=== PATIENT | male | born 1945 | race Caucasian/White ===

== ENCOUNTER 2018-12-31 05:00 | Inpatient (IN) ==
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
[2018-12-31] MEDS ORDERED: CEFAZOLIN 2000MG 2,000 MG/15 ML SYR IV SCH (06:00)
[2018-12-31] MEDS ORDERED: LR 15ML/HR IV SCH ×2 (06:00)
[2018-12-31] MEDS ORDERED: BUPIVACAINE/EPINEPHRINE 0.5% MPF 1:200,000 30 ML VIAL ONE ×2 (06:34→06:45)
[2018-12-31] MEDS ORDERED: MIDAZOLAM HCL 1 MG/ML 2ML VIAL ONE (06:38)
[2018-12-31] MEDS ORDERED: fentaNYL citrate 100 MCG/2 ML VIAL ONE (06:38)
[2018-12-31] MEDS ORDERED: LIDOCAINE HCL 2% 2 ML VIAL/AMP(20MG/ML) INFIL ONE (06:38)
[2018-12-31] MEDS ORDERED: PROPOFOL IV EMULSION 10 MG/ML 20 ML VIAL IV ONE (06:38)
[2018-12-31] MEDS ORDERED: DEXAMETHASONE SOD INJ 4 MG/ML VIAL ONE (06:38)
[2018-12-31] MEDS ORDERED: ONDANSETRON INJ 2 MG/ML 2 ML VIAL ONE (06:38)
[2018-12-31] MEDS ORDERED: LIDOCAINE HCL 1% 20 ML VIAL ONE (06:46)
--- NOTE | 2018-12-31 07:00 | History & Physical Bridge Note ---
Date of Service December 31, 2018 History & Physical Bridge Note I have examined the patient, reviewed the History & Physical and in the interval since the performance of the History & Physical I have noted the following changes of clinical significance: no changes noted
[2018-12-31] MEDS ORDERED: ePHEDrine sulfate 50 MG/ML SYR ONE (07:35)
[2018-12-31] MEDS ORDERED: POVIDONE-IODINE OP SOLN 30 ML BTL ONE (07:59)
[2018-12-31] MEDS ORDERED: ATROPINE SULFATE 0.1 MG/ML 10ML SYR IV PRN (08:06)
[2018-12-31] MEDS ORDERED: FLUMAZENIL 0.1 MG/1 ML 10 ML VIAL IV PRN (08:06)
[2018-12-31] MEDS ORDERED: fentaNYL citrate 100 MCG/2 ML VIAL IV PRN (08:06)
[2018-12-31] MEDS ORDERED: ONDANSETRON INJ 2 MG/ML 2 ML VIAL IV PRN ×2 (08:06→09:36)
[2018-12-31] MEDS ORDERED: PROMETHAZINE HCL 12.5 MG in SODIUM CHLORIDE 0.9% 50 ML IV PRN (08:06)
[2018-12-31] MEDS ORDERED: LABETALOL HCL IV 5 MG/ML 20ML IV PRN (08:06)
[2018-12-31] MEDS ORDERED: ePHEDrine sulfate 50 MG/ML AMP IV PRN (08:06)
[2018-12-31] MEDS ORDERED: NALOXONE HCL 0.4 MG/1 ML VIAL/CARP IV PRN ×2 (08:06→09:36)
--- NOTE | 2018-12-31 08:18 | Post Operative Brief Note ---
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
--- NOTE | 2018-12-31 08:23 | Fluoroscopy Report ---
FL foot LT 2V CLINICAL HISTORY: LT FOOT FOURTH RAY RESECTION COMPARISON STUDY: Left foot 12/24/2018. FLUOROSCOPY TIME: 1.3 seconds. FINDINGS: Single fluoroscopic spot image of the left foot demonstrate amputation of the left fourth d igit. IMPRESSION: Fluoroscopy provided for left fourth toe amputation. Electronically signed by: Aleksandr Ayala M.D. 12/31/2018 8:21 AM
--- NOTE | 2018-12-31 08:35 | Operative Report ---
Post Operative Report Pre & Post Diagnosis Operation Date: 12/31/18 07:00 Pre-Op Diagnosis: Left Foot Fourth Metatarsal Osteomyelitis Post-Op Diagnosis: Left Foot Fourth Metatarsal Osteomyelitis Procedure Operation Date: 12/31/18 07:00 Actual Procedures p Left Foot Fourth Ray Resection(Left) - Dimitri Sousa MD Surgeon Coby Reagan. Home Service Advisor randal [place] Estimated Blood Loss 10 Findings Consistent with Post-Op Diagnosis Specimens Left fourth metatarsal, left foot sinus tract Anesthesia Type General Complications none Disposition Accompanied Patient To Recovery: No Disposition: Recovery Room Description of Procedure Patient was taken to the operating room and placed under general anesthesia. He was given 2 g of IV Ancef for surgical prophylaxis. Time out was performed. He is prepped and draped in routine sterile fashion. I was present during the entire case and assisted with exposure, removal the fourth metatarsal, intraoperative x-rays, hemostasis and closure. Please see Dr. Sousa's operative report for further detail. Patient was awakened and transferred to the recovery room in stable condition. I attest to the content of the Intraoperative Record and any orders documented therein. Any exceptions are noted below.
--- NOTE | 2018-12-31 08:53 | Operative Report ---
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 He has had a spinal cord injury. He also had severe injury to his left foot with reconstructive surgery in the past. He has had a intermittently draining wound on the plantar aspect of his foot for over a year. Recently he had a bout of cellulitis. X-rays show substantial midfoot arthritis. MRI shows a fluid collection with bony edema and destruction of the fourth metatarsal head consistent with osteomyelitis. The fourth ray is healed in a plantar flexed position and is prominent plantarly. Treatment options risks and benefits discussed and they would like to proceed with operative intervention. Description of Procedure Informed consent obtained. Patient identified. He identified the operative site as a left foot fourth ray. I marked with my initials. Preoperative surgical timeout performed. Preop dose of IV antibiotics given. He was taken to the operating room positioned supine on the OR table. Bony prominences were inspected and padded. General anesthetic was administered. A bump was placed under the left hip and a tourniquet on the left thigh. There was a nondraining plantar callosity of the small pinpoint area centrally. The fourth metatarsal head was notably prominent. There was deformity of the foot. Ankle and midfoot are notably arthritic. Achilles did not appear to be appreciably tight. The calf was very withered. Fluoroscopic guidance was utilized throughout the case. DVT prophylaxis with SCDs. The limb was exsanguinated with the Esmarch. The Esmarch was wrapped around the hindfoot and leg but not the forefoot. Tourniquet inflated 250 mmHg. After manipulating the foot for examination there was a small amount of the plantar sinus. I then made an ellipsoid incision and excised the plantar sinus as well as what appeared to be the sinus tract cyst wall and part of the metatarsal head. I then made a longitudinal incision incorporating a prior proximal incision. A tennis racquet incision was made around the base of the fourth toe. The incision was taken down to bone on the metatarsal and around the capsule of the metatarsal phalangeal joint which was markedly deformed secondary to claw toe deformity. The fourth ray was transected about mid metatarsal. It was then subperiosteally dissected out. At the level of metatarsophalangeal joint the pseudocapsule cyst wall and joint capsule were all excised en vicki. Care was taken to not enter the third or fifth spaces. Proper metatarsal as well as level of resection were identified fluoroscopically. Metatarsal was beveled proximally. None of the other metatarsals were notably prominent. I then performed sharp excisional debridement of the remainder of the pseudocyst wall and debris distally. Tourniquet was let down and meticulous hemostasis was performed. The culture was obtained after removing the plantar callosity at the beginning of the surgery. The resected bone and tissue was sent for specimen. Irrigation was performed with Betadine lavage x5 500 cc followed by sterile normal saline. The dorsal incision was closed with interrupted 3-0 nylon sutures. Local anesthetic was injected in all incisions. Plantarly packed half inch iodoform gauze into the wound. A soft sterile dressing Xeroform 4 x 4's Garret wrap and postop shoe were applied. Postoperatively DVT prophylaxis with SCDs. He will need to be nonweightbearing. He ambulates very minimally and usually scoots around on his buttocks. I would recommend [facility]. Also will consult ID and will consult wound care nurse for wound VAC tomorrow. He will be placed on IV antibiotics. Specimens mentioned above. Counts correct. Blood loss 10 cc. At the onclusion the operation spoke patient's family informed of my findings. Postoperative instructions were given. I attest to the content of the Intraoperative Record and any orders documented therein. Any exceptions are noted below.
--- NOTE | 2018-12-31 09:30 | Anesthesiology Progress Note ---
Date of Service December 31, 2018 Anesthesia Post Procedure Vital Signs Vital Signs: Temp Pulse Pulse Resp BP Pulse Ox 12/31/18 09:10 37.2 C 64 16 123/80 94 12/31/18 09:00 67 21 119/76 93 12/31/18 08:50 64 17 127/85 95 12/31/18 08:40 90 16 132/72 96 12/31/18 08:33 37 C 80 16 109/84 97 12/31/18 05:35 36.4 C L 65 20 125/82 95 Transfer of Care Handoff Completed per policy Notes Mental Status: alert / awake / arousable Patient Amnestic to Procedure: Yes Nausea / Vomiting: adequately controlled Pain: adequately controlled Airway Patency, RR, SpO2: stable & adequate BP & HR: stable & adequate Hydration State: stable & adequate Anesthetic Complications: no major complications apparent
[2018-12-31] MEDS ORDERED: TRAMADOL HCL 50 MG TABLET PO PRN (09:36)
[2018-12-31] MEDS ORDERED: MAGNESIUM HYDROXIDE SUSP 30 ML UDC PO PRN (09:36)
[2018-12-31] MEDS ORDERED: HYDROmorphone INJ 0.5 MG/0.5 ML SYR IV PRN (09:36)
[2018-12-31] MEDS ORDERED: OXYCODONE HCL IR 5 MG TAB (IMMEDIATE RELEASE) PO PRN (09:36)
[2018-12-31] MEDS ORDERED: METOCLOPRAMIDE HCL INJ 5 MG/ML 2 ML VIAL IV PRN (09:36)
[2018-12-31] MEDS ORDERED: BISACODYL 10 MG SUPP PR PRN (09:36)
[2018-12-31] MEDS: SODIUM CHLORIDE 0.9% 1000ML 1,000 ML IV SCH ×2 (10:03→22:10)
[2018-12-31] MEDS: MULTIVITAMIN TAB PO SCH (10:40)
[2018-12-31] MEDS: DOCUSATE SODIUM 100 MG CAP PO SCH ×2 (10:41→20:16)
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
[2018-12-31] MEDS: ACETAMINOPHEN 500 MG TAB PO SCH ×2 (13:53→22:09)
[2018-12-31] MEDS: CEFAZOLIN 2000MG 2,000 MG/15 ML SYR IV SCH ×2 (16:09→23:29)
--- NOTE | 2018-12-31 16:58 | Orthopedic Progress Note ---
Date of Service December 31, 2018 Assessment & Plan (1) Chronic osteomyelitis of left foot: Discussed surgical findings. Reviewed plan. Continue elevation icing pain medicine and antibiotics. Will await culture results. Plan to apply wound VAC tomorrow. Plan for rehab versus [facility]. For now he needs to be nonweightbearing on the left foot. Present on Admission?: Yes Subjective Pain well controlled. Otherwise comfortable and tolerating a regular diet. Physical Exam Physical Exam: Capillary refill less than 2 seconds. Foot is warm. Dressing intact without drainage. He does not have any voluntary movement due to his paralysis. He does report intact sensation. Results & Data Vital Signs (Past 12 Hours) Vital Signs Temp Pulse Pulse Pulse Resp BP Pulse Ox 12/31/18 14:57 36.6 C 106 H 18 111/70 96 12/31/18 12:21 94 H 18 115/76 94 12/31/18 11:22 75 18 120/73 93 12/31/18 10:25 64 18 125/76 12/31/18 10:00 65 18 118/76 92 12/31/18 09:10 37.2 C 64 16 123/80 94 12/31/18 09:00 67 21 119/76 93 12/31/18 08:50 64 17 127/85 95 12/31/18 08:40 90 16 132/72 96 12/31/18 08:33 37 C 80 16 109/84 97 12/31/18 05:35 36.4 C L 65 20 125/82 95
[2018-12-31] MEDS: SENNA 8.6 MG TAB PO SCH (20:16)
[2018-12-31] MEDS: LISINOPRIL 20 MG TAB PO SCH (20:17)
[2019-01-01] MEDS: ACETAMINOPHEN 500 MG TAB PO SCH ×3 (05:41→21:44)
[2019-01-01 05:54] LABS: Hematocrit (blood only) 47.5 % (42-52); Hemoglobin 16.7 g/dL (14.0-18.0); Mean Corpuscular Hgb Conc 35.2 g/dL (32-36); Mean Corpuscular Volume 88.5 fL (80-100); Platelet Count 209 K/uL (130-400); RDW Coefficient of Variation 14.1 % (11.5-14.5); RDW Standard Deviation 45.2 fL (36.4-46.3); Red Blood Count 5.37 M/uL (4.7-6.1); White Blood Count 14.33 K/uL (4.8-10.8)
[2019-01-01 06:28] LABS: Calcium 9.3 mg/dl (8.5-10.1); Creatinine Clr Calc Pharmacy 57.2 ml/min; Est GFR (African American) 79.7; Est GFR (Non-African American) 68.8; Potassium 3.8 mmol/L (3.5-5.1)
[2019-01-01] MEDS: CEFAZOLIN 2000MG 2,000 MG/15 ML SYR IV SCH ×3 (08:00→23:26)
[2019-01-01] MEDS: DOCUSATE SODIUM 100 MG CAP PO SCH ×2 (08:41→20:05)
[2019-01-01] MEDS: MULTIVITAMIN TAB PO SCH (08:41)
--- NOTE | 2019-01-01 10:42 | Orthopedic Progress Note ---
Date of Service January 01, 2019 Assessment & Plan (1) Chronic osteomyelitis of left foot: Mechanical devices for DVT prophylaxis. Continue Ancef and await infectious diseases input. Cultures are growing gram-positive cocci. We are prepared to do a PICC line if necessary. Wound VAC has been applied. Transfer to [facility] hopefully is pending in the next day or so. White count likely elevated secondary to stress. Nonweightbearing on the left side. Wheelchair. Present on Admission?: Yes Subjective No problems. Pain well controlled. Physical Exam Physical Exam: Dorsalis pedis 2+. Dorsal incision benign. Plantar incision open. He does not have motor function. He can feel his toes and has capillary refill less than 2 seconds. There is minimal swelling and no substantial erythema. A wound VAC is applied with Griselda Brown. Results & Data Vital Signs (Past 12 Hours) Vital Signs Temp Pulse Pulse Resp BP Pulse Ox 01/01/19 07:38 36.6 C 63 16 118/78 94 01/01/19 02:50 36.6 C 64 14 135/78 95 12/31/18 23:00 37.0 C 71 14 134/75 96 Laboratory Results 01/01/19 01/01/19 Range/Units 05:35 05:35 WBC 14.33 H (4.8-10.8) K/uL RBC 5.37 (4.7-6.1) M/uL Hgb 16.7 (14.0-18.0) g/dL Hct 47.5 (42-52) % MCV 88.5 (80-100) fL MCH 31.1 (25-34) pg MCHC 35.2 (32-36) g/dL RDW Std Deviation 45.2 (36.4-46.3) fL RDW Coeff of Maggie 14.1 (11.5-14.5) % Plt Count 209 (130-400) K/uL MPV 11.0 H (7.4-10.4) fL Sodium 142 (136-145) mmol/L Potassium 3.8 (3.5-5.1) mmol/L Chloride 108 H (98-107) mmol/L Carbon Dioxide 25 (21-32) mmol/L Anion Gap 9.0 (3-11) BUN 12 (7-18) mg/dl Creatinine 1.06 (0.6-1.4) mg/dl Est Cr Clr Drug Dosing 57.2 ml/min Est GFR ( Amer) 79.7 Est GFR (Non-Af Amer) 68.8 BUN/Creatinine Ratio 11.0 (10-20) Glucose 103 H (70-99) mg/dl Calcium 9.3 (8.5-10.1) mg/dl Specimen Hemolysis Microbiology 12/31/18 07:40 Gram Stain - Final Toe,Left Fourth
--- NOTE | 2019-01-01 15:25 | Infectious Disease Progress Nt ---
Date of Service January 01, 2019 Assessment & Plan (1) Chronic osteomyelitis of left foot: 73-year-old male with chronic osteomyelitis of the left foot now status post resection. Patient will continue on IV cefazolin for now pending final culture results and sensitivities. Will follow. Subjective Patient seen in follow-up for left foot infection. Pain is controlled. Offers no new complaints. Remains afebrile. Cultures growing staph species. Review of Systems Review of Systems: All systems reviewed & are unremarkable except as noted in HPI & below Physical Exam Constitutional: WD/WN, vitals as above comfortable; no acute distress Eyes: PERRL, conjunctivae normal, anicteric sclerae ENMT: external ear and nose normal, oropharynx normal Neck: trachea midline, no thyromegaly neck nontender Respiratory: normal respiratory effort, lungs clear to auscultation normal percussion; does not use accessory muscles Cardiovascular: Rate/Rhythm: regular rate and regular rhythm Heart Sounds: normal S1 and normal S2; no gallop, no murmur and no cardiac rub Vessels: normal peripheral pulses; no JVD Gastrointestinal (Abdomen): normal bowel sounds, soft, nontender, no hepatosp lenomegaly Musculoskeletal: Spine: thoracic spine normal to inspection and lumbar spine normal to inspection; no cervical spinal tenderness Skin: no rashes, warm and dry normal turgor Neurologic: moves all extremities and awake; no focal motor deficits Psychiatric: A+Ox3, euthymic affect Orientation: cooperative Lymphatic: no cervical or axillary lymphadenopathy no inguinal lymphadenopathy Results & Data Vital Signs (Past 12 Hours) Vital Signs Temp Pulse Pulse Resp BP BP Pulse Ox 01/01/19 15:15 36.4 C L 73 16 105/70 92 01/01/19 12:31 36.4 C L 76 18 118/72 93 01/01/19 07:38 36.6 C 63 16 118/78 94 Laboratory Results Short CBC 01/01/19 Range/Units 05:35 WBC 14.33 H (4.8-10.8) K/uL Hgb 16.7 (14.0-18.0) g/dL Hct 47.5 (42-52) % Plt Count 209 (130-400) K/uL BMP 01/01/19 05:35 Sodium 142 Potassium 3.8 Chloride 108 H Carbon Dioxide 25 BUN 12 Creatinine 1.06 Glucose 103 H Calcium 9.3 Diagnostic Findings Microbiology 12/31/18 07:40 Toe,Left Fourth Gram Stain - Final 12/31/18 07:40 Toe,Left Fourth Aerobic and Anaerobic Culture - Preliminary Staphylococcus species
[2019-01-01] MEDS: LISINOPRIL 20 MG TAB PO SCH (20:05)
[2019-01-01] MEDS: SENNA 8.6 MG TAB PO SCH (20:05)
[2019-01-02] MEDS: ACETAMINOPHEN 500 MG TAB PO SCH ×3 (05:48→21:12)
[2019-01-02] MEDS: MULTIVITAMIN TAB PO SCH (08:44)
[2019-01-02] MEDS: CEFAZOLIN 2000MG 2,000 MG/15 ML SYR IV SCH ×3 (08:44→23:19)
[2019-01-02] MEDS: DOCUSATE SODIUM 100 MG CAP PO SCH ×2 (08:44→21:11)
--- NOTE | 2019-01-02 16:47 | Orthopedic Progress Note ---
Date of Service January 02, 2019 Assessment & Plan (1) Chronic osteomyelitis of left foot: Mechanical devices for DVT prophylaxis. Continue Ancef and await infectious diseases input. Cultures are growing gram-positive cocci, sensitivities pending. We are prepared to do a PICC line if necessary. Wound VAC has been applied - will plan to change on Sunday prior to discharge. Transfer to [facility] when authorization is obtained and sensitivities finalized to determine what antibiotic he needs. Plans to hopefully discharge on Sunday. Nonweightbearing on the left side. Wheelchair as needed out of bed. Post op shoe left foot at all times. Will re-eval in AM. Subjective Patient seen in follow-up for left foot infection. Pain is controlled. Offers no new complaints. Remains afebrile. Cultures growing staph species. Results & Data Vital Signs (Past 12 Hours) Vital Signs Temp Pulse Resp BP Pulse Ox 01/02/19 15:14 36.6 C 73 17 109/72 96 01/02/19 07:10 36.7 C 65 18 111/67 91
[2019-01-02] MEDS: LISINOPRIL 20 MG TAB PO SCH (21:12)
[2019-01-02] MEDS: SENNA 8.6 MG TAB PO SCH (21:12)
--- NOTE | 2019-01-02 21:28 | Infectious Disease Progress Nt ---
Date of Service January 02, 2019 Assessment & Plan (1) Chronic osteomyelitis of left foot: 73-year-old male with chronic osteomyelitis of the left foot now status post resection. Patient will continue on IV cefazolin for now pending final culture results and sensitivities. Will follow. Subjective Patient seen in follow-up for left foot infection. Pain is controlled. Offers no new complaints. Remains afebrile. Cultures growing staph species. Review of Systems Review of Systems: All systems reviewed & are unremarkable except as noted in HPI & below Physical Exam Constitutional: WD/WN, vitals as above comfortable; no acute distress Eyes: PERRL, conjunctivae normal, anicteric sclerae ENMT: external ear and nose normal, oropharynx normal Neck: trachea midline, no thyromegaly neck nontender Respiratory: normal respiratory effort, lungs clear to auscultation normal percussion; does not use accessory muscles Cardiovascular: Rate/Rhythm: regular rate and regular rhythm Heart Sounds: normal S1 and normal S2; no gallop, no murmur and no cardiac rub Vessels: normal peripheral pulses; no JVD Gastrointestinal (Abdomen): normal bowel sounds, soft, nontender, no hepatosp lenomegaly Musculoskeletal: Spine: thoracic spine normal to inspection and lumbar spine normal to inspection; no cervical spinal tenderness Skin: no rashes, warm and dry normal turgor Neurologic: moves all extremities and awake; no focal motor deficits Psychiatric: A+Ox3, euthymic affect Orientation: cooperative Lymphatic: no cervical or axillary lymphadenopathy no inguinal lymphadenopathy Results & Data Vital Signs (Past 12 Hours) Vital Signs Temp Pulse Resp BP Pulse Ox 01/02/19 15:14 36.6 C 73 17 109/72 96 Laboratory Results Laboratory Results - last 48 hr 01/01/19 01/01/19 05:35 05:35 WBC 14.33 H RBC 5.37 Hgb 16.7 Hct 47.5 MCV 88.5 MCH 31.1 MCHC 35.2 RDW Std Deviation 45.2 RDW Coeff of Maggie 14.1 Plt Count 209 MPV 11.0 H Sodium 142 Potassium 3.8 Chloride 108 H Carbon Dioxide 25 Anion Gap 9.0 BUN 12 Creatinine 1.06 Est Cr Clr Drug Dosing 57.2 Est GFR ( Amer) 79.7 Est GFR (Non-Af Amer) 68.8 BUN/Creatinine Ratio 11.0 Glucose 103 H Calcium 9.3 Specimen Hemolysis Diagnostic Findings Microbiology 05/28/19 07:40 Toe,Left Fourth Gram Stain - Final 12/31/18 07:40 Toe,Left Fourth Aerobic and Anaerobic Culture - Preliminary Staphylococcus species
[2019-01-03] MEDS: ACETAMINOPHEN 500 MG TAB PO SCH ×2 (05:49→14:59)
[2019-01-03] MEDS: CEFAZOLIN 2000MG 2,000 MG/15 ML SYR IV SCH (07:26)
[2019-01-03] MEDS: DOCUSATE SODIUM 100 MG CAP PO SCH (08:13)
[2019-01-03] MEDS: MULTIVITAMIN TAB PO SCH (08:13)
[2019-01-03] MEDS ORDERED: DAPTOmycin 400 MG in SYRINGE 0 ML IV SCH (11:00)
[2019-01-03] MEDS ORDERED: DAPTOmycin 500 MG VIAL IV SCH (11:00)
[2019-01-03] MEDS ORDERED: VANCOMYCIN CONSULT ACTIVE PRN (12:59)
--- NOTE | 2019-01-03 13:05 | Orthopedic Progress Note ---
Date of Service January 03, 2019 Assessment & Plan (1) Chronic osteomyelitis of left foot: Change wound VAC today. Spoke with Dr. Kraft. Daptomycin as best minimum inhibitory concentrations. Vancomycin is next best. Case management has informed us that the detention facility will not accept on daptomycin. We will change to vancomycin with pharmacy consult. Insert PICC line. Patient will follow-up with Dr. Kraft in 1 to 2 weeks and will see me in 7 to 10 days. No weight on the leg. Elevate. Continue wound VAC with change 3 times per week. Present on Admission?: Yes Subjective No problems reported. Physical Exam Physical Exam: Dressing intact. Await change of wound VAC later today. Results & Data Vital Signs (Past 12 Hours) Vital Signs Temp Pulse Resp BP Pulse Ox 01/03/19 07:45 36.4 C L 79 20 117/72 97 Laboratory Results Microbiology 12/31/18 07:40 Gram Stain - Final Toe,Left Fourth Aerobic and Anaerobic Culture - Preliminary Coag neg staph not lugdunensis
--- NOTE | 2019-01-03 14:42 | Pharmacy Report ---
Pharmacy Abx Initial Consult - Date of Service January 03, 2019 - Pharmacy Dosing Scope Date of Consult: 01/03/19 Consultation requested by: Suad Oconnor PA-C Pharmacy is consulted to initiate Vancomycin IV dosing therapy, order appropriate labs and adjust drug dose/frequency. - Subjective The patient is a 73 year old M admitted on 01/01/19 09:59. - Objective Height: 5 ft 7 in Weight: 76.26 kg Vital Signs (Past 12hrs): Vital Signs Temp Pulse Resp BP Pulse Ox 01/03/19 07:45 36.4 C L 79 20 117/72 97 Micro Results: Microbiology 12/31/18 07:40 Toe,Left Fourth Gram Stain - Final 12/31/18 07:40 Toe,Left Fourth Aerobic and Anaerobic Culture - Preliminary Coag neg staph not lugdunensis- Susceptible to Dapto, Vanco, Bactrim and Tetracycline. Resistant to Oxacillin, Erythromycin, Clindamycin - Risk Factors for Resistance * Antimicrobial use within the last 90 days [Clindamycin PO for current infection] - Assessment & Plan Assessment 73 year old M with chronic Osteomyelitis ongoing since September this year. He was recently on Clindamycin for this but failed therapy. While admitted he was started on Ancef gm IV q8h on 12/31 but discontinued this morning since culture results came back R to Oxacillin and S to Daptomycin (JACQUES </= 0.5), Vanco (JACQUES = 2). Daptomycin 6 mg/kg IV q24h was ordered but [facility] will not accept this so this was switched to Vancomycin IV. However patient did receive the first dose of Daptomycin at noon today so he will not need Vancomycin until tomorrow at noon. If patient is discharged today then would start with a loading dose of Vanco 2 gm IV tomorrow at noon. Plan Vancomycin IV * Estimated PK Parameters: Vd 0.7 L/kg, Paulo 0.055 hr-1, t1/2 12.6 hr * Loading dose: 2000 mg (26 mg/kg) * Maintenance dose: 1250 mg IV (16.4 mg/kg) every 16 hours * Goal trough level for Osteomyelitis: 17 to 20 mcg/mL * Trough level ordered for 6/3 before dose at 1000 (after 2 maintenance doses). Pharmacy will continue to follow and will adjust dose/frequency as necessary while admitted. Thank you.
--- NOTE | 2019-01-03 16:14 | Infectious Disease Progress Nt ---
Date of Service January 03, 2019 Assessment & Plan (1) Chronic osteomyelitis of left foot: 73-year-old male with chronic osteomyelitis of the left foot now status post resection. Patient will be treated with daptomycin or vancomycin. Would like to see in 2-3 weeks in f/u. Subjective Patient seen in follow-up for left foot infection. Pain is controlled. Offers no new complaints. Remains afebrile. Cultures growing resistant coag neg Staph. Physical Exam Constitutional: WD/WN, vitals as above comfortable; no acute distress Eyes: PERRL, conjunctivae normal, anicteric sclerae ENMT: external ear and nose normal, oropharynx normal Neck: trachea midline, no thyromegaly neck nontender Respiratory: normal respiratory effort, lungs clear to auscultation normal percussion; does not use accessory muscles Cardiovascular: Rate/Rhythm: regular rate and regular rhythm Heart Sounds: normal S1 and normal S2; no gallop, no murmur and no cardiac rub Vessels: normal peripheral pulses; no JVD Gastrointestinal (Abdomen): normal bowel sounds, soft, nontender, no hepatosplenomegaly Musculoskeletal: Spine: thoracic spine normal to inspection and lumbar spine normal to inspection; no cervical spinal tenderness Skin: no rashes, warm and dry normal turgor Neurologic: moves all extremities and awake; no focal motor deficits Psychiatric: A+Ox3, euthymic affect Orientation: cooperative Lymphatic: no cervical or axillary lymphadenopathy no inguinal lymphadenopathy Results & Data Vital Signs (Past 12 Hours) Vital Signs Temp Pulse Pulse Pulse Resp BP BP 01/03/19 15:18 36.4 C L 79 76 76 20 118/72 117/72 01/03/19 07:45 36.4 C L 79 20 117/72 Pulse Ox 01/03/19 15:18 97 01/03/19 07:45 97
--- NOTE | 2019-01-03 16:41 | Discharge Summary ---
Date of Service January 03, 2019 Discharge Data Consultations 12/31/18 09:36 Consult Case Management - Discharge Planning Routine Consult Infectious Diseases Routine Procedures Performed Operation Date: 12/31/18 07:00 Actual Procedures p Left Foot Fourth Ray Resection(Left) - Dimitri Sousa MD Hospital Course (1) Chronic osteomyelitis of left foot: Patient was admitted to [facility] after undergoing an elective left foot fourth metatarsal ray resection for osteomyelitis on December 31, 2018. This was done by Dr. Dimitri Sousa. His surgery was performed with general anesthesia. He tolerated the procedure well without any intraoperative complications. He was given 2 g of IV Ancef for surgical prophylaxis which was continued after surgery. Intraoperative x-rays confirmed excision of the 4th metatarsal. Given a regular diet after the procedure and tolerated during his inpatient stay. He was allowed out of bed, nonweightbearing left lower extremity with the assistance of a walker or wheelchair. Postoperative she was placed on his left foot and to remain on at all times. Postoperative day one and wound VAC was placed on his left foot. This was again changed on Thursday, January 03, 2019. Intraoperative cultures were obtained and cultures finalized with coag negative staph lugdunesis. Sensitivities were noted. ID consult was placed and recommended IV daptomycin for treatment. PICC line was also recommended and informed consent was obtained and a PICC line was placed on January 03, 2019. He was [facility]. He requests to [facility]. They will not except on IV daptomycin due to the Li. His IV antibiotic was switched IV vancomycin January 03, 2019. He did not have any postoperative pain. Pain medications were prescribed to take on an as-needed basis and included Tylenol, oxycodone and tramadol. He was on AV foot pumps and SAMUEL stockings for DVT prophylaxis. Recommended elevation. He tolerated the wound VAC without difficulty.He is also seen and evaluated by PT and OT and did well out of bed. He will follow up next week as scheduled with Dr. Sousa. He was discharged to [facility] in stable condition on January 03, 2019. Discharge Instructions as per EMR
[2019-01-04] MEDS ORDERED: VANCOMYCIN HCL 2,000 MG in SODIUM CHLORIDE 0.9% 500 ML IV SCH (11:00)
[2019-01-05] MEDS ORDERED: VANCOMYCIN HCL 1,250 MG in SODIUM CHLORIDE 0.9% 250 ML IV SCH (02:00)
[2019-01-06] MEDS ORDERED: VANCOMYCIN TROUGH ONE (09:30)
== END 2019-01-03 16:34 | DRG 476 ==
LOC: ASU 05:00 → 3E 05:00
DX: Z87.828 Personal history of other (healed) physical injury and trauma; Z86.19 Personal history of other infectious and parasitic diseases; Z79.899 Other long term (current) drug therapy; M86.672 Other chronic osteomyelitis, left ankle and foot; Z86.69 Personal history of other diseases of the nervous system and sense organs; Z98.890 Other specified postprocedural states; B95.7 Other staphylococcus as the cause of diseases classified elsewhere; I10 Essential (primary) hypertension; Z87.891 Personal history of nicotine dependence

== ENCOUNTER 2019-07-26 18:37 | Inpatient (IN) ==
[2019-07-26] MEDS ORDERED: SODIUM CHLORIDE 0.9% 1000ML 1,000 ML IV ONE (18:47)
[2019-07-26 18:54] LABS: Basophils # (auto) 0.03 K/uL (0-0.2); Basophils % (auto) 0.2 %; Eosinophils # (auto) 0.14 K/uL (0-0.5); Hematocrit (blood only) 51.4 % (42-52); Hemoglobin 18.1 g/dL (14.0-18.0); Immature Granulocytes # (auto) 0.03 K/uL (0.00-0.02); Immature Granulocytes % (auto) 0.2 %; Lymphocytes # (auto) 1.49 K/uL (1.2-3.4); Lymphocytes % (auto) 10.8 %; Mean Corpuscular Hemoglobin 30.7 pg (25-34); Mean Corpuscular Hgb Conc 35.2 g/dL (32-36); Mean Corpuscular Volume 87.3 fL (80-100); Mean Platelet Volume 12.1 fL (7.4-10.4); Monocytes # (auto) 0.98 K/uL (0.11-0.59); Monocytes % (auto) 7.1 %; Neutrophils # (auto) 11.09 K/uL (1.4-6.5); Neutrophils % (auto) 80.7 %; Platelet Count 210 K/uL (130-400); RDW Coefficient of Variation 13.7 % (11.5-14.5); RDW Standard Deviation 43.2 fL (36.4-46.3); Red Blood Count 5.89 M/uL (4.7-6.1); White Blood Count 13.76 K/uL (4.8-10.8)
[2019-07-26] MEDS ORDERED: PIPERACILLIN/TAZOBACTAM 4.5 GM/120 ML BAG IV ONE (19:04)
[2019-07-26] MEDS ORDERED: PIPERACILL/TAZOBAC CONSULT ACTIVE PRN (19:04)
[2019-07-26 19:05] LABS: Partial Thromboplastin Ratio 0.9; Partial Thromboplastin Time 23.9 Seconds (21.0-31.0); Prothrombin Time 10.6 Seconds (9.0-12.0)
[2019-07-26 19:07] LABS: Alanine Aminotransferase 36 U/L (12-78); Aspartate Aminotransferase 25 U/L (15-37); BUN Creatinine Ratio 11.9 (10-20); Blood Urea Nitrogen 14 mg/dl (7-18); Carbon Dioxide 25 mmol/L (21-32); Chloride 107 mmol/L (98-107); Est GFR (African American) 68.8; Est GFR (Non-African American) 59.4; Glucose 117 mg/dl (70-99); Potassium 3.6 mmol/L (3.5-5.1); Sodium 138 mmol/L (136-145)
--- NOTE | 2019-07-26 19:11 | XRay Report ---
XR chest 1V portable CLINICAL HISTORY: 74 years-old Male presenting with Sepsis. TECHNIQUE: Portable upright AP view of the chest was obtained. COMPARISON: 01/28/2019. FINDINGS: Atherosclerosis of the aortic arch. Cardiac silhouette borderline enlarged. Lower lung volumes with e levation of the right hemidiaphragm exaggerated from prior exam. Mildly prominent vasculature in the left lung. No focal opacity. No large effusion or pneumothorax. Osseous structures normal. Upper abdo men normal. IMPRESSION: 1. Low lung volumes with hypoventilatory changes. Allowing for this, no gross evidence of a focal in filtrate to suggest pneumonia. 2. Vascular crowding is suspected in the left lung accounting for the added density, related to low lung volumes. ACT 112: Negative or not required by law. Electronically signed by: Dimitri Adams M.D. 07/26/2019 7:09 PM
[2019-07-26 19:12] LABS: Alkaline Phosphatase 99 U/L (45-117); Bilirubin,Total 1.2 mg/dl (0.2-1)
--- NOTE | 2019-07-26 19:47 | CT Scan Report ---
CT head/brain wo con CLINICAL HISTORY: 74 years-old Male presenting with confusion. TECHNIQUE: Multidetector CT imaging of the head was performed without the use of intravenous contrast . IV contrast: None. One or more dose lowering techniques were used consistent with the principles of ALARA (as low as reasonably achievable), including automatic exposure control, mA or kV adjustment t o individual patient size, and/or use of iterative reconstruction. COMPARISON: None. CT DOSE (mGy.cm): The estimated cumulative dose is 537.48 mGy.cm. FINDINGS: Promotions Producer topogram: 2 gracia holes noted. Proportional ventricular and sulcal prominence, likely age-related parenchymal volume loss. No hemorr chantale. Periventricular and subcortical white matter hypoattenuation, nonspecific but likely indicative of chronic small vessel ischemic change. There is also focal encephalomalacia in the bilateral front al lobe subjacent to the gracia holes. The presence of extensive streak artifact arising from the metal lic hardware degrades evaluation of the superior portions of the cerebrum. No acute territorial infar ct. No mass effect or midline shift. No extra-axial fluid collection. Paranasal sinuses and mastoid a ir cells clear. Calvarium intact. IMPRESSION: 1. Hardware degrades evaluation of the superior portions of the cerebrum. Allowing for this, no acut e intracranial pathology. 2. Postsurgical changes with encephalomalacia in the bilateral frontal lobes. 3. Chronic small vessel ischemic change. ACT 112: Negative or not required by law. Electronically signed by: Dimitri Adams M.D. 07/26/2019 7:46 PM
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
[2019-07-26 20:23] LABS: POC Urine Bilirubin Negative (Negative); POC Urine Blood Negative (Negative); POC Urine Glucose Normal (Normal); POC Urine Ketones 1+ (Small) (Negative); POC Urine Leukocytes Negative (Negative); POC Urine Nitrite Negative (Negative); POC Urine Protein Trace (Negative); POC Urine Urobilinogen Normal (Normal); POC Urine pH 5 (4.5-7.5)
[2019-07-26 20:25] LABS: Appearance Urine Clear (Clear); Bilirubin Urine Negative (Negative); Blood Urine Negative (Negative); Color Urine Yellow; Glucose Urine UA Negative (Negative); Ketones Urine 1+ (Negative); Leukocyte Esterase Urine Negative (Negative); Nitrite Urine Negative (Negative); Protein Urine Negative (Negative); Specific Gravity Urine 1.014 (1.000-1.030); Urobilinogen Urine Negative (Negative); pH Urine 6.5 (4.5-7.5)
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
[2019-07-26] MEDS ORDERED: POLYETHYLENE (MIRALAX) 17 GM PACK PO PRN (21:47)
[2019-07-26] MEDS ORDERED: DOCUSATE SODIUM 100 MG CAP PO PRN (21:47)
[2019-07-26] MEDS ORDERED: ACETAMINOPHEN 500 MG TAB PO PRN (21:47)
[2019-07-26] MEDS: LACTATED RINGER'S 1,000 ML IV SCH (22:19)
[2019-07-26 22:49] LABS: C Reactive Protein 0.92 mg/dl (0-0.29); Magnesium 1.9 mg/dl (1.8-2.4); Phosphorus 2.8 mg/dl (2.5-4.9); Thyroid Stimulating Hormone 1.79 uIu/ml (0.300-4.500)
[2019-07-27] MEDS: LACTATED RINGER'S 1,000 ML IV SCH (06:22)
[2019-07-27 07:33] LABS: Albumin Level 3.3 gm/dl (3.4-5.0); BUN Creatinine Ratio 13.3 (10-20); Bilirubin Direct 0.2 mg/dl (0-0.2); Calcium 8.6 mg/dl (8.5-10.1); Creatinine Clr Calc Pharmacy 57.6 ml/min; Est GFR (Non-African American) 73.3; Potassium 3.5 mmol/L (3.5-5.1)
--- NOTE | 2019-07-27 07:34 | XRay Report ---
XR chest 1V portable CLINICAL HISTORY: Possible pneumonia. COMPARISON STUDY: Chest radiograph January 28, 2019 and July 26, 2019. FINDINGS: Mild elevation of the right hemidiaphragm is unchanged. No pneumothorax or pleural effusion is noted. No consolidation is identified. There is no evidence for pulmonary edema. Patient is mildl y rotated. IMPRESSION: No acute cardiopulmonary findings. ACT 112: Negative or not required by law. Electronically signed by: Phan Benson M.D. 07/27/2019 7:32 AM
[2019-07-27 07:36] LABS: Bilirubin,Total 1.3 mg/dl (0.2-1); Total Protein 6.8 gm/dl (6.4-8.2)
[2019-07-27 08:11] LABS: Basophils # (auto) 0.02 K/uL (0-0.2); Basophils % (auto) 0.2 %; Eosinophils % (auto) 2.3 %; Hemoglobin 16.3 g/dL (14.0-18.0); Immature Granulocytes # (auto) 0.02 K/uL (0.00-0.02); Immature Granulocytes % (auto) 0.2 %; Lymphocytes # (auto) 1.89 K/uL (1.2-3.4); Lymphocytes % (auto) 21.7 %; Mean Corpuscular Hemoglobin 30.9 pg (25-34); Mean Corpuscular Hgb Conc 34.7 g/dL (32-36); Mean Corpuscular Volume 89.2 fL (80-100); Mean Platelet Volume 10.9 fL (7.4-10.4); Monocytes # (auto) 0.87 K/uL (0.11-0.59); Neutrophils % (auto) 65.6 %; Platelet Count 187 K/uL (130-400); RDW Coefficient of Variation 13.7 % (11.5-14.5); RDW Standard Deviation 44.6 fL (36.4-46.3); Red Blood Count 5.27 M/uL (4.7-6.1)
--- NOTE | 2019-07-27 12:12 | Ultrasound Report ---
US gallbladder CLINICAL HISTORY: altered mental status, tbili 1.3 COMPARISON STUDY: No previous studies for comparison. FINDINGS: This exam is compromised by suboptimal penetration. No hepatic lesions are identified altho ugh sensitivity is diminished on this exam. The pancreatic body is normal. The head and tail are obsc ured. No gallstones are identified. There is no gallbladder wall thickening. No biliary ductal dilata tion is noted. The common bile duct measures 5 mm in caliber. There is no right hydronephrosis. IMPRESSION: Exam compromised by suboptimal penetration. No gallstones or biliary ductal dilatation. ACT 112: Negative or not required by law. Electronically signed by: Phan Benson M.D. 07/27/2019 12:11 PM
[2019-07-27 13:50] LABS: Albumin Level 3.4 gm/dl (3.4-5.0); Bilirubin Direct 0.3 mg/dl (0-0.2); Bilirubin,Total 1.3 mg/dl (0.2-1); Total Protein 6.9 gm/dl (6.4-8.2)
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
--- NOTE | 2019-07-27 15:18 | XRay Report ---
XR foot LT min 3V routine CLINICAL HISTORY: chronic osteo, unclear source of infection COMPARISON: MRI of the left foot December 19, 2018. Left foot radiographs December 24, 2018. FINDINGS: Interval amputation of the fourth digit at the level of the mid metatarsal is noted. Marke d joint space narrowing with fusion and extensive osteophytosis is noted within the midfoot. This was present on prior exam. There is pes planus deformity. There is no acute fracture. No findings are no isaías to suggest osteomyelitis. IMPRESSION: 1. No acute fracture or radiographic evidence for osteomyelitis within the left foot. 2. 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 3. Marked joint space narrowing and osteophytosis with pes planus deformity within the hindfoot and m idfoot which suggests neuropathic arthropathy. ACT 112: Negative or not required by law. Electronically signed by: Phan Benson M.D. 07/27/2019 3:17 PM
[2019-07-27] MEDS: THIAMINE HCL 100 MG TAB PO SCH (16:26)
[2019-07-28 07:36] LABS: Basophils # (auto) 0.04 K/uL (0-0.2); Basophils % (auto) 0.5 %; Eosinophils # (auto) 0.36 K/uL (0-0.5); Eosinophils % (auto) 4.9 %; Hematocrit (blood only) 46.2 % (42-52); Hemoglobin 15.9 g/dL (14.0-18.0); Immature Granulocytes # (auto) 0.01 K/uL (0.00-0.02); Immature Granulocytes % (auto) 0.1 %; Lymphocytes # (auto) 2.04 K/uL (1.2-3.4); Lymphocytes % (auto) 27.9 %; Mean Corpuscular Hgb Conc 34.4 g/dL (32-36); Mean Corpuscular Volume 90.1 fL (80-100); Mean Platelet Volume 11.1 fL (7.4-10.4); Monocytes # (auto) 0.68 K/uL (0.11-0.59); Monocytes % (auto) 9.3 %; Neutrophils # (auto) 4.17 K/uL (1.4-6.5); Neutrophils % (auto) 57.3 %; Platelet Count 185 K/uL (130-400); RDW Coefficient of Variation 13.9 % (11.5-14.5); Red Blood Count 5.13 M/uL (4.7-6.1)
[2019-07-28 08:06] LABS: Albumin Level 3.3 gm/dl (3.4-5.0); BUN Creatinine Ratio 14.8 (10-20); Est GFR (African American) 89.3; Potassium 3.9 mmol/L (3.5-5.1)
[2019-07-28 08:09] LABS: Bilirubin,Total 0.9 mg/dl (0.2-1); Globulin 3.4 gm/dl (2.5-4.0); Total Protein 6.7 gm/dl (6.4-8.2)
[2019-07-28] MEDS: THIAMINE HCL 100 MG TAB PO SCH (08:13)
[2019-07-28 08:28] LABS: Rapid Plasma Reagin Nonreactive (Nonreactive)
[2019-07-28 08:32] LABS: Lyme Ab IgG w/WB Rflx Negative (Negative); Lyme Ab IgM w/WB Rflx Negative (Negative)
--- NOTE | 2019-07-28 12:19 | Hospitalist Progress Note ---
Date of Service July 28, 2019 Assessment & Plan (1) Altered mental status: * resolved * Patient admitted with 2/4 Sirs with heart rate = 112, WBC = 13.76. UA with no evidence of infection. Chest x-ray with no obvious infiltrate. Blood cultures pending. Patient was given 1 dose of Zosyn while in the ER. Procalcitonin = less than 0.05. CT head with no acute change. Repeat CXR without any acute infectious process. * Suspect metabolic encephalopathy likely due to dehydration as no source of infection can be found at this time. Leukocytosis is now resolved * B1 pending -- continue thiamine 100mg daily started 07/28 * B12 low normal at 321, Ammonia 18.7, TSH 1.790, wnl * Hepatitis panel pending - patient with hx Hep C 5 yrs ago, treated with ribavirin and Sovaldi * Blood cultures ngtd * RPR, Lyme normal * Xray L foot without evidence for osteomyelitis (2) SIRS (systemic inflammatory response syndrome): As above (3) Chronic osteomyelitis of left foot: * No pain with palpation of the foot. No redness or swelling * ESR is only 8, CRP minimally elevated at 0.92 * Xray without evidence of osteomeyelitis (4) Hypertension: * Blood pressure stable at 124/76 * Had previously been on lisinopril until hospitalized for osteo this summer -- BP's stable since that time * PCP follow up (5) Elevated bilirubin: * resolved * Patient without abdominal pain, but does have confusion, worsening over months * U/S GB -- no evidence for acute (6) DVT prophylaxis: * SCDs Dispo: PT/OT gladys Subjective Patient's mental status improved, answering orientation questions appropriately. Denies any pain or discomfort ROS Constitutional: no chills, aches, sweats or fever Respiratory: no sob,cough, sputum, or wheezing Cardiac: no chest pain, palpitations, edema, orthopnea or lightheadedness GI: no abdominal pain, nausea, vomiting, diarrhea or constipation : no dysuria or hesitancy Extremities: no joint pain or weakness Skin: no rash All other systems reviewed and negative Physical Exam Physical Exam: General: no distress Eyes: normal inspection, PERLL Respiratory: chest non tender, clear to auscultation, normal breath sounds, no respiratory distress, no accessory muscle use Cardiac: regular rate and rhythm, no rub or gallop, no murmur, no edema, no jvd GI/: active bowel sounds, no abd pain or tenderness, soft, non distended Extremities: normal range of motion, normal strength, non tender Neuro/Psych: alert and oriented x 3, normal mood and affect Skin: normal color, dry Results & Data Vital Signs (Past 12 Hours) Vital Signs Temp Pulse Pulse Resp BP Pulse Ox 07/28/19 11:00 36.5 C 64 18 122/75 96 07/28/19 08:20 94 H 07/28/19 07:00 36.4 C L 93 H 18 126/67 92 07/28/19 04:00 36.4 C L 83 18 131/82 91 07/28/19 00:58 54 L PG Care Time/CCT Total # of Minutes Spent Total Time Spent with Patient: Total time spent is greater than 50% in coordination of care (as documented) at patient's floor/unit and/or counseling patient: (1) Altered mental status Altered mental status type: unspecified Qualified Code(s): R41.82 - Altered mental status, unspecified (2) Hypertension Hypertension type: essential hypertension Qualified Code(s): I10 - Essential (primary) hypertension
[2019-07-29] MEDS: THIAMINE HCL 100 MG TAB PO SCH (07:47)
--- NOTE | 2019-07-29 08:34 | Hospitalist Progress Note ---
Date of Service July 29, 2019 Results & Data Vital Signs (Past 12 Hours) Vital Signs Temp Pulse Pulse Resp BP Pulse Ox 07/29/19 07:28 36.5 C 76 16 126/78 96 07/29/19 04:01 36.7 C 80 18 122/72 99 07/29/19 01:38 72 07/28/19 23:41 36.7 C 110 H 18 149/90 H 93 Laboratory Results 07/29/19 Range/Units 06:18 Vitamin B1 Pending PG Care Time/CCT Total # of Minutes Spent Total Time Spent with Patient: Total time spent is greater than 50% in coordination of care (as documented) at patient's floor/unit and/or counseling patient:
--- NOTE | 2019-07-29 10:06 | Discharge Summary ---
Date of Service July 29, 2019 Admission HPI Per Admitting Provider David Forrest is a 74-year-old male brought to [facility] ER by his son-in-law due to concerns for altered mental status. Son-in-law states that at baseline the patient tends to be argumentative, forg etful at times and tells stories that sounds to be fictitious. Overall, patient has been in his usual state of health and at normal baseline functional status. Son-in-law reports that 1 or 2 months ago patient had an acute episode of confusion where he thought he saw somebody in his closet at night when nobody was there. Otherwise son-in-law does not believe that the patient has been showing signs of cognitive decline. This afternoon the patient was driving through [place] [employer] with his son-in-law. Around 1500 the son-in-law reports that the patient became somewhat confused. He came out of the bathroom with his pants undone and was crawling in and out of the truck and asking to go to the post office. Son-in-law also states that the patient was seeing bugs and was picking at his clothes and appeared to be restless and fidgety. Patient only complains of some sweating and some mild shortness of breath on occasion. He has not been eating or drinking well at home over the last day. Otherwise no acute complaints. Specifically, no fever/chills/malaise/nausea/vomiting/diarrhea/constipation. No dysuria/suprapubic pain/frequency/urgency. No headache/visual changes/numbness/weakness. ER course: Zosyn, normal saline solution Admission Exam Per Admitting Provider General: patient sitting up in bed, restless and picking at blankets, NAD, non- toxic in appearance, AA&O only to self Skin: warm, dry, intact, no rashes or lesions, small corn on plantar surface of left foot. No erythema/exudate HEENT: NC/AT, PERRL, EOMI, anicteric sclera, conjunctiva without injection, external ear normal to inspection and nontender, nares patent, moist mucus membranes, dentures in place, no oropharyngeal lesions, neck supple, trachea midline, no LAD, no thyromegaly, no JVD Heart: +S1/S2, regular, no m/r/g Lungs: equal air entry bilaterally, no rales/rhonchi/wheezes Abd: +BS, soft, NT/ND, no masses/organomegaly/ascites, no suprapubic pain Ext: Cool extremities, 2+ pulses in UE/LE bilaterally, no clubbing/cyanosis or edema, Charcot foot deformity bilaterally Neuro: nonfocal, patient AA&O to self, speech intact, no facial droop, moving all extremities on command with equal strength 5/5, does not answer questions appropriately Principal Diagnosis Altered Mental Status, Dehydration Discharge Exam Constitutional WD/WN, vitals as above no acute distress Eyes PERRL; no scleral abnormality ENMT external ear and nose normal, oropharynx normal Neck trachea midline, no thyromegaly Respiratory normal respiratory effort, lungs clear to auscultation Cardiovascular RRR, no murmur, no edema Gastrointestinal (Abdomen) normal bowel sounds, soft, nontender, no hepatosplenomegaly Musculoskeletal Head/Neck/Chest: normocephalic and head atraumatic Skin no rashes, warm and dry Neurologic patellar DTR's 2+ bilat, sensation intact Psychiatric Orientation: alert, oriented to person and cooperative Discharge Data Allergies Allergy/AdvReac Type Severity Reaction Status Date / Time No Known Allergies Allergy Verified 07/26/19 18:59 Consultations 07/26/19 20:09 ED Decision to Admit Stat 07/28/19 17:21 Consult ARUNAG bilingual legal assistant Routine Ordered Studies 07/26/19 18:45 CT head/brain wo con Stat 07/27/19 08:51 US gallbladder Urgent 07/27 Xray Foot Hospital Course (1) Altered mental status: * resolved * Patient admitted with 2/4 Sirs with heart rate = 112, WBC = 13.76. UA with no evidence of infection. Chest x-ray with no obvious infiltrate. Blood cultures pending. Patient was given 1 dose of Zosyn while in the ER. Procalcitonin = less than 0.05. CT head with no acute change. Repeat CXR without any acute infectious process. * Suspected metabolic encephalopathy likely due to dehydration as no source of infection could be found. Leukocytosis on admission resolved prior to discharge. * B1 pending -- continue thiamine 100mg daily started 07/28 * B12 321, Ammonia 18.7, TSH 1.790, wnl --> could consider B12 supplementation -- will defer to PCP as outpatient * Patient with hx Hep C 5 yrs ago, treated with ribavirin and Sovaldi * Blood cultures ngtd * RPR, Lyme normal * Xray L foot without evidence for osteomyelitis (2) SIRS (systemic inflammatory response syndrome): As above (3) Chronic osteomyelitis of left foot: * No pain with palpation of the foot. No redness or swelling * ESR is only 8, CRP minimally elevated at 0.92 * Xray without evidence of osteomeyelitis (4) Hypertension: * Blood pressure stable at 126/76 * Had previously been on lisinopril until hospitalized for osteo this summer -- BP's stable since that time * PCP follow up (5) Elevated bilirubin: * resolved * Patient without abdominal pain, but does have confusion, worsening over months * U/S GB -- no evidence for acute (6) DVT prophylaxis: * SCDs while inpatient * PT/OT with recommendations to continue PT outpatient -- patient given prescription prior to discharge Patient discharged home with daughter. Will need neurology follow up as outpatient for further cognitive work-up Total Time Total Time Spent Total Time Spent (In Minutes): 40 Discharge Plan Discharge Items Patient Disposition: Home - Self-Care Reason For Visit: SEPSIS, AMS Discharge Diagnosis: Altered Mental Status Goals: You have been hospitalized for an acute medical problem. During your stay at [facility], we have made an effort to correct the problem that brought you to the hospital while keeping you as comfortable as possible. Medications were used to bring your condition under control and your discharge instructions will include directions for any medications you should take after leaving the hospital. Please make sure you see your Primary Care Provider as part of your follow up plan. Activity: Resume your previous activity Non-emergency contact: Primary Care Provider Call non-emergency contact if: you have any medication questions and your symptoms worsen Follow-up/Referrals: [facility] Neurology [Provider Group] (Please, follow up at [facility] Neu[facility]. *A nurse from this office will be calling you to arrange this appointment. The office is located at [facility] [address] in [place]. If you have any questions, call the office at [phone].) Davonte Jackson MD [Primary Care Provider] - 08/04/19 3:15 pm (Please, follow up at Dr. Jackson's office with his human resources assistant, Ailyn Kennedy PA-C, on SundayAugust 04 at 3:15 pm. *If you need to change this appointment, call their office at [phone].) Diet: Heart Healthy Addtl Attending Provider Instructions: You have been started on thiamine (Vitamin B1) during your hospital stay. The rest of your work up was negative, but this lab was taken prior to starting treatment. Results should be available in the next 3-5 days. You will be called with these. Until then, it is recommended that you continue to take this medication. A prescription has been sent to your pharmacy. You have also been provided a prescription for outpatient physical therapy. You may take this to wherever is most convenient. You have also been set up with an appointment to follow up with Neurology as an outpatient. This is to have further work-up regarding cognition and possible underlying Alzheimer's vs other. Please follow up with your primary care provider in the next week. For any worsening symptoms or altered mental status please return to the emergency room, or with any symptoms that are concerning for you. It has been a pleasure being a part of the care team providing for you while you have been hospitalized. Take care, and have a Happy Holiday! Pending Studies at Discharge: Yes Studies:: B1 Stand-Alone Forms: My [facility] Medications and DC Order Prescriptions: New thiamine HCl (vitamin B1) [Vitamin B-1] 100 mg Tablet 100 mg PO QAM 30 Days Qty: 30 RF: 0 Continued acetaminophen [Tylenol Extra Strength] 500 mg Tablet 1,000 mg PO Q8 PRN (Reason: Pain, Mild) Qty: 60 RF: 0 Discharge Orders: Discharge Order (Routine); Ordered 07/29/19 Ordered By: Rain Tse Admission Data Admit Date/Time: 07/26/19 21:08 Attending Provider: Braden Brush Admit Provider: Zenaida Hess Primary Care Provider: Davonte Jackson Other Providers: Braden Brush Other Interventions: Discharge Summary Assessment (RN) Last Done: 07/29/19 13:15 DC Date/Time DO NOT enter until pt leaves facility: 07/29/19 15:09 Supervising Physician Co-Signing Physician Notes I supervised Rain Tse, PA-C on this patient's care. I examined the patient today independently of her. I discussed the plan of care with her with the plan being as written in her note except for any following changes/exceptions: None. Doing well today. At baseline from a confusion standpoint. Ready to go home. Will get outpatient follow up for neurologic/dementia evaluation.
== END 2019-07-29 15:09 | disposition home or self-care (01) | DRG 640 ==
LOC: ED 18:37 → SUATTDRO 21:08 → 4W 21:08 → 2W 07-27

== ENCOUNTER 2019-09-12 08:23 | Inpatient (IN) ==
[2019-09-12 08:58] LABS: Basophils # (auto) 0.02 K/uL (0-0.2); Basophils % (auto) 0.2 %; Eosinophils # (auto) 0.08 K/uL (0-0.5); Eosinophils % (auto) 0.8 %; Hematocrit (blood only) 47.5 % (42-52); Hemoglobin 16.7 g/dL (14.0-18.0); Immature Granulocytes # (auto) 0.02 K/uL (0.00-0.02); Immature Granulocytes % (auto) 0.2 %; Lymphocytes # (auto) 0.99 K/uL (1.2-3.4); Lymphocytes % (auto) 10.4 %; Mean Corpuscular Hemoglobin 30.9 pg (25-34); Mean Corpuscular Hgb Conc 35.2 g/dL (32-36); Mean Platelet Volume 10.9 fL (7.4-10.4); Monocytes # (auto) 0.85 K/uL (0.11-0.59); Monocytes % (auto) 8.9 %; Neutrophils % (auto) 79.5 %; Platelet Count 166 K/uL (130-400); RDW Coefficient of Variation 13.9 % (11.5-14.5); RDW Standard Deviation 44.9 fL (36.4-46.3); White Blood Count 9.56 K/uL (4.8-10.8)
[2019-09-12] MEDS ORDERED: ACETAMINOPHEN 1000 MG/100 ML IV IV ONE (09:03)
[2019-09-12 09:07] LABS: Albumin Level 3.7 gm/dl (3.4-5.0); BUN Creatinine Ratio 9.1 (10-20); Calcium 8.9 mg/dl (8.5-10.1); Creatinine Clr Calc Pharmacy 58.2 ml/min; Est GFR (Non-African American) 74.2; Magnesium 1.9 mg/dl (1.8-2.4)
[2019-09-12] MEDS ORDERED: CEFEPIME 2,000 MG/20 ML VIAL IV STA (09:07)
[2019-09-12] MEDS ORDERED: SODIUM CHLORIDE 0.9% 1000ML 1,000 ML IV ONE (09:07)
[2019-09-12] MEDS ORDERED: ACETAMINOPHEN 1,000 MG/100 ML VIAL IV STA (09:07)
[2019-09-12] MEDS ORDERED: ALBUT/IPRATROP 3MG/0.5MG NEB 3 ML VIAL NEB STA (09:09)
[2019-09-12 09:12] LABS: Albumin Globulin Ratio 0.9 (0.9-2); Bilirubin,Total 0.7 mg/dl (0.2-1); Creatine Kinase MB 1.1 ng/ml (0.5-3.6); Globulin 3.9 gm/dl (2.5-4.0); Total Protein 7.6 gm/dl (6.4-8.2); Troponin I 0.024 ng/ml (0-0.045)
--- NOTE | 2019-09-12 09:19 | XRay Report ---
XR chest 1V portable HISTORY: SEPSIS COMPARISON: Chest 09/08/2019. FINDINGS: There are low lung volumes. The heart remains mildly enlarged. No pleural effusions. No pne umothorax. There is perihilar interstitial and vascular thickening suggestive of mild congestive sanchez ge. No overt pulmonary edema. No new focal lung consolidations to suggest pneumonia. IMPRESSION: Mild central pulmonary vascular congestion without overt edema. ACT 112: Negative or not required by law. Electronically signed by: Aleksandr Ayala M.D. 09/12/2019 9:18 AM
[2019-09-12 09:23] LABS: INR 1.1 (0.9-1.1); Partial Thromboplastin Time 26.6 Seconds (21.0-31.0); Prothrombin Time 10.9 Seconds (9.0-12.0)
[2019-09-12] MEDS ORDERED: SODIUM CHLORIDE 0.9% 1000ML 500 ML IV ONE (09:24)
[2019-09-12 09:51] LABS: Influenza B virus by PCR Neg for Influ B (Neg)
--- NOTE | 2019-09-12 10:10 | XRay Report ---
XR foot RT min 3V routine CLINICAL HISTORY: Right foot swelling. Assess for osteomyelitis. COMPARISON STUDY: None. FINDINGS: Soft tissue swelling within the foot. This is most pronounced medially. No erosive change t o suggest osteomyelitis. The Lisfranc joint is intact. Nondisplaced healing fracture within the shaft of the proximal phalanx of the right fifth toe. IMPRESSION: 1. Nondisplaced healing fracture within the proximal phalanx of the right fifth toe. 2. No erosive changes to suggest osteomyelitis. ACT 112: Negative or not required by law. Electronically signed by: Aleksandr Ayala M.D. 09/12/2019 10:08 AM
[2019-09-12] MEDS ORDERED: OSELTAMIVIR PHOSPHATE 75 MG CAP PO STA (10:16)
--- NOTE | 2019-09-12 10:18 | XRay Report ---
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 Demineraliz ed appearance of the bones with severe multiple articulation joint space narrowing with subchondral s clerosis and marginal osteophytosis. Bony fusion is also noted throughout the midfoot and hindfoot wi th pes planus deformity. Corticated ossifications project over the dorsal hindfoot. Severe tibiotalar osteoarthritis. No acute fracture, dislocation or definite osseous erosion to suggest acute osteomye litis. Mild diffuse soft tissue prominence. Arterial calcifications are noted. IMPRESSION: 1. No acute fracture, dislocation or osseous erosion to suggest acute osteomyelitis. 2. Chronic findings as above. ACT 112: Negative or not required by law. The above report was generated using voice recognition software. It may contain grammatical, syntax o r spelling errors. Electronically signed by: Marko Jama M.D. 09/12/2019 10:16 AM
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
[2019-09-12 12:31] LABS: Appearance Urine Slightly Cloudy (Clear); Bilirubin Urine Negative (Negative); Blood Urine 3+ (Negative); Color Urine Amber; Glucose Urine UA Negative (Negative); Ketones Urine Trace (Negative); Leukocyte Esterase Urine Negative (Negative); Nitrite Urine Negative (Negative); Protein Urine Trace (Negative); Specific Gravity Urine 1.015 (1.000-1.030); Urobilinogen Urine Negative (Negative)
[2019-09-12 12:36] LABS: Bacteria Urine Negative (Negative); Epithelial Cell Urine 0-5 /lpf (0-5); RBC Urine >30 /hpf (0-4); WBC Urine 0-5 /hpf (0-5)
[2019-09-12] MEDS ORDERED: LACTATED RINGER'S 1,000 ML IV ONE (12:38)
[2019-09-12] MEDS ORDERED: POLYETHYLENE (MIRALAX) 17 GM PACK PO PRN (14:46)
[2019-09-12] MEDS ORDERED: ONDANSETRON INJ 2 MG/ML 2 ML VIAL IV PRN (14:46)
[2019-09-12] MEDS ORDERED: ACETAMINOPHEN 325 MG TAB PO PRN (14:46)
[2019-09-12] MEDS: LACTATED RINGER'S 1,000 ML IV SCH ×2 (15:43→23:51)
--- NOTE | 2019-09-12 16:44 | Electrocardiogram Report ---
Test Reason : Blood Pressure : / mmHG Vent. Rate : 105 BPM Atrial Rate : 105 BPM P-R Int : 156 ms QRS Dur : 092 ms QT Int : 320 ms P-R-T Axes : 041 -64 049 degrees QTc Int : 422 ms Sinus tachycardia Left axis deviation Poor R wave progression, consider anterior [place] vs. lead placement vs. LVH Abnormal ECG When compared with ECG of 08-SEP-2019 07:32, Vent. rate has increased BY 36 BPM Nonspecific T wave abnormality no longer evident in Inferior leads Confirmed by Mauricio Whaley ([id number]) on 09/12/2019 4:44:11 PM Referred By: Confirmed By:Mauricio Whaley
[2019-09-12] MEDS: OSELTAMIVIR PHOSPHATE 75 MG CAP PO SCH (20:33)
[2019-09-13] MEDS: LACTATED RINGER'S 1,000 ML IV SCH (09:10)
[2019-09-13 09:12] LABS: Hemoglobin 14.9 g/dL (14.0-18.0); Mean Corpuscular Hemoglobin 29.7 pg (25-34); Mean Corpuscular Hgb Conc 33.9 g/dL (32-36); Mean Corpuscular Volume 87.8 fL (80-100); Platelet Count 130 K/uL (130-400); RDW Coefficient of Variation 14.1 % (11.5-14.5); RDW Standard Deviation 45.8 fL (36.4-46.3); Red Blood Count 5.01 M/uL (4.7-6.1)
[2019-09-13] MEDS: guaiFENesin 600 MG TABCR PO SCH ×2 (09:29→21:12)
[2019-09-13] MEDS: OSELTAMIVIR PHOSPHATE 75 MG CAP PO SCH ×2 (09:30→21:12)
[2019-09-13] MEDS: THIAMINE HCL 100 MG TAB PO SCH (09:30)
[2019-09-13 09:45] LABS: BUN Creatinine Ratio 13.1 (10-20); Calcium 8.5 mg/dl (8.5-10.1); Creatinine Clr Calc Pharmacy 68.6 ml/min; Est GFR (African American) 99.3; Est GFR (Non-African American) 85.7; Potassium 3.6 mmol/L (3.5-5.1)
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
[2019-09-14 06:41] LABS: BUN Creatinine Ratio 16.3 (10-20); Calcium 8.4 mg/dl (8.5-10.1); Creatinine Clr Calc Pharmacy 72.9 ml/min; Est GFR (African American) 101.8; Est GFR (Non-African American) 87.8; Potassium 3.6 mmol/L (3.5-5.1)
[2019-09-14] MEDS: OSELTAMIVIR PHOSPHATE 75 MG CAP PO SCH (07:16)
[2019-09-14] MEDS: guaiFENesin 600 MG TABCR PO SCH (07:17)
[2019-09-14] MEDS: THIAMINE HCL 100 MG TAB PO SCH (07:19)
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
== END 2019-09-14 14:00 | disposition home or self-care (01) | DRG 871 ==
LOC: ED 08:23 → SUATTDRO 12:40 → 4W 12:40

== ENCOUNTER 2020-03-04 05:15 | Inpatient (IN) ==
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
[2020-03-04 05:49] LABS: Basophils # (auto) 0.02 K/uL (0-0.2); Basophils % (auto) 0.2 %; Eosinophils # (auto) 0.24 K/uL (0-0.5); Eosinophils % (auto) 2.8 %; Hematocrit (blood only) 47.9 % (42-52); Hemoglobin 16.3 g/dL (14.0-18.0); Immature Granulocytes # (auto) 0.03 K/uL (0.00-0.02); Immature Granulocytes % (auto) 0.3 %; Lymphocytes % (auto) 20.8 %; Mean Corpuscular Volume 88.1 fL (80-100); Mean Platelet Volume 11.4 fL (7.4-10.4); Monocytes # (auto) 0.56 K/uL (0.11-0.59); Monocytes % (auto) 6.5 %; Neutrophils # (auto) 6.02 K/uL (1.4-6.5); Neutrophils % (auto) 69.4 %; Platelet Count 198 K/uL (130-400); RDW Standard Deviation 45.1 fL (36.4-46.3); Red Blood Count 5.44 M/uL (4.7-6.1); White Blood Count 8.67 K/uL (4.8-10.8)
[2020-03-04 06:03] LABS: Partial Thromboplastin Ratio 0.9; Partial Thromboplastin Time 25.7 Seconds (21.0-31.0); Prothrombin Time 10.9 Seconds (9.0-12.0)
[2020-03-04 06:05] LABS: BUN Creatinine Ratio 11.4 (10-20); Calcium 8.7 mg/dl (8.5-10.1); Creatinine Clr Calc Pharmacy 60.7 ml/min; Est GFR (African American) 88.6; Est GFR (Non-African American) 76.5
--- NOTE | 2020-03-04 06:50 | XRay Report ---
XR chest 1V portable CLINICAL HISTORY: Chest pain status post trauma COMPARISON STUDY: 09/12/2019 FINDINGS: The heart is enlarged with left ventricular prominence. There is mild interstitial prominen ce without evidence of overt failure. There is no focal pulmonary consolidation. There are no pleural effusions. No pneumothorax is visualized on the supine study.[ IMPRESSION: No active disease in the chest. ACT 112: Negative or not required by law. Electronically signed by: Lake Martinez M.D. 03/04/2020 6:49 AM
--- NOTE | 2020-03-04 06:51 | XRay Report ---
XR hip RT 2V w pelvis CLINICAL HISTORY: Right hip pain status post trauma COMPARISON: None. DISCUSSION: There is an acute subcapital right hip fracture. There is an old posttraumatic deformity of the symphysis pubis and left ischiopubic ring. No dislocation is visualized IMPRESSION: Acute subcapital right hip fracture. ACT 112: Negative or not required by law. Electronically signed by: Lake Martinez M.D. 03/04/2020 6:50 AM
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
--- NOTE | 2020-03-04 08:59 | Electrocardiogram Report ---
Test Reason : Blood Pressure : / mmHG Vent. Rate : 065 BPM Atrial Rate : 065 BPM P-R Int : 160 ms QRS Dur : 094 ms QT Int : 396 ms P-R-T Axes : 030 -41 013 degrees QTc Int : 411 ms Normal sinus rhythm Left axis deviation Minimal voltage criteria for LVH, may be normal variant Abnormal ECG When compared with ECG of 12-SEP-2019 08:33, Vent. rate has decreased BY 40 BPM Otherwise no significant change Confirmed by Hermilo Rendon ([id number]) on 03/04/2020 8:59:33 AM Referred By: REFERRED SELF Confirmed By:Hermilo Rendon
[2020-03-04] MEDS ORDERED: MoRPHine SULFATE 2 MG/ML CARP IV PRN (09:23)
[2020-03-04] MEDS ORDERED: MAGNESIUM HYDROXIDE SUSP 30 ML UDC PO PRN (09:23)
[2020-03-04] MEDS ORDERED: OXYCODONE HCL IR 5 MG TAB (IMMEDIATE RELEASE) PO PRN (09:23)
[2020-03-04] MEDS ORDERED: ONDANSETRON INJ 2 MG/ML 2 ML VIAL IV PRN ×2 (09:23→11:14)
[2020-03-04] MEDS ORDERED: ACETAMINOPHEN 325 MG TAB PO PRN (09:23)
[2020-03-04] MEDS ORDERED: bisacodyL 10 MG SUPP PR PRN (09:23)
[2020-03-04] MEDS ORDERED: NALOXONE HCL 0.4 MG/1 ML VIAL/CARP IV PRN (09:23)
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
[2020-03-04] MEDS: MoRPHine SULFATE 4 MG/ML 1 ML CARP\\VIAL IV PRN (10:54)
[2020-03-04] MEDS: SODIUM CHLORIDE 0.9% 1000ML 1,000 ML IV SCH ×2 (10:54→21:13)
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
[2020-03-04] MEDS ORDERED: ePHEDrine sulfate 50 MG/ML AMP IV PRN (11:14)
[2020-03-04] MEDS ORDERED: HYDROmorphone INJ 1 MG/ML SYRINGE IV PRN (11:14)
[2020-03-04] MEDS ORDERED: KETOROLAC 30 MG/ML VIAL IV PRN (11:14)
[2020-03-04] MEDS ORDERED: ATROPINE SULFATE 0.1 MG/ML 10ML SYR IV PRN (11:14)
[2020-03-04] MEDS ORDERED: CEFAZOLIN 2000MG 2,000 MG/15 ML SYR IV SCH (12:00)
[2020-03-04 12:56] LABS: Appearance Urine Clear (Clear); Bacteria Urine Automated Negative (Negative); Bilirubin Urine Negative (Negative); Blood Urine Negative (Negative); Color Urine Yellow; Glucose Urine UA Trace (Negative); Ketones Urine Negative (Negative); Leukocyte Esterase Urine Trace (Negative); Nitrite Urine Negative (Negative); Protein Urine Negative (Negative); RBC Urine Automated 0-4 /hpf (0-4); Specific Gravity Urine 1.014 (1.000-1.030); Urobilinogen Urine Negative (Negative)
[2020-03-04] MEDS ORDERED: DEXAMETHASONE SOD INJ 4 MG/ML VIAL ONE (14:14)
[2020-03-04] MEDS ORDERED: ROCURONIUM BROMIDE 10 MG/ML 5 ML VIAL IV ONE (14:14)
[2020-03-04] MEDS ORDERED: ONDANSETRON INJ 2 MG/ML 2 ML VIAL ONE (14:14)
[2020-03-04] MEDS ORDERED: fentaNYL citrate 100 MCG/2 ML VIAL ONE ×2 (14:14→16:33)
[2020-03-04] MEDS ORDERED: PROPOFOL IV EMULSION 10 MG/ML 20 ML VIAL IV ONE (14:14)
[2020-03-04] MEDS ORDERED: LIDOCAINE HCL 2% 2 ML VIAL/AMP(20MG/ML) INFIL ONE (14:14)
[2020-03-04] MEDS ORDERED: NEOSTIGMINE METHYLSULFATE 5 MG/5 ML SYR ONE (14:14)
[2020-03-04] MEDS ORDERED: GLYCOPYRROLATE 0.2 MG/ML VIAL ONE (14:14)
[2020-03-04] MEDS ORDERED: LIDOCAINE/EPINEPHRINE 1% 20 ML VIAL ONE (14:39)
[2020-03-04] MEDS ORDERED: BUPIVACAINE 0.5 % 5 MG/1 ML MPF 30ML VIAL ONE (14:39)
[2020-03-04] MEDS ORDERED: DexMEDEtomidine HCL IV 100 MCG/ML VIAL ONE (15:14)
--- NOTE | 2020-03-04 16:39 | Electrocardiogram Report ---
Test Reason : Blood Pressure : / mmHG Vent. Rate : 132 BPM Atrial Rate : 132 BPM P-R Int : 154 ms QRS Dur : 086 ms QT Int : 292 ms P-R-T Axes : 021 -62 045 degrees QTc Int : 432 ms Sinus tachycardia with occasional Premature ventricular complexes Left anterior fascicular block Minor Nonspecific ST abnormality Lateral leads Abnormal ECG When compared with ECG of 04-MAR-2020 05:35, Premature ventricular complexes are now Present Vent. rate has increased BY [address] now depressed in Lateral leads Confirmed by Hermilo Rendon ([id number]) on 03/04/2020 4:38:46 PM Referred By: REFERRED SELF Confirmed By:Hermilo Rendon
--- NOTE | 2020-03-04 17:36 | XRay Report ---
XR hip RT 1V CLINICAL HISTORY: RT HIP IN OR COMPARISON: None. DISCUSSION: A single lateral projection of the right hip shows anatomic alignment post total right hi p arthroplasty. Expected postoperative soft tissue change IMPRESSION: Anatomic alignment post right hip arthroplasty. ACT 112: Negative or not required by law. The above report was generated using voice recognition software. It may contain grammatical, syntax or spelling errors. Electronically signed by: Don Grey M.D. 03/04/2020 5:35 PM
--- NOTE | 2020-03-04 18:48 | Post Operative Brief Note ---
Immediate Post Op Note v1 Date of Surgery March 04, 2020 Pre & Post Diagnosis Operation Date: 03/04/20 12:20 Pre-Op Diagnosis: Acute subcapital right hip fracture Post-Op Diagnosis: Acute subcapital right hip fracture I identified the patient and participated in the time-out.: Yes Procedure Operation Date: 03/04/20 12:20 Actual Procedures p Right Hip Hemiarthroplasty(Right) - Christian Ross MD Surgeon Christian Ross MD Clinical Fellow Saravanan Elder & Saravanan Oconnor PA-C (No fellow avail) Estimated Blood Loss 250 Findings Consistent with Post-Op Diagnosis Fluids 2000cc Specimens R hip contents Drains [place] Catheter Anesthesia Type General Complications none
--- NOTE | 2020-03-04 18:49 | Operative Report ---
Post Operative Report Pre & Post Diagnosis Operation Date: 03/04/20 12:20 Pre-Op Diagnosis: Acute subcapital right hip fracture Post-Op Diagnosis: Acute subcapital right hip fracture I identified the patient and participated in the time-out.: Yes Procedure Operation Date: 03/04/20 12:20 Actual Procedures p Right Hip Hemiarthroplasty(Right) - Christian Ross MD Surgeon Christian Ross MD Copy Writer Saravanan Elder & Saravanan Oconnor PA-C (No fellow avail) Estimated Blood Loss 250 Findings See Below Displaced and comminuted right femoral neck fracture. 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 After orthopedic consult discussing the patients treatment options of conservative versus surgical intervention, she agreed for a planned hemiarthroplasty. Since the patient was ambulatory with a walker prior to the injury and to avoid the risks of bed sores, pulmonary complications, and to give the patient the best chance for ambulation, I recommended surgery. The patient and his daughter, his POA, understands the risks of surgery, which include but are not limited to: bleeding, infection, re-operation, damage to nerves and arteries, continued pain, failure of the hardware, dislocation, DVT, and . In addition the patient is aware of the 20-30% morbidity associated with hip fracture for up to 1 year following a hip fracture. The patient and his daughter, his POA, understands all of these instructions and explanations, all of their questions have been satisfactorily addressed. The patient and his daughter, his POA, has elected to proceed with surgery and the informed consent was signed by his POA. Description of Procedure Implants: 1) VerSys Hip System Fiber Metal Taper 12/14 Neck Taper, Size 11mm x 120mm Standard body/Neck Offset Cemented (Darryl). 2) Femoral Head 28mm Diameter, + 3.5 mm Neck Length. 3) 52 mm Multipolar Bipolar Cup. 4) 28 mm ID Liner, Multipolar Bipolar Cup. 5) Distal Centralizer 9 mm. 6) Palacos G cement 2 Saravanan Elder PA-C assisted with positioning and retraction, she was replaced by Saravanan Oconnor PA-C assisted with retraction, leg manipulation, closure, and transferring to bed due to fellow not available. Description of Procedure The patient was taken to the Operating Room and placed in the lateral position with Stulberg following general anesthesia administration. A multidisciplinary time-out was performed identifying my initials on the right lower limb as the correct and operative limb. Prior to the incision being made, 2 grams of intravenous Ancef were given. The right lower extremity was prepped in the standard fashion. The trochanter was marked as was the planned incision 1/3 proximal and 2/3 distal to the tip of the greater trochanter. The incisions were injected with a 50:50 mixture of 1% Lidocaine epi and 0.5% Bupivacaine plain for a total of 15cc. A standard posterior approach was made. The planned incision was carried down through the Tensor Fascia Yuliya , which was then split in-line with its fibers. The Gluteus Arnaldo was bluntly dissected. The Piriformis and short external rotators were dissected off the capsule and femur and tagged for later repair. The fracture was easily identified as it had impaled the posterior capsule. The capsule was incised and freed off the fracture fragments. The Neck cut was made to allow removal of the femoral head and comminuted fragments. The femoral canal was prepared with Box osteotome, followed by a canal finder. The femur was sequentially broached in the standard fashion, and trial heads were placed. Portable radiograph was brought in to ensure adequate proper alignment, fill of the canal, head size, and leg length. The trial components were removed and the wound and femoral canal were copiously irrigated and dried. The femur was cemented using 3rd generation technique followed by placement of the components in the standard fashion and the hip reduced. There was excellent stability with no sense of dislocation with 20 degrees adduction, flexion 90 degrees, and internal rotation to 50 degrees. The wounds were copiously irrigated. The External rotators and capsule were closed over bone bridges with #2 FiberWire. The Tensor Fascia Yuliya was closed with #1 & 0 Vicryl. The subcutaneous tissue was closed with 3-0 Vicryl. The skin was closed with Zipline and shield. The incisions were covered with 4 x 4's, ABD, and foam tape. The patient was transfer to her hospital bed and taken to the PACU in stable condition. The sponge and needle counts were correct. Post-op Instructions: The patient was re-admitted to the Hospitalist service, back to the Med/Surg floor. Final x-rays will be obtained in the PACU. The patient will be WBAT with a walker. The patient will be seen by PT/OT. The patient's labs will be checked in the am. DVT prophylaxis will be with TEDs, mechanical devices and will ASA in the AM. I attest to the content of the Intraoperative Record and any orders documented therein. Any exceptions are noted below.
--- NOTE | 2020-03-04 18:53 | Operative Report ---
Post Operative Report Pre & Post Diagnosis Operation Date: 03/04/20 12:20 Pre-Op Diagnosis: Acute subcapital right hip fracture Post-Op Diagnosis: Acute subcapital right hip fracture I identified the patient and participated in the time-out.: Yes Procedure Operation Date: 03/04/20 12:20 Actual Procedures p Right Hip Hemiarthroplasty-Cemented(Right) - Christian Ross MD Surgeon Christian Ross MD Printing Technician Saravanan Elder & Saravanan Oconnor PA-C (No fellow avail) Estimated Blood Loss 250 Findings Consistent with Post-Op Diagnosis Specimens Bone and soft tissue Drains None Anesthesia Type General Complications none Description of Procedure Patient was taken to the operating room and placed under general anesthesia. He was given 1 g of IV Ancef for surgical prophylaxis. Time out was performed. He was prepped and draped in routine sterile fashion. I was present during the second half of the case and assisted with preparation for implantation, tissue retraction, cement preparation, cementing, trial reductions, implantation of permanent hardware, closure and dressings. Please see Dr. Ross's operative report for further detail. Patient was awakened and transferred to the recovery room in stable condition. I attest to the content of the Intraoperative Record and any orders documented therein. Any exceptions are noted below.
--- NOTE | 2020-03-04 19:40 | XRay Report ---
XR hip RT min 2V CLINICAL HISTORY: Post-Operative implant position postoperative COMPARISON: None. DISCUSSION: The bones and joint spaces appear intact. There is no evidence of fracture, dislocation o r bony disease. Anatomic alignment post total right hip arthroplasty IMPRESSION: Anatomic alignment post total right hip arthroplasty. ACT 112: Negative or not required by law. The above report was generated using voice recognition software. It may contain grammatical, syntax or spelling errors. Electronically signed by: Don Grey M.D. 03/04/2020 7:39 PM
--- NOTE | 2020-03-04 19:54 | Anesthesiology Progress Note ---
Date of Service March 04, 2020 Anesthesia Post Procedure Vital Signs Vital Signs: Temp Pulse Pulse Resp BP BP Pulse Ox 03/04/20 19:25 91 H 14 92/61 L 92 03/04/20 19:15 36 C L 97 H 13 99/70 L 95 03/04/20 14:10 36.8 C 136 H 20 156/111 H 93 03/04/20 09:14 36.5 C 72 18 151/79 H 97 03/04/20 08:33 79 20 162/88 H 95 03/04/20 07:49 68 18 126/89 99 03/04/20 06:33 65 16 132/81 95 03/04/20 05:22 36.8 C 60 18 149/95 H 96 Pain Intensity Right Hip: Pain Intensity: 5 Transfer of Care Handoff Completed per policy Notes Mental Status: alert / awake / arousable (at baseline mental status) Patient Amnestic to Procedure: Yes Nausea / Vomiting: adequately controlled Pain: adequately controlled Airway Patency, RR, SpO2: stable & adequate BP & HR: stable & adequate Hydration State: stable & adequate Anesthetic Complications: no major complications apparent
[2020-03-04] MEDS ORDERED: CEFAZOLIN 2000MG 2,000 MG/15 ML SYR IV ONE (21:00)
[2020-03-04] MEDS: ASPIRIN 81 MG ECTAB PO SCH (21:06)
[2020-03-04] MEDS: QUETIAPINE FUMARATE 25 MG TABLET PO SCH (21:07)
[2020-03-04] MEDS: DOCUSATE SODIUM/SENNA 50/8.6MG TAB PO SCH (21:13)
[2020-03-05] MEDS: MoRPHine SULFATE 4 MG/ML 1 ML CARP\\VIAL IV PRN ×2 (01:27→06:17)
[2020-03-05] MEDS ORDERED: DiphenhydrAMINE HCL 50 MG/ML VIAL IV STA (03:02)
[2020-03-05] MEDS: SODIUM CHLORIDE 0.9% 1000ML 1,000 ML IV SCH (05:30)
[2020-03-05 07:36] LABS: Basophils # (auto) 0.02 K/uL (0-0.2); Basophils % (auto) 0.2 %; Eosinophils # (auto) 0.16 K/uL (0-0.5); Eosinophils % (auto) 1.2 %; Hematocrit (blood only) 40.2 % (42-52); Hemoglobin 13.4 g/dL (14.0-18.0); Immature Granulocytes # (auto) 0.04 K/uL (0.00-0.02); Immature Granulocytes % (auto) 0.3 %; Lymphocytes # (auto) 1.15 K/uL (1.2-3.4); Lymphocytes % (auto) 8.9 %; Mean Corpuscular Hemoglobin 30.1 pg (25-34); Mean Corpuscular Hgb Conc 33.3 g/dL (32-36); Mean Corpuscular Volume 90.3 fL (80-100); Monocytes # (auto) 0.98 K/uL (0.11-0.59); Monocytes % (auto) 7.6 %; Neutrophils # (auto) 10.54 K/uL (1.4-6.5); Neutrophils % (auto) 81.8 %; Platelet Count 175 K/uL (130-400); RDW Coefficient of Variation 14.2 % (11.5-14.5); RDW Standard Deviation 47.1 fL (36.4-46.3); Red Blood Count 4.45 M/uL (4.7-6.1); White Blood Count 12.89 K/uL (4.8-10.8)
[2020-03-05] MEDS: ASPIRIN 81 MG ECTAB PO SCH ×2 (08:05→20:21)
[2020-03-05 08:09] LABS: BUN Creatinine Ratio 12.8 (10-20); Creatinine Clr Calc Pharmacy 65.5 ml/min; Est GFR (African American) 88.6; Est GFR (Non-African American) 76.5; Potassium 3.7 mmol/L (3.5-5.1)
[2020-03-05 08:14] LABS: Prealbumin 18.7 mg/dl (20-40)
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
--- NOTE | 2020-03-05 13:21 | Orthopedic Progress Note ---
Date of Service March 05, 2020 Assessment & Plan (1) Closed right hip fracture: POD 1 - S/P Michael right hip with Dr. Ross Recommend out of bed, WBAT RLE. Needs assistance of a walker. PT/OT Abduction pillow when in bed. Tylenol PRN pain. Teds/foot pumps, ASA for DVT prophylaxis. Regular diet. Posterior hip precautions Case management for discharge planning. Dressing changed today with Silverlon. I, Dr. Ross, saw and examined the patient and agree with the above findings and plan of care discussed with my PA. Present on Admission?: Yes Admission and Anticipated Discharge Date Admission Date: March 04, 2020 Anticipated date of discharge: 03/05/20 Subjective Patient resting in bed, states some pain in right hip. Nursing supervision at bedside. Physical Exam Physical Exam: Exam of right hip: Incision clean, dry and intact. Dry blood on dressings. No distal edema, distal pulse 1+, Abd pillow in place, right knee nontender without effusion. Results & Data ([facility]) Vital Signs (Past 12 Hours) Vital Signs Temp Pulse Resp BP Pulse Ox 03/05/20 07:11 37.7 C H 112 H 18 125/73 92 Laboratory Results 03/05/20 03/05/20 03/05/20 Range/Units 07:13 07:13 07:13 WBC 12.89 H (4.8-10.8) K/uL RBC 4.45 L (4.7-6.1) M/uL Hgb 13.4 L (14.0-18.0) g/dL Hct 40.2 L (42-52) % MCV 90.3 (80-100) fL MCH 30.1 (25-34) pg MCHC 33.3 (32-36) g/dL RDW Std Deviation 47.1 H (36.4-46.3) fL RDW Coeff of Maggie 14.2 (11.5-14.5) % Plt Count 175 (130-400) K/uL MPV 11.0 H (7.4-10.4) fL Immature Gran % (Auto) 0.3 % Neut % (Auto) 81.8 % Lymph % (Auto) 8.9 % Parmer % (Auto) 7.6 % Eos % (Auto) 1.2 % Baso % (Auto) 0.2 % Neut # (Auto) 10.54 H (1.4-6.5) K/uL Lymph # (Auto) 1.15 L (1.2-3.4) K/uL Parmer # (Auto) 0.98 H (0.11-0.59) K/uL Eos # (Auto) 0.16 (0-0.5) K/uL Baso # (Auto) 0.02 (0-0.2) K/uL Immature Gran # (Auto) 0.04 H (0.00-0.02) K/uL Sodium 139 (136-145) mmol/L Potassium 3.7 (3.5-5.1) mmol/L Chloride 108 H (98-107) mmol/L Carbon Dioxide 27 (21-32) mmol/L Anion Gap 4.0 (3-11) BUN 12 (7-18) mg/dl Creatinine 0.96 (0.6-1.4) mg/dl Est Cr Clr Drug Dosing 65.5 ml/min Est GFR ( Amer) 88.6 Est GFR (Non-Af Amer) 76.5 BUN/Creatinine Ratio 12.8 (10-20) Glucose 138 H (70-99) mg/dl Calcium 8.0 L (8.5-10.1) mg/dl Prealbumin 18.7 L (20-40) mg/dl 25-OH Vitamin D Total 10.8 L (30-100) ng/ml
[2020-03-05] MEDS: QUETIAPINE FUMARATE 25 MG TABLET PO SCH (20:21)
[2020-03-05] MEDS: MELATONIN 3 MG TAB PO SCH (20:24)
[2020-03-05] MEDS: DOCUSATE SODIUM/SENNA 50/8.6MG TAB PO SCH (20:24)
[2020-03-05] MEDS ORDERED: HALOPERIDOL LACTATE 5 MG/ML 1 ML VIAL IM STA (21:34)
[2020-03-06] MEDS: MoRPHine SULFATE 4 MG/ML 1 ML CARP\\VIAL IV PRN ×2 (03:29→08:19)
[2020-03-06 06:04] LABS: Hematocrit (blood only) 35.7 % (42-52); Hemoglobin 12.1 g/dL (14.0-18.0); Mean Corpuscular Hemoglobin 30.3 pg (25-34); Mean Corpuscular Hgb Conc 33.9 g/dL (32-36); Mean Corpuscular Volume 89.5 fL (80-100); Mean Platelet Volume 11.3 fL (7.4-10.4); Platelet Count 154 K/uL (130-400); RDW Standard Deviation 46.3 fL (36.4-46.3); Red Blood Count 3.99 M/uL (4.7-6.1)
[2020-03-06 06:38] LABS: BUN Creatinine Ratio 16.4 (10-20); Calcium 8.3 mg/dl (8.5-10.1); Creatinine Clr Calc Pharmacy 71.4 ml/min; Est GFR (African American) 96.7; Est GFR (Non-African American) 83.4; Potassium 3.7 mmol/L (3.5-5.1)
[2020-03-06] MEDS: ASPIRIN 81 MG ECTAB PO SCH ×2 (08:57→21:25)
--- NOTE | 2020-03-06 12:50 | Orthopedic Progress Note ---
Date of Service March 06, 2020 Assessment & Plan (1) Closed right hip fracture: POD 2 - S/P Michael right hip Patient is 1:1 due to his dementia. Recommend out of bed, WBAT RLE. Needs assistance and walker. PT/OT Abduction pillow when in bed. Tylenol PRN pain. Teds/foot pumps, ASA for DVT prophylaxis. Regular diet. Total hip precautions Case management for discharge planning, Insurance company closed over the weekend, so no decision on placement until Sunday at the earliest. Dressing changed to Silverlon 03/05/2020, Leave in place until follow-up appoint 2 weeks post-op. Continue care per primary service. Admission and Anticipated Discharge Date Admission Date: March 04, 2020 Anticipated date of discharge: 03/05/20 Subjective No complaints. Eating lunch with the help of his daughter. Physical Exam Physical Exam: RLE: Neuro unchanged. Dressing intact. Calf soft and non-tender Results & Data ([facility]) Vital Signs (Past 12 Hours) Vital Signs Temp Pulse Resp BP Pulse Ox 03/06/20 10:24 104 H 16 92 03/06/20 10:23 88 L 03/06/20 07:18 37.5 C 116 H 18 111/76 91 Laboratory Results 03/06/20 03/06/20 Range/Units 05:40 05:40 WBC 11.90 H (4.8-10.8) K/uL RBC 3.99 L (4.7-6.1) M/uL Hgb 12.1 L (14.0-18.0) g/dL Hct 35.7 L (42-52) % MCV 89.5 (80-100) fL MCH 30.3 (25-34) pg MCHC 33.9 (32-36) g/dL RDW Std Deviation 46.3 (36.4-46.3) fL RDW Coeff of Maggie 14.0 (11.5-14.5) % Plt Count 154 (130-400) K/uL MPV 11.3 H (7.4-10.4) fL Sodium 140 (136-145) mmol/L Potassium 3.7 (3.5-5.1) mmol/L Chloride 108 H (98-107) mmol/L Carbon Dioxide 28 (21-32) mmol/L Anion Gap 4.0 (3-11) BUN 14 (7-18) mg/dl Creatinine 0.88 (0.6-1.4) mg/dl Est Cr Clr Drug Dosing 71.4 ml/min Est GFR ( Amer) 96.7 Est GFR (Non-Af Amer) 83.4 BUN/Creatinine Ratio 16.4 (10-20) Glucose 108 H (70-99) mg/dl Calcium 8.3 L (8.5-10.1) mg/dl
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
[2020-03-06] MEDS: QUETIAPINE FUMARATE 25 MG TABLET PO SCH (21:25)
[2020-03-06] MEDS: MELATONIN 3 MG TAB PO SCH (21:29)
[2020-03-06] MEDS: DOCUSATE SODIUM/SENNA 50/8.6MG TAB PO SCH (21:29)
[2020-03-07 05:49] LABS: Hematocrit (blood only) 35.1 % (42-52); Mean Corpuscular Hemoglobin 30.3 pg (25-34); Mean Corpuscular Hgb Conc 34.2 g/dL (32-36); Mean Corpuscular Volume 88.6 fL (80-100); Mean Platelet Volume 10.7 fL (7.4-10.4); Platelet Count 169 K/uL (130-400); RDW Coefficient of Variation 13.6 % (11.5-14.5); RDW Standard Deviation 44.3 fL (36.4-46.3); Red Blood Count 3.96 M/uL (4.7-6.1); White Blood Count 12.12 K/uL (4.8-10.8)
[2020-03-07 06:20] LABS: BUN Creatinine Ratio 18.6 (10-20); Calcium 8.5 mg/dl (8.5-10.1); Creatinine Clr Calc Pharmacy 80.6 ml/min; Est GFR (African American) 101.6; Est GFR (Non-African American) 87.7; Potassium 3.3 mmol/L (3.5-5.1)
[2020-03-07] MEDS: ASPIRIN 81 MG ECTAB PO SCH ×2 (08:39→21:56)
[2020-03-07] MEDS: POTASSIUM CHLORIDE 20 MEQ TABCR PO SCH ×2 (10:01→21:56)
[2020-03-07] MEDS ORDERED: LIDOCAINE 2% JELLY 5 ML TUBE ONE (14:35)
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
[2020-03-07] MEDS: QUETIAPINE FUMARATE 25 MG TABLET PO SCH (21:56)
[2020-03-07] MEDS: MELATONIN 3 MG TAB PO SCH (21:58)
[2020-03-07] MEDS: DOCUSATE SODIUM/SENNA 50/8.6MG TAB PO SCH (21:59)
[2020-03-08 00:50] VITALS: O2SAT 96
[2020-03-08 05:45] LABS: Hematocrit (blood only) 34.3 % (42-52); Hemoglobin 11.7 g/dL (14.0-18.0); Mean Corpuscular Hemoglobin 30.2 pg (25-34); Mean Corpuscular Hgb Conc 34.1 g/dL (32-36); Mean Corpuscular Volume 88.6 fL (80-100); Mean Platelet Volume 10.9 fL (7.4-10.4); Platelet Count 199 K/uL (130-400); RDW Coefficient of Variation 13.7 % (11.5-14.5); RDW Standard Deviation 44.6 fL (36.4-46.3); Red Blood Count 3.87 M/uL (4.7-6.1); White Blood Count 8.54 K/uL (4.8-10.8)
[2020-03-08 06:10] LABS: BUN Creatinine Ratio 16.4 (10-20); Calcium 8.6 mg/dl (8.5-10.1); Creatinine Clr Calc Pharmacy 78.6 ml/min; Est GFR (African American) 100.6; Est GFR (Non-African American) 86.8; Potassium 3.5 mmol/L (3.5-5.1)
[2020-03-08 07:27] VITALS: BP 111/70; PULSE 70; TEMP 97.7
[2020-03-08] MEDS: POTASSIUM CHLORIDE 20 MEQ TABCR PO SCH (09:04)
[2020-03-08] MEDS: ASPIRIN 81 MG ECTAB PO SCH (09:04)
--- NOTE | 2020-03-08 11:57 | Orthopedic Progress Note ---
Date of Service March 08, 2020 Assessment & Plan (1) Closed right hip fracture: POD 4 - S/P Michael right hip Patient is 1:1 due to his dementia. Recommend out of bed, WBAT RLE. Needs assistance and walker. PT/OT Abduction pillow when in bed. Tylenol PRN pain. Teds/foot pumps, ASA for DVT prophylaxis. Regular diet. Total hip precautions Case management for discharge planning. Awaiting on placement to SNF. Dressing changed to Silverlon 03/05/2020, Leave in place until follow-up appoint 2 weeks post-op. Continue care per primary service. Admission and Anticipated Discharge Date Admission Date: March 04, 2020 Anticipated date of discharge: 03/05/20 Subjective Patient resting in bed. Says he is in no pain. Says he has therapy this am. He is drowsy. Physical Exam Physical Exam: Supine in bed. No abductor pillow in place. But patient with right leg in neutral position. No pain with right hip log rolling. Able to wiggle toes and ankles on command. Weak pulses B LE. Calves are soft and nontender. Neg homans. No edema B LE. Right hip silverlon dressing intact. Garret over top to prevent patient from scratching. Results & Data ([facility]) Vital Signs (Past 12 Hours) Vital Signs Temp Pulse Resp BP Pulse Ox 03/08/20 07:27 36.5 C 70 18 111/70 96 03/08/20 00:30 36.6 C 82 16 103/61 96 Laboratory Results 03/08/20 03/08/20 Range/Units 05:33 05:33 WBC 8.54 (4.8-10.8) K/uL RBC 3.87 L (4.7-6.1) M/uL Hgb 11.7 L (14.0-18.0) g/dL Hct 34.3 L (42-52) % MCV 88.6 (80-100) fL MCH 30.2 (25-34) pg MCHC 34.1 (32-36) g/dL RDW Std Deviation 44.6 (36.4-46.3) fL RDW Coeff of Maggie 13.7 (11.5-14.5) % Plt Count 199 (130-400) K/uL MPV 10.9 H (7.4-10.4) fL Sodium 139 (136-145) mmol/L Potassium 3.5 (3.5-5.1) mmol/L Chloride 106 (98-107) mmol/L Carbon Dioxide 28 (21-32) mmol/L Anion Gap 5.0 (3-11) BUN 13 (7-18) mg/dl Creatinine 0.80 (0.6-1.4) mg/dl Est Cr Clr Drug Dosing 78.6 ml/min Est GFR ( Amer) 100.6 Est GFR (Non-Af Amer) 86.8 BUN/Creatinine Ratio 16.4 (10-20) Glucose 118 H (70-99) mg/dl Calcium 8.6 (8.5-10.1) mg/dl
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
== END 2020-03-08 16:19 | DRG 470 ==
LOC: ED 05:15 → 3E 07:42

== ENCOUNTER 2020-07-11 13:16 | Inpatient (IN) ==
[2020-07-11] MEDS ORDERED: SODIUM CHLORIDE 0.9% 1000ML 1,000 ML IV ONE (13:37)
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
--- NOTE | 2020-07-11 14:41 | XRay Report ---
XR chest 1V portable CLINICAL HISTORY: SEPSIS COMPARISON STUDY: Chest radiograph March 04, 2020. FINDINGS: Elevation of the right hemidiaphragm is unchanged. There is mild right infrahilar opacity. There is no lobar consolidation. No pneumothorax or pleural effusion is noted. Cardiomegaly is noted without evidence for pulmonary edema. IMPRESSION: 1. Mild right infrahilar opacity which favors atelectasis however an infectious process could appear similar. Radiographic follow-up is recommended. 2. Cardiomegaly without evidence for pulmonary edema. ACT 112: Negative or not required by law. Electronically signed by: Phan Benson M.D. 07/11/2020 2:40 PM
[2020-07-11 14:50] LABS: Appearance Urine Cloudy (Clear); Bacteria Urine Automated Negative (Negative); Bilirubin Urine Negative (Negative); Blood Urine 2+ (Negative); Color Urine Orange; Epithelial Cell Urine Auto 20-30 /lpf (0-5); Glucose Urine UA Negative (Negative); Ketones Urine Negative (Negative); Leukocyte Esterase Urine 1+ (Negative); Nitrite Urine Positive (Negative); Protein Urine 1+ (Negative); RBC Urine Automated >30 /hpf (0-4); Specific Gravity Urine 1.026 (1.000-1.030); Urobilinogen Urine Negative (Negative)
[2020-07-11 14:59] LABS: Basophils # (auto) 0.01 K/uL (0-0.2); Basophils % (auto) 0.1 %; Eosinophils # (auto) 0.02 K/uL (0-0.5); Eosinophils % (auto) 0.3 %; Hematocrit (blood only) 48.1 % (42-52); Hemoglobin 16.4 g/dL (14.0-18.0); Immature Granulocytes # (auto) 0.01 K/uL (0.00-0.02); Immature Granulocytes % (auto) 0.1 %; Lymphocytes # (auto) 0.89 K/uL (1.2-3.4); Mean Corpuscular Hemoglobin 29.9 pg (25-34); Mean Corpuscular Hgb Conc 34.1 g/dL (32-36); Mean Corpuscular Volume 87.6 fL (80-100); Mean Platelet Volume 11.1 fL (7.4-10.4); Monocytes % (auto) 8.8 %; Neutrophils # (auto) 5.31 K/uL (1.4-6.5); Neutrophils % (auto) 77.7 %; Platelet Count 202 K/uL (130-400); RDW Coefficient of Variation 13.6 % (11.5-14.5); RDW Standard Deviation 43.8 fL (36.4-46.3); Red Blood Count 5.49 M/uL (4.7-6.1); White Blood Count 6.84 K/uL (4.8-10.8)
[2020-07-11 15:02] LABS: Partial Thromboplastin Time 26.8 Seconds (21.0-31.0); Prothrombin Time 10.6 Seconds (9.0-12.0)
[2020-07-11 15:09] LABS: Alanine Aminotransferase 27 U/L (12-78); Albumin Level 3.6 gm/dl (3.4-5.0); Aspartate Aminotransferase 27 U/L (15-37); BUN Creatinine Ratio 23.4 (10-20); Blood Urea Nitrogen 21 mg/dl (7-18); Calcium 8.9 mg/dl (8.5-10.1); Carbon Dioxide 28 mmol/L (21-32); Chloride 103 mmol/L (98-107); Est GFR (African American) 96.7; Est GFR (Non-African American) 83.4; Glucose 143 mg/dl (70-99); Magnesium 2.2 mg/dl (1.8-2.4); Potassium 3.8 mmol/L (3.5-5.1); Sodium 137 mmol/L (136-145)
[2020-07-11 15:14] LABS: Albumin Globulin Ratio 0.7 (0.9-2); Alkaline Phosphatase 102 U/L (45-117); Bilirubin,Total 0.4 mg/dl (0.2-1); Globulin 4.8 gm/dl (2.5-4.0); Total Protein 8.4 gm/dl (6.4-8.2); Troponin I 0.027 ng/ml (0-0.045)
[2020-07-11] MEDS ORDERED: cefTRIAXone SODIUM 1,000 MG/50 ML BAG IV STA (16:19)
[2020-07-11] MEDS ORDERED: AZITHROMYCIN 250 MG TAB PO ONE (16:19)
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
[2020-07-11] MEDS ORDERED: DEXAMETHASONE SOD INJ 10 MG/ML VIAL IV SCH (19:27)
[2020-07-11] MEDS ORDERED: PHENAZOPYRIDINE HCL 200 MG TAB PO PRN (19:27)
[2020-07-11] MEDS ORDERED: ACETAMINOPHEN 325 MG TAB PO PRN (19:27)
[2020-07-11] MEDS ORDERED: POLYETHYLENE (MIRALAX) 17 GM PACK PO PRN (19:27)
[2020-07-11] MEDS ORDERED: BENZONATATE 100 MG CAPSULE PO PRN (19:27)
[2020-07-11 20:31] LABS: Phosphorus 2.7 mg/dl (2.5-4.9)
[2020-07-11] MEDS: DEXAMETHASONE SOD PHOSPHATE 6 MG in SYRINGE 0 ML IV SCH (20:58)
[2020-07-11] MEDS: DOCUSATE SODIUM 100 MG CAP PO SCH (21:01)
[2020-07-11] MEDS: DOXYCYCLINE HYCLATE 100 MG CAP PO SCH (21:01)
[2020-07-11] MEDS: TAMSULOSIN HCL 0.4 MG CAP PO SCH (21:01)
[2020-07-11] MEDS: ENOXAPARIN INJ 40 MG/0.4 ML SYR SQ SCH (21:01)
[2020-07-11] MEDS: QUEtiapine FUMARATE 25 MG TABLET PO SCH (21:01)
[2020-07-11] MEDS: ASPIRIN 81 MG ECTAB PO SCH (21:01)
[2020-07-11] MEDS: MELATONIN 3 MG TAB PO SCH (21:09)
[2020-07-12 08:05] LABS: Eosinophils # (auto) 0.05 K/uL (0-0.5); Hematocrit (blood only) 44.5 % (42-52); Hemoglobin 14.8 g/dL (14.0-18.0); Immature Granulocytes # (auto) 0.02 K/uL (0.00-0.02); Immature Granulocytes % (auto) 0.4 %; Lymphocytes % (auto) 14.5 %; Mean Corpuscular Hemoglobin 29.1 pg (25-34); Mean Corpuscular Hgb Conc 33.3 g/dL (32-36); Mean Corpuscular Volume 87.6 fL (80-100); Mean Platelet Volume 11.3 fL (7.4-10.4); Monocytes # (auto) 0.35 K/uL (0.11-0.59); Monocytes % (auto) 7.2 %; Neutrophils # (auto) 3.72 K/uL (1.4-6.5); Neutrophils % (auto) 76.9 %; Platelet Count 187 K/uL (130-400); RDW Coefficient of Variation 13.6 % (11.5-14.5); RDW Standard Deviation 44.2 fL (36.4-46.3); Red Blood Count 5.08 M/uL (4.7-6.1); White Blood Count 4.84 K/uL (4.8-10.8)
[2020-07-12 08:16] LABS: Creatinine Clr Calc Pharmacy 68.8 ml/min; Est GFR (African American) 97.6; Est GFR (Non-African American) 84.2; Potassium 4.1 mmol/L (3.5-5.1)
--- NOTE | 2020-07-12 09:08 | Electrocardiogram Report ---
Test Reason : Blood Pressure : / mmHG Vent. Rate : 098 BPM Atrial Rate : 098 BPM P-R Int : 154 ms QRS Dur : 092 ms QT Int : 346 ms P-R-T Axes : 021 -49 033 degrees QTc Int : 441 ms Sinus rhythm with Premature atrial complexes Left axis deviation Abnormal ECG When compared with ECG of 15-JUN-2020 11:34, Premature ventricular complexes are no longer Present Premature atrial complexes are now Present Confirmed by Mauricio Whaley ([id number]) on 07/12/2020 9:08:29 AM Referred By: Confirmed By:Mauricio Whaley
[2020-07-12] MEDS: DOCUSATE SODIUM 100 MG CAP PO SCH ×2 (10:04→22:10)
[2020-07-12] MEDS: DEXAMETHASONE SOD PHOSPHATE 6 MG in SYRINGE 0 ML IV SCH (10:04)
[2020-07-12] MEDS: CHOLECALCIFEROL 1,000 UNITS 25 MCG TAB PO SCH (10:05)
[2020-07-12] MEDS: DOXYCYCLINE HYCLATE 100 MG CAP PO SCH ×2 (10:05→22:09)
[2020-07-12] MEDS: TAMSULOSIN HCL 0.4 MG CAP PO SCH ×2 (10:05→22:09)
[2020-07-12] MEDS: ENOXAPARIN INJ 40 MG/0.4 ML SYR SQ SCH ×2 (10:05→22:10)
--- NOTE | 2020-07-12 10:42 | Hospitalist Progress Note ---
Date of Service July 12, 2020 Assessment & Plan (1) COVID-19: Patient found to be Covid-19 positive. He was mildly hypoxic on arrival to the ER at 88% on room air -Admit to Covid-19 singh, maintain isolation precautions Airborne and Contact -Supplemental O2 as needed to maintain saturations 90% or greater, today is on room air -Dexamethasone 6mg IV daily - can change to PO on discharge to complete 10 days -Continue home Vitamin D no need for plasma or Remdesivir plan to go home tomorrow, discussed with his daughter (2) BPH (benign prostatic hyperplasia): Patient with Roldan catheter in place with 350mL hematuria in bag -Continue Tamsulosin -Continue Dutasteride pull roldan tomorrow (3) Dementia: Patient at risk for delirium -Frequent orientation -Continue Seroquel 25mg po qHS F/E/N- Heplock. Electrolytes WNL. Regular diet as tolerated - aspiration precautions Ppx - Lovenox 40mg BID in patient with Covid-19 Code - Full Code Dispo - Admit to medical/Covid-19 unit plan for discharge to home tomorrow (4) Chronic osteomyelitis of left foot: Admission and Anticipated Discharge Date Admission Date: July 11, 2020 Subjective patient doing great, no acute issues he is off oxygen this morning, breathing well he is eating well pleasantly confused, has dementia at baseline labs are stable, reviewed chart talked with is daughter over the phone, she and her are quite sick with COVID they are [place] [employer] care givers for the patient discussed that we will need to discharge patient tomorrow as long as he remains off oxygen, she understands Review of Systems Review of Systems: All systems reviewed & are unremarkable except as noted in Subjective Physical Exam Constitutional: WD/WN, vitals as above Neck: trachea midline, no thyromegaly Respiratory: normal respiratory effort, lungs clear to auscultation Cardiovascular: RRR, no murmur, no edema Gastrointestinal (Abdomen): normal bowel sounds, soft, nontender, no hepatosplenomegaly Musculoskeletal: Head/Neck/Chest: normocephalic, head atraumatic and neck supple Extremities: + abnormal strength (generalized lower extremity weakness, cannot walk); no cyanosis, no clubbing and no petechiae Skin: no rashes, warm and dry Neurologic: patellar DTR's 2+ bilat, sensation intact and PERRL, EOMI, accommodation nl, no face palsy, no dysarthria Psychiatric: Orientation: alert, oriented to person and cooperative; + not oriented to place and + not oriented to time Lymphatic: no cervical or axillary lymphadenopathy Results & Data Results & Data ([facility]) Vital Signs (Past 12 Hours) Vital Signs Temp Pulse Resp BP Pulse Ox 07/12/20 07:57 36.7 C 74 16 116/71 92 07/11/20 23:23 37.5 C 81 16 120/74 94 Laboratory Results Laboratory Results - last 24 hr 07/11/20 07/11/20 07/11/20 14:15 14:15 14:15 WBC 6.84 RBC 5.49 Hgb 16.4 Hct 48.1 MCV 87.6 MCH 29.9 MCHC 34.1 RDW Std Deviation 43.8 RDW Coeff of Maggie 13.6 Plt Count 202 MPV 11.1 H Immature Gran % (Auto) 0.1 Neut % (Auto) 77.7 Lymph % (Auto) 13.0 Page % (Auto) 8.8 Eos % (Auto) 0.3 Baso % (Auto) 0.1 Neut # (Auto) 5.31 Lymph # (Auto) 0.89 L Page # (Auto) 0.60 H Eos # (Auto) 0.02 Baso # (Auto) 0.01 Immature Gran # (Auto) 0.01 PT 10.6 INR 1.0 APTT 26.8 PTT Ratio 1.0 Sodium 137 Potassium 3.8 Chloride 103 Carbon Dioxide 28 Anion Gap 6.0 BUN 21 H Creatinine 0.88 Est Cr Clr Drug Dosing Not Reportable Est GFR ( Amer) 96.7 Est GFR (Non-Af Amer) 83.4 BUN/Creatinine Ratio 23.4 H Glucose 143 H Lactate Calcium 8.9 Phosphorus 2.7 Magnesium 2.2 Total Bilirubin 0.4 AST 27 ALT 27 Alkaline Phosphatase 102 Troponin I 0.027 Total Protein 8.4 H Albumin 3.6 Globulin 4.8 H Albumin/Globulin Ratio 0.7 L Procalcitonin Urine Color Urine Appearance Urine pH Ur Specific [place] Urine Protein Urine Glucose (UA) Urine Ketones Urine Blood Urine Nitrite Urine Bilirubin Urine Urobilinogen Ur Leukocyte Esterase Urine WBC (Auto) Urine RBC (Auto) U Hyaline Cast (Auto) U Epithel Cells (Auto) Urine Bacteria (Auto) Urine Crystals COVID-19 Eval Order SARS-CoV-2, RNA, NAAT 07/11/20 07/11/20 07/11/20 14:15 14:15 14:30 WBC RBC Hgb Hct MCV MCH MCHC RDW Std Deviation RDW Coeff of Maggie Plt Count MPV Immature Gran % (Auto) Neut % (Auto) Lymph % (Auto) Page % (Auto) Eos % (Auto) Baso % (Auto) Neut # (Auto) Lymph # (Auto) Page # (Auto) Eos # (Auto) Baso # (Auto) Immature Gran # (Auto) PT INR APTT PTT Ratio Sodium Potassium Chloride Carbon Dioxide Anion Gap BUN Creatinine Est Cr Clr Drug Dosing Est GFR ( Amer) Est GFR (Non-Af Amer) BUN/Creatinine Ratio Glucose Lactate Calcium Phosphorus Cancelled Magnesium Total Bilirubin AST ALT Alkaline Phosphatase Troponin I Total Protein Albumin Globulin Albumin/Globulin Ratio Procalcitonin < 0.05 Urine Color [place] Urine Appearance Cloudy A Urine pH 5.0 Ur Specific [place] 1.026 Urine Protein 1+ H Urine Glucose (UA) Negative Urine Ketones Negative Urine Blood 2+ H Urine Nitrite Positive A Urine Bilirubin Negative Urine Urobilinogen Negative Ur Leukocyte Esterase 1+ H Urine WBC (Auto) 10-30 H Urine RBC (Auto) >30 H U Hyaline Cast (Auto) 5-10 H U Epithel Cells (Auto) 20-30 H Urine Bacteria (Auto) Negative Urine Crystals Not Reportable COVID-19 Eval Order SARS-CoV-2, RNA, NAAT 07/11/20 07/11/20 07/11/20 14:32 14:32 15:00 WBC RBC Hgb Hct MCV MCH MCHC RDW Std Deviation RDW Coeff of Maggie Plt Count MPV Immature Gran % (Auto) Neut % (Auto) Lymph % (Auto) Page % (Auto) Eos % (Auto) Baso % (Auto) Neut # (Auto) Lymph # (Auto) Page # (Auto) Eos # (Auto) Baso # (Auto) Immature Gran # (Auto) PT INR APTT PTT Ratio Sodium Potassium Chloride Carbon Dioxide Anion Gap BUN Creatinine Est Cr Clr Drug Dosing Est GFR ( Amer) Est GFR (Non-Af Amer) BUN/Creatinine Ratio Glucose Lactate 0.8 Calcium Phosphorus Magnesium Total Bilirubin AST ALT Alkaline Phosphatase Troponin I Total Protein Albumin Globulin Albumin/Globulin Ratio Procalcitonin Urine Color Urine Appearance Urine pH Ur Specific [place] Urine Protein Urine Glucose (UA) Urine Ketones Urine Blood Urine Nitrite Urine Bilirubin Urine Urobilinogen Ur Leukocyte Esterase Urine WBC (Auto) Urine RBC (Auto) U Hyaline Cast (Auto) U Epithel Cells (Auto) Urine Bacteria (Auto) Urine Crystals COVID-19 Eval Order Covid19 IDNow atMGAC SARS-CoV-2, RNA, NAAT POSITIVE A* 07/12/20 07/12/20 07:05 07:05 WBC 4.84 RBC 5.08 Hgb 14.8 Hct 44.5 MCV 87.6 MCH 29.1 MCHC 33.3 RDW Std Deviation 44.2 RDW Coeff of Maggie 13.6 Plt Count 187 MPV 11.3 H Immature Gran % (Auto) 0.4 Neut % (Auto) 76.9 Lymph % (Auto) 14.5 Page % (Auto) 7.2 Eos % (Auto) 1.0 Baso % (Auto) 0.0 Neut # (Auto) 3.72 Lymph # (Auto) 0.70 L Page # (Auto) 0.35 Eos # (Auto) 0.05 Baso # (Auto) 0.00 Immature Gran # (Auto) 0.02 PT INR APTT PTT Ratio Sodium 138 Potassium 4.1 Chloride 105 Carbon Dioxide 26 Anion Gap 7.0 BUN 19 H Creatinine 0.86 Est Cr Clr Drug Dosing 68.8 Est GFR ( Amer) 97.6 Est GFR (Non-Af Amer) 84.2 BUN/Creatinine Ratio 22.0 H Glucose 148 H Lactate Calcium 9.0 Phosphorus Magnesium Total Bilirubin AST ALT Alkaline Phosphatase Troponin I Total Protein Albumin Globulin Albumin/Globulin Ratio Procalcitonin Urine Color Urine Appearance Urine pH Ur Specific [place] Urine Protein Urine Glucose (UA) Urine Ketones Urine Blood Urine Nitrite Urine Bilirubin Urine Urobilinogen Ur Leukocyte Esterase Urine WBC (Auto) Urine RBC (Auto) U Hyaline Cast (Auto) U Epithel Cells (Auto) Urine Bacteria (Auto) Urine Crystals COVID-19 Eval Order SARS-CoV-2, RNA, NAAT Medications Administered Current Inpatient Medications Acetaminophen (Acetaminophen 325 Mg Tab) 650 mg PO Q6H PRN PRN Reason: pain Stop: 08/10/20 19:26 Aspirin (Aspirin 81 Mg Ectab) 81 mg PO QPM [facility] Stop: 08/10/20 20:59 Last Admin: 07/11/20 21:01 Dose: 81 mg Documented by: Benzonatate (Benzonatate 100 Mg Capsule) 100 mg PO TID PRN PRN Reason: Cough Stop: 08/10/20 19:26 Docusate Sodium (Docusate Sodium 100 Mg Cap) 100 mg PO BID [facility] Stop: 08/10/20 20:59 Last Admin: 07/12/20 10:04 Dose: 100 mg Documented by: Doxycycline Hyclate (Doxycycline Hyclate 100 Mg Cap) 100 mg PO BID [facility] Stop: 07/18/20 20:59 Last Admin: 07/12/20 10:05 Dose: 100 mg Documented by: Enoxaparin Sodium (Enoxaparin Inj 40 Mg/0.4 Ml Syr) 40 mg SQ Q12H [facility] Stop: 08/10/20 20:59 Last Admin: 07/12/20 10:05 Dose: 40 mg Documented by: Dexamethasone Sodium Phosphate (6 mg/ Syringe) 1.5 mls @ 1 mls/min IV DAILY [facility] Stop: 08/10/20 19:59 Last Admin: 07/12/20 10:04 Dose: 1 mls/min Documented by: Melatonin ([facility] 3 Mg Tab) [facility] Protocol Stop: 08/10/20 21:59 Last Admin: 07/11/20 21:09 Dose: 9 mg Documented by: Miscellaneous (Dutasteride [Avodart] Order Awaiting Action) 1 ea N/A QS [facility] Stop: 08/11/20 00:00 Last Admin: 07/12/20 10:03 Dose: Not Given Documented by: Phenazopyridine HCl (Phenazopyridine Hcl 200 Mg Tab) 200 mg PO TID PRN PRN Reason: pain Stop: 08/10/20 19:26 Polyethylene Glycol (Polyethylene (Miralax) 17 Gm Pack) 17 gm PO BID PRN PRN Reason: CONSTIPATION Stop: 08/10/20 19:26 Quetiapine Fumarate (Quetiapine Fumarate 25 Mg Tablet) 25 mg PO HS [facility] Stop: 08/10/20 20:59 Last Admin: 07/11/20 21:01 Dose: 25 mg Documented by: Tamsulosin HCl (Tamsulosin Hcl 0.4 Mg Cap) 0.4 mg PO BID [facility] Stop: 08/10/20 20:59 Last Admin: 07/12/20 10:05 Dose: 0.4 mg Documented by: Vitamin D (Cholecalciferol 1,000 Units 25 Mcg Tab) 5,000 units PO QAM [facility] Stop: 08/11/20 08:59 Last Admin: 07/12/20 10:05 Dose: 5,000 units Documented by: PG Care Time/CCT Total # of Minutes Spent Total Time Spent with Patient: Total time spent is greater than 50% in coordination of care (as documented) at patient's floor/unit and/or counseling patient: Coding Level of Care Code 69559 Subseq Hosp Care Lvl 2 Diagnoses COVID-19 U07.1 BPH (benign prostatic hyperplasia) N40.0 Lower urinary tract symptom presence: unspecified whether lower urinary tract symptoms present Dementia F03.90 Dementia type: unspecified type Dementia behavioral disturbance: without behavioral disturbance Chronic osteomyelitis of left foot M86.672 (1) BPH (benign prostatic hyperplasia) Lower urinary tract symptom presence: unspecified whether lower urinary tract symptoms present Qualified Code(s): N40.0 - Benign prostatic hyperplasia without lower urinary tract symptoms (2) Dementia Dementia type: unspecified type Dementia behavioral disturbance: without behavioral disturbance Qualified Code(s): F03.90 - Unspecified dementia without behavioral disturbance
[2020-07-12] MEDS: QUEtiapine FUMARATE 25 MG TABLET PO SCH (22:09)
[2020-07-12] MEDS: ASPIRIN 81 MG ECTAB PO SCH (22:09)
[2020-07-12] MEDS: MELATONIN 3 MG TAB PO SCH (22:17)
[2020-07-13] MEDS: DOCUSATE SODIUM 100 MG CAP PO SCH (08:41)
[2020-07-13] MEDS: TAMSULOSIN HCL 0.4 MG CAP PO SCH (08:41)
[2020-07-13] MEDS: DOXYCYCLINE HYCLATE 100 MG CAP PO SCH (08:42)
[2020-07-13] MEDS: CHOLECALCIFEROL 1,000 UNITS 25 MCG TAB PO SCH (08:42)
[2020-07-13] MEDS: ENOXAPARIN INJ 40 MG/0.4 ML SYR SQ SCH (08:43)
[2020-07-13] MEDS: DEXAMETHASONE SOD PHOSPHATE 6 MG in SYRINGE 0 ML IV SCH (08:44)
--- NOTE | 2020-07-13 15:05 | Discharge Summary ---
Date of Service July 13, 2020 Admission HPI Per Admitting Provider David Forrest is a pleasant 75yo C male with dementia presenting from home with Covid-19 infection. Patient is a poor historian and is unable to provide details of events prior to admission. Per discussion with ER physician - patient lives with his family who are currently all ill with Covid-19 and they are unable to care for Mr. Forrest. Patient complains only of some discomfort on his buttock. Otherwise no complaints. He specifically denies fevers, chills, CP, cough, SOB, abdominal pain, nausea, vomiting, diarrhea or constipation. He states he is in a wheelchair at home most of the day. ER Course: Azithromycin, Ceftriaxone, NSS x 1L Principal Diagnosis COVID 19 infection Discharge Exam Constitutional WD/WN, vitals as above Neck trachea midline, no thyromegaly Respiratory normal respiratory effort, lungs clear to auscultation Cardiovascular RRR, no murmur, no edema Gastrointestinal (Abdomen) normal bowel sounds, soft, nontender, no hepatosplenomegaly Musculoskeletal Head/Neck/Chest: normocephalic, head atraumatic and neck supple Extremities: + abnormal strength (generalized lower extremity weakness, cannot walk); no cyanosis, no clubbing and no petechiae Skin no rashes, warm and dry Neurologic patellar DTR's 2+ bilat, sensation intact and PERRL, EOMI, accommodation nl, no face palsy, no dysarthria Psychiatric Orientation: alert, oriented to person and cooperative; + not oriented to place and + not oriented to time Lymphatic no cervical or axillary lymphadenopathy Discharge Data Allergies Allergy/AdvReac Type Severity Reaction Status Date / Time No Known Allergies Allergy Verified 06/15/20 13:10 Consultations 07/11/20 16:19 ED Decision to Admit Stat Hospital Course (1) COVID-19: Patient found to be Covid-19 positive. He was mildly hypoxic on arrival to the ER at 88% on room air -Admit to Covid-19 singh, maintain isolation precautions Airborne and Contact -Supplemental O2 as needed to maintain saturations 90% or greater, has been on room air for two days -Dexamethasone 6mg IV daily - can change to PO on discharge to complete 10 days -Continue home Vitamin D no need for plasma or Remdesivir as he is not severe case plan to go home today, discussed with his daughter (2) BPH (benign prostatic hyperplasia): Patient with Roldan catheter in place with 350mL hematuria in bag -Continue Tamsulosin -Continue Dutasteride keep roldan as this is chronic issue, has follow up with urology on 07/22 Dr Baires (3) Dementia: Patient at risk for delirium -Frequent orientation -Continue Seroquel 25mg po qHS F/E/N- Heplock. Electrolytes WNL. Regular diet as tolerated - aspiration precautions Ppx - Lovenox 40mg BID in patient with Covid-19 Code - Full Code Dispo - Admit to medical/Covid-19 unit (4) Chronic osteomyelitis of left foot: Total Time Total Time Spent Total Time Spent (In Minutes): 33 minutes Total Time Includes: Examination of the Patient, Discharge Planning, Medication Reconciliation and Other (discussed plans with his family over the phone) Discharge Plan Discharge Items Patient Disposition: Transfer Senior Living Fac Reason For Visit: COVID-19, MILD HYPOXIA Discharge Diagnosis: COVID 19 pneumonia Condition on Discharge: Good Goals: maintain strength, nutrition, hydration finish course of Decadron Activity: Resume your previous activity Weightbearing: Full weightbearing Non-emergency contact: Primary Care Provider Call non-emergency contact if: you have any medication questions, your symptoms worsen and you have a fever Follow-up/Referrals: Davonte Jackson MD [Primary Care Provider] - Addtl Attending Provider Instructions: Medications: - DEXAMETHASONE: complete 5 more days, 6mg PO daily, for COVID 19 pneumonia COVID 19, pneumonia, brief hypoxia patient has never been in respiratory distress, oxygen has ranged from 88 to 94% on room air never required oxygen treated with dexamethasone IV, can change to PO on discharge, complete 5 more days BPH with retention keep roldan catheter, needs to follow up with Dr. Baires, [facility] urology on 07/22 for voiding trial being treated with Flomax and dutasteride Constipation: give Colace BID and Miralax daily Pending Studies at Discharge: No Stand-Alone Forms: My [employer], Smoking Cessation Skilled Items Patient informed of condition?: Yes DNR: No Discharge Level of Care: Skilled Communicable Disease: Yes Discharge Prognosis: Stable Lines: None Urinary Catheter: Yes Medications and DC Order Prescriptions: Continued doxycycline hyclate 100 mg capsule 100 mg PO BID Qty: 14 RF: 0 lidocaine HCl 2 % jelly 1 applic topical BID PRN (Reason: pain) Qty: 30 RF: 0 phenazopyridine [Pyridium] 200 mg tablet 200 mg PO TID PRN (Reason: pain) Qty: 10 RF: 0 tamsulosin 0.4 mg capsule 0.4 mg PO BID RF: 0 quetiapine 25 mg tablet 25 mg PO HS Qty: 30 RF: 0 dutasteride [Avodart] 0.5 mg capsule 0.5 mg PO DAILY Qty: 90 RF: 3 docusate sodium 100 mg Capsule 100 mg PO BID RF: 0 cyanocobalamin (vitamin B-12) [Vitamin B-12] 5,000 mcg Tablet, Sublingual 5,000 mcg PO WK RF: 0 aspirin 81 mg tablet,delayed release (DR/EC) 81 mg PO QPM RF: 0 polyethylene glycol 3350 [Miralax] 17 gram/dose powder See Rx Instructions .ROUTE .COMPLEX Qty: 238 RF: 0 acetaminophen 325 mg Tablet 650 mg PO Q6H PRN (Reason: pain) Qty: 30 RF: 0 cholecalciferol (vitamin D3) [Vitamin D3] 125 mcg (5,000 unit) Tablet 125 mcg PO DAILY RF: 0 melatonin 10 mg Tablet 10 mg PO HS RF: 0 Azo Bladder Control 300 mg Capsule 1 cap PO TID RF: 0 Discharge Orders: Discharge Order (Routine); Ordered 07/13/20 Ordered By: Gaurav Leon Admission Data Admit Date/Time: 07/11/20 17:58 Attending Provider: Gaurav Leon Admit Provider: Zenaida Hess Primary Care Provider: Davonte Jackson Other Providers: Zenaida Hess ; Heartpriscila, Other Interventions: Discharge Summary Assessment (RN) Last Done: 07/13/20 14:52 Coding Level of Care Code D/C Day Management >30 mins Diagnoses COVID-19 U07.1 BPH (benign prostatic hyperplasia) N40.0 Lower urinary tract symptom presence: unspecified whether lower urinary tract symptoms present Dementia F03.90 Dementia behavioral disturbance: without behavioral disturbance Dementia type: unspecified type Chronic osteomyelitis of left foot M86.189
== END 2020-07-13 17:00 | DRG 179 ==
LOC: ED 13:16 → 2S 17:58 → SUATTDRO 17:58 → 2S 18:49

== ENCOUNTER 2020-07-23 11:53 | Inpatient (IN) ==
[2020-07-23] MEDS ORDERED: ACETAMINOPHEN 1,000 MG/100 ML VIAL IV STA (12:12)
[2020-07-23] MEDS ORDERED: SODIUM CHLORIDE 0.9% 500 ML IV ONE (12:12)
[2020-07-23] MEDS ORDERED: DEXAMETHASONE SOD INJ 4 MG/ML VIAL IV STA (12:12)
[2020-07-23] MEDS ORDERED: PIPERACILL/TAZOBAC CONSULT ACTIVE PRN (12:12)
[2020-07-23] MEDS ORDERED: PIPERACILLIN/TAZOBACTAM 4.5 GM/120 ML BAG IV ONE (12:12)
[2020-07-23] MEDS ORDERED: VANCOMYCIN CONSULT ACTIVE PRN (12:12)
[2020-07-23] MEDS ORDERED: VANCOMYCIN HCL 1,250 MG in SODIUM CHLORIDE 0.9% 500 ML IV ONE (12:12)
[2020-07-23] MEDS: levoFLOXacin/D5W 750 MG/150 ML BAG IV STA ×2 (13:29→13:56)
[2020-07-23 13:58] LABS: Basophils # (auto) 0.02 K/uL (0-0.2); Basophils % (auto) 0.1 %; Eosinophils # (auto) 0.02 K/uL (0-0.5); Eosinophils % (auto) 0.1 %; Hematocrit (blood only) 52.9 % (42-52); Hemoglobin 17.2 g/dL (14.0-18.0); Immature Granulocytes # (auto) 0.05 K/uL (0.00-0.02); Immature Granulocytes % (auto) 0.3 %; Lymphocytes # (auto) 1.56 K/uL (1.2-3.4); Lymphocytes % (auto) 8.3 %; Mean Corpuscular Hemoglobin 29.2 pg (25-34); Mean Corpuscular Hgb Conc 32.5 g/dL (32-36); Mean Corpuscular Volume 89.7 fL (80-100); Mean Platelet Volume 11.1 fL (7.4-10.4); Monocytes # (auto) 0.28 K/uL (0.11-0.59); Monocytes % (auto) 1.5 %; Neutrophils # (auto) 16.88 K/uL (1.4-6.5); Neutrophils % (auto) 89.7 %; Platelet Count 363 K/uL (130-400); RDW Coefficient of Variation 14.3 % (11.5-14.5); RDW Standard Deviation 47.2 fL (36.4-46.3); White Blood Count 18.81 K/uL (4.8-10.8)
[2020-07-23 14:13] LABS: Albumin Level 2.8 gm/dl (3.4-5.0); BUN Creatinine Ratio 40.4 (10-20); C Reactive Protein 13.1 mg/dl (0-0.29); Calcium 10.3 mg/dl (8.5-10.1); Creatinine Clr Calc Pharmacy 50.4 ml/min; Est GFR (African American) 73.6; Est GFR (Non-African American) 63.5; Magnesium 2.7 mg/dl (1.8-2.4); Potassium 3.7 mmol/L (3.5-5.1)
--- NOTE | 2020-07-23 14:27 | XRay Report ---
SINGLE VIEW CHEST CLINICAL HISTORY: Sepsis. FINDINGS: An AP, portable, upright chest radiograph is compared to study dated 07/11/2020. The examina tion is degraded by portable technique and patient rotation. The heart is mildly enlarged. The pulmon saul vasculature is noncongested. Patchy interstitial airspace opacities are present at both lung base s. No large pleural effusion or pneumothorax is seen. The skeletal structures are osteopenic. The bon y thorax is grossly intact. IMPRESSION: There are hazy bilateral interstitial airspace opacities, typical for an infectious pneum onitis. ACT 112: Negative or not required by law. Electronically signed by: Jake Vaughn M.D. 07/23/2020 2:26 PM
[2020-07-23 14:30] LABS: Albumin Globulin Ratio 0.5 (0.9-2); Bilirubin,Total 1.9 mg/dl (0.2-1); Ferritin 1957.8 ng/ml (8-388); Globulin 5.4 gm/dl (2.5-4.0); Total Protein 8.2 gm/dl (6.4-8.2); Troponin I 0.102 ng/ml (0-0.045)
[2020-07-23 14:42] LABS: Appearance Urine Turbid (Clear); Bacteria Urine Automated Negative (Negative); Blood Urine 3+ (Negative); Color Urine Dark Yellow; Epithelial Cell Urine Auto >30 /lpf (0-5); Glucose Urine UA Negative (Negative); Ketones Urine Trace (Negative); Leukocyte Esterase Urine 2+ (Negative); Nitrite Urine Positive (Negative); Protein Urine 3+ (Negative); RBC Urine Automated >30 /hpf (0-4); Specific Gravity Urine 1.031 (1.000-1.030); Urobilinogen Urine Negative (Negative)
--- NOTE | 2020-07-23 14:51 | Emergency Department Note ---
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 presents to emergency emergency department acutely altered. The patient is tachycardic. He was started on broad-spectrum antibiotics. His troponin and lactate were found to be elevated. He was given normal saline bolus here in the emergency department he does have an elevation in his white blood cell count. I strongly suspect this is because of the patient's urinalysis. I did discuss the case with the hospitalist service who did agree to meet the patient. An order was placed for continuous cardiac monitoring. The monitor shows a rate of 100 with Sinus tach rhythm. = The patient was evaluated during a period of high volume and high acuity while the hospital was at overcapacity during the global COVID-19 pandemic, and that diagnosis was suspected/considered upon their initial presentation. Their evaluation, treatment and testing was consistent with current guidelines for patients who present with complaints or symptoms that may be related to COVID- 19. Impression & Plan COVID-19, Dementia, Acute hypernatremia, Acute UTI Discharge Plan Visit Data Chief Complaint: Illness ED Provider: Lloyd Arevalo Discharge Problem: COVID-19, Dementia, Acute hypernatremia, Acute UTI Forms Stand Alone Forms: My [facility] Prescriptions Prescriptions: No Action lidocaine HCl 2 % jelly 1 applic topical BID PRN (Reason: pain) Qty: 30 RF: 0 tamsulosin 0.4 mg capsule 0.4 mg PO BID RF: 0 docusate sodium 100 mg Capsule 100 mg PO BID RF: 0 cyanocobalamin (vitamin B-12) [Vitamin B-12] 5,000 mcg Tablet, Sublingual 5,000 mcg PO SA RF: 0 aspirin 81 mg tablet,delayed release (DR/EC) 81 mg PO QAM RF: 0 polyethylene glycol 3350 [Miralax] 17 gram/dose powder See Rx Instructions .ROUTE .COMPLEX Qty: 238 RF: 0 dutasteride [Avodart] 0.5 mg capsule 0.5 mg PO QAM RF: 0 magnesium hydroxide [Milk of Magnesia] 400 mg/5 mL Suspension 30 ml PO DAILY PRN (Reason: Constipation) RF: 0 cholecalciferol (vitamin D3) [Vitamin D3] 125 mcg (5,000 unit) Tablet 125 mcg PO QAM RF: 0 melatonin 10 mg Tablet 10 mg PO HS RF: 0 Referrals Referrals: Davonte Jackson MD [Primary Care Provider] - Discharge Problem: Dementia Qualifiers: Dementia type: unspecified type Dementia behavioral disturbance: without b ehavioral disturbance Qualified Code(s): F03.90 - Unspecified dementia without behavioral disturbance
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
[2020-07-23 15:09] LABS: Bilirubin Urine Negative (Negative); Ictotest Urine Negative (Negative)
[2020-07-23 15:33] LABS: Amorphous Sediment Urine Present (None Prsent)
[2020-07-23 15:50] LABS: INR 1.8 (0.9-1.1); Partial Thromboplastin Ratio 0.8; Partial Thromboplastin Time 22.9 Seconds (21.0-31.0); Prothrombin Time 18.1 Seconds (9.0-12.0)
--- NOTE | 2020-07-23 16:41 | CT Scan Report ---
CT SCAN OF THE ABDOMEN AND PELVIS WITHOUT CONTRAST CLINICAL HISTORY: Sepsis. Hydronephrosis. Possible pyelonephritis. COMPARISON STUDY: Noncontrast study dated 06/15/2020 TECHNIQUE: CT scan of the abdomen and pelvis was performed from the lung bases to the proximal femurs . Images are reviewed in the axial, sagittal, and coronal planes. IV contrast was not administered fo r this examination. A dose lowering technique was utilized adhering to the principles of ALARA. CT DOSE: 694.23 mGy.cm FINDINGS: Lower chest: There are progressive bibasilar airspace opacities. The findings are concerning for a mu ltifocal pneumonia. Correlation with Covid 19 testing is recommended. Liver: There is mild elevation of the right hemidiaphragm. There is subtle hepatic hypodensities, unc hanged from the prior study and likely representing cysts. Gallbladder: Unremarkable. Spleen: Normal in size and attenuation. Pancreas: Unremarkable. Adrenal glands: Unremarkable. Kidneys: There is no hydronephrosis. No renal, ureteral, or bladder calculi are visualized. Bowel: There is a small hiatal hernia. There are no transition zones indicate bowel obstruction. Ther e is no evidence of acute diverticulitis. The appendix appears normal. Peritoneum: There is no intraperitoneal free air or abdominal ascites. Vasculature: The abdominal aorta is normal in course and caliber. Adenopathy: None. Pelvic viscera: There is an indwelling Moncada catheter. There is gas within the bladder likely iatroge christine. There is mild bladder wall thickening. The prostate is enlarged. Skeletal structures: There are postsurgical changes of a total right hip arthroplasty. There are med admin christine skeletal deformities of the pelvis. IMPRESSION: 1. Motion degraded study 2. No evidence of bowel obstruction. No evidence of free air 3. Normal appendix. No evidence of acute diverticulitis 4. No renal, ureteral, or bladder calculi identified 5. Prostatomegaly. Interval placement of a Moncada catheter. Bladder wall thickening. 6. Progressive lower lobe pulmonary airspace opacities suspicious for a multifocal pneumonia. Correla tion with Covid 19 testing is recommended. ACT 112: Negative or not required by law. Electronically signed by: Lake Martinez M.D. 07/23/2020 4:39 PM
[2020-07-23 16:53] LABS: Adenovirus PCR Not Detected (NotDetected); Bordetella parapertussis PCR Not Detected (NotDetected); Bordetella pertussis PCR Not Detected (NotDetected); Chlamydia pneumoniae PCR Not Detected (NotDetected); Coronavirus 229E PCR Not Detected (NotDetected); Coronavirus HKU1 PCR Not Detected (NotDetected); Coronavirus NL63 PCR Not Detected (NotDetected); Coronavirus OC43PCR Not Detected (NotDetected); Human Metapneumovirus PCR Not Detected (NotDetected); Influenza A PCR Not Detected (NotDetected); Influenza B PCR Not Detected (NotDetected); Mycoplasma pneumoniae PCR Not Detected (NotDetected); Parainfluenza Virus 1 PCR Not Detected (NotDetected); Parainfluenza Virus 2 PCR Not Detected (NotDetected); Parainfluenza Virus 3 PCR Not Detected (NotDetected); Parainfluenza Virus 4 PCR Not Detected (NotDetected); Respiratory Syncytial VirusPCR Not Detected (NotDetected); Rhinovirus/Enterovirus PCR Not Detected (NotDetected)
[2020-07-23 16:58] LABS: Coronavirus CoV-2 (COVID19)PCR DETECTED (NotDetected)
[2020-07-23] MEDS ORDERED: DOCUSATE SODIUM 100 MG CAP PO SCH (21:00)
[2020-07-23] MEDS: POTASSIUM CHLORIDE 20 MEQ in DEXTROSE 5% 1,000 ML IV SCH (21:09)
[2020-07-23] MEDS: MELATONIN 3 MG TAB PO SCH (21:09)
[2020-07-23] MEDS: TAMSULOSIN HCL 0.4 MG CAP PO SCH (21:09)
[2020-07-23] MEDS: POLYETHYLENE (MIRALAX) 17 GM PACK PO SCH (21:10)
[2020-07-23] MEDS: PIPERACILLIN/TAZOBACTAM 3.375 GM in DEXTROSE 5% 100 ML IV SCH (21:10)
[2020-07-23] MEDS: DOCUSATE SODIUM/SENNA 50/8.6MG TAB PO SCH (21:10)
[2020-07-23] MEDS: ENOXAPARIN INJ 40 MG/0.4 ML SYR SQ SCH (21:11)
[2020-07-24] MEDS: AVODART - ORDER AWAITING ACTION SCH ×3 (00:05→17:03)
[2020-07-24] MEDS: VANCOMYCIN HCL 750 MG in SODIUM CHLORIDE 0.9% 250 ML IV SCH ×2 (00:49→13:58)
[2020-07-24] MEDS: PIPERACILLIN/TAZOBACTAM 3.375 GM in DEXTROSE 5% 100 ML IV SCH ×3 (05:33→21:19)
[2020-07-24] MEDS: POTASSIUM CHLORIDE 20 MEQ in DEXTROSE 5% 1,000 ML IV SCH ×2 (05:35→14:33)
[2020-07-24 06:28] LABS: Basophils # (auto) 0.02 K/uL (0-0.2); Basophils % (auto) 0.1 %; Eosinophils # (auto) 0.04 K/uL (0-0.5); Eosinophils % (auto) 0.2 %; Hematocrit (blood only) 48.7 % (42-52); Hemoglobin 15.6 g/dL (14.0-18.0); Immature Granulocytes # (auto) 0.07 K/uL (0.00-0.02); Immature Granulocytes % (auto) 0.4 %; Lymphocytes # (auto) 1.03 K/uL (1.2-3.4); Lymphocytes % (auto) 5.5 %; Mean Corpuscular Hemoglobin 28.9 pg (25-34); Mean Corpuscular Volume 90.4 fL (80-100); Mean Platelet Volume 11.6 fL (7.4-10.4); Monocytes # (auto) 0.88 K/uL (0.11-0.59); Monocytes % (auto) 4.7 %; Neutrophils # (auto) 16.54 K/uL (1.4-6.5); Neutrophils % (auto) 89.1 %; Platelet Count 351 K/uL (130-400); RDW Coefficient of Variation 14.4 % (11.5-14.5); RDW Standard Deviation 47.6 fL (36.4-46.3); Red Blood Count 5.39 M/uL (4.7-6.1); White Blood Count 18.58 K/uL (4.8-10.8)
--- NOTE | 2020-07-24 06:29 | Electrocardiogram Report ---
Test Reason : Blood Pressure : / mmHG Vent. Rate : 131 BPM Atrial Rate : 131 BPM P-R Int : 134 ms QRS Dur : 084 ms QT Int : 308 ms P-R-T Axes : 025 -39 128 degrees QTc Int : 454 ms Poor data quality, interpretation may be adversely affected Sinus tachycardia with occasional Premature ventricular complexes Left axis deviation Moderate voltage criteria for LVH, may be normal variant Abnormal ECG When compared with ECG of 11-JUL-2020 13:41, Premature ventricular complexes are now Present Premature atrial complexes are no longer Present ST more depressed Lateral leads T wave inversion now evident in Lateral leads Confirmed by Marcelino Farfan ([id number]) on 07/24/2020 6:28:48 AM Referred By: REFERRED SELF Confirmed By:Marcelino Farfan
[2020-07-24 06:36] LABS: Prothrombin Time 20.6 Seconds (9.0-12.0)
[2020-07-24 06:59] LABS: Albumin Level 2.6 gm/dl (3.4-5.0); BUN Creatinine Ratio 32.1 (10-20); Calcium 9.6 mg/dl (8.5-10.1); Creatinine Clr Calc Pharmacy 50.1 ml/min; Est GFR (African American) 70.5; Est GFR (Non-African American) 60.8; Potassium 3.6 mmol/L (3.5-5.1)
[2020-07-24 07:01] LABS: Albumin Globulin Ratio 0.5 (0.9-2); Bilirubin,Total 1.7 mg/dl (0.2-1); Total Protein 7.6 gm/dl (6.4-8.2)
--- NOTE | 2020-07-24 08:47 | Pharmacy Report ---
Pharmacy Abx Initial Consult - Date of Service July 24, 2020 - Pharmacy Dosing Scope Date of Consult: 07/23/20 Consultation requested by: Dr. Nieto Pharmacy is consulted to initiate Vancomycin IV dosing therapy, order appropriate labs and adjust drug dose/frequency. - Subjective The patient is a 75 year old M admitted on 07/23/20 15:47. - Objective Height: 6 ft 2 in Weight: 65.4 kg Vital Signs (Past 12hrs): Vital Signs Temp Pulse Pulse Resp BP BP Pulse Ox 07/24/20 08:08 98 H 18 131/89 92 07/24/20 03:34 36.8 C 99 H 24 143/91 H 94 07/24/20 00:00 105 H 07/23/20 23:15 36.9 C 102 H 20 136/89 92 Lab Results (24hrs): Laboratory Tests (24 Hours) 07/24/20 07/24/20 07/23/20 05:28 05:28 13:45 WBC 18.58 H Neut # (Auto) 16.54 H ESR Creatinine 1.16 Est Cr Clr Drug Dosing 50.1 C-Reactive Protein Procalcitonin 0.10 07/23/20 07/23/20 07/23/20 13:45 13:45 13:45 WBC 18.81 H Neut # (Auto) 16.88 H ESR 48 H Creatinine 1.12 Est Cr Clr Drug Dosing 50.4 C-Reactive Protein 13.10 H Procalcitonin Micro Results: 07/23/20 14:00 Urine Culture - Pending Urine,Clean Catch 07/23/20 13:52 Aerobic Blood Culture - Pending Blood Anaerobic Blood Culture - Pending 07/23/20 13:45 Aerobic Blood Culture - Pending Blood Anaerobic Blood Culture - Pending - Risk Factors for Resistance * Resident in a chcf or extended-care facility - Assessment & Plan Assessment 75 year old M admitted for Sepsis possibly urinary source. Patient with history of Osteomyelitis and recently with Covid- treatment finished. Currently he is ordered Vancomycin + Zosyn for urosepsis. Cultures pending. Plan Vancomycin IV * Loading dose: 1250 mg (19 mg/kg) x1 dose given yesterday afternoon. Patient meets criteria for vancomycin AUC dosing nomogram AUC/JACQUES is the preferred PK/PD target for vancomycin Target AUC/JACQUES = 400-600 AUC guided dosing is effective and associated with decreased risk of nephrotoxicity * Maintenance dose: Vancomycin 750 mg IV every 12 hours started at 0000 last night. * Trough level ordered for 07/25/20 before dose at 1200 Piperacillin/tazobactam * 4.5 g bolus administered over 30 minutes, then 3.375 g IV extended infusion every 8 hours for CrCl greater than 20 mL/min Pharmacy will continue to follow and will adjust dose/frequency as necessary. Thank you.
--- NOTE | 2020-07-24 10:27 | Hospitalist Progress Note ---
Date of Service July 24, 2020 Assessment & Plan (1) Altered mental status: at baseline he has dementia but is cooperative, oriented, conversive now he is non-verbal, lethargic, not eating/drinking well most likely explanation would be COVID delirium leading to poor oral intake, hypernatremia likely had some hypoxia at SNF that was contributing supportive care with IV fluids, get Na down to normal encourage him to eat/drink if possible discussed guarded prognosis with daughter (2) COVID-19: Finished course of dexamethasone 3 days ago however, requiring 5L NC, CXR with multifocal pneumonia will add back Dexamethasone 6mg IV daily for 10 day course (3) Acute hypernatremia: Suspect contributing towards current altered mental state. Free water deficit 1.4L. 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 (8) Elevated INR: Suspect nutritional (9) Hypertension: (10) Oropharyngeal dysphagia: Admission and Anticipated Discharge Date Admission Date: July 23, 2020 Subjective patient is laying in bed, won't really speak, will shake his head "no" when asked about pain or dyspnea reviewed chart, treated for possible UTI due to chronic roldan but his CXR shows pneumonia reviewed prior charts, his UA is always dirty with the roldan catheter discussed with his daughter, he has gotten worse the past 10 days since he went to a SNF we discussed the real possibility of having COVID delirium but also his sodium level of 154 explained that we will resume dexamethasone, give fluids I agree that patient is far from his baseline, when I saw him 10 days ago he was happy, conversive, eating/drinking normally reviewed labs, WBC 18k, Na 154, Cl 119, Cr 1.16, BUN 37, K 3.6 Review of Systems Review of Systems: Unobtainable due to cognitive status Physical Exam Constitutional: well developed, + ill appearing, + thin and + frail appearing; no acute distress ENMT: Mouth: + dry oral mucous membranes Respiratory: normal respiratory effort, lungs clear to auscultation Cardiovascular: RRR, no murmur, no edema Gastrointestinal (Abdomen): normal bowel sounds, soft, nontender, no hepatosplenomegaly Musculoskeletal: Head/Neck/Chest: normocephalic, head atraumatic and neck supple Extremities: + limited ROM of extremities, + abnormal strength (generalized weakness) and + muscle atrophy (legs bilaterally); no cyanosis, no clubbing and no petechiae Skin: no rashes, warm and dry Neurologic: moves all extremities and + confused; no focal motor deficits Motor/Sensory: no tremor Psychiatric: Orientation: alert, oriented to person and cooperative; + not oriented to place and + not oriented to time Lymphatic: no cervical or axillary lymphadenopathy Results & Data Results & Data ([facility]) Vital Signs (Past 12 Hours) Vital Signs Temp Pulse Pulse Resp BP BP Pulse Ox 07/24/20 08:08 36.6 C 98 H 18 131/89 92 07/24/20 03:34 36.8 C 99 H 24 143/91 H 94 07/24/20 00:00 105 H 07/23/20 23:15 36.9 C 102 H 20 136/89 92 Laboratory Results Laboratory Results - last 24 hr 07/23/20 07/23/20 07/23/20 13:45 13:45 13:45 WBC 18.81 H RBC 5.90 Hgb 17.2 Hct 52.9 H MCV 89.7 MCH 29.2 MCHC 32.5 RDW Std Deviation 47.2 H RDW Coeff of Maggie 14.3 Plt Count 363 MPV 11.1 H Immature Gran % (Auto) 0.3 Neut % (Auto) 89.7 Lymph % (Auto) 8.3 [place] % (Auto) 1.5 Eos % (Auto) 0.1 Baso % (Auto) 0.1 Neut # (Auto) 16.88 H Lymph # (Auto) 1.56 [place] # (Auto) 0.28 Eos # (Auto) 0.02 Baso # (Auto) 0.02 Immature Gran # (Auto) 0.05 H ESR 48 H PT INR APTT PTT Ratio Sodium Potassium Chloride Carbon Dioxide Anion Gap BUN Creatinine Est Cr Clr Drug Dosing Est GFR ( Amer) Est GFR (Non-Af Amer) BUN/Creatinine Ratio Glucose Lactate Calcium Magnesium Ferritin Total Bilirubin AST ALT Alkaline Phosphatase Lactate Dehydrogenase Troponin I C-Reactive Protein Total Protein Albumin Globulin Albumin/Globulin Ratio Procalcitonin Urine Color Urine Appearance Urine pH Ur Specific [place] Urine Protein Urine Glucose (UA) Urine Ketones Urine Blood Urine Nitrite Urine Bilirubin Urine Urobilinogen Ur Leukocyte Esterase Urine WBC (Auto) Urine RBC (Auto) U Hyaline Cast (Auto) U Epithel Cells (Auto) Urine Bacteria (Auto) Ur Renal Epithelial Cell Amorphous Sediment Nasal Screen MRSA (PCR) Adenovirus (PCR) B. pertussis DNA (PCR) B.parapertussis DNA PCR C. pneumoniae DNA (PCR) Coronavirus OC43 (PCR) Coronavirus HKU1 (PCR) Coronavirus 229E (PCR) COVID-19 Eval Order SARS-CoV-2 (PCR) Coronavirus NL63 (PCR) Human Metapneumovir PCR Influenza Type A (PCR) Influenza Type B (PCR) M. pneumoniae (PCR) Parainfluenza 1 (PCR) Parainfluenza 2 (PCR) Parainfluenza 3 (PCR) Parainfluenza 4 (PCR) RSV (PCR) Entero/Rhino (PCR) Blood Type O Positive Antibody Screen NEGATIVE 07/23/20 07/23/20 07/23/20 13:45 13:45 13:45 WBC RBC Hgb Hct MCV MCH MCHC RDW Std Deviation RDW Coeff of Maggie Plt Count MPV Immature Gran % (Auto) Neut % (Auto) Lymph % (Auto) [place] % (Auto) Eos % (Auto) Baso % (Auto) Neut # (Auto) Lymph # (Auto) [place] # (Auto) Eos # (Auto) Baso # (Auto) Immature Gran # (Auto) ESR PT Cancelled INR Cancelled APTT Cancelled PTT Ratio Cancelled Sodium 153 H Potassium 3.7 Chloride 118 H Carbon Dioxide 27 Anion Gap 8.0 BUN 45 H Creatinine 1.12 Est Cr Clr Drug Dosing 50.4 Est GFR ( Amer) 73.6 Est GFR (Non-Af Amer) 63.5 BUN/Creatinine Ratio 40.4 H Glucose 172 H Lactate 2.2 H* Calcium 10.3 H Magnesium 2.7 H Ferritin 1957.8 H Total Bilirubin 1.9 H AST 63 H ALT 151 H Alkaline Phosphatase 114 Lactate Dehydrogenase Troponin I 0.102 H* C-Reactive Protein 13.10 H Total Protein 8.2 Albumin 2.8 L Globulin 5.4 H Albumin/Globulin Ratio 0.5 L Procalcitonin Urine Color Urine Appearance Urine pH Ur Specific [place] Urine Protein Urine Glucose (UA) Urine Ketones Urine Blood Urine Nitrite Urine Bilirubin Urine Urobilinogen Ur Leukocyte Esterase Urine WBC (Auto) Urine RBC (Auto) U Hyaline Cast (Auto) U Epithel Cells (Auto) Urine Bacteria (Auto) Ur Renal Epithelial Cell Amorphous Sediment Nasal Screen MRSA (PCR) Adenovirus (PCR) B. pertussis DNA (PCR) B.parapertussis DNA PCR C. pneumoniae DNA (PCR) Coronavirus OC43 (PCR) Coronavirus HKU1 (PCR) Coronavirus 229E (PCR) COVID-19 Eval Order SARS-CoV-2 (PCR) Coronavirus NL63 (PCR) Human Metapneumovir PCR Influenza Type A (PCR) Influenza Type B (PCR) M. pneumoniae (PCR) Parainfluenza 1 (PCR) Parainfluenza 2 (PCR) Parainfluenza 3 (PCR) Parainfluenza 4 (PCR) RSV (PCR) Entero/Rhino (PCR) Blood Type Antibody Screen 07/23/20 07/23/20 07/23/20 13:45 13:45 14:00 WBC RBC Hgb Hct MCV MCH MCHC RDW Std Deviation RDW Coeff of Maggie Plt Count MPV Immature Gran % (Auto) Neut % (Auto) Lymph % (Auto) [place] % (Auto) Eos % (Auto) Baso % (Auto) Neut # (Auto) Lymph # (Auto) [place] # (Auto) Eos # (Auto) Baso # (Auto) Immature Gran # (Auto) ESR PT INR APTT PTT Ratio Sodium Potassium Chloride Carbon Dioxide Anion Gap BUN Creatinine Est Cr Clr Drug Dosing Est GFR ( Amer) Est GFR (Non-Af Amer) BUN/Creatinine Ratio Glucose Lactate Calcium Magnesium Ferritin Total Bilirubin AST ALT Alkaline Phosphatase Lactate Dehydrogenase 376 H Troponin I C-Reactive Protein Total Protein Albumin Globulin Albumin/Globulin Ratio Procalcitonin 0.10 Urine Color Dark Yellow Urine Appearance Turbid A Urine pH 5.0 Ur Specific [place] 1.031 H Urine Protein 3+ H Urine Glucose (UA) Negative Urine Ketones Trace H Urine Blood 3+ H Urine Nitrite Positive A Urine Bilirubin Negative Urine Urobilinogen Negative Ur Leukocyte Esterase 2+ H Urine WBC (Auto) 10-30 H Urine RBC (Auto) >30 H U Hyaline Cast (Auto) 1-5 U Epithel Cells (Auto) >30 H Urine Bacteria (Auto) Negative Ur Renal Epithelial Cell Not Reportable Amorphous Sediment Present A Nasal Screen MRSA (PCR) Adenovirus (PCR) B. pertussis DNA (PCR) B.parapertussis DNA PCR C. pneumoniae DNA (PCR) Coronavirus OC43 (PCR) Coronavirus HKU1 (PCR) Coronavirus 229E (PCR) COVID-19 Eval Order SARS-CoV-2 (PCR) Coronavirus NL63 (PCR) Human Metapneumovir PCR Influenza Type A (PCR) Influenza Type B (PCR) M. pneumoniae (PCR) Parainfluenza 1 (PCR) Parainfluenza 2 (PCR) Parainfluenza 3 (PCR) Parainfluenza 4 (PCR) RSV (PCR) Entero/Rhino (PCR) Blood Type Antibody Screen 07/23/20 07/23/20 07/23/20 15:23 15:36 15:36 WBC RBC Hgb Hct MCV MCH MCHC RDW Std Deviation RDW Coeff of Maggie Plt Count MPV Immature Gran % (Auto) Neut % (Auto) Lymph % (Auto) [place] % (Auto) Eos % (Auto) Baso % (Auto) Neut # (Auto) Lymph # (Auto) [place] # (Auto) Eos # (Auto) Baso # (Auto) Immature Gran # (Auto) ESR PT 18.1 H INR 1.8 H APTT 22.9 PTT Ratio 0.8 Sodium Potassium Chloride Carbon Dioxide Anion Gap BUN Creatinine Est Cr Clr Drug Dosing Est GFR ( Amer) Est GFR (Non-Af Amer) BUN/Creatinine Ratio Glucose Lactate Calcium Magnesium Ferritin Total Bilirubin AST ALT Alkaline Phosphatase Lactate Dehydrogenase Troponin I C-Reactive Protein Total Protein Albumin Globulin Albumin/Globulin Ratio Procalcitonin Urine Color Urine Appearance Urine pH Ur Specific [place] Urine Protein Urine Glucose (UA) Urine Ketones Urine Blood Urine Nitrite Urine Bilirubin Urine Urobilinogen Ur Leukocyte Esterase Urine WBC (Auto) Urine RBC (Auto) U Hyaline Cast (Auto) U Epithel Cells (Auto) Urine Bacteria (Auto) Ur Renal Epithelial Cell Amorphous Sediment Nasal Screen MRSA (PCR) Adenovirus (PCR) Not Detected B. pertussis DNA (PCR) Not Detected B.parapertussis DNA PCR Not Detected C. pneumoniae DNA (PCR) Not Detected Coronavirus OC43 (PCR) Not Detected Coronavirus HKU1 (PCR) Not Detected Coronavirus 229E (PCR) Not Detected COVID-19 Eval Order Dup asRespPanOrdered SARS-CoV-2 (PCR) DETECTED A* Coronavirus NL63 (PCR) Not Detected Human Metapneumovir PCR Not Detected Influenza Type A (PCR) Not Detected Influenza Type B (PCR) Not Detected M. pneumoniae (PCR) Not Detected Parainfluenza 1 (PCR) Not Detected Parainfluenza 2 (PCR) Not Detected Parainfluenza 3 (PCR) Not Detected Parainfluenza 4 (PCR) Not Detected RSV (PCR) Not Detected Entero/Rhino (PCR) Not Detected Blood Type Antibody Screen 07/23/20 07/23/20 07/24/20 17:02 20:19 05:28 WBC 18.58 H RBC 5.39 Hgb 15.6 Hct 48.7 MCV 90.4 MCH 28.9 MCHC 32.0 RDW Std Deviation 47.6 H RDW Coeff of Maggie 14.4 Plt Count 351 MPV 11.6 H Immature Gran % (Auto) 0.4 Neut % (Auto) 89.1 Lymph % (Auto) 5.5 [place] % (Auto) 4.7 Eos % (Auto) 0.2 Baso % (Auto) 0.1 Neut # (Auto) 16.54 H Lymph # (Auto) 1.03 L [place] # (Auto) 0.88 H Eos # (Auto) 0.04 Baso # (Auto) 0.02 Immature Gran # (Auto) 0.07 H ESR PT INR APTT PTT Ratio Sodium Potassium Chloride Carbon Dioxide Anion Gap BUN Creatinine Est Cr Clr Drug Dosing Est GFR ( Amer) Est GFR (Non-Af Amer) BUN/Creatinine Ratio Glucose Lactate 2.4 H* Calcium Magnesium Ferritin Total Bilirubin AST ALT Alkaline Phosphatase Lactate Dehydrogenase Troponin I C-Reactive Protein Total Protein Albumin Globulin Albumin/Globulin Ratio Procalcitonin Urine Color Urine Appearance Urine pH Ur Specific [place] Urine Protein Urine Glucose (UA) Urine Ketones Urine Blood Urine Nitrite Urine Bilirubin Urine Urobilinogen Ur Leukocyte Esterase Urine WBC (Auto) Urine RBC (Auto) U Hyaline Cast (Auto) U Epithel Cells (Auto) Urine Bacteria (Auto) Ur Renal Epithelial Cell Amorphous Sediment Nasal Screen MRSA (PCR) Negative Adenovirus (PCR) B. pertussis DNA (PCR) B.parapertussis DNA PCR C. pneumoniae DNA (PCR) Coronavirus OC43 (PCR) Coronavirus HKU1 (PCR) Coronavirus 229E (PCR) COVID-19 Eval Order SARS-CoV-2 (PCR) Coronavirus NL63 (PCR) Human Metapneumovir PCR Influenza Type A (PCR) Influenza Type B (PCR) M. pneumoniae (PCR) Parainfluenza 1 (PCR) Parainfluenza 2 (PCR) Parainfluenza 3 (PCR) Parainfluenza 4 (PCR) RSV (PCR) Entero/Rhino (PCR) Blood Type Antibody Screen 07/24/20 07/24/20 05:28 05:28 WBC RBC Hgb Hct MCV MCH MCHC RDW Std Deviation RDW Coeff of Maggie Plt Count MPV Immature Gran % (Auto) Neut % (Auto) Lymph % (Auto) [place] % (Auto) Eos % (Auto) Baso % (Auto) Neut # (Auto) Lymph # (Auto) [place] # (Auto) Eos # (Auto) Baso # (Auto) Immature Gran # (Auto) ESR PT 20.6 H INR 2.0 H APTT PTT Ratio Sodium 154 H Potassium 3.6 Chloride 119 H Carbon Dioxide 29 Anion Gap 6.0 BUN 37 H Creatinine 1.16 Est Cr Clr Drug Dosing 50.1 Est GFR ( Amer) 70.5 Est GFR (Non-Af Amer) 60.8 BUN/Creatinine Ratio 32.1 H Glucose 136 H Lactate Calcium 9.6 Magnesium Ferritin Total Bilirubin 1.7 H AST 60 H ALT 120 H Alkaline Phosphatase 95 Lactate Dehydrogenase Troponin I C-Reactive Protein Total Protein 7.6 Albumin 2.6 L Globulin 5.0 H Albumin/Globulin Ratio 0.5 L Procalcitonin Urine Color Urine Appearance Urine pH Ur Specific [place] Urine Protein Urine Glucose (UA) Urine Ketones Urine Blood Urine Nitrite Urine Bilirubin Urine Urobilinogen Ur Leukocyte Esterase Urine WBC (Auto) Urine RBC (Auto) U Hyaline Cast (Auto) U Epithel Cells (Auto) Urine Bacteria (Auto) Ur Renal Epithelial Cell Amorphous Sediment Nasal Screen MRSA (PCR) Adenovirus (PCR) B. pertussis DNA (PCR) B.parapertussis DNA PCR C. pneumoniae DNA (PCR) Coronavirus OC43 (PCR) Coronavirus HKU1 (PCR) Coronavirus 229E (PCR) COVID-19 Eval Order SARS-CoV-2 (PCR) Coronavirus NL63 (PCR) Human Metapneumovir PCR Influenza Type A (PCR) Influenza Type B (PCR) M. pneumoniae (PCR) Parainfluenza 1 (PCR) Parainfluenza 2 (PCR) Parainfluenza 3 (PCR) Parainfluenza 4 (PCR) RSV (PCR) Entero/Rhino (PCR) Blood Type Antibody Screen Medications Administered Current Inpatient Medications Aspirin (Aspirin 81 Mg Ectab) 81 mg PO QAM [facility] Stop: 08/23/20 08:59 Cyanocobalamin (Cyanocobalamin (Vitamin B-12) 2,500 Mcg Tab.Subl) 5,000 mcg SL Sa@0900 [facility] Stop: 08/23/20 08:59 Enoxaparin Sodium (Enoxaparin Inj 40 Mg/0.4 Ml Syr) 40 mg SQ QPM [facility] Stop: 08/22/20 20:59 Last Admin: 07/23/20 21:11 Dose: 40 mg Documented by: Potassium Chloride 20 meq/ (Dextrose) 1,010 mls @ 125 mls/hr IV .Q8H5M [facility] Stop: 07/24/20 21:09 Last Admin: 07/24/20 05:35 Dose: 125 mls/hr Documented by: Piperacillin Sod/Tazobactam (Sod 3.375 gm/ Dextrose) 115 mls @ 28.75 mls/hr IV Q8H [facility]; Protocol Stop: 08/02/20 20:59 Last Admin: 07/24/20 05:33 Dose: 28.8 mls/hr Documented by: Vancomycin HCl 750 mg/ Sodium (Chloride) 265 mls @ 200 mls/hr IV Q12H [facility] Stop: 08/03/20 00:00 Last Infusion: 07/24/20 02:20 Dose: Infused Documented by: Dexamethasone 6 mg/ Syringe 1.5 mls @ 1 mls/min IV DAILY@0800 [facility] Stop: 08/23/20 10:29 Melatonin (Melatonin 3 Mg Tab) 9 mg PO HS [facility] Stop: 08/22/20 20:59 Last Admin: 07/23/20 21:09 Dose: Not Given Documented by: Miscellaneous (Avodart - Order Awaiting Action) 1 ea N/A QS [facility] Stop: 08/23/20 00:00 Last Admin: 07/24/20 00:05 Dose: Not Given Documented by: Miscellaneous Information (Piperacill/Tazobac Consult Active) 1 ea N/A UD PRN PRN Reason: Consult Stop: 08/22/20 12:11 Miscellaneous Information (Vancomycin Consult Active) 1 ea N/A UD PRN PRN Reason: Consult Stop: 08/22/20 12:11 Polyethylene Glycol (Polyethylene (Miralax) 17 Gm Pack) 17 gm PO TID [facility]INA Stop: 08/22/20 20:59 Last Admin: 07/23/20 21:10 Dose: Not Given Documented by: Senna/Docusate Sodium (Docusate Sodium/Senna 50/8.6mg Tab) 1 tab PO BID GINA Stop: 08/22/20 20:59 Last Admin: 07/23/20 21:10 Dose: Not Given Documented by: Tamsulosin HCl (Tamsulosin Hcl 0.4 Mg Cap) 0.4 mg PO BID [facility] Stop: 08/22/20 20:59 Last Admin: 07/23/20 21:09 Dose: Not Given Documented by: Vitamin D (Cholecalciferol 1,000 Units 25 Mcg Tab) 5,000 units PO QAM [facility] Stop: 08/23/20 08:59 PG Care Time/CCT Total # of Minutes Spent Total Time Spent with Patient: Total time spent is greater than 50% in coordination of care (as documented) at patient's floor/unit and/or counseling patient: Coding Level of Care Code 20719 Subseq Hosp Care Lvl 3 Diagnoses Altered mental status R41.82 Altered mental status type: unspecified COVID-19 U07.1 Acute hypernatremia E87.0 Sepsis A41.9 Sepsis acute organ dysfunction status: unspecified Sepsis type: sepsis due to unspecified organism Sinus tachycardia R00.0 Dementia F03.90 Dementia type: unspecified type Dementia behavioral disturbance: without behavioral disturbance BPH (benign prostatic hyperplasia) N40.0 Lower urinary tract symptom presence: unspecified whether lower urinary tract symptoms present Elevated INR R79.1 Hypertension I10 Hypertension type: essential hypertension Oropharyngeal dysphagia R13.12 (1) Sepsis Sepsis acute organ dysfunction status: unspecified Sepsis type: sepsis due to unspecified organism Qualified Code(s): A41.9 - Sepsis, unspecified organism (2) Dementia Dementia type: unspecified type Dementia behavioral disturbance: without behavioral disturbance Qualified Code(s): F03.90 - Unspecified dementia without behavioral disturbance (3) Altered mental status Altered mental status type: unspecified Qualified Code(s): R41.82 - Altered mental status, unspecified (4) BPH (benign prostatic hyperplasia) Lower urinary tract symptom presence: unspecified whether lower urinary tract symptoms present Qualified Code(s): N40.0 - Benign prostatic hyperplasia without lower urinary tract symptoms (5) Hypertension Hypertension type: essential hypertension Qualified Code(s): I10 - Essential (primary) hypertension
[2020-07-24] MEDS: TAMSULOSIN HCL 0.4 MG CAP PO SCH ×2 (13:52→21:13)
[2020-07-24] MEDS: ASPIRIN 81 MG ECTAB PO SCH (13:52)
[2020-07-24] MEDS: POLYETHYLENE (MIRALAX) 17 GM PACK PO SCH ×3 (13:52→21:14)
[2020-07-24] MEDS: DOCUSATE SODIUM/SENNA 50/8.6MG TAB PO SCH ×2 (13:52→21:14)
[2020-07-24] MEDS: CYANOCOBALAMIN (VITAMIN B-12) 2,500 MCG TAB.SUBL SL SCH (13:53)
[2020-07-24] MEDS: CHOLECALCIFEROL 1,000 UNITS 25 MCG TAB PO SCH (13:53)
[2020-07-24] MEDS: dexAMETHasone 6 MG in SYRINGE 0 ML IV SCH (13:59)
[2020-07-24] MEDS: MELATONIN 3 MG TAB PO SCH (21:13)
[2020-07-24] MEDS: ENOXAPARIN INJ 40 MG/0.4 ML SYR SQ SCH (21:19)
[2020-07-25] MEDS: AVODART - ORDER AWAITING ACTION SCH ×3 (00:36→16:10)
[2020-07-25] MEDS: VANCOMYCIN HCL 750 MG in SODIUM CHLORIDE 0.9% 250 ML IV SCH (00:36)
[2020-07-25] MEDS: PIPERACILLIN/TAZOBACTAM 3.375 GM in DEXTROSE 5% 100 ML IV SCH ×3 (05:36→20:52)
--- NOTE | 2020-07-25 09:25 | Hospitalist Progress Note ---
Date of Service July 25, 2020 Assessment & Plan (1) Altered mental status: at baseline he has dementia but is cooperative, oriented, conversive now he is non-verbal, lethargic, not eating/drinking well most likely explanation would be COVID delirium leading to poor oral intake, hypernatremia now it is clear that he has significant dysphagia, not doing well with nectar thick liquids likely had some hypoxia at [facility] that was contributing supportive care with IV fluids, get Na down to normal encourage him to eat/drink if possible but not going well discussed guarded prognosis with daughter (2) COVID-19: Finished course of dexamethasone 3 days ago however, requiring 5L NC, CXR with multifocal pneumonia will add back Dexamethasone 6mg IV daily for 10 day course (3) Sepsis: possible UTI due to chronic roldan vs COVID 19 very poor oral intake past week likely contributed to hypovolemia now with dysphagia that could be due to COVID delirium continue fluids, stop Vanco, continue Zosyn for time being but if no growth on cultures stop tomorrow (4) Acute hypernatremia: Suspect contributing towards current altered mental state. 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 Continue tamsulosin 0.4mg BID and dutasteride 0.5mg PO daily. (9) Elevated INR: Suspect nutritional (10) DVT prophylaxis: Lovenox 40mg SQ daily Admission and Anticipated Discharge Date Admission Date: July 23, 2020 Subjective patient looking much better this morning, breathing well on room air more alert, more conversive, eating and drinking independently no issues overnight labs today show sodium down to 148, Cr is stable and BUN coming down will downgrade to medical status will update his daughter later today Review of Systems Review of Systems: All systems reviewed & are unremarkable except as noted in Subjective Constitutional: + fatigue and + weakness; no fever Respiratory: no cough and no dyspnea Cardiovascular: no chest pain Gastrointestinal: no abdominal pain, no nausea, no vomiting, no constipation and no diarrhea/loose stools Physical Exam Constitutional: well developed, + ill appearing, + thin and + frail appearing; no acute distress ENMT: Mouth: + dry oral mucous membranes Respiratory: normal respiratory effort, lungs clear to auscultation Cardiovascular: RRR, no murmur, no edema Gastrointestinal (Abdomen): normal bowel sounds, soft, nontender, no hepatosplenomegaly Musculoskeletal: Head/Neck/Chest: normocephalic, head atraumatic and neck supple Extremities: + limited ROM of extremities, + abnormal strength (generalized weakness) and + muscle atrophy (legs bilaterally); no cyanosis, no clubbing and no petechiae Skin: no rashes, warm and dry Neurologic: moves all extremities and + confused; no focal motor deficits Motor/Sensory: no tremor Psychiatric: Orientation: alert, oriented to person and cooperative; + not oriented to place and + not oriented to time Lymphatic: no cervical or axillary lymphadenopathy Results & Data Results & Data ([facility]) Vital Signs (Past 12 Hours) Vital Signs Temp Pulse Pulse Resp BP Pulse Ox 07/25/20 07:15 36.4 C L 80 19 134/84 93 07/25/20 03:26 36.5 C 72 19 136/87 96 07/25/20 00:00 59 L 07/24/20 23:13 36.8 C 60 19 118/85 91 Laboratory Results Laboratory Results - last 24 hr 07/25/20 12:56 Sodium 148 H Potassium 4.2 D Chloride 113 H Carbon Dioxide 29 Anion Gap 6.0 BUN 31 H Creatinine 1.08 Est Cr Clr Drug Dosing 53.8 Est GFR ( Amer) 76.9 Est GFR (Non-Af Amer) 66.3 BUN/Creatinine Ratio 29.0 H Glucose 155 H Calcium 9.1 Medications Administered Current Inpatient Medications Aspirin (Aspirin 81 Mg Ectab) 81 mg PO QAM [facility] Stop: 08/23/20 08:59 Last Admin: 07/24/20 13:52 Dose: Not Given Documented by: Cyanocobalamin (Cyanocobalamin (Vitamin B-12) 2,500 Mcg Tab.Subl) 5,000 mcg SL Sa@0900 [facility] Stop: 08/23/20 08:59 Last Admin: 07/24/20 13:53 Dose: Not Given Documented by: Enoxaparin Sodium (Enoxaparin Inj 40 Mg/0.4 Ml Syr) 40 mg SQ QPM [facility] Stop: 08/22/20 20:59 Last Admin: 07/24/20 21:19 Dose: 40 mg Documented by: Piperacillin Sod/Tazobactam (Sod 3.375 gm/ Dextrose) 115 mls @ 28.75 mls/hr IV Q8H [facility]; Protocol Stop: 08/02/20 20:59 Last Admin: 07/25/20 05:36 Dose: 28.8 mls/hr Documented by: Vancomycin HCl 750 mg/ Sodium (Chloride) 265 mls @ 200 mls/hr IV Q12H [facility] Stop: 08/03/20 00:00 Last Infusion: 07/25/20 01:59 Dose: Infused Documented by: Dexamethasone 6 mg/ Syringe 1.5 mls @ 1 mls/min IV DAILY@0800 [facility] Stop: 08/23/20 10:29 Last Admin: 07/24/20 13:59 Dose: 1 mls/min Documented by: Melatonin (Melatonin 3 Mg Tab) 9 mg PO HS [facility] Stop: 08/22/20 20:59 Last Admin: 07/24/20 21:13 Dose: Not Given Documented by: Miscellaneous (Avodart - Order Awaiting Action) 1 ea N/A QS [facility] Stop: 08/23/20 00:00 Last Admin: 07/25/20 00:36 Dose: Not Given Documented by: Miscellaneous Information (Piperacill/Tazobac Consult Active) 1 ea N/A UD PRN PRN Reason: Consult Stop: 08/22/20 12:11 Miscellaneous Information (Vancomycin Consult Active) 1 ea N/A UD PRN PRN Reason: Consult Stop: 08/22/20 12:11 Polyethylene Glycol (Polyethylene (Miralax) 17 Gm Pack) 17 gm PO TID [facility] Stop: 08/22/20 20:59 Last Admin: 07/24/20 21:14 Dose: Not Given Documented by: Senna/Docusate Sodium (Docusate Sodium/Senna 50/8.6mg Tab) 1 tab PO BID [facility] Stop: 08/22/20 20:59 Last Admin: 07/24/20 21:14 Dose: Not Given Documented by: Tamsulosin HCl (Tamsulosin Hcl 0.4 Mg Cap) 0.4 mg PO BID [facility] Stop: 08/22/20 20:59 Last Admin: 07/24/20 21:13 Dose: Not Given Documented by: Vitamin D (Cholecalciferol 1,000 Units 25 Mcg Tab) 5,000 units PO QAM [facility] Stop: 08/23/20 08:59 Last Admin: 07/24/20 13:53 Dose: Not Given Documented by: PG Care Time/CCT Total # of Minutes Spent Total Time Spent with Patient: Total time spent is greater than 50% in coordination of care (as documented) at patient's floor/unit and/or counseling patient: Coding Level of Care Code 68167 Subseq Hosp Care Lvl 3 Diagnoses Altered mental status R41.82 Altered mental status type: unspecified COVID-19 U07.1 Sepsis A41.9 Sepsis acute organ dysfunction status: unspecified Sepsis type: sepsis due to unspecified organism Acute hypernatremia E87.0 Sinus tachycardia R00.0 Oropharyngeal dysphagia R13.12 Dementia F03.90 Dementia behavioral disturbance: without behavioral disturbance Dementia type: unspecified type BPH (benign prostatic hyperplasia) N40.0 Lower urinary tract symptom presence: unspecified whether lower urinary tract symptoms present Elevated INR R79.1 DVT prophylaxis Z29.9 (1) BPH (benign prostatic hyperplasia) Lower urinary tract symptom presence: unspecified whether lower urinary tract symptoms present Qualified Code(s): N40.0 - Benign prostatic hyperplasia withou t lower urinary tract symptoms (2) Dementia Dementia behavioral disturbance: without behavioral disturbance Dementia type: unspecified type Qualified Code(s): F03.90 - Unspecified dementia without behavioral disturbance (3) Sepsis Sepsis acute organ dysfunction status: unspecified Sepsis type: sepsis due to unspecified organism Qualified Code(s): A41.9 - Sepsis, unspecified organism (4) Altered mental status Altered mental status type: unspecified Qualified Code(s): R41.82 - Altered mental status, unspecified
[2020-07-25] MEDS: CHOLECALCIFEROL 1,000 UNITS 25 MCG TAB PO SCH (09:39)
[2020-07-25] MEDS: dexAMETHasone 6 MG in SYRINGE 0 ML IV SCH (09:39)
[2020-07-25] MEDS: ASPIRIN 81 MG ECTAB PO SCH (09:39)
[2020-07-25] MEDS: TAMSULOSIN HCL 0.4 MG CAP PO SCH (09:40)
[2020-07-25] MEDS ORDERED: VANCOMYCIN TROUGH ONE (11:30)
[2020-07-25] MEDS: DOCUSATE SODIUM/SENNA 50/8.6MG TAB PO SCH (13:19)
[2020-07-25] MEDS: POLYETHYLENE (MIRALAX) 17 GM PACK PO SCH ×3 (13:19→20:52)
[2020-07-25 13:41] LABS: Calcium 9.1 mg/dl (8.5-10.1); Creatinine Clr Calc Pharmacy 53.8 ml/min; Est GFR (African American) 76.9; Est GFR (Non-African American) 66.3; Potassium 4.2 mmol/L (3.5-5.1)
[2020-07-25] MEDS: DEXTROSE 5% 1,000 ML IV SCH (14:39)
[2020-07-25] MEDS: MELATONIN 3 MG TAB PO SCH (20:52)
[2020-07-25] MEDS: ENOXAPARIN INJ 40 MG/0.4 ML SYR SQ SCH (20:52)
[2020-07-26] MEDS: AVODART - ORDER AWAITING ACTION SCH ×4 (00:12→23:31)
[2020-07-26] MEDS: DEXTROSE 5% 1,000 ML IV SCH ×2 (02:35→16:49)
[2020-07-26] MEDS: PIPERACILLIN/TAZOBACTAM 3.375 GM in DEXTROSE 5% 100 ML IV SCH (05:16)
[2020-07-26] MEDS: POLYETHYLENE (MIRALAX) 17 GM PACK PO SCH ×3 (07:47→20:37)
[2020-07-26] MEDS: dexAMETHasone 6 MG in SYRINGE 0 ML IV SCH (07:47)
[2020-07-26 08:36] LABS: BUN Creatinine Ratio 26.9 (10-20); Calcium 8.7 mg/dl (8.5-10.1); Creatinine Clr Calc Pharmacy 67.5 ml/min; Est GFR (African American) 96.3; Est GFR (Non-African American) 83.1; Potassium 3.5 mmol/L (3.5-5.1)
--- NOTE | 2020-07-26 15:51 | Hospitalist Progress Note ---
Date of Service July 26, 2020 Assessment & Plan (1) Altered mental status: at baseline he has dementia but is cooperative, oriented, conversive now he is more lethargic but he remains oriented to person and place answering questions appropriately today most likely explanation would be COVID delirium leading to poor oral intake, hypernatremia did very poorly with swallow evaluation today, skylar aspiration of pureed food supportive care with IV fluids, Na down to 144 daughter would like to place Core Safe and give tube feeds, give him time to recover (2) COVID-19: Finished course of dexamethasone 3 days prior to admission however, requiring 5L NC, CXR with multifocal pneumonia will add back Dexamethasone 6mg IV daily now he is back to room air stop the dexamethasone and monitor more likely that he has residual COVID delirium (3) Sepsis: possible UTI due to chronic roldan vs COVID 19 very poor oral intake past week likely contributed to hypovolemia now with dysphagia that could be due to COVID delirium continue fluids, stop Vanco, stop Zosyn (4) Acute hypernatremia: Suspect contributing towards current altered mental state. 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 Continue tamsulosin 0.4mg BID and dutasteride 0.5mg PO daily. (9) Elevated INR: Suspect nutritional (10) DVT prophylaxis: Lovenox 40mg SQ daily Admission and Anticipated Discharge Date Admission Date: July 23, 2020 Subjective patient did very poorly with swallow evaluation today he overtly aspirated pureed food, desaturated to the mid 80's, took some time to recover speech therapy recommends NPO status discussed results with his daughter Hailey, she would like to try Core Safe placement and tube feeds for a week, see if he improves if he does not improve then she would want PEG tube placement she says she can manage him at home, she would be able to administer feeds we discussed code status in his current condition, she confirms he should remain a full code labs reviewed, Na down to 144, K 3.5, Cr 0.89 Review of Systems Review of Systems: Unobtainable due to cognitive status (cannot do a full ROS) Constitutional: + fatigue and + weakness Respiratory: + cough; no dyspnea Cardiovascular: no chest pain Gastrointestinal: no abdominal pain, no nausea, no vomiting, no constipation and no diarrhea/loose stools Physical Exam Constitutional: well developed, + ill appearing, + thin and + frail appearing; no acute distress ENMT: Mouth: + dry oral mucous membranes Respiratory: normal respiratory effort, lungs clear to auscultation Cardiovascular: RRR, no murmur, no edema Gastrointestinal (Abdomen): normal bowel sounds, soft, nontender, no hepatosplenomegaly Musculoskeletal: Head/Neck/Chest: normocephalic, head atraumatic and neck supple Extremities: + limited ROM of extremities, + abnormal strength (generalized weakness) and + muscle atrophy (legs bilaterally); no cyanosis, no clubbing and no petechiae Skin: no rashes, warm and dry Neurologic: moves all extremities and + confused; no focal motor deficits Motor/Sensory: no tremor Psychiatric: Orientation: alert, oriented to person, oriented to place (says he is in the hospital) and cooperative; + not oriented to time Lymphatic: no cervical or axillary lymphadenopathy Results & Data Results & Data ([facility]) Vital Signs (Past 12 Hours) Vital Signs Temp Pulse Resp BP Pulse Ox 07/26/20 15:30 36.5 C 59 L 16 130/71 91 07/26/20 11:14 36.4 C L 57 L 18 118/69 90 07/26/20 07:23 36.8 C 57 L 18 115/59 L 92 Laboratory Results Laboratory Results - last 24 hr 07/26/20 07:38 Sodium 144 Potassium 3.5 D Chloride 110 H Carbon Dioxide 27 Anion Gap 7.0 BUN 24 H Creatinine 0.89 Est Cr Clr Drug Dosing 67.5 Est GFR ( Amer) 96.3 Est GFR (Non-Af Amer) 83.1 BUN/Creatinine Ratio 26.9 H Glucose 131 H Calcium 8.7 Medications Administered Current Inpatient Medications Cyanocobalamin (Cyanocobalamin (Vitamin B-12) 2,500 Mcg Tab.Subl) 5,000 mcg SL Sa@0900 [facility] Stop: 08/23/20 08:59 Last Admin: 07/24/20 13:53 Dose: Not Given Documented by: Enoxaparin Sodium (Enoxaparin Inj 40 Mg/0.4 Ml Syr) 40 mg SQ QPM [facility] Stop: 08/22/20 20:59 Last Admin: 07/25/20 20:52 Dose: 40 mg Documented by: Dexamethasone 6 mg/ Syringe 1.5 mls @ 1 mls/min IV DAILY@0800 [facility] Stop: 08/23/20 10:29 Last Admin: 07/26/20 07:47 Dose: 1 mls/min Documented by: Dextrose (D5w) 1,000 mls @ 80 mls/hr IV .[id number] [facility] Stop: 08/24/20 13:59 Last Admin: 07/26/20 02:35 Dose: 80 mls/hr Documented by: Melatonin (Melatonin 3 Mg Tab) 9 mg PO HS [facility] Stop: 08/22/20 20:59 Last Admin: 07/25/20 20:52 Dose: Not Given Documented by: Miscellaneous (Avodart - Order Awaiting Action) 1 ea N/A QS [facility] Stop: 08/23/20 00:00 Last Admin: 07/26/20 15:20 Dose: Not Given Documented by: Polyethylene Glycol (Polyethylene (Miralax) 17 Gm Pack) 17 gm PO TID [facility] Stop: 08/22/20 20:59 Last Admin: 07/26/20 12:33 Dose: Not Given Documented by: PG Care Time/CCT Total # of Minutes Spent Total Time Spent: 36 Total Time Spent with Patient: Total time spent is greater than 50% in coordination of care (as documented) at patient's floor/unit and/or counseling patient: Coding Level of Care Code 95514 Subseq Hosp Care Lvl 3 Diagnoses Altered mental status R41.82 Altered mental status type: unspecified COVID-19 U07.1 Sepsis A41.9 Sepsis acute organ dysfunction status: unspecified Sepsis type: sepsis due to unspecified organism Acute hypernatremia E87.0 Sinus tachycardia R00.0 Oropharyngeal dysphagia R13.12 Dementia F03.90 Dementia type: unspecified type Dementia behavioral disturbance: without behavioral disturbance BPH (benign prostatic hyperplasia) N40.0 Lower urinary tract symptom presence: unspecified whether lower urinary tract symptoms present Elevated INR R79.1 DVT prophylaxis Z29.9 (1) Altered mental status Altered mental status type: unspecified Qualified Code(s): R41.82 - Altered mental status, unspecified (2) Sepsis Sepsis acute organ dysfunction status: unspecified Sepsis type: sepsis due to unspecified organism Qualified Code(s): A41.9 - Sepsis, unspecified organism (3) Dementia Dementia type: unspecified type Dementia behavioral disturbance: without behavioral disturbance Qualified Code(s): F03.90 - Unspecified dementia without behavioral disturbance (4) BPH (benign prostatic hyperplasia) Lower urinary tract symptom presence: unspecified whether lower urinary tract symptoms present Qualified Code(s): N40.0 - Benign prostatic hyperplasia without lower urinary tract symptoms
[2020-07-26] MEDS: MELATONIN 3 MG TAB PO SCH (20:37)
[2020-07-26] MEDS: ENOXAPARIN INJ 40 MG/0.4 ML SYR SQ SCH (20:49)
[2020-07-27] MEDS: AVODART - ORDER AWAITING ACTION SCH (07:04)
[2020-07-27 07:40] LABS: Creatinine Clr Calc Pharmacy 72.7 ml/min; Est GFR (African American) 99.6; Est GFR (Non-African American) 85.9
[2020-07-27] MEDS: POLYETHYLENE (MIRALAX) 17 GM PACK PO SCH (08:02)
[2020-07-27] MEDS ORDERED: TPN/PPN CONSULT PHARMACY STA (08:40)
[2020-07-27] MEDS ORDERED: DEXTROSE 10% 1,000 ML IV PRN (08:40)
[2020-07-27] MEDS ORDERED: TPN/PPN CONSULT PHARMACY PRN (08:48)
--- NOTE | 2020-07-27 09:21 | Hospitalist Progress Note ---
Date of Service July 27, 2020 Assessment & Plan (1) Altered mental status: at baseline he has dementia but is cooperative, oriented, conversive presented more lethargic but he remains oriented to person and place answering questions appropriately today, he can remember that he had a PICC line in the past most likely explanation would be COVID delirium leading to poor oral intake, hypernatremia did very poorly with swallow evaluation 07/26, skylar aspiration of pureed food supportive care with IV fluids, Na down to 144 on 07/26, repeat today he resisted Core Safe so it was cancelled will place PICC line for TPN, support him for 1-2 weeks, see if swallowing improves with supportive care (2) Metabolic encephalopathy: see above most likely COVID delirium plus hypernatremia on top of baseline mild dementia mental status improved with hydration, correction of sodium likely at baseline now, just he cannot swallow safely (3) COVID-19: Finished course of dexamethasone 3 days prior to admission however, requiring 5L NC, CXR with multifocal pneumonia added back Dexamethasone 6mg IV daily on day 2 of admission now he is back to room air stop the dexamethasone and monitor more likely that he has residual COVID delirium (4) Severe protein-calorie malnutrition: low albumin, poor oral intake for 10 days due to dyphagia, delirium will place PICC and start TPN (5) Sepsis: possible UTI due to chronic roldan vs COVID 19 very poor oral intake past week likely contributed to hypovolemia now with dysphagia that could be due to COVID delirium continue fluids, stop Vanco, stop Zosyn (6) Acute hypernatremia: Suspect contributing towards current altered mental state. 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 Continue tamsulosin 0.4mg BID and dutasteride 0.5mg PO daily. (11) Elevated INR: Suspect nutritional (12) DVT prophylaxis: Lovenox 40mg SQ daily Admission and Anticipated Discharge Date Admission Date: July 23, 2020 Subjective RN attempted to place Core Safe this morning, not successful, he fought, would not swallow the tube several attempts made, I asked RN to stop trying called his daughter Hailey to update her, she agreed to PICC line and TPN for nutrition instead spoke with patient about this, he remembers that he had a PICC line before when he need IV antibiotics explained to him that he cannot eat or drink safely we will give TPN for a week and can reassess swallowing he is breathing comfortably on low flow oxygen, 2L Cr normal this morning at 0.8 Review of Systems Review of Systems: All systems reviewed & are unremarkable except as noted in Subjective Respiratory: no cough and no dyspnea Gastrointestinal: + dysphagia; no abdominal pain, no nausea, no vomiting, no constipation and no diarrhea/loose stools Physical Exam Constitutional: well developed, + ill appearing, + thin and + frail appearing; no acute distress ENMT: Mouth: + dry oral mucous membranes Respiratory: normal respiratory effort, lungs clear to auscultation Cardiovascular: RRR, no murmur, no edema Gastrointestinal (Abdomen): normal bowel sounds, soft, nontender, no hepatosplenomegaly Musculoskeletal: Head/Neck/Chest: normocephalic, head atraumatic and neck supple Extremities: + limited ROM of extremities, + abnormal strength (generalized weakness) and + muscle atrophy (legs bilaterally); no cyanosis, no clubbing and no petechiae Skin: no rashes, warm and dry Neurologic: moves all extremities and + confused; no focal motor deficits Motor/Sensory: no tremor Psychiatric: Orientation: alert, oriented to person, oriented to place (says he is in the hospital) and cooperative; + not oriented to time Lymphatic: no cervical or axillary lymphadenopathy Results & Data Results & Data ([facility]) Vital Signs (Past 12 Hours) Vital Signs Temp Pulse Pulse Resp BP Pulse Ox 07/27/20 07:10 36.7 C 54 L 18 111/63 91 07/27/20 04:37 36.5 C 61 18 116/68 92 07/27/20 00:05 41 L 07/26/20 23:31 36.6 C 40 L 16 119/68 91 Laboratory Results Laboratory Results - last 24 hr 07/27/20 06:01 Creatinine 0.82 Est Cr Clr Drug Dosing 72.7 Est GFR ( Amer) 99.6 Est GFR (Non-Af Amer) 85.9 Medications Administered Current Inpatient Medications Cyanocobalamin (Cyanocobalamin (Vitamin B-12) 2,500 Mcg Tab.Subl) 5,000 mcg SL Sa@0900 [facility] Stop: 08/23/20 08:59 Last Admin: 07/24/20 13:53 Dose: Not Given Documented by: Enoxaparin Sodium (Enoxaparin Inj 40 Mg/0.4 Ml Syr) 40 mg SQ QPM [facility] Stop: 08/22/20 20:59 Last Admin: 07/26/20 20:49 Dose: 40 mg Documented by: Dextrose (D10w) 1,000 mls @ 0 mls/hr IV .Q0M PRN PRN Reason: protocol (see label comments) Stop: 08/26/20 08:39 Melatonin (Melatonin 3 Mg Tab) 9 mg PO HS [facility] Stop: 08/22/20 20:59 Last Admin: 07/26/20 20:37 Dose: Not Given Documented by: Miscellaneous (Avodart - Order Awaiting Action) 1 ea N/A QS [facility] Stop: 08/23/20 00:00 Last Admin: 07/27/20 07:04 Dose: Not Given Documented by: Miscellaneous Information (Tpn/Ppn Consult Pharmacy) 1 ea N/A UD PRN PRN Reason: Consult Stop: 08/26/20 08:47 Polyethylene Glycol (Polyethylene (Miralax) 17 Gm Pack) 17 gm PO TID [facility] Stop: 08/22/20 20:59 Last Admin: 07/27/20 08:02 Dose: Not Given Documented by: PG Care Time/CCT Total # of Minutes Spent Total Time Spent with Patient: Total time spent is greater than 50% in coordination of care (as documented) at patient's floor/unit and/or counseling patient: Coding Level of Care Code 03199 Subseq Hosp Care Lvl 3 Diagnoses Altered mental status R41.82 Altered mental status type: unspecified Metabolic encephalopathy G93.41 COVID-19 U07.1 Severe protein-calorie malnutrition E43 Sepsis A41.9 Sepsis acute organ dysfunction status: unspecified Sepsis type: sepsis due to unspecified organism Acute hypernatremia E87.0 Sinus tachycardia R00.0 Oropharyngeal dysphagia R13.12 Dementia F03.90 Dementia behavioral disturbance: without behavioral disturbance Dementia type: unspecified type BPH (benign prostatic hyperplasia) N40.0 Lower urinary tract symptom presence: unspecified whether lower urinary tract symptoms present Elevated INR R79.1 DVT prophylaxis Z29.9 (1) BPH (benign prostatic hyperplasia) Lower urinary tract symptom presence: unspecified whether lower urinary tract symptoms present Qualified Code(s): N40.0 - Benign prostatic hyperplasia without lower urinary tract symptoms (2) Dementia Dementia behavioral disturbance: without behavioral disturbance Dementia type: unspecified type Qualified Code(s): F03.90 - Unspecified dementia without behavioral disturbance (3) Sepsis Sepsis acute organ dysfunction status: unspecified Sepsis type: sepsis due to unspecified organism Qualified Code(s): A41.9 - Sepsis, unspecified organism (4) Altered mental status Altered mental status type: unspecified Qualified Code(s): R41.82 - Altered mental status, unspecified
[2020-07-27 11:05] LABS: BUN Creatinine Ratio 22.4 (10-20); Calcium 8.8 mg/dl (8.5-10.1); Creatinine Clr Calc Pharmacy 73.6 ml/min; Est GFR (African American) 100.1; Est GFR (Non-African American) 86.3; Magnesium 2.2 mg/dl (1.8-2.4); Potassium 3.5 mmol/L (3.5-5.1)
[2020-07-27 11:08] LABS: Phosphorus 2.5 mg/dl (2.5-4.9)
--- NOTE | 2020-07-27 14:36 | Pharmacy Report ---
Pharmacy PN Initial Consult - Date of Service July 27, 2020 - Scope Pharmacy has been consulted to manage parenteral nutrition orders and order appropriate labs. As part of the Nutrition Support Team guidelines, pharmacy will work in conjunction with dietary when determining the patients caloric needs. - Subjective The patient is a 75 year old M admitted on 07/23/20 15:47 for UTI SEPSIS. Patient is to receive parenteral nutrition for poor po intake x10 days. Pertinent PMH: Recent COVID patient, initially thought to have UTI/sepsis, but now etiology of AMS more likely COVID delirium and hypernatremia - Objective Height: 6 ft 2 in Weight: 67.1 kg Intake & Output (Last 24Hrs): Intake & Output 07/25/20 07/26/20 07/27/20 07/28/20 06:59 06:59 06:59 06:59 Intake Total 2895 / 2895 1499.667 / 5848.340 4430 / 2315 Output Total 850 / 850 850 / 850 2075 / 2075 350 / 350 Balance 2045 / 2045 649.667 / 649.667 240 / 240 -350 / -350 Weight 65.4 kg 67.6 kg 67.1 kg 67.1 kg Laboratory Data (Last 24 Hrs):: 07/27/20 07/27/20 07/27/20 06:01 09:58 09:58 Sodium 143 Potassium 3.5 Chloride 109 H Carbon Dioxide 30 BUN 18 Creatinine 0.82 0.81 Glucose 113 H Calcium 8.8 Phosphorus 2.5 Magnesium 2.2 Total Bilirubin 2.0 H AST 280 H ALT 407 H Alkaline Phosphatase 91 Triglycerides 158 H Nutrition Assessment:: Please refer to the Notes section of the EMR for the most recent maintenance analyst note. - Assessment * 75 yo M admitted with AMS and hypernatremia. * Per provider prog note - mental status improved with hydration, correction of sodium. Likely at baseline now, just he cannot swallow safely. OK to add sodium in PPN now that hypernatremia is resolved. Will be limited anyway by osmol in PPN - this bag will be 1/2 NS * Refeeding risk noted 2nd poor po intake (greater than 7 days with minimal intake usually correlates to high risk), but as patient has been receiving dextrose infusions for the past couple of days and no electrolyte derangements have been noted, patient is not likely high risk for refeeding. Therefore OK to proceed with cautious initiation of dextrose * Will still give slightly more K, mag, phos in the PPN * PICC was to be placed today but may or may not be able to occur today. Will write as a PPN today. 2000 mL volume OK per Dr. Leon * Ordered LFT's per protocol - AST and ALT with notable increase over the last [address] Leon aware and will follow - repeat ordered for tomorrow. Will keep lipids out of the PPN for now to avoid further insult - Plan For day 1 of PN administration, the following will be ordered: Macronutrients Amino acids 100 grams/day Dextrose 125 grams/day Micronutrients Combined electrolytes 20 mL - contains 35 mEq Na, 20 meq K, 4.5 mEq Ca, 5 mEq Mg, 35 mEq Cl, 29.5 mEq acetate per 20 mL Sodium chloride 50 mEq Potassium phosphate 24 mMol Magnesium sulfate 8.12 mEq Multivitamins 10 mL Trace Elements 10 mL Thiamine 100 mg Total volume 2000 mL to be infused over 24 hrs will provide 875 kcal/day Final osmolarity 896 mOsm/L (maximum for PPN is 900 mOsm/L) Labs to be ordered per PN order protocol Pharmacy will follow and adjust parenteral nutrition orders on a daily basis. Thank you.
[2020-07-27] MEDS ORDERED: Custom Peripheral Pn 2,000 ML in TPN BAG 0 ML IV SCH (16:00)
[2020-07-27] MEDS: ENOXAPARIN INJ 40 MG/0.4 ML SYR SQ SCH (21:01)
[2020-07-28 08:22] LABS: BUN Creatinine Ratio 29.9 (10-20); Calcium 8.9 mg/dl (8.5-10.1); Creatinine Clr Calc Pharmacy 78.4 ml/min; Est GFR (African American) 103.8; Est GFR (Non-African American) 89.6; Magnesium 2.4 mg/dl (1.8-2.4); Potassium 3.8 mmol/L (3.5-5.1)
[2020-07-28 08:27] LABS: Bilirubin,Total 1.5 mg/dl (0.2-1); Phosphorus 2.5 mg/dl (2.5-4.9)
--- NOTE | 2020-07-28 12:36 | Hospitalist Progress Note ---
Date of Service July 28, 2020 Assessment & Plan (1) Transaminitis: AST and ALT trending up, bili up slightly at 1.5 will check INR and PTT most likely due to COVID 19 infection (2) Altered mental status: at baseline he has dementia but is cooperative, oriented, conversive presented more lethargic but he remains oriented to person and place answering questions appropriately yesterday, today he is less responsive most likely explanation would be COVID delirium leading to poor oral intake, hypernatremia did very poorly with swallow evaluation 07/26, skylar aspiration of pureed food supportive care with IV fluids initially, got sodium down to normal he resisted Core Safe so it was cancelled will place PICC line for TPN, support him for 1-2 weeks, see if swallowing improves with supportive care (3) Metabolic encephalopathy: see above most likely COVID delirium plus hypernatremia on top of baseline mild dementia mental status improved with hydration, correction of sodium today he is a little less talkative, confused expect some of his mental status to wax and wane with typical hospital delirium (4) COVID-19: Finished course of dexamethasone 3 days prior to admission however, requiring 5L NC, CXR with multifocal pneumonia added back Dexamethasone 6mg IV daily on day 2 of admission now he is back to room air stop the dexamethasone and monitor more likely that he has residual COVID delirium (5) Severe protein-calorie malnutrition: low albumin, poor oral intake for 10 days due to dyphagia, delirium will place PICC and start TPN plan for nutrition for 1-2 weeks, see if strength improves, see if swallowing improves (6) Sepsis: possible UTI due to chronic roldan vs COVID 19 very poor oral intake past week likely contributed to hypovolemia now with dysphagia that could be due to COVID delirium continue fluids, stop Vanco, stop Zosyn (7) Acute hypernatremia: Suspect contributing towards current altered mental state. 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 Continue tamsulosin 0.4mg BID and dutasteride 0.5mg PO daily. (12) Elevated INR: Suspect nutritional however, with AST and ALT going up, will repeat INR and PTT (13) DVT prophylaxis: Lovenox 40mg SQ daily Admission and Anticipated Discharge Date Admission Date: July 23, 2020 Subjective patient laying in bed, mouth is very dry, trying to talk but having difficult time with this no distress, but appears more confused today he is getting TPN this morning labs reviewed, bili is 1.5, AST and ALT going up, no RUQ pain on exam will update his daughter later today Review of Systems Review of Systems: Unobtainable due to cognitive status Physical Exam Constitutional: well developed, + ill appearing, + thin and + frail appearing; no acute distress ENMT: Mouth: + dry oral mucous membranes Respiratory: normal respiratory effort, lungs clear to auscultation Cardiovascular: RRR, no murmur, no edema Gastrointestinal (Abdomen): normal bowel sounds, soft, nontender, no hepatosplenomegaly Musculoskeletal: Head/Neck/Chest: normocephalic, head atraumatic and neck supple Extremities: + limited ROM of extremities, + abnormal strength (generalized weakness) and + muscle atrophy (legs bilaterally); no cyanosis, no clubbing and no petechiae Skin: no rashes, warm and dry Neurologic: moves all extremities and + confused; no focal motor deficits Motor/Sensory: no tremor Psychiatric: Orientation: alert, oriented to person and cooperative; + not oriented to place and + not oriented to time Lymphatic: no cervical or axillary lymphadenopathy Results & Data Results & Data ([facility]) Vital Signs (Past 12 Hours) Vital Signs Temp Pulse Resp BP Pulse Ox 07/28/20 08:03 36.7 C 73 16 133/83 93 Laboratory Results Laboratory Results - last 24 hr 07/27/20 07/27/20 07/28/20 09:58 17:50 00:12 Sodium Potassium Chloride Carbon Dioxide Anion Gap BUN Creatinine Est Cr Clr Drug Dosing Est GFR ( Amer) Est GFR (Non-Af Amer) BUN/Creatinine Ratio Glucose POC Glucose 149 H 124 H Calcium Phosphorus Magnesium Total Bilirubin AST 280 H ALT Alkaline Phosphatase 07/28/20 07/28/20 07/28/20 05:39 05:47 11:59 Sodium 143 Potassium 3.8 Chloride 108 H Carbon Dioxide 29 Anion Gap 6.0 BUN 22 H Creatinine 0.74 Est Cr Clr Drug Dosing 78.4 Est GFR ( Amer) 103.8 Est GFR (Non-Af Amer) 89.6 BUN/Creatinine Ratio 29.9 H Glucose 112 H POC Glucose 111 H 149 H Calcium 8.9 Phosphorus 2.5 Magnesium 2.4 Total Bilirubin 1.5 H AST 252 H ALT 495 H Alkaline Phosphatase 95 Medications Administered Current Inpatient Medications Cyanocobalamin (Cyanocobalamin (Vitamin B-12) 2,500 Mcg Tab.Subl) 5,000 mcg SL Sa@0900 [facility] Stop: 08/23/20 08:59 Last Admin: 07/24/20 13:53 Dose: Not Given Documented by: Enoxaparin Sodium (Enoxaparin Inj 40 Mg/0.4 Ml Syr) 40 mg SQ QPM [facility] Stop: 08/22/20 20:59 Last Admin: 07/27/20 21:01 Dose: 40 mg Documented by: Dextrose (D10w) 1,000 mls @ 0 mls/hr IV .Q0M PRN PRN Reason: protocol (see label comments) Stop: 08/26/20 08:39 Nutrition (Parenteral) 2,000 (ml/ TPN BAG) 2,000 mls @ 83.3 mls/hr IV .Q24H [facility]; Protocol Stop: 07/28/20 15:59 Last Admin: 07/27/20 15:53 Dose: 83.3 mls/hr Documented by: Nutrition (Parenteral) 2,000 (ml/ TPN BAG) 2,000 mls @ 83.3 mls/hr IV .Q24H [facility]; Protocol Stop: 07/29/20 15:59 Miscellaneous Information (Tpn/Ppn Consult Pharmacy) 1 ea N/A UD PRN PRN Reason: Consult Stop: 08/26/20 08:47 PG Care Time/CCT Total # of Minutes Spent Total Time Spent with Patient: Total time spent is greater than 50% in coordination of care (as documented) at patient's floor/unit and/or counseling patient: Coding Level of Care Code 49160 Subseq Hosp Care Lvl 3 Diagnoses Transaminitis R74.01 Altered mental status R41.82 Altered mental status type: unspecified Metabolic encephalopathy G93.41 COVID-19 U07.1 Severe protein-calorie malnutrition E43 Sepsis A41.9 Sepsis acute organ dysfunction status: unspecified Sepsis type: sepsis due to unspecified organism Acute hypernatremia E87.0 Sinus tachycardia R00.0 Oropharyngeal dysphagia R13.12 Dementia F03.90 Dementia type: unspecified type Dementia behavioral disturbance: without behavioral disturbance BPH (benign prostatic hyperplasia) N40.0 Lower urinary tract symptom presence: unspecified whether lower urinary tract symptoms present Elevated INR R79.1 DVT prophylaxis Z29.9 (1) Altered mental status Altered mental status type: unspecified Qualified Code(s): R41.82 - Altered mental status, unspecified (2) Sepsis Sepsis acute organ dysfunction status: unspecified Sepsis type: sepsis due to unspecified organism Qualified Code(s): A41.9 - Sepsis, unspecified organism (3) Dementia Dementia type: unspecified type Dementia behavioral disturbance: without behavioral disturbance Qualified Code(s): F03.90 - Unspecified dementia without behavioral disturbance (4) BPH (benign prostatic hyperplasia) Lower urinary tract symptom presence: unspecified whether lower urinary tract symptoms present Qualified Code(s): N40.0 - Benign prostatic hyperplasia without lower urinary tract symptoms
[2020-07-28 13:33] LABS: INR 1.1 (0.9-1.1); Partial Thromboplastin Time 27.3 Seconds (21.0-31.0)
[2020-07-28] MEDS ORDERED: Custom Peripheral Pn 2,000 ML in TPN BAG 0 ML IV SCH (16:00)
[2020-07-28] MEDS: ENOXAPARIN INJ 40 MG/0.4 ML SYR SQ SCH (21:23)
[2020-07-29 08:59] LABS: BUN Creatinine Ratio 28.7 (10-20); Calcium 9.4 mg/dl (8.5-10.1); Creatinine Clr Calc Pharmacy 75.4 ml/min; Est GFR (African American) 102.2; Est GFR (Non-African American) 88.1; Magnesium 2.5 mg/dl (1.8-2.4); Potassium 4.3 mmol/L (3.5-5.1)
[2020-07-29 09:00] LABS: Phosphorus 2.3 mg/dl (2.5-4.9)
[2020-07-29 10:14] LABS: Alanine Aminotransferase 465 U/L (12-78); Aspartate Aminotransferase 166 U/L (15-37)
[2020-07-29] MEDS ORDERED: SODIUM PHOSPHATE 3 MMOL/1 ML INFUSION IV STA (10:42)
[2020-07-29] MEDS ORDERED: SODIUM PHOSPHATE 15 MMOL in SODIUM CHLORIDE 0.9% 250 ML IV ONE (11:00)
[2020-07-29] MEDS ORDERED: CENTRAL PN IV SCH (16:00)
[2020-07-29] MEDS ORDERED: TPN IV SCH (16:00)
--- NOTE | 2020-07-29 16:49 | Hospitalist Progress Note ---
Date of Service July 29, 2020 Assessment & Plan (1) Transaminitis: AST and ALT trending down today INR and PTT are normal thus doubt liver failure, just transaminitis most likely due to COVID 19 infection follow periodically (2) Altered mental status: at baseline he has dementia but is cooperative, oriented, conversive presented more lethargic but he remains oriented to person and place answering questions appropriately yesterday, today he is less responsive most likely explanation would be COVID delirium leading to poor oral intake, hypernatremia did very poorly with swallow evaluation 07/26, skylar aspiration of pureed food supportive care with IV fluids initially, got sodium down to normal he resisted Core Safe so it was cancelled will place PICC line for TPN, support him for 1-2 weeks, see if swallowing improves with supportive care daughter wants this plan for nutrition, she would like him to be level 1 at this time (3) Metabolic encephalopathy: see above most likely COVID delirium plus hypernatremia on top of baseline mild dementia mental status improved with hydration, correction of sodium today he is stable expect some of his mental status to wax and wane with typical hospital delirium (4) COVID-19: Finished course of dexamethasone 3 days prior to admission however, requiring 5L NC, CXR with multifocal pneumonia added back Dexamethasone 6mg IV daily on day 2 of admission now he is back to room air for a few days stopped the dexamethasone more likely that he has residual COVID delirium (5) Severe protein-calorie malnutrition: low albumin, poor oral intake for 10 days due to dyphagia, delirium will place PICC and start TPN plan for nutrition for 1-2 weeks, see if strength improves, see if swallowing improves (6) Sepsis: possible UTI due to chronic roldan vs COVID 19 very poor oral intake past week likely contributed to hypovolemia now with dysphagia that could be due to COVID delirium continue fluids, stop Vanco, stop Zosyn (7) Acute hypernatremia: Suspect contributing towards current altered mental state. 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 Continue tamsulosin 0.4mg BID and dutasteride 0.5mg PO daily. (12) Elevated INR: Suspect nutritional INR is 1.1 today (13) DVT prophylaxis: Lovenox 40mg SQ daily Admission and Anticipated Discharge Date Admission Date: July 23, 2020 Subjective patient more alert today, smiling, cooperative with PICC and TPN appreciate pharmacy management vitals stable today Phos a little low, gave 15mmol NaPhos IV per pharmacy Review of Systems Review of Systems: Unobtainable due to cognitive status Physical Exam Constitutional: well developed, + thin and + frail appearing; no acute distress ENMT: Mouth: + dry oral mucous membranes Respiratory: normal respiratory effort, lungs clear to auscultation Cardiovascular: RRR, no murmur, no edema Gastrointestinal (Abdomen): normal bowel sounds, soft, nontender, no hepatosplenomegaly Musculoskeletal: Head/Neck/Chest: normocephalic, head atraumatic and neck supple Extremities: + limited ROM of extremities, + abnormal strength (generalized weakness) and + muscle atrophy (legs bilaterally); no cyanosis, no clubbing and no petechiae Skin: no rashes, warm and dry Neurologic: moves all extremities and + confused; no focal motor deficits Motor/Sensory: no tremor Psychiatric: Orientation: alert, oriented to person and cooperative; + not oriented to place and + not oriented to time Lymphatic: no cervical or axillary lymphadenopathy Results & Data Results & Data ([facility]) Vital Signs (Past 12 Hours) Vital Signs Temp Pulse Resp BP Pulse Ox 07/29/20 15:54 36.7 C 69 16 120/79 92 07/29/20 07:35 36.6 C 83 16 123/78 93 Laboratory Results Laboratory Results - last 24 hr 07/28/20 07/29/20 07/29/20 18:13 00:02 05:59 Sodium Potassium Chloride Carbon Dioxide Anion Gap BUN Creatinine Est Cr Clr Drug Dosing Est GFR ( Amer) Est GFR (Non-Af Amer) BUN/Creatinine Ratio Glucose POC Glucose 125 H 141 H 155 H Calcium Phosphorus Magnesium AST ALT 07/29/20 07/29/20 06:04 06:04 Sodium 141 Potassium 4.3 Chloride 107 Carbon Dioxide 28 Anion Gap 6.0 BUN 22 H Creatinine 0.77 Est Cr Clr Drug Dosing 75.4 Est GFR ( Amer) 102.2 Est GFR (Non-Af Amer) 88.1 BUN/Creatinine Ratio 28.7 H Glucose 100 H POC Glucose Calcium 9.4 Phosphorus 2.3 L Magnesium 2.5 H AST 166 H ALT 465 H Medications Administered Current Inpatient Medications Cyanocobalamin (Cyanocobalamin (Vitamin B-12) 2,500 Mcg Tab.Subl) 5,000 mcg SL Sa@0900 [facility] Stop: 08/23/20 08:59 Last Admin: 07/24/20 13:53 Dose: Not Given Documented by: Enoxaparin Sodium (Enoxaparin Inj 40 Mg/0.4 Ml Syr) 40 mg SQ QPM [facility] Stop: 08/22/20 20:59 Last Admin: 07/28/20 21:23 Dose: 40 mg Documented by: Dextrose (D10w) 1,000 mls @ 0 mls/hr IV .Q0M PRN PRN Reason: protocol (see label comments) Stop: 08/26/20 08:39 Nutrition (Parenteral) 1,300 (ml/ TPN BAG) 1,300 mls @ 54.167 mls/hr IV .Q24H [facility]; Protocol Stop: 07/30/20 15:59 Miscellaneous Information (Tpn/Ppn Consult Pharmacy) 1 ea N/A UD PRN PRN Reason: Consult Stop: 08/26/20 08:47 PG Care Time/CCT Total # of Minutes Spent Total Time Spent with Patient: Total time spent is greater than 50% in coordination of care (as documented) at patient's floor/unit and/or counseling patient: Coding Level of Care Code 21410 Subseq Hosp Care Lvl 2 Diagnoses Transaminitis R74.01 Altered mental status R41.82 Altered mental status type: unspecified Metabolic encephalopathy G93.41 COVID-19 U07.1 Severe protein-calorie malnutrition E43 Sepsis A41.9 Sepsis acute organ dysfunction status: unspecified Sepsis type: sepsis due to unspecified organism Acute hypernatremia E87.0 Sinus tachycardia R00.0 Oropharyngeal dysphagia R13.12 Dementia F03.90 Dementia type: unspecified type Dementia behavioral disturbance: without behavioral disturbance BPH (benign prostatic hyperplasia) N40.0 Lower urinary tract symptom presence: unspecified whether lower urinary tract symptoms present Elevated INR R79.1 DVT prophylaxis Z29.9 (1) Altered mental status Altered mental status type: unspecified Qualified Code(s): R41.82 - Altered mental status, unspecified (2) Sepsis Sepsis acute organ dysfunction status: unspecified Sepsis type: sepsis due to unspecified organism Qualified Code(s): A41.9 - Sepsis, unspecified organism (3) Dementia Dementia type: unspecified type Dementia behavioral disturbance: without behavioral disturbance Qualified Code(s): F03.90 - Unspecified dementia without behavioral disturbance (4) BPH (benign prostatic hyperplasia) Lower urinary tract symptom presence: unspecified whether lower urinary tract symptoms present Qualified Code(s): N40.0 - Benign prostatic hyperplasia without lower urinary tract symptoms
[2020-07-29] MEDS: ENOXAPARIN INJ 40 MG/0.4 ML SYR SQ SCH (21:20)
[2020-07-30 07:44] LABS: BUN Creatinine Ratio 31.9 (10-20); Calcium 8.5 mg/dl (8.5-10.1); Creatinine Clr Calc Pharmacy 82.4 ml/min; Est GFR (African American) 106.9; Est GFR (Non-African American) 92.2; Magnesium 2.3 mg/dl (1.8-2.4); Phosphorus 2.6 mg/dl (2.5-4.9)
--- NOTE | 2020-07-30 11:59 | Hospitalist Progress Note ---
Date of Service July 30, 2020 Assessment & Plan (1) Transaminitis: AST and ALT trending down 07/29 will repeat on 07/31 INR and PTT are normal thus doubt liver failure, just transaminitis most likely due to COVID 19 infection follow periodically (2) Altered mental status: at baseline he has dementia but is cooperative, oriented, conversive presented more lethargic but he remains oriented to person and place answering questions appropriately 07/28 but a little less responsive the past two days most likely explanation would be COVID delirium leading to poor oral intake, hypernatremia did very poorly with swallow evaluation 07/26, skylar aspiration of pureed food supportive care with IV fluids initially, got sodium down to normal he resisted Core Safe so it was cancelled will place PICC line for TPN, support him for 1 week, see if swallowing improves with supportive care daughter wants this plan for nutrition, she would like him to be level 1 at this time (3) Metabolic encephalopathy: see above most likely COVID delirium plus hypernatremia on top of baseline mild dementia mental status improved with hydration, correction of sodium today he is stable expect some of his mental status to wax and wane with typical hospital delirium on baseline dementia (4) COVID-19: Finished course of dexamethasone 3 days prior to admission however, requiring 5L NC, CXR with multifocal pneumonia added back Dexamethasone 6mg IV daily on day 2 of admission now he is back to room air for a few days stopped the dexamethasone more likely that he has residual COVID delirium (5) Severe protein-calorie malnutrition: low albumin, poor oral intake for 10 days due to dyphagia, delirium placed PICC and started TPN plan for nutrition for 1 week, see if strength improves, see if swallowing improves daughter would want PEG if swallowing does not improve (6) Sepsis: possible UTI due to chronic roldan vs COVID 19 very poor oral intake past week likely contributed to hypovolemia now with dysphagia that could be due to COVID delirium continue fluids, stop Vanco, stop Zosyn (7) Acute hypernatremia: Suspect contributing towards current altered mental state. Free water deficit 1.4L on admission treated with D5W, the Na is down to 140 today mental status improved continue TPN (8) Sinus tachycardia: resolved, was due to hypovolemia (9) Oropharyngeal dysphagia: Consult speech consult patient not doing well with nectar thick liquids common issue with COVID delirium and inability to eat swallow evaluation at the bedside 07/26 did not go well, aspirated pureed diet strict NPO PICC ordered and TPN daughter would want PEG if swallowing does not improve she states that the patient told her in the past that he would not want to starve to (10) Dementia: at baseline he is cooperative, conversive, eats/drinks well 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 Continue tamsulosin 0.4mg BID and dutasteride 0.5mg PO daily. (12) Elevated INR: Suspect nutritional INR is 1.1 on 07/29 (13) DVT prophylaxis: Lovenox 40mg SQ daily Admission and Anticipated Discharge Date Admission Date: July 23, 2020 Subjective patient laying in bed, sleepy, responsive but not really talking mouth is really dry, looks uncomfortable labs reviewed, Cr is normal, electrolytes stable will update his daughter over the phone Review of Systems Review of Systems: Unobtainable due to cognitive status (dementia) Physical Exam Constitutional: well developed, + thin and + frail appearing; no acute distress ENMT: Mouth: + dry oral mucous membranes Respiratory: normal respiratory effort, lungs clear to auscultation Cardiovascular: RRR, no murmur, no edema Gastrointestinal (Abdomen): normal bowel sounds, soft, nontender, no hepatosplenomegaly Musculoskeletal: Head/Neck/Chest: normocephalic, head atraumatic and neck supple Extremities: + limited ROM of extremities, + abnormal strength (generalized weakness) and + muscle atrophy (legs bilaterally); no cyanosis, no clubbing and no petechiae Skin: no rashes, warm and dry Neurologic: moves all extremities and + confused; no focal motor deficits Motor/Sensory: no tremor Psychiatric: Orientation: alert, oriented to person and cooperative; + not oriented to place and + not oriented to time Lymphatic: no cervical or axillary lymphadenopathy Results & Data Results & Data ([facility]) Vital Signs (Past 12 Hours) Vital Signs Temp Pulse Resp BP Pulse Ox 07/30/20 07:28 36.6 C 75 19 134/78 93 Laboratory Results Laboratory Results - last 24 hr 07/30/20 07/30/20 07/30/20 00:26 05:39 06:05 Sodium 140 Potassium 4.0 Chloride 106 Carbon Dioxide 31 Anion Gap 3.0 BUN 22 H Creatinine 0.69 Est Cr Clr Drug Dosing 82.4 Est GFR ( Amer) 106.9 Est GFR (Non-Af Amer) 92.2 BUN/Creatinine Ratio 31.9 H Glucose 116 H POC Glucose 137 H 137 H Calcium 8.5 Phosphorus 2.6 Magnesium 2.3 Medications Administered Current Inpatient Medications Cyanocobalamin (Cyanocobalamin (Vitamin B-12) 2,500 Mcg Tab.Subl) 5,000 mcg SL Sa@0900 GINA Stop: 08/23/20 08:59 Last Admin: 07/24/20 13:53 Dose: Not Given Documented by: Enoxaparin Sodium (Enoxaparin Inj 40 Mg/0.4 Ml Syr) 40 mg SQ QPM GINA Stop: 08/22/20 20:59 Last Admin: 07/29/20 21:20 Dose: 40 mg Documented by: Dextrose (D10w) 1,000 mls @ 0 mls/hr IV .Q0M PRN PRN Reason: protocol (see label comments) Stop: 08/26/20 08:39 Nutrition (Parenteral) 1,300 (ml/ TPN BAG) 1,300 mls @ 54.167 mls/hr IV .Q24H [facility]; Protocol Stop: 07/30/20 15:59 Last Admin: 07/29/20 18:35 Dose: 54.2 mls/hr Documented by: Nutrition (Parenteral) 1,350 (ml/ TPN BAG) 1,350 mls @ 56.25 mls/hr IV .Q24H [facility]; Protocol Stop: 07/31/20 15:59 Miscellaneous Information (Tpn/Ppn Consult Pharmacy) 1 ea N/A UD PRN PRN Reason: Consult Stop: 08/26/20 08:47 PG Care Time/CCT Total # of Minutes Spent Total Time Spent with Patient: Total time spent is greater than 50% in coordination of care (as documented) at patient's floor/unit and/or counseling patient: Coding Level of Care Code 58181 Subseq Hosp Care Lvl 2 Diagnoses Transaminitis R74.01 Altered mental status R41.82 Altered mental status type: unspecified Metabolic encephalopathy G93.41 COVID-19 U07.1 Severe protein-calorie malnutrition E43 Sepsis A41.9 Sepsis acute organ dysfunction status: unspecified Sepsis type: sepsis due to unspecified organism Acute hypernatremia E87.0 Sinus tachycardia R00.0 Oropharyngeal dysphagia R13.12 Dementia F03.90 Dementia type: unspecified type Dementia behavioral disturbance: without behavioral disturbance BPH (benign prostatic hyperplasia) N40.0 Lower urinary tract symptom presence: unspecified whether lower urinary tract symptoms present Elevated INR R79.1 DVT prophylaxis Z29.9 (1) Altered mental status Altered mental status type: unspecified Qualified Code(s): R41.82 - Altered mental status, unspecified (2) Sepsis Sepsis acute organ dysfunction status: unspecified Sepsis type: sepsis due to unspecified organism Qualified Code(s): A41.9 - Sepsis, unspecified organism (3) Dementia Dementia type: unspecified type Dementia behavioral disturbance: without behavioral disturbance Qualified Code(s): F03.90 - Unspecified dementia without behavioral disturbance (4) BPH (benign prostatic hyperplasia) Lower urinary tract symptom presence: unspecified whether lower urinary tract symptoms present Qualified Code(s): N40.0 - Benign prostatic hyperplasia without lower urinary tract symptoms
[2020-07-30] MEDS ORDERED: TPN IV SCH (16:00)
[2020-07-30] MEDS ORDERED: CENTRAL PN IV SCH (16:00)
[2020-07-30] MEDS: ENOXAPARIN INJ 40 MG/0.4 ML SYR SQ SCH (19:31)
[2020-07-31 08:36] LABS: BUN Creatinine Ratio 31.1 (10-20); Calcium 9.1 mg/dl (8.5-10.1); Creatinine Clr Calc Pharmacy 75.9 ml/min; Est GFR (African American) 103.3; Est GFR (Non-African American) 89.1; Magnesium 2.1 mg/dl (1.8-2.4); Potassium 4.3 mmol/L (3.5-5.1)
[2020-07-31 08:46] LABS: Phosphorus 3.4 mg/dl (2.5-4.9)
[2020-07-31] MEDS: CYANOCOBALAMIN (VITAMIN B-12) 2,500 MCG TAB.SUBL SL SCH (11:15)
--- NOTE | 2020-07-31 14:22 | Hospitalist Progress Note ---
Date of Service July 31, 2020 Assessment & Plan (1) Metabolic encephalopathy: Most likely COVID delirium plus hypernatremia on top of baseline mild dementia. - Mental status improved with hydration, correction of sodium. - Today he is stable; my first day with him, but he is AAOx2 and know season, but not year. All sensible responses. Major concern at this time is nutrition. He resisted Core Safe so it was cancelled. - Plan for PICC line for TPN. This was pulled on 07/31 when he got out of bed and had a fall. Plan to re-insert and continue TPN x 1 week. - Plan for swallow reassessment on Sunday. (2) Transaminitis: AST and ALT trending down 07/31. INR and PTT are normal thus doubt liver failure, just transaminitis. - Most likely due to COVID 19 infection - Will stop daily trending, and can get repeat in 2-3 weeks to ensure resolutio n. (3) COVID-19: Finished course of dexamethasone 3 days prior to admission. However, requiried 5L NC, CXR with multifocal pneumonia. - Added back dexamethasone 6mg IV daily on day 2 of admission. Now he is back to room air. Stopped the dexamethasone some days ago. (4) Acute hypernatremia: Free water deficit 1.4L on admission. Treated with D5W. - Na normalized by 07/26. Stable in low 140s since then. - Monitor (5) Severe protein-calorie malnutrition: Low albumin, poor oral intake for 10 days due to dyphagia, delirium. - Plan as above - Daughter would want PEG if swallowing does not improve (6) Oropharyngeal dysphagia: Due to Covid delirium. - Consulted speech consult - Swallow evaluation at the bedside 07/26 did not go well, aspirated pureed diet - Strict NPO - Daughter would want PEG if swallowing does not improve. She states that the patient told her in the past that he would not want to starve to . (7) Dementia: At baseline, he is cooperative, conversive, eats/drinks well. 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 - On 07/31, seems near baseline apart from swallowing. He knows self, place, and season (winter / [place]), but does not know the year. (8) BPH (benign prostatic hyperplasia): Chronic roldan catheter. - Roldan was pulled out on 07/31 after a fall in the hospital. - Will bladder scan and get another in as needed. (9) DVT prophylaxis: Lovenox 40mg SQ daily Admission and Anticipated Discharge Date Admission Date: July 23, 2020 Subjective Able to name self, place, and even [place] as recent holiday. Does not know year. Reports no fevers/chills, chest pain, shortness of breath, abdominal pain, nausea, or vomiting. Physical Exam Constitutional: WD/WN, vitals as above Eyes: EOM intact bilaterally; no conjunctival abnormality ENMT: external ear and nose normal, oropharynx normal Neck: trachea midline, no thyromegaly normal visual inspection Respiratory: normal respiratory effort, lungs clear to auscultation no respiratory distress Cardiovascular: RRR, no murmur, no edema Gastrointestinal (Abdomen): Inspection/Auscultation: abdomen normal to inspection; abdomen not distended Musculoskeletal: no cyanosis or clubbing, extremities motor strength 5/5 Skin: no rashes, warm and dry Neurologic: moves all extremities and awake Psychiatric: Orientation: alert, oriented to person, oriented to place and cooperative; + not oriented to time Eye Contact: good eye contact Speech: + abnormal rate/rhythm/volume of speech (Slow, but appropriate responses.) Results & Data Results & Data ([facility]) Vital Signs (Past 12 Hours) Vital Signs Temp Pulse Resp BP Pulse Ox 07/31/20 07:46 36.8 C 81 16 115/72 93 PG Care Time/CCT Total # of Minutes Spent Total Time Spent with Patient: Total time spent is greater than 50% in coordination of care (as documented) at patient's floor/unit and/or counseling patient: Coding Level of Care Code 53155 Subseq Hosp Care Lvl 3 Diagnoses Metabolic encephalopathy G93.41 Transaminitis R74.01 COVID-19 U07.1 Acute hypernatremia E87.0 Severe protein-calorie malnutrition E43 Oropharyngeal dysphagia R13.12 Dementia F03.90 Dementia type: unspecified type Dementia behavioral disturbance: without behavioral disturbance BPH (benign prostatic hyperplasia) N40.0 Lower urinary tract symptom presence: unspecified whether lower urinary tr act symptoms present DVT prophylaxis Z29.9 (1) Dementia Dementia type: unspecified type Dementia behavioral disturbance: without behavioral disturbance Qualified Code(s): F03.90 - Unspecified dementia without behavioral disturbance (2) BPH (benign prostatic hyperplasia) Lower urinary tract symptom presence: unspecified whether lower urinary tract symptoms present Qualified Code(s): N40.0 - Benign prostatic hyperplasia without lower urinary tract symptoms
--- NOTE | 2020-07-31 15:04 | XRay Report ---
XR knee LT 1 or 2V routine CLINICAL HISTORY: Fall. Bilateral knee pain. COMPARISON: None FINDINGS: Note is made of a 1.6 cm corticated ossicle along the posterior aspect of the tibial spine s. No acute fracture is noted. No joint effusion. There is mild osteophytosis within the left knee. IMPRESSION: 1. No acute fracture or joint effusion of the left knee. 2. 1.6 cm corticated ossicle along the posterior aspect of the tibial spines. This represents an age indeterminate, but likely old, avulsion injury. 3. Mild left knee osteoarthritis. ACT 112: Negative or not required by law. Electronically signed by: Phan Benson M.D. 07/31/2020 3:03 PM
--- NOTE | 2020-07-31 15:05 | XRay Report ---
XR knee RT 1 or 2V routine CLINICAL HISTORY: Fall COMPARISON: None FINDINGS: Alignment of the right knee is anatomic. There is no acute fracture or joint effusion. The re is mild right knee osteophytosis. Slight medial compartment joint space narrowing is noted. IMPRESSION: No acute fracture or joint effusion of the right knee. ACT 112: Negative or not required by law. Electronically signed by: Phan Benson M.D. 07/31/2020 3:04 PM
--- NOTE | 2020-07-31 15:15 | XRay Report ---
XR hip RADHA 2v w pelvis CLINICAL HISTORY: Fall; hip pain COMPARISON STUDY: CT of the abdomen and pelvis June 15, 2020 and July 23, 2020. FINDINGS: Right hip arthroplasty is noted. Alignment is anatomic. Hardware is intact. There is no per iprosthetic fracture. No acute fracture within the pelvis or hips is identified. Old fracture of the medial right pubic bone is noted. Chronic deformities within the left hemipelvis are also noted. IMPRESSION: 1. No acute fracture within the pelvis or hips. 2. Intact right hip arthroplasty. No periprosthetic fracture. 3. Old pelvic deformities, as described above. ACT 112: Negative or not required by law. Electronically signed by: Phan Benson M.D. 07/31/2020 3:14 PM
[2020-07-31] MEDS ORDERED: CENTRAL PN IV SCH (16:00)
[2020-07-31] MEDS ORDERED: TPN IV SCH (16:00)
[2020-07-31] MEDS: ENOXAPARIN INJ 40 MG/0.4 ML SYR SQ SCH (20:11)
[2020-08-01 07:19] LABS: Hematocrit (blood only) 45.1 % (42-52); Hemoglobin 15.1 g/dL (14.0-18.0); Mean Corpuscular Hemoglobin 29.3 pg (25-34); Mean Corpuscular Hgb Conc 33.5 g/dL (32-36); Mean Corpuscular Volume 87.6 fL (80-100); Mean Platelet Volume 11.7 fL (7.4-10.4); Platelet Count 280 K/uL (130-400); RDW Coefficient of Variation 14.3 % (11.5-14.5); RDW Standard Deviation 44.4 fL (36.4-46.3); Red Blood Count 5.15 M/uL (4.7-6.1); White Blood Count 10.46 K/uL (4.8-10.8)
[2020-08-01 07:44] LABS: Albumin Level 2.7 gm/dl (3.4-5.0); BUN Creatinine Ratio 34.2 (10-20); Calcium 9.4 mg/dl (8.5-10.1); Creatinine Clr Calc Pharmacy 75.6 ml/min; Est GFR (African American) 102.7; Est GFR (Non-African American) 88.6; Magnesium 2.1 mg/dl (1.8-2.4); Potassium 3.9 mmol/L (3.5-5.1)
[2020-08-01 08:00] LABS: Albumin Globulin Ratio 0.7 (0.9-2); Bilirubin,Total 1.3 mg/dl (0.2-1); Phosphorus 2.8 mg/dl (2.5-4.9); Total Protein 6.7 gm/dl (6.4-8.2)
--- NOTE | 2020-08-01 14:35 | Hospitalist Progress Note ---
Date of Service August 01, 2020 Assessment & Plan (1) Metabolic encephalopathy: Most likely COVID delirium plus hypernatremia on top of baseline mild dementia. - Mental status improved with hydration, correction of sodium. - Today he is stable; my first day with him, but he is AAOx2 and know season, but not year. All sensible responses. Major concern at this time is nutrition. He resisted CoreSafe so it was cancelled. - Plan for PICC line for TPN. This was pulled on 07/31 when he got out of bed and had a fall. Re-inserted and continue TPN x 1 week. - Plan for swallow reassessment today. (2) Fall: Had a fall on 07/31. X-rays taken without any fracture. No visible injuries on the patient, though he did pull out his PICC which has been replaced and some bleeding from his meatus. - Monitor (3) BPH (benign prostatic hyperplasia): Chronic Moncada catheter. - Moncada was pulled out on 07/31 after a fall in the hospital. Re-inserted. - Some bleeding from his penis on 08/01. On close exam, his glans is split. This doesn't look acute as I don't see any skin tear, but more looks like gradual opening. Will monitor for now. (4) Transaminitis: AST and ALT trending down 07/31. INR and PTT are normal thus doubt liver failure, just transaminitis. - Most likely due to COVID 19 infection - Will stop daily trending, and can get repeat in 2-3 weeks to ensure r esolution. (5) COVID-19: Finished course of dexamethasone 3 days prior to admission. However, requiried 5L NC, CXR with multifocal pneumonia. - Added back dexamethasone 6mg IV daily on day 2 of admission. Now he is back to room air. Stopped the dexamethasone some days ago. (6) Acute hypernatremia: Free water deficit 1.4L on admission. Treated with D5W. - Na normalized by 07/26. Stable in low 140s since then. - Monitor (7) Severe protein-calorie malnutrition: Low albumin, poor oral intake for 10 days due to dyphagia, delirium. - Plan as above - Daughter would want PEG if swallowing does not improve (8) Oropharyngeal dysphagia: Due to Covid delirium. - Consulted speech consult - Swallow evaluation at the bedside 07/26 did not go well, aspirated pureed diet - Strict NPO - Daughter would want PEG if swallowing does not improve. She states that the patient told her in the past that he would not want to starve to . (9) Dementia: At baseline, he is cooperative, conversive, eats/drinks well. 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 - On 07/31, seems near baseline apart from swallowing. He knows self, place, and season (winter / ), but does not know the year. (10) DVT prophylaxis: Lovenox 40mg SQ daily Admission and Anticipated Discharge Date Admission Date: July 23, 2020 Subjective Reports pain in the right knee today which he fell on yesterday. Reports no fevers/chills, chest pain, shortness of breath, abdominal pain, nausea, or vomiting. Physical Exam Constitutional: WD/WN, vitals as above Eyes: EOM intact bilaterally; no conjunctival abnormality ENMT: external ear and nose normal, oropharynx normal Neck: trachea midline, no thyromegaly normal visual inspection Respiratory: normal respiratory effort, lungs clear to auscultation no respiratory distress Cardiovascular: RRR, no murmur, no edema Gastrointestinal (Abdomen): Inspection/Auscultation: abdomen normal to inspe ction; abdomen not distended Musculoskeletal: no cyanosis or clubbing, extremities motor strength 5/5 Knee: knee normal to inspection (Right knee without effusion or deformity.), no deformity and no effusion Skin: no rashes, warm and dry Neurologic: moves all extremities and awake Psychiatric: Orientation: alert, oriented to person, oriented to place and cooperative; + not oriented to time Eye Contact: good eye contact Speech: + abnormal rate/rhythm/volume of speech (Slow, but appropriate responses.) Results & Data Results & Data ([facility]) Vital Signs (Past 12 Hours) Vital Signs Temp Pulse Resp BP Pulse Ox 08/01/20 08:06 36.4 C L 83 18 129/77 92 PG Care Time/CCT Total # of Minutes Spent Total Time Spent with Patient: Total time spent is greater than 50% in coordination of care (as documented) at patient's floor/unit and/or counseling patient: Coding Level of Care Code 47929 Subseq Hosp Care Lvl 3 Diagnoses Metabolic encephalopathy G93.41 Fall W19.XXXA Encounter type: initial encounter BPH (benign prostatic hyperplasia) N40.0 Lower urinary tract symptom presence: unspecified whether lower urinary tract symptoms present Transaminitis R74.01 COVID-19 U07.1 Acute hypernatremia E87.0 Severe protein-calorie malnutrition E43 Oropharyngeal dysphagia R13.12 Dementia F03.90 Dementia type: unspecified type Dementia behavioral disturbance: without behavioral disturbance DVT prophylaxis Z29.9 (1) Dementia Dementia type: unspecified type Dementia behavioral disturbance: without behavioral disturbance Qualified Code(s): F03.90 - Unspecified dementia without behavioral disturbance (2) BPH (benign prostatic hyperplasia) Lower urinary tract symptom presence: unspecified whether lower urinary tract symptoms present Qualified Code(s): N40.0 - Benign prostatic hyperplasia without lower urinary tract symptoms (3) Fall Encounter type: initial encounter Qualified Code(s): W19.XXXA - Unspecified fall, initial encounter
--- NOTE | 2020-08-01 15:05 | Pharmacy Report ---
PHA: Parenteral Nutrition Con - Date of Service August 01, 2020 - Scope Pharmacy was consulted on 07/27/20 to manage parenteral nutrition orders for this patient. - Subjective The patient is currently on day [#] of [peripheral or central] parenteral nutrition for [INDICATION]. - Objective Height: 6 ft 2 in Weight: 64.6 kg Intake & Output (24hrs):: Intake & Output 07/30/20 07/31/20 08/01/20 08/02/20 06:59 06:59 06:59 06:59 Intake Total 2255 / 2255 1954.789 / 5069.079 2159.695 / 1377.695 Output Total 950 / 950 1125 / 1125 900 / 900 275 / 275 Balance 1305 / 1305 829.789 / 829.789 477.695 / 477.695 -275 / -275 Weight 64 kg 64.6 kg 64.6 kg Laboratory Data (Last 24 Hr):: 08/01/20 06:32 Sodium 142 Potassium 3.9 Chloride 108 H Carbon Dioxide 28 BUN 26 H Creatinine 0.76 Glucose 137 H Calcium 9.4 Phosphorus 2.8 Magnesium 2.1 Total Bilirubin 1.3 H AST 80 H ALT 242 H Alkaline Phosphatase 117 Albumin 2.7 L Nutrition Assessment:: Please refer to the Notes section of the EMR for the most recent piano and organ refinisher note. - Assessment * Discussed with piano and organ refinisher - will add lipids to bag today and slightly decrease dextrose component * fat-free, higher dextrose formulations are more likely to contribute to d evelopment of steatosis * Triglycerides slightly elevated on 07/27 at 158 -> recheck in for tomorrow morning - Plan For day 6 of PN administration, the following will be ordered: Macronutrients Amino acids 100 grams/day Dextrose 175 grams/day Lipids 25 grams/day Micronutrients Sodium phosphate 18 MMol Sodium acetate 40 mEq Potassium phosphate 18 mMol Potassium chloride 20 mEq Magnesium sulfate 4.06 mEq Multivitamins 10 mL Trace Elements 1 mL Additional additives: thiamine 200 mg, insulin 10 units Total volume 1430 mL to be infused over 24 hrs will provide 1245 kcal/day Labs, as indicated, will be ordered per protocol Pharmacy will continue to follow and adjust parenteral nutrition orders on a daily basis. Thank you for allowing us to participate in the care of this patient.
[2020-08-01] MEDS ORDERED: CENTRAL PN IV SCH (16:00)
[2020-08-01] MEDS ORDERED: TPN IV SCH (16:00)
[2020-08-01] MEDS: ENOXAPARIN INJ 40 MG/0.4 ML SYR SQ SCH (20:24)
[2020-08-02 08:59] LABS: Hemoglobin 15.5 g/dL (14.0-18.0); Mean Corpuscular Hemoglobin 28.9 pg (25-34); Mean Corpuscular Hgb Conc 32.3 g/dL (32-36); Mean Corpuscular Volume 89.6 fL (80-100); Mean Platelet Volume 11.2 fL (7.4-10.4); Platelet Count 235 K/uL (130-400); RDW Coefficient of Variation 14.4 % (11.5-14.5); RDW Standard Deviation 45.7 fL (36.4-46.3); Red Blood Count 5.36 M/uL (4.7-6.1)
[2020-08-02 09:29] LABS: BUN Creatinine Ratio 33.1 (10-20); Calcium 9.4 mg/dl (8.5-10.1); Est GFR (African American) 99.6; Est GFR (Non-African American) 85.9; Magnesium 2.1 mg/dl (1.8-2.4); Potassium 3.9 mmol/L (3.5-5.1)
[2020-08-02 09:32] LABS: Bilirubin,Total 1.5 mg/dl (0.2-1)
--- NOTE | 2020-08-02 11:16 | Fluoroscopy Report ---
FL video swallow HISTORY: r/o aspiration; establish diet TECHNIQUE: Video fluoroscopic evaluation of swallowing was performed in the AP and lateral projection s by the speech pathology staff. The patient is fed nectar-thick and thin liquid barium,, and barium pudding. FLUOROSCOPY TIME: 2 minutes. A cine loop submitted. COMPARISON STUDY: None. FINDINGS: Overall poor pharyngeal constriction resulting in significant vallecular residue. The cain cular residue resulted in a few episodes of aspiration. IMPRESSION: 1. Significant vallecular residue due to the overall poor pharyngeal constriction. This results in a few episodes of aspiration. 2. Please see the speech pathologist report for detailed findings and recommendations. ACT 112: Negative or not required by law. Electronically signed by: Aleksandr Ayala M.D. 08/02/2020 11:15 AM
[2020-08-02] MEDS ORDERED: CENTRAL PN IV SCH (16:00)
[2020-08-02] MEDS ORDERED: TPN IV SCH (16:00)
[2020-08-02] MEDS: ENOXAPARIN INJ 40 MG/0.4 ML SYR SQ SCH (19:49)
--- NOTE | 2020-08-03 01:25 | Hospitalist Progress Note ---
Date of Service August 02, 2020 Assessment & Plan (1) Metabolic encephalopathy: Most likely COVID delirium plus hypernatremia on top of baseline mild dementia. Mental status improved but still confused likely from his dementia. (2) Fall: Had a fall on 07/31. X-rays without any fracture fortunately. (3) BPH (benign prostatic hyperplasia): Chronic Moncada catheter. - Moncada was pulled out on 07/31 after a fall in the hospital. Re-inserted. - Some bleeding from his penis on 08/01. On close exam, his glans is split. Appears chronic by report. (4) Transaminitis: AST and ALT trending down. Most likely due to COVID 19 infection. Repeat ast/alt in a few days to ensure stability. (5) COVID-19: Finished course of dexamethasone 3 days prior to admission for covid pneumonia. (6) Acute hypernatremia: peak 154 - now resolved with hypotonic fluids (7) Severe protein-calorie malnutrition: Low albumin, poor oral intake for 10 days due to dysphagia and delirium in setting of recent COVID-[address] Brush had discussed nutrition with daughter. Plan - PICC line with tpn. Unfortunately he inadvertently pulled PICC line on 07/31 when he had a fall. New PICC placed. Trial of TPN for 1 week. Trend the abnormal lfts. If nutrition does not improve despite TPN Dr Brush reports pt's daugter would want PEG tube placed. (8) Oropharyngeal dysphagia: Due to Covid delirium and probable severe deconditioning in setting of illness/ dementia. Appreciate speech consult Bedside Swallow evaluation 07/26 -- aspirated pureed diet Video Swallow findings noted Pureed and nectar thick liquids needed Daughter would want PEG if swallowing does not improve. (9) Dementia: Lives with his daughter, access spec care assistant. (10) DVT prophylaxis: Lovenox 40mg SQ daily Admission and Anticipated Discharge Date Admission Date: July 23, 2020 Subjective patient was sleeping during my visit. sitter at bedside. they report he was confused much of the afternoon. patient had apparently just fallen asleep before my arrival and thus I did not wake him. no acute issues per staff. Review of Systems Review of Systems: did not wake patient to obtain ROS Physical Exam Constitutional: + thin and + frail appearing; no acute distress ENMT: external ear and nose normal, oropharynx normal Respiratory: normal respiratory effort, lungs clear to auscultation Cardiovascular: Rate/Rhythm: regular rate and regular rhythm Heart Sounds: normal S1 and normal S2 Gastrointestinal (Abdomen): normal bowel sounds, soft, nontender, no hepatosplenomegaly Results & Data Results & Data ([facility]) Vital Signs (Past 12 Hours) Vital Signs Temp Pulse Resp BP Pulse Ox 08/02/20 15:15 36.7 C 84 16 107/72 91 mild leukocytosis mildly elevated LFTs Cr wnl PG Care Time/CCT Total # of Minutes Spent Total Time Spent with Patient: Total time spent is greater than 50% in coordination of care (as documented) at patient's floor/unit and/or counseling patient: Coding Level of Care Code 26818 Subseq Hosp Care Lvl 2 Diagnoses Metabolic encephalopathy G93.41 Fall W19.XXXA Encounter type: initial encounter BPH (benign prostatic hyperplasia) N40.0 Lower urinary tract symptom presence: unspecified whether lower urinary tract symptoms present Transaminitis R74.01 COVID-19 U07.1 Acute hypernatremia E87.0 Severe protein-calorie malnutrition E43 Oropharyngeal dysphagia R13.12 Dementia F03.90 Dementia behavioral disturbance: without behavioral disturbance Dementia type: unspecified type DVT prophylaxis Z29.9 (1) BPH (benign prostatic hyperplasia) Lower urinary tract symptom presence: unspecified whether lower urinary tract symptoms present Qualified Code(s): N40.0 - Benign prostatic hyperplasia without lower urinary tract symptoms (2) Dementia Dementia behavioral disturbance: without behavioral disturbance Dementia type: unspecified type Qualified Code(s): F03.90 - Unspecified dementia without behavioral disturbance (3) Fall Encounter type: initial encounter Qualified Code(s): W19.XXXA - Unspecified fall, initial encounter
--- NOTE | 2020-08-03 09:18 | Hospitalist Progress Note ---
Date of Service August 03, 2020 Assessment & Plan (1) Metabolic encephalopathy: Most likely COVID delirium plus hypernatremia on top of baseline mild dementia. - Mental status improved with hydration, correction of sodium. - Major concern at this time is nutrition. He resisted [employer] so it was cancelled. - PICC line for TPN. This was pulled on 07/31 when he got out of bed and had a fall. Re-inserted and continue TPN x 1 week. - Speech eval and video swallow done on 08/02 - pt showed aspiration, reflux and cough mostly with solids - placed on pureed diet, plan to reassess today with speech, currently NPO. Will await their recommendations. (2) Fall: Had a fall on 07/31. X-rays taken without any fracture. No visible injuries on the patient, though he did pull out his PICC which has been replaced and some bleeding from his ureteral meatus. - Monitor - No current muscular complaints or soreness - PT/OT consults (3) BPH (benign prostatic hyperplasia): Chronic Roldan catheter. - Roldan was pulled out on 07/31 after a fall in the hospital. Re-inserted. - Some bleeding from his penis on 08/01, glans is split per exam on 08/02, appears chronic/gradual and not an acute injury. No acute bleeding today at meatus but obvious in roldan bag. monitor. (4) Transaminitis: AST and ALT trending down 07/31. INR and PTT are normal thus doubt liver failure, just transaminitis. - Most likely due to COVID 19 infection - Will stop daily trending, and can get repeat in 2-3 weeks to ensure resolution. (5) COVID-19: Finished course of dexamethasone 3 days prior to admission. However, requiried 5L NC, CXR with multifocal pneumonia. - Added back dexamethasone 6mg IV daily on day 2 of admission. Now he is back to room air. Stopped the dexamethasone on 07/24. (6) Acute hypernatremia: Free water deficit 1.4L on admission. Treated with D5W. - Na normalized by 07/26. Stable in low 140s since then. - Monitor (7) Severe protein-calorie malnutrition: Low albumin, poor oral intake for 10 days due to dyphagia, delirium. - Plan as above - Daughter would want PEG if swallowing does not improve - speech eval as above (8) Oropharyngeal dysphagia: Due to Covid delirium. - Consulted speech - Swallow evaluation at the bedside 07/26 did not go well, aspirated pureed diet --> fluoroscopic video on 08/02 and aspirated but more-so with solids, repeating swallow study with speech today - Strict NPO - Daughter would want PEG if swallowing does not improve. She states that the patient told her in the past that he would not want to starve to . Discussed plan today with pt's daughter Hailey over the phone - discussed Peg and still having a risk for aspiration, as well as TPN not being a roasterman solution. Wait on swallow study with speech. Daughter asks about speech therapy after hospitalization - will depend on placement afterwards. (9) Dementia: At baseline, he is cooperative, conversive, eats/drinks well. 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 - On 07/31, seems near baseline apart from swallowing. He knows self, but unable to answer year (which daughter reports has been unable to do for at least 5 years), president, or place. (10) DVT prophylaxis: Lovenox 40mg SQ daily Admission and Anticipated Discharge Date Admission Date: July 23, 2020 Supervising Physician Co-Signing Physician Notes Attending Attestation: Chart reviewed, care plan d/w MAR Dunham. I agree w/ the veliz components of her documentation. Ongoing issue is that of dysphagia and malnutrition. Hence TPN while awaiting improvement in swallow function. Cont PT, OT, speech therapy. Teofilo Nix MD Subjective The patient was seen and examined this morning. He is able to answer yes or no questions, and seems to know where he is at, but cannot name the building as a hospital. He does not know the president, year or season. He denies any specific complaints. Pt has not eaten yet today as plans for repeat speech evaluation. TPN is running currently. Roldan cath in place not painful, but there is blood in the bag. There is a bedside sitter with him during our visit. Review of Systems Review of Systems: Constitutional: No fever, sweats or chills Eyes: No diplopia, no worsening or blurred vision ENT: normal hearing, no trouble swallowing Respiratory: No cough, sputum, dyspnea at rest or on exertion Cardiovascular: No chest pain, tightness or palpitations Abdomen: No pain, nausea, vomiting, diarrhea or constipation : no pain with roldan in place, no bleeding from meatus, blood in roldan bag Musculoskeletal: No joint pain, calf pain, swelling Neurologic: No weakness, numbness/tingling, + ankle deformities, does not walk at baseline Psychiatric: No anxiety or depression Skin: No rash or itch Physical Exam Physical Exam: General: awake, alert, no apparent distress Head: Normocephalic, atraumatic ENT: PERRL, EOMI, no pharyngeal exudate, edentulous, mucous membranes appear slightly dry, + tongue is red, appears like b12 and folate deficiency. Chest: Diminished breath sounds throughout but clear to auscultation, on room air, no adventitious breath sounds one faint exp wheeze. good capillary refill Abdominal: NABS x 4 quadrants, soft, nondistended, nontender to palpation, no rebound or guarding Extremities: + muscular atrophy in bilateral legs, normal inspection, no peripheral edema or erythema, calfs nontender to palpation, Psych: Normal mood and affect, smiles appropriately, must be prompted for answers, responds appropriately, mostly says yes or no. Neuro: AAO x 3, strength intact bilaterally and rated 5/5, + bilateral ankle deformities, no gross motor deficits, speech is clear, no peripheral sensory deficits Results & Data Results & Data ([facility]) Vital Signs (Past 12 Hours) Vital Signs Temp Pulse Resp BP Pulse Ox 08/03/20 06:47 36.4 C L 75 18 128/74 94 PG Care Time/CCT Total # of Minutes Spent Total Time Spent with Patient: Total time spent is greater than 50% in coordination of care (as documented) at patient's floor/unit and/or counseling patient: Coding Level of Care Code 07691 Inpt Consult Level 3 Diagnoses Metabolic encephalopathy G93.41 Fall W19.XXXA Encounter type: initial encounter BPH (benign prostatic hyperplasia) N40.0 Lower urinary tract symptom presence: unspecified whether lower urinary tract symptoms present Transaminitis R74.01 COVID-19 U07.1 Acute hypernatremia E87.0 Severe protein-calorie malnutrition E43 Oropharyngeal dysphagia R13.12 Dementia F03.90 Dementia behavioral disturbance: without behavioral disturbance Dementia type: unspecified type DVT prophylaxis Z29.9 (1) BPH (benign prostatic hyperplasia) Lower urinary tract symptom presence: unspecified whether lower urinary tract symptoms present Qualified Code(s): N40.0 - Benign prostatic hyperplasia without lower urinary tract symptoms (2) Dementia Dementia behavioral disturbance: without behavioral disturbance Dementia type: unspecified type Qualified Code(s): F03.90 - Unspecified dementia without behavioral disturbance (3) Fall Encounter type: initial encounter Qualified Code(s): W19.XXXA - Unspecified fall, initial encounter
[2020-08-03 09:35] LABS: BUN Creatinine Ratio 35.6 (10-20); Calcium 9.2 mg/dl (8.5-10.1); Creatinine Clr Calc Pharmacy 76.6 ml/min; Est GFR (African American) 103.3; Est GFR (Non-African American) 89.1; Potassium 3.8 mmol/L (3.5-5.1)
[2020-08-03 09:36] LABS: Phosphorus 3.4 mg/dl (2.5-4.9)
[2020-08-03] MEDS ORDERED: TPN IV SCH (16:00)
[2020-08-03] MEDS ORDERED: CENTRAL PN IV SCH (16:00)
[2020-08-03] MEDS: ENOXAPARIN INJ 40 MG/0.4 ML SYR SQ SCH (21:30)
[2020-08-04 08:23] LABS: BUN Creatinine Ratio 31.4 (10-20); Calcium 9.2 mg/dl (8.5-10.1); Creatinine Clr Calc Pharmacy 75.6 ml/min; Est GFR (African American) 102.7; Est GFR (Non-African American) 88.6; Magnesium 2.1 mg/dl (1.8-2.4); Potassium 3.9 mmol/L (3.5-5.1)
[2020-08-04 08:25] LABS: Phosphorus 3.2 mg/dl (2.5-4.9)
[2020-08-04] MEDS ORDERED: CENTRAL PN IV SCH (16:00)
[2020-08-04] MEDS ORDERED: TPN IV SCH (16:00)
[2020-08-04] MEDS: ENOXAPARIN INJ 40 MG/0.4 ML SYR SQ SCH (21:08)
--- NOTE | 2020-08-04 22:47 | Hospitalist Progress Note ---
Date of Service August 04, 2020 Assessment & Plan (1) Metabolic encephalopathy: Most likely COVID delirium plus hypernatremia on top of baseline mild dementia. Mental status improved but still confused likely from his dementia. No significant changed on 08/04 D/W Speech, patient will remain NPO. (2) Fall: Had a fall on 07/31. X-rays without any fracture fortunately. (3) BPH (benign prostatic hyperplasia): Chronic Moncada catheter. - Moncada was pulled out on 07/31 after a fall in the hospital. Re-inserted. - Some bleeding from his penis on 08/01. On close exam, his glans is split. Appears chronic by report. (4) Transaminitis: AST and ALT trending down. Most likely due to COVID 19 infection. Repeat ast/alt in a few days to ensure stability. (5) COVID-19: Finished course of dexamethasone 3 days prior to admission for covid pneumonia. (6) Acute hypernatremia: peak 154 - now resolved with hypotonic fluids (7) Severe protein-calorie malnutrition: Low albumin, poor oral intake for 10 days due to dysphagia and delirium in setting of recent COVID-[address] Brush had discussed nutrition with daughter. Plan - PICC line with tpn. Unfortunately he inadvertently pulled PICC line on 07/31 when he had a fall. New PICC placed. Trial of TPN for 1 week. Trend the abnormal lfts. If nutrition does not improve despite TPN Dr Brush reports pt's daugter would want PEG tube placed. (8) Oropharyngeal dysphagia: Due to Covid delirium and probable severe deconditioning in setting of illness/ dementia. Appreciate speech consult Bedside Swallow evaluation 07/26 -- aspirated pureed diet Video Swallow findings noted Pureed and nectar thick liquids needed Daughter would want PEG if swallowing does not improve. 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 (10) DVT prophylaxis: Lovenox 40mg SQ daily Admission and Anticipated Discharge Date Admission Date: July 23, 2020 Subjective Patient reports no complaints at this time. Review of Systems Review of Systems: All systems reviewed & are unremarkable except as noted in HPI & below Physical Exam Physical Exam: General: awake, alert, no apparent distress Head: Normocephalic, atraumatic ENT: PERRL, EOMI, no pharyngeal exudate Chest: Diminished breath sounds throughout but clear to auscultation, on room air, no adventitious breath sounds one faint exp wheeze. good capillary refill Abdominal: NABS x 4 quadrants, soft, nondistended, nontender to palpation, no rebound or guarding Extremities: + muscular atrophy in bilateral legs, normal inspection, no peripheral edema or erythema, calfs nontender to palpation, Psych: Normal mood and affect, smiles appropriately, must be prompted for answers, responds appropriately, mostly says yes or no. Neuro: strength intact bilaterally and rated 5/5, + bilateral ankle deformities, no gross motor deficits, speech is clear, no peripheral sensory deficits Results & Data Results & Data ([facility]) Vital Signs (Past 12 Hours) Vital Signs Temp Pulse Resp BP Pulse Ox 08/04/20 15:21 36.7 C 81 16 129/71 95 PG Care Time/CCT Total # of Minutes Spent Total Time Spent with Patient: Total time spent is greater than 50% in coordination of care (as documented) at patient's floor/unit and/or counseling patient: Coding Level of Care Code 09778 Subseq Hosp Care Lvl 3 Diagnoses Metabolic encephalopathy G93.41 Fall W19.XXXA Encounter type: initial encounter BPH (benign prostatic hyperplasia) N40.0 Lower urinary tract symptom presence: unspecified whether lower urinary tract symptoms present Transaminitis R74.01 COVID-19 U07.1 Acute hypernatremia E87.0 Severe protein-calorie malnutrition E43 Oropharyngeal dysphagia R13.12 Dementia F03.90 Dementia behavioral disturbance: without behavioral disturbance Dementia type: unspecified type DVT prophylaxis Z29.9 Time Spent (min) 35 (1) BPH (benign prostatic hyperplasia) Lower urinary tract symptom presence: unspecified whether lower urinary tract symptoms present Qualified Code(s): N40.0 - Benign prostatic hyperplasia without lower urinary tract symptoms (2) Dementia Dementia behavioral disturbance: without behavioral disturbance Dementia type: unspecified type Qualified Code(s): F03.90 - Unspecified dementia without behavioral disturbance (3) Fall Encounter type: initial encounter Qualified Code(s): W19.XXXA - Unspecified fall, initial encounter
[2020-08-05 07:00] LABS: BUN Creatinine Ratio 36.1 (10-20); Calcium 9.1 mg/dl (8.5-10.1); Creatinine Clr Calc Pharmacy 75.6 ml/min; Est GFR (African American) 102.7; Est GFR (Non-African American) 88.6; Phosphorus 3.6 mg/dl (2.5-4.9); Potassium 3.9 mmol/L (3.5-5.1)
[2020-08-05] MEDS ORDERED: TPN IV SCH (16:00)
[2020-08-05] MEDS ORDERED: CENTRAL PN IV SCH (16:00)
[2020-08-05] MEDS: ENOXAPARIN INJ 40 MG/0.4 ML SYR SQ SCH (21:16)
--- NOTE | 2020-08-05 23:07 | Hospitalist Progress Note ---
Date of Service August 05, 2020 Assessment & Plan (1) Metabolic encephalopathy: Most likely COVID delirium plus hypernatremia on top of baseline mild dementia. Mental status improved but still confused likely from his dementia. This is likely his baseline No significant changed on 08/05 D/W Speech. will remain on NPO. Will discuss with daughter. (2) Fall: Had a fall on 07/31. X-rays without any fracture fortunately. (3) BPH (benign prostatic hyperplasia): Chronic Moncada catheter. - Moncada was pulled out on 07/31 after a fall in the hospital. Re-inserted. - Some bleeding from his penis on 08/01. On close exam, his glans is split. Appears chronic by report. (4) Transaminitis: AST and ALT trending down. Most likely due to COVID 19 infection. Repeat ast/alt in a few days to ensure stability. (5) COVID-19: Finished course of dexamethasone 3 days prior to admission for covid pneumonia. (6) Acute hypernatremia: peak 154 - now resolved with hypotonic fluids (7) Severe protein-calorie malnutrition: Low albumin, poor oral intake for 10 days due to dysphagia and delirium in setting of recent COVID-[address] Brush had discussed nutrition with daughter. Plan - PICC line with tpn. Unfortunately he inadvertently pulled PICC line on 07/31 when he had a fall. New PICC placed. Trial of TPN for 1 week. Trend the abnormal lfts. If nutrition does not improve despite TPN Dr Brush reports pt's daugter would want PEG tube placed. (8) Oropharyngeal dysphagia: Due to Covid delirium and probable severe deconditioning in setting of illness/ dementia. Appreciate speech consult Bedside Swallow evaluation 07/26 -- aspirated pureed diet Video Swallow findings noted Pureed and nectar thick liquids needed Daughter would want PEG if swallowing does not improve. 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 (10) DVT prophylaxis: Lovenox 40mg SQ daily Admission and Anticipated Discharge Date Admission Date: July 23, 2020 Subjective 75 yo male reports no new symptoms. Not being in any pain or discomfort. Review of Systems Review of Systems: All systems reviewed & are unremarkable except as noted in HPI & below Physical Exam Physical Exam: General: awake, alert, no apparent distress Head: Normocephalic, atraumatic ENT: PERRL, EOMI, no pharyngeal exudate Chest: Diminished breath sounds throughout but clear to auscultation, on room air, no adventitious breath sounds one faint exp wheeze. good capillary refill Abdominal: NABS x 4 quadrants, soft, nondistended, nontender to palpation, no rebound or guarding Extremities: + muscular atrophy in bilateral legs, normal inspection, no peripheral edema or erythema, calfs nontender to palpation, Psych: Normal mood and affect, smiles appropriately, must be prompted for answers, responds appropriately, mostly says yes or no. Neuro: strength intact bilaterally and rated 5/5, + bilateral ankle deformities, no gross motor deficits, speech is clear, no peripheral sensory deficits Results & Data Results & Data ([facility]) Vital Signs (Past 12 Hours) Vital Signs Temp Pulse Resp BP Pulse Ox 08/05/20 15:03 36.6 C 78 18 119/80 97 PG Care Time/CCT Total # of Minutes Spent Total Time Spent with Patient: Total time spent is greater than 50% in coordination of care (as documented) at patient's floor/unit and/or counseling patient: Coding Level of Care Code 86482 Subseq Hosp Care Lvl 2 Diagnoses Metabolic encephalopathy G93.41 Fall W19.XXXA Encounter type: initial encounter BPH (benign prostatic hyperplasia) N40.0 Lower urinary tract symptom presence: unspecified whether lower urinary tract symptoms present Transaminitis R74.01 COVID-19 U07.1 Acute hypernatremia E87.0 Severe protein-calorie malnutrition E43 Oropharyngeal dysphagia R13.12 Dementia F03.90 Dementia behavioral disturbance: without behavioral disturbance Dementia type: unspecified type DVT prophylaxis Z29.9 Time Spent (min) 25 (1) BPH (benign prostatic hyperplasia) Lower urinary tract symptom presence: unspecified whether lower urinary tract symptoms present Qualified Code(s): N40.0 - Benign prostatic hyperplasia without lower urinary tract symptoms (2) Dementia Dementia behavioral disturbance: without behavioral disturbance Dementia type: unspecified type Qualified Code(s): F03.90 - Unspecified dementia without behavioral disturbance (3) Fall Encounter type: initial encounter Qualified Code(s): W19.XXXA - Unspecified fall, initial encounter
[2020-08-06 08:05] LABS: Calcium 8.9 mg/dl (8.5-10.1); Creatinine Clr Calc Pharmacy 84.4 ml/min; Est GFR (African American) 107.5; Est GFR (Non-African American) 92.8; Phosphorus 3.4 mg/dl (2.5-4.9); Potassium 3.8 mmol/L (3.5-5.1)
--- NOTE | 2020-08-06 10:54 | Pharmacy Report ---
PHA: Parenteral Nutrition Con - Date of Service August 06, 2020 - Scope Pharmacy was consulted on 07/27/2020 to manage parenteral nutrition orders for this patient. - Subjective The patient is currently on day #11 of central parenteral nutrition for poor oral intake/malnutrition. - Objective Height: 6 ft 2 in Weight: 64.6 kg Intake & Output (24hrs):: Intake & Output 08/04/20 08/05/20 08/06/20 08/07/20 06:59 06:59 06:59 06:59 Intake Total 1548 / 1548 1548 / 1548 1547 / 1547 Output Total 750 / 750 1051 / 1051 1200 / 1200 Balance 798 / 798 497 / 497 347 / 347 Weight 64.6 kg Laboratory Data (Last 24 Hr):: 08/06/20 06:54 Sodium 142 Potassium 3.8 Chloride 108 H Carbon Dioxide 31 BUN 28 H Creatinine 0.68 Glucose 139 H Calcium 8.9 Phosphorus 3.4 Magnesium 2.0 Nutrition Assessment:: Please refer to the Notes section of the EMR for the most recent pbx mechanic note. - Assessment * 75 yo M who has been receiving TPN via PICC since 07/27/2020 secondary to poor oral intake/malnutrition. * Patient did have a transaminitis upon initiation of TPN which was thought to be secondary to Covid. However, dextrose was decreased in bag and lipids were added to bag per dietitian recommendations as high dextrose formulas can lead to hepatic steatosis. Since then, dextrose has been advanced back to goal and lipids were advanced to goal as well. * All macronutrients are at goal. Patient's electrolytes have been relatively stable throughout 11 days of TPN requiring only minor adjustments in macronutrients. * Per primary team's note, patient's daughter would want patient to receive a PEG tube. Will attempt to discuss future nutritional plans with provider today. - Plan For day #11 of PN administration, the following will be ordered: Macronutrients Amino acids 100 grams/day Dextrose 200 grams/day Lipids 50 grams/day Micronutrients Sodium phosphate 18 MMol Sodium chloride 40 mEq Potassium phosphate 27 mMol Potassium chloride 20 mEq Potassium acetate 20 mEq Magnesium sulfate 4.06 mEq Multivitamins 10 mL Trace Elements 1 mL Insulin 20 units Thiamine 100 mg Total volume 1600 mL to be infused over 24 hrs will provide 1580 kcal/day Labs, as indicated, will be ordered per protocol Pharmacy will continue to follow and adjust parenteral nutrition orders on a daily basis. Thank you for allowing us to participate in the care of this patient.
[2020-08-06 12:44] LABS: Albumin Level 2.8 gm/dl (3.4-5.0); Bilirubin Direct 0.7 mg/dl (0-0.2); Bilirubin,Total 1.2 mg/dl (0.2-1); Total Protein 6.6 gm/dl (6.4-8.2)
[2020-08-06] MEDS ORDERED: CENTRAL PN IV SCH (16:00)
[2020-08-06] MEDS ORDERED: TPN IV SCH (16:00)
[2020-08-06] MEDS: ENOXAPARIN INJ 40 MG/0.4 ML SYR SQ SCH (20:46)
--- NOTE | 2020-08-06 22:35 | Hospitalist Progress Note ---
Date of Service August 06, 2020 Assessment & Plan (1) Metabolic encephalopathy: Most likely COVID delirium plus hypernatremia on top of baseline mild dementia. Mental status improved but still confused likely from his dementia. This is likely his baseline No significant changed for past 2 days. D/W Speech. will remain on NPO. Tried calling daughter but no answer. Consulted GI for PEG tube placement. Will have sppech re-eval on Sunday as patient is more awake. Pharmacy will continue Parenteral nutrition until then. LFTs are mildly elevated. will monitor. (2) Fall: Had a fall on 07/31. X-rays without any fracture fortunately. (3) BPH (benign prostatic hyperplasia): Chronic Moncada catheter. - Moncada was pulled out on 07/31 after a fall in the hospital. Re-inserted. - Some bleeding from his penis on 08/01. On close exam, his glans is split. Appears chronic by report. (4) Transaminitis: AST and ALT trending down. Most likely due to COVID 19 infection. Repeat levels ae mildly elevated, will monitor. (5) COVID-19: Finished course of dexamethasone 3 days prior to admission for covid pneumonia. (6) Acute hypernatremia: peak 154 - now resolved with hypotonic fluids (7) Severe protein-calorie malnutrition: Low albumin, poor oral intake for 10 days due to dysphagia and delirium in setting of recent COVID-[address] Brush had discussed nutrition with daughter. Plan - PICC line with tpn. Unfortunately he inadvertently pulled PICC line on 07/31 when he had a fall. New PICC placed. Trial of TPN for 1 week. Trend the abnormal lfts. As stated above, daughter wants PEG tube placed. (8) Oropharyngeal dysphagia: Due to Covid delirium and probable severe deconditioning in setting of illness/ dementia. Appreciate speech consult Bedside Swallow evaluation 07/26 -- aspirated pureed diet Video Swallow findings noted Daughter would want PEG if swallowing does not improve. 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 (10) DVT prophylaxis: Lovenox 40mg SQ daily Admission and Anticipated Discharge Date Admission Date: July 23, 2020 Subjective Patient has no complaints. Review of Systems Review of Systems: All systems reviewed & are unremarkable except as noted in HPI & below Physical Exam Physical Exam: General: awake, alert, no apparent distress Head: Normocephalic, atraumatic ENT: PERRL, EOMI, no pharyngeal exudate Chest: clear to auscultation, on room air, good capillary refill Abdominal: NABS x 4 quadrants, soft, nondistended, nontender to palpation, no rebound or guarding Extremities: + muscular atrophy in bilateral legs, normal inspection, no peripheral edema or erythema, calfs nontender to palpation, Psych: Normal mood and affect, smiles appropriately, must be prompted for answers, responds appropriately, mostly says yes or no. Neuro: strength intact bilaterally and rated 5/5, + bilateral ankle deformities, no gross motor deficits, speech is clear, no peripheral sensory deficits Results & Data Results & Data ([facility]) Vital Signs (Past 12 Hours) Vital Signs Temp Pulse Resp BP Pulse Ox 08/06/20 15:30 36.8 C 79 14 104/64 95 PG Care Time/CCT Total # of Minutes Spent Total Time Spent with Patient: Total time spent is greater than 50% in coordination of care (as documented) at patient's floor/unit and/or counseling patient: Coding Level of Care Code 49791 Subseq Hosp Care Lvl 3 Diagnoses Metabolic encephalopathy G93.41 Fall W19.XXXA Encounter type: initial encounter BPH (benign prostatic hyperplasia) N40.0 Lower urinary tract symptom presence: unspecified whether lower urinary tract symptoms present Transaminitis R74.01 COVID-19 U07.1 Acute hypernatremia E87.0 Severe protein-calorie malnutrition E43 Oropharyngeal dysphagia R13.12 Dementia F03.90 Dementia behavioral disturbance: without behavioral disturbance Dementia type: unspecified type DVT prophylaxis Z29.9 Time Spent (min) 35 (1) BPH (benign prostatic hyperplasia) Lower urinary tract symptom presence: unspecified whether lower urinary tract symptoms present Qualified Code(s): N40.0 - Benign prostatic hyperplasia without lower urinary tract symptoms (2) Dementia Dementia behavioral disturbance: without behavioral disturbance Dementia type: unspecified type Qualified Code(s): F03.90 - Unspecified dementia without behavioral disturbance (3) Fall Encounter type: initial encounter Qualified Code(s): W19.XXXA - Unspecified fall, initial encounter
[2020-08-07 07:06] LABS: BUN Creatinine Ratio 40.2 (10-20); Creatinine Clr Calc Pharmacy 85.5 ml/min; Est GFR (African American) 106.9; Est GFR (Non-African American) 92.2; Phosphorus 3.7 mg/dl (2.5-4.9)
[2020-08-07] MEDS: CYANOCOBALAMIN (VITAMIN B-12) 2,500 MCG TAB.SUBL SL SCH (08:04)
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
[2020-08-07] MEDS ORDERED: TPN IV SCH (16:00)
[2020-08-07] MEDS ORDERED: CENTRAL PN IV SCH (16:00)
[2020-08-08] MEDS: ENOXAPARIN INJ 40 MG/0.4 ML SYR SQ SCH ×2 (00:49→20:40)
[2020-08-08 07:40] LABS: BUN Creatinine Ratio 39.6 (10-20); Calcium 9.4 mg/dl (8.5-10.1); Creatinine Clr Calc Pharmacy 90.1 ml/min; Est GFR (African American) 107.5; Est GFR (Non-African American) 92.8; Magnesium 1.9 mg/dl (1.8-2.4); Phosphorus 3.2 mg/dl (2.5-4.9); Potassium 4.1 mmol/L (3.5-5.1)
--- NOTE | 2020-08-08 09:55 | Hospitalist Progress Note ---
Date of Service August 07, 2020 Assessment & Plan (1) Oropharyngeal dysphagia: Due to Covid delirium and probable severe deconditioning in setting of illness/ dementia. Appreciate speech consult Bedside Swallow evaluation 07/26 -- aspirated pureed diet. Video Swallow findings noted - did VERY poorly. I spoke with speech therapy today - they are going to perform 1 additional bedside evaluation to see if any improvement has occurred. He is scheduled for PEG placement on Sunday by Norbreto FISHMAN. Daughter has voiced she wishes for PEG placement as apparently Mr Lon had verbalized in the past he would not want to " of starvation." (2) Metabolic encephalopathy: Most likely COVID delirium/hospital delirium in setting of dementia. Mental status improved by report over the last week. (3) Fall: Had a fall on 07/31. X-rays without any fracture fortunately. (4) BPH (benign prostatic hyperplasia): Chronic Roldan catheter. Roldan was pulled out on 07/31 after a fall in the hospital. Re-inserted. Some bleeding from his penis on 08/01. On close exam, his glans is split. Appears chronic by report. No issues with roldan since. Outpatient urology notes indicate he needs a TURP. Apparently failed spontaneous voiding trial in the urology office in the past. (5) Transaminitis: All LFTs elevated - likely due to COVID 19 infection. Repeat LFTs tomorrow given the TPN. At risk of worsening acute hepatitis. (6) COVID-19: Finished course of dexamethasone 3 days prior to admission for covid pneumonia. Stable in room air. Out of isolation. (7) Acute hypernatremia: peak 154 - now resolved with hypotonic fluids Na today wnl (8) Severe protein-calorie malnutrition: Low albumin, poor oral intake for 10 days due to dysphagia and delirium in setting of recent COVID-[address] Brush had discussed nutrition with daughter. Plan - PICC line with tpn. Unfortunately he inadvertently pulled PICC line on 07/31 when he had a fall. New PICC placed. Trial of TPN for 1 week. Trend the abnormal lfts. Likely PEG on Sunday if swallowing does not improve. 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 At least mild-moderate dementia based on my assessment. Probably closer to moderate. (10) DVT prophylaxis: Lovenox 40mg SQ daily Admission and Anticipated Discharge Date Admission Date: July 23, 2020 Subjective patient sitting in wheelchair upon arrival knew he was in the hospital but did not know the day or year knew it was [place] recently it was difficult to understand him because of lack of teeth he denied any pain in any location I spoke with speech therapy and they plan to perform bedside swallow eval tomorrow to see if any change from recent evaluations Review of Systems Review of Systems: Unobtainable due to cognitive status Physical Exam Constitutional: + thin and + frail appearing; no acute distress ENMT: external ear and nose normal, oropharynx normal Mouth: + edentulous Respiratory: normal respiratory effort, lungs clear to auscultation Cardiovascular: Rate/Rhythm: regular rate and regular rhythm Heart Sounds: normal S1 and normal S2 Gastrointestinal (Abdomen): normal bowel sounds, soft, nontender, no hepatosplenomegaly Skin: no rashes, warm and dry PICC line, RUE - c/d/i Psychiatric: Orientation: oriented to person and oriented to place; + not oriented to time Results & Data Results & Data ([facility]) Vital Signs (Past 12 Hours) Vital Signs Temp Pulse Resp BP Pulse Ox 08/07/20 23:07 36.6 C 77 18 131/85 95 08/07/20 22:44 36.7 C 80 16 112/73 94 BMP wnl mag wnl phos wnl recent LFTs all mildly high - unchanged from early in admission PG Care Time/CCT Total # of Minutes Spent Total Time Spent with Patient: Total time spent is greater than 50% in coordination of care (as documented) at patient's floor/unit and/or counseling patient: Coding Level of Care Code 52851 Subseq Hosp Care Lvl 2 Diagnoses Oropharyngeal dysphagia R13.12 Metabolic encephalopathy G93.41 Fall W19.XXXA Encounter type: initial encounter BPH (benign prostatic hyperplasia) N40.0 Lower urinary tract symptom presence: unspecified whether lower urinary tract symptoms present Transaminitis R74.01 COVID-19 U07.1 Acute hypernatremia E87.0 Severe protein-calorie malnutrition E43 Dementia F03.90 Dementia type: unspecified type Dementia behavioral disturbance: without behavioral disturbance DVT prophylaxis Z29.9 (1) Fall Encounter type: initial encounter Qualified Code(s): W19.XXXA - Unspecified fall, initial encounter (2) BPH (benign prostatic hyperplasia) Lower urinary tract symptom presence: unspecified whether lower urinary tract symptoms present Qualified Code(s): N40.0 - Benign prostatic hyperplasia without lower urinary tract symptoms (3) Dementia Dementia type: unspecified type Dementia behavioral disturbance: without behavioral disturbance Qualified Code(s): F03.90 - Unspecified dementia without behavioral disturbance
--- NOTE | 2020-08-08 10:21 | Gastroenterology Progress Note ---
Date of Service August 08, 2020 Assessment & Plan Admission and Anticipated Discharge Date Admission Date: July 23, 2020 Subjective Patient was seen and examined, planned for PEG tube placement tomorrow. Patient and Family agreed for the procedure. Results & Data ([facility]) Vital Signs (Past 12 Hours) Vital Signs Temp Pulse Resp BP Pulse Ox 08/07/20 23:07 36.6 C 77 18 131/85 95 08/07/20 22:44 36.7 C 80 16 112/73 94
[2020-08-08] MEDS: LIDOCAINE 5% 1 PATCH TD SCH (15:13)
--- NOTE | 2020-08-08 15:17 | Ultrasound Report ---
BILATERAL LOWER EXTREMITY VENOUS DOPPLER HISTORY: b/l leg pain, recent COVID, bed-bound; eval DVT COMPARISON STUDY: None. FINDINGS: There is normal compressibility, flow, and augmentation within the bilateral lower extremit y deep venous systems. IMPRESSION: No DVT within the right or left lower extremity. ACT 112: Negative or not required by law. Electronically signed by: Aleksandr Ayala M.D. 08/08/2020 3:16 PM
[2020-08-08] MEDS ORDERED: TPN IV SCH (16:00)
[2020-08-08] MEDS ORDERED: CENTRAL PN IV SCH (16:00)
--- NOTE | 2020-08-08 23:59 | Hospitalist Progress Note ---
Date of Service August 08, 2020 Assessment & Plan (1) Oropharyngeal dysphagia: Due to Covid delirium and probable severe deconditioning in setting of illness/ dementia. Appreciate speech consult Bedside Swallow evaluation 07/26 -- aspirated pureed diet. Video Swallow findings noted - did VERY poorly. I spoke with speech therapy today - again bedside evaluation done today was VERY poor. Plan is to proceed to with PEG placement on Sunday by Norberto FISHMAN. Daughter has voiced to other providers she wishes for PEG placement as apparently Mr Lon had verbalized in the past he would not want to " of starvation." I spoke with daughter by phone and again she reiterates she wishes to proceed with PEG placement. Appreciate GI and speech therapy assistance. (2) Metabolic encephalopathy: Most likely COVID delirium/hospital delirium in setting of dementia. Mental status improved by report over the last week. Patient cannot offer meaningful history. (3) Fall: Had a fall on 07/31 while hospitalized. X-rays without any fracture fortunately at that time. Consider repeat imaging of back due to b/l leg pain. (4) BPH (benign prostatic hyperplasia): Chronic Roldan catheter. Continue such. Roldan was pulled out on 07/31 after a fall in the hospital. Re-inserted. Some bleeding from his penis on 08/01. On close exam, his glans is split. Appears chronic by report. No issues with roldan since. Outpatient urology notes indicate he needs a TURP. Apparently failed spontaneous voiding trial in the urology office in the past. (5) Transaminitis: All LFTs elevated - likely due to COVID 19 infection. Repeat LFTs every 2-3 days for stability. (6) COVID-19: Finished course of dexamethasone 3 days prior to admission for covid pneumonia. Stable in room air. Out of isolation. (7) Acute hypernatremia: peak 154 - now resolved with hypotonic fluids Na today wnl at 142 (8) Severe protein-calorie malnutrition: Low albumin, poor oral intake for 10+ days due to dysphagia and delirium in setting of recent COVID-[address] Brush had discussed nutrition with daughter. Cont PICC line with tpn. Unfortunately he inadvertently pulled PICC line on 07/31 when he had a fall. New PICC placed. Despite supportive care, TPN, and time he has had no significant improvement with dysphagia to allow safe oral nutrition. 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 At least moderate dementia based on my assessment. Probably closer to moderate- severe. (10) Bilateral leg pain: in light of significant immobility, COVID-19 infection, and prolonged stay I elected to obtain dopplers of legs today - NEGATIVE for DVT b/l. leg pain could be radicular from l-spine -- he has had fractures in past and has skeletal abnormalities on imaging. treat pain - morphine 2mg IV prn. follow. consider l-spine CT given recent fall. (11) DVT prophylaxis: Lovenox 40mg SQ daily daughter updated by phone today - care plan discussed Admission and Anticipated Discharge Date Admission Date: July 23, 2020 Subjective patient resting in bed comfortably during the visit nursing sitter present he apparently had complained to the sitter earlier in afternoon that his left thigh was hurting (posterior) when I asked him about this he could offer no history or ROS just looked at me speech therapy re-evaluated patient at bedside today; repeat bedside swallow -- went VERY poorly -- similar to past evaluations I spoke with speech - plan is to proceed with PEG placement tomorrow Review of Systems Review of Systems: Unobtainable due to cognitive status Physical Exam Constitutional: + thin and + frail appearing; no acute distress ENMT: external ear and nose normal, oropharynx normal Mouth: + edentulous Respiratory: normal respiratory effort, lungs clear to auscultation Cardiovascular: Rate/Rhythm: regular rate and regular rhythm Heart Sounds: normal S1 and normal S2 Gastrointestinal (Abdomen): normal bowel sounds, soft, nontender, no hepatosplenomegaly Musculoskeletal: no palpable cords, warmth or swelling of either thigh; no abnormalities noted; neuropathic foot changes b/l Skin: no rashes, warm and dry Neurologic: strength b/l legs appears to be 5/5; there is considerable muscle wasting of both legs Psychiatric: Orientation: oriented to person and oriented to place; + not oriented to time Results & Data Results & Data ([facility]) Vital Signs (Past 12 Hours) Vital Signs Temp Pulse Resp BP Pulse Ox 08/08/20 19:24 36.8 C 79 18 108/70 92 08/08/20 15:17 36.6 C 79 15 112/73 95 Laboratory Results Laboratory Results - last 24 hr 08/08/20 06:26 Sodium 142 Potassium 4.1 Chloride 110 H Carbon Dioxide 28 Anion Gap 5.0 BUN 27 H Creatinine 0.68 Est Cr Clr Drug Dosing 90.1 Est GFR ( Amer) 107.5 Est GFR (Non-Af Amer) 92.8 BUN/Creatinine Ratio 39.6 H Glucose 170 H Calcium 9.4 Phosphorus 3.2 Magnesium 1.9 Specimen Hemolysis PG Care Time/CCT Total # of Minutes Spent Total Time Spent with Patient: Total time spent is greater than 50% in coord ination of care (as documented) at patient's floor/unit and/or counseling patient: Coding Level of Care Code 31367 Subseq Hosp Care Lvl 3 Diagnoses Oropharyngeal dysphagia R13.12 Metabolic encephalopathy G93.41 Fall W19.XXXA Encounter type: initial encounter BPH (benign prostatic hyperplasia) N40.0 Lower urinary tract symptom presence: unspecified whether lower urinary tract symptoms present Transaminitis R74.01 COVID-19 U07.1 Acute hypernatremia E87.0 Severe protein-calorie malnutrition E43 Dementia F03.90 Dementia behavioral disturbance: without behavioral disturbance Dementia type: unspecified type Bilateral leg pain M79.604; M79.605 DVT prophylaxis Z29.9 (1) BPH (benign prostatic hyperplasia) Lower urinary tract symptom presence: unspecified whether lower urinary tract symptoms present Qualified Code(s): N40.0 - Benign prostatic hyperplasia without lower urinary tract symptoms (2) Dementia Dementia behavioral disturbance: without behavioral disturbance Dementia type: unspecified type Qualified Code(s): F03.90 - Unspecified dementia without behavioral disturbance (3) Fall Encounter type: initial encounter Qualified Code(s): W19.XXXA - Unspecified fall, initial encounter
[2020-08-09 06:34] LABS: Platelet Count 137 K/uL (130-400)
[2020-08-09 06:51] LABS: Prothrombin Time 10.9 Seconds (9.0-12.0)
[2020-08-09 07:03] LABS: BUN Creatinine Ratio 35.4 (10-20); Calcium 8.9 mg/dl (8.5-10.1); Creatinine Clr Calc Pharmacy 88.6 ml/min; Est GFR (African American) 106.9; Est GFR (Non-African American) 92.2; Magnesium 1.9 mg/dl (1.8-2.4); Potassium 4.1 mmol/L (3.5-5.1)
[2020-08-09 07:21] LABS: Bilirubin,Total 1.2 mg/dl (0.2-1); Phosphorus 3.9 mg/dl (2.5-4.9)
[2020-08-09] MEDS: LIDOCAINE 5% 1 PATCH TD SCH (08:05)
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
[2020-08-09] MEDS ORDERED: PROPOFOL IV EMULSION 10 MG/ML 20 ML VIAL IV ONE (10:39)
[2020-08-09] MEDS ORDERED: LIDOCAINE HCL 2% 2 ML VIAL/AMP(20MG/ML) INFIL ONE (10:39)
[2020-08-09] MEDS ORDERED: fentaNYL citrate 100 MCG/2 ML VIAL ONE (10:40)
[2020-08-09] MEDS ORDERED: ePHEDrine sulfate 50 MG/ML AMP IV PRN (11:32)
[2020-08-09] MEDS ORDERED: ATROPINE SULFATE 0.1 MG/ML 10ML SYR IV PRN (11:32)
--- NOTE | 2020-08-09 12:21 | GI REPORT ---
Patient Name: David Forrest Procedure Date: 08/09/2020 10:33 AM Date of : 1945 Admit Type: Inpatient Age: 75 Gender: Male Attending MD: Rossi Shields M.d. Procedure: Upper GI endoscopy Providers: Rossi Shields M.d. Referring MD: Teofilo Nix Indications: Place PEG due to impaired swallowing Medicines: Ancef, Propofol per Anesthesia, Fentanyl, Lidocaine Complications: No immediate complications. Estimated Blood Loss: Estimated blood loss was minimal. Procedure: Pre-Anesthesia Assessment: - Patient identification and proposed procedure were verified prior to the procedure by the physician, the nurse and the anesthesiologist. The procedure was verified in the pre-procedure area. - Prior to the procedure, a History and Physical was performed, and patient medications, allergies and sensitivities were reviewed. The patient's tolerance of previous anesthesia was reviewed. - The risks and benefits of the procedure and the sedation options and risks were discussed with the patient. All questions were answered and informed consent was obtained. After obtaining informed consent, the endoscope was passed under direct vision. Throughout the procedure, the patient's blood pressure, pulse, and oxygen saturations were monitored continuously. The Endoscope was introduced through the mouth and advanced to the second part of duodenum. The upper GI endoscopy was accomplished without difficulty. The patient tolerated the procedure well. Findings: The examined esophagus appeared normal though tortuous. The examined stomach appeared normal. Placement of an externally removable 20 Fr. (Cook) PEG without T-fasteners was successfully completed. The external bumper was at 3.5 cm marking on the tube. The stomach was examined post placement and the bumper was rotatable. The duodenal bulb and second portion of the duodenum appeared normal. Impression: - Normal esophagus. - Normal stomach. Placement of an externally removable 20 Fr. (Cook) PEG without T fasteners was successfully completed. The external bumper was at 3.5 cm marking on the tube. - Normal duodenal bulb and second portion of the duodenum. Recommendation: - Please follow the post-PEG recommendations including: Nutrition consult for formula and volume, may use PEG today for meds and water and may use PEG tomorrow for feedings. Lindsay Sanz M.d. 08/09/2020 12:20:33 PM This report has been signed electronically. Note Initiated On: 08/09/2020 10:33 AM Number of Addenda: 0 I attest to the content of the Intraoperative Record and orders documented therein, exceptions below {[id number]}
--- NOTE | 2020-08-09 12:23 | Operative Report ---
PG Post Operative Report Pre & Post Diagnosis Operation Date: 08/09/20 10:00 Pre-Op Diagnosis: Dysphagia- failed video swallow Post-Op Diagnosis: PEG tube placement I identified the patient and participated in the time-out.: Yes Procedure Operation Date: 08/09/20 10:00 Actual Procedures p EGD Gastric Tube Placement(Not Applicable) - Rossi Shields MD Estimated blood loss 20 cc. Surgeon Rossi Shields MD Optical Designer Arin Giang Estimated Blood Loss 20 Findings Consistent with Post-Op Diagnosis Specimens None Description of Procedure PEG placement I attest to the content of the Intraoperative Record and any orders documented therein. Any exceptions are noted below.
--- NOTE | 2020-08-09 12:54 | Anesthesiology Progress Note ---
Date of Service August 09, 2020 Anesthesia Post Procedure Vital Signs Vital Signs: Temp Pulse Resp BP Pulse Ox 08/09/20 12:45 73 16 117/76 94 08/09/20 12:30 72 16 108/78 98 08/09/20 12:11 36 C L 75 16 118/79 95 08/09/20 11:10 36.7 C 82 18 117/79 91 08/09/20 06:56 36.6 C 81 20 121/73 92 08/09/20 00:05 36.6 C 73 16 135/75 94 08/08/20 19:24 36.8 C 79 18 108/70 92 08/08/20 15:17 36.6 C 79 15 112/73 95 Pain Intensity Generalized: Pain Intensity: 0 Transfer of Care Handoff Completed per policy Notes Mental Status: alert / awake / arousable and participated in evaluation Nausea / Vomiting: adequately controlled Pain: adequately controlled Airway Patency, RR, SpO2: stable & adequate BP & HR: stable & adequate Hydration State: stable & adequate Anesthetic Complications: no major complications apparent and Pt Satisfied with anesthetic care
[2020-08-09] MEDS ORDERED: FIBERSOURCE HN 1.2 CAL 1000 ML BAG GT SCH (13:30)
[2020-08-09] MEDS ORDERED: CENTRAL PN IV SCH (16:00)
[2020-08-09] MEDS ORDERED: TPN IV SCH (16:00)
[2020-08-09] MEDS: MoRPHine SULFATE 2 MG/ML CARP IV PRN ×2 (17:43→22:15)
[2020-08-09] MEDS: ENOXAPARIN INJ 40 MG/0.4 ML SYR SQ SCH (20:07)
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
[2020-08-10 07:59] LABS: Calcium 9.3 mg/dl (8.5-10.1); Creatinine Clr Calc Pharmacy 80.8 ml/min; Est GFR (African American) 103.3; Est GFR (Non-African American) 89.1; Phosphorus 3.4 mg/dl (2.5-4.9)
[2020-08-10] MEDS: LIDOCAINE 5% 1 PATCH TD SCH (08:28)
[2020-08-10] MEDS: FIBERSOURCE HN 1.2 CAL 1000 ML BAG GT SCH ×4 (08:28→10:51)
[2020-08-10] MEDS: PROSOURCE NO CARB 30 ML/PKT GT SCH ×2 (08:28→10:52)
--- NOTE | 2020-08-10 09:16 | Communication Note ---
Date of Service: August 10, 2020 PEG site checked together with Dr. Shields this AM. PEG in place around epigastric area. Site clean, dry, intact. Small amt of dried blood on tube gauze. External bumper at #2 marking. PEG rotates freely w/o causing pain and tube if flushing well with water. May start using PEG for feeding and meds administration
[2020-08-10] MEDS ORDERED: CENTRAL PN IV SCH (16:00)
[2020-08-10] MEDS ORDERED: TPN IV SCH (16:00)
[2020-08-10] MEDS: ENOXAPARIN INJ 40 MG/0.4 ML SYR SQ SCH (20:05)
--- NOTE | 2020-08-10 23:21 | Hospitalist Progress Note ---
Date of Service August 10, 2020 Assessment & Plan (1) Oropharyngeal dysphagia: Due to Covid delirium and probable severe deconditioning in setting of illness/dementia. Bedside Swallow evaluation 07/26 -- aspirated pureed diet. Repeat bedside eval this past Sunday -- also did poorly. Video Swallow findings noted - did VERY poorly. Hence s/p PEG tube placement, POD #1. Tube feedings initiated today. Cont TPN until 08/11/2020 and can d/c TPN then if tolerating his tube feedings. Appreciate GI and speech assistance. (2) Metabolic encephalopathy: Most likely COVID delirium/hospital delirium in setting of dementia. Dementia - at least moderate, probably severe. Mental status has improved over time while he has recovered. Patient cannot offer meaningful history most days however. (3) Fall: Had a fall on 07/31 while hospitalized. X-rays without any fracture fortunately at that time. (4) BPH (benign prostatic hyperplasia): Chronic Roldan catheter. Continue such. Roldan was pulled out on 07/31 after a fall in the hospital. Re-inserted. Some bleeding from his penis on 08/01. On close exam, his glans is split. Appears chronic by report. No issues with roldan since. Outpatient urology notes indicate he needs a TURP. Apparently failed spontaneous voiding trial in the urology office in the past. (5) Transaminitis: All LFTs elevated - likely due to COVID 19 infection. Repeat LFTs every 2-3 days for stability especially with TPN infusing. (6) COVID-19: Finished course of dexamethasone 3 days prior to admission for covid pneumonia. Stable in room air. Out of isolation. (7) Acute hypernatremia: resolved (8) Severe protein-calorie malnutrition: s/p PEG placement, POD #1. Starting feedings today. TPN until 08/11 then d/c. 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 Mod-severe. (10) Bilateral leg pain: dopplers neg for DVT. he has not c/o this in several days. consider l-spine CT given recent fall and if he has recurrent symptoms. (11) DVT prophylaxis: Lovenox 40mg SQ daily Admission and Anticipated Discharge Date Admission Date: July 23, 2020 Subjective patient sleeping upon my arrival. woke up - complained of mild pain in his abdomen. he otherwise could not provide additional history. he did smile before I left the room. staff report tolerating tube feedings thus far. Review of Systems Review of Systems: Unobtainable due to cognitive status Physical Exam Constitutional: + thin and + frail appearing; no acute distress ENMT: external ear and nose normal, oropharynx normal Mouth: + edentulous Respiratory: normal respiratory effort, lungs clear to auscultation Cardiovascular: Rate/Rhythm: regular rate and regular rhythm Heart Sounds: normal S1 and normal S2 Gastrointestinal (Abdomen): Inspection/Auscultation: normal bowel sounds Percussion/Palpation: + abdomen tender (around PEG tube site); abdomen not rigid and no hepatosplenomegaly PEG tube insertion site c/d/i; no erythema no peritoneal signs Skin: no rashes, warm and dry Psychiatric: Orientation: + not alert and + not oriented x 3 Results & Data Results & Data ([facility]) Vital Signs (Past 12 Hours) Vital Signs Temp Pulse Resp BP Pulse Ox 08/10/20 23:19 36.6 C 78 14 112/72 94 08/10/20 14:57 36.4 C L 81 18 118/76 95 08/10/20 12:06 36.5 C 61 16 110/70 96 Laboratory Results Laboratory Results - last 24 hr 08/10/20 07:17 Sodium 139 Potassium 4.0 Chloride 107 Carbon Dioxide 28 Anion Gap 4.0 BUN 20 H Creatinine 0.75 Est Cr Clr Drug Dosing 80.8 Est GFR ( Amer) 103.3 Est GFR (Non-Af Amer) 89.1 BUN/Creatinine Ratio 27.0 H Glucose 136 H Calcium 9.3 Phosphorus 3.4 Magnesium 2.0 PG Care Time/CCT Total # of Minutes Spent Total Time Spent with Patient: Total time spent is greater than 50% in coordination of care (as documented) at patient's floor/unit and/or counseling patient: Coding Level of Care Code 89690 Subseq Hosp Care Lvl 2 Diagnoses Oropharyngeal dysphagia R13.12 Metabolic encephalopathy G93.41 Fall W19.XXXA Encounter type: initial encounter BPH (benign prostatic hyperplasia) N40.0 Lower urinary tract symptom presence: unspecified whether lower urinary tract symptoms present Transaminitis R74.01 COVID-19 U07.1 Acute hypernatremia E87.0 Severe protein-calorie malnutrition E43 Dementia F03.90 Dementia behavioral disturbance: without behavioral disturbance Dementia type: unspecified type Bilateral leg pain M79.604; M79.605 DVT prophylaxis Z29.9 (1) BPH (benign prostatic hyperplasia) Lower urinary tract symptom presence: unspecified whether lower urinary tract symptoms present Qualified Code(s): N40.0 - Benign prostatic hyperplasia without lower urinary tract symptoms (2) Dementia Dementia behavioral disturbance: without behavioral disturbance Dementia type: unspecified type Qualified Code(s): F03.90 - Unspecified dementia without behavioral disturbance (3) Fall Encounter type: initial encounter Qualified Code(s): W19.XXXA - Unspecified fall, initial encounter
[2020-08-11 07:52] LABS: BUN Creatinine Ratio 40.8 (10-20); Calcium 8.9 mg/dl (8.5-10.1); Creatinine Clr Calc Pharmacy 107.1 ml/min; Est GFR (African American) 114.8; Potassium 3.8 mmol/L (3.5-5.1)
[2020-08-11] MEDS: LIDOCAINE 5% 1 PATCH TD SCH (09:07)
[2020-08-11] MEDS: PROSOURCE NO CARB 30 ML/PKT GT SCH (09:07)
[2020-08-11] MEDS: FIBERSOURCE HN 1.2 CAL 1000 ML BAG GT SCH ×2 (09:59→23:41)
[2020-08-11] MEDS: ENOXAPARIN INJ 40 MG/0.4 ML SYR SQ SCH (20:57)
--- NOTE | 2020-08-11 22:01 | Hospitalist Progress Note ---
Date of Service August 11, 2020 Assessment & Plan (1) Oropharyngeal dysphagia: Due to post-COVID delirium and probable severe deconditioning in setting of illness/dementia. Delirium, however, appears largely resolved. Bedside Swallow evaluation 07/26 -- aspirated pureed diet. Repeat bedside eval this past Sunday -- also did poorly. Video Swallow findings noted - did VERY poorly. Hence s/p PEG tube placement, POD #2. Tube feedings initiated 08/10/20. Tolerating the feedings and gradual increase. TPN discontinued today. Tube feeding recommendation from nutrition -- Fibersource, with goal of 55cc/hr. Appreciate GI and speech therapy assistance. (2) Metabolic encephalopathy: Most likely COVID delirium/hospital delirium in setting of dementia. Dementia - at least moderate, probably severe. Mental status has improved over time while he has recovered. Patient looked very good today. Can answer simple questions but typically is not oriented to time. Patient cannot offer meaningful history most days as well. (3) Fall: Had a fall on 07/31 while hospitalized. X-rays without any fracture fortunately at that time. Patient without any pain today over back, legs, etc. (4) BPH (benign prostatic hyperplasia): Chronic Roldan catheter. Continue such. Roldan was pulled out on 07/31 after a fall in the hospital. Re-inserted. Some bleeding from his penis on 08/01. On close exam, his glans is split. Appears chronic due to his ongoing roldan usage. Outpatient urology notes indicate he needs a TURP. Apparently failed spontaneous voiding trial in the urology office in the past. Resume finasteride now that PEG is in place. Resume flomax. (5) Transaminitis: All LFTs elevated - likely due to COVID 19 infection. Cannot rule out other causes but LFTs were normal prior to his COVID illness. Repeat LFTs in am. (6) COVID-19: Finished course of dexamethasone 3 days prior to admission for covid pneumonia. Stable in room air. Out of isolation. (7) Acute hypernatremia: resolved (8) Severe protein-calorie malnutrition: s/p PEG placement, POD #2. Tolerating feedings. Fibersource - goal rate 55cc/hr. TPN d/c today. 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 (10) Bilateral leg pain: dopplers neg for DVT. he has not c/o this in several days. no pain on exam today. consider l-spine CT if he has recurrent symptoms. (11) DVT prophylaxis: Lovenox 40mg SQ daily daughter updated on 08/11/20 dispo - [facility] when bed is available Admission and Anticipated Discharge Date Admission Date: July 23, 2020 Subjective Ppatient watching "[employer] Show" when I came to his room. He had a smile on his face and was in good spirits today. Was not lethargic like yesterday's visit. Tolerating tube feedings. TPN now off. He c/o mild abd discomfort -- points to his PEG tube site. Review of Systems Respiratory: no dyspnea Cardiovascular: no chest pain Gastrointestinal: as per Subjective / HPI and + abdominal pain; no vomiting Physical Exam Constitutional: + thin and + frail appearing; no acute distress ENMT: external ear and nose normal, oropharynx normal Mouth: + edentulous Respiratory: normal respiratory effort, lungs clear to auscultation Cardiovascular: Rate/Rhythm: regular rate and regular rhythm Heart Sounds: normal S1 and normal S2 Gastrointestinal (Abdomen): normal bowel sounds, soft, nontender, no hepatosplenomegaly Inspection/Auscultation: normal bowel sounds Musculoskeletal: Spine: no thoracic spinal tenderness and no lumbar spinal tenderness Skin: no rashes, warm and dry PEG tube site clean, dry, no discharge/bleeding; PICC line RUE clean/dry/intact Psychiatric: Orientation: alert and oriented to person; + not oriented to place and + not oriented to time Genitourinary: urethral meatus - split down the glans, appears chronic; no bleeding or irritation Results & Data Results & Data ([facility]) Vital Signs (Past 12 Hours) Vital Signs Temp Pulse Resp BP Pulse Ox 08/11/20 15:12 36.6 C 86 18 119/65 95 Laboratory Results Laboratory Results - last 24 hr 08/11/20 06:47 Sodium 137 Potassium 3.8 Chloride 104 Carbon Dioxide 28 Anion Gap 5.0 BUN 24 H Creatinine 0.58 L Est Cr Clr Drug Dosing 107.1 Est GFR ( Amer) 114.8 Est GFR (Non-Af Amer) 99.0 BUN/Creatinine Ratio 40.8 H Glucose 160 H Calcium 8.9 PG Care Time/CCT Total # of Minutes Spent Total Time Spent with Patient: Total time spent is greater than 50% in coordination of care (as documented) at patient's floor/unit and/or counseling patient: Coding Level of Care Code 89876 Subseq Hosp Care Lvl 2 Diagnoses Oropharyngeal dysphagia R13.12 Metabolic encephalopathy G93.41 Fall W19.XXXA Encounter type: initial encounter BPH (benign prostatic hyperplasia) N40.0 Lower urinary tract symptom presence: unspecified whether lower urinary tract symptoms present Transaminitis R74.01 COVID-19 U07.1 Acute hypernatremia E87.0 Severe protein-calorie malnutrition E43 Dementia F03.90 Dementia type: unspecified type Dementia behavioral disturbance: without behavioral disturbance Bilateral leg pain M79.604; M79.605 DVT prophylaxis Z29.9 (1) Fall Encounter type: initial encounter Qualified Code(s): W19.XXXA - Unspecified fall, initial encounter (2) BPH (benign prostatic hyperplasia) Lower urinary tract symptom presence: unspecified whether lower urinary tract symptoms present Qualified Code(s): N40.0 - Benign prostatic hyperplasia without lower urinary tract symptoms (3) Dementia Dementia type: unspecified type Dementia behavioral disturbance: without behavioral disturbance Qualified Code(s): F03.90 - Unspecified dementia without behavioral disturbance
[2020-08-12 06:21] LABS: Hematocrit (blood only) 41.1 % (42-52); Hemoglobin 13.6 g/dL (14.0-18.0); Mean Corpuscular Hemoglobin 29.8 pg (25-34); Mean Corpuscular Hgb Conc 33.1 g/dL (32-36); Mean Corpuscular Volume 89.9 fL (80-100); Mean Platelet Volume 12.3 fL (7.4-10.4); Platelet Count 137 K/uL (130-400); RDW Coefficient of Variation 15.5 % (11.5-14.5); RDW Standard Deviation 50.9 fL (36.4-46.3); Red Blood Count 4.57 M/uL (4.7-6.1); White Blood Count 6.53 K/uL (4.8-10.8)
[2020-08-12 06:51] LABS: Estimated Average Glucose 146 mg/dl; Hemoglobin A1C 6.7 % (4.5-5.6)
[2020-08-12 06:54] LABS: Albumin Level 2.5 gm/dl (3.4-5.0); Calcium 8.7 mg/dl (8.5-10.1); Creatinine Clr Calc Pharmacy 85.3 ml/min; Est GFR (African American) 105.6; Est GFR (Non-African American) 91.1; Potassium 3.7 mmol/L (3.5-5.1)
[2020-08-12 06:56] LABS: Albumin Globulin Ratio 0.6 (0.9-2); Bilirubin,Total 0.8 mg/dl (0.2-1); Total Protein 6.5 gm/dl (6.4-8.2)
[2020-08-12] MEDS: TAMSULOSIN HCL 0.4 MG CAP PEG SCH (08:42)
[2020-08-12] MEDS: PROSOURCE NO CARB 30 ML/PKT GT SCH (08:45)
[2020-08-12] MEDS ORDERED: FINASTERIDE 5 MG TAB PEG SCH (09:00)
[2020-08-12] MEDS: LIDOCAINE 5% 1 PATCH TD SCH (12:47)
--- NOTE | 2020-08-12 13:32 | Hospitalist Progress Note ---
Date of Service August 12, 2020 Assessment & Plan (1) Oropharyngeal dysphagia: Due to post-COVID delirium and probable severe deconditioning in setting of illness/dementia. Delirium, however, appears largely resolved. Bedside Swallow evaluation 07/26 -- aspirated pureed diet. Repeat bedside eval this past Sunday -- also did poorly. Video Swallow findings noted - did VERY poorly. Hence s/p PEG tube placement, POD #3. Tube feedings initiated 08/10/20. Tolerating the feedings and gradual increase. TPN discontinued 08/11. Tube feeding recommendation from nutrition -- Fibersource, with goal of 55cc/hr. Appreciate GI and speech therapy assistance. (2) Metabolic encephalopathy: Most likely COVID delirium/hospital delirium in setting of dementia. Dementia - at least moderate, probably severe. Mental status has improved over time while he has recovered. (3) Fall: Had a fall on 07/31 while hospitalized. X-rays without any fracture fortunately at that time. (4) BPH (benign prostatic hyperplasia): Chronic Roldan catheter. Continue such. Roldan was pulled out on 07/31 after a fall in the hospital. Re-inserted. Some bleeding from his penis on 08/01. On close exam, his glans is split. Appears chronic due to his ongoing roldan usage. Outpatient urology notes indicate he needs a TURP. Apparently failed spontaneous voiding trial in the urology office in the past. Finasteride cannot be crushed and put through the G-tube so it is discontinued. Resumed flomax. (5) Transaminitis: All LFTs elevated - likely due to COVID 19 infection. Cannot rule out other causes but LFTs were normal prior to his COVID illness. (6) COVID-19: Finished course of dexamethasone 3 days prior to admission for covid pneumonia. Stable in room air. Out of isolation. (7) Acute hypernatremia: resolved (8) Severe protein-calorie malnutrition: s/p PEG placement, POD #2. Tolerating feedings. Fibersource - goal rate 55cc/hr. TPN d/c 08/11. 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 Mod-severe. (10) Bilateral leg pain: dopplers neg for DVT. Pain resolved. (11) DVT prophylaxis: Lovenox 40mg SQ daily daughter updated on 08/11/20 dispo - [facility] when bed is available Admission and Anticipated Discharge Date Admission Date: July 23, 2020 Subjective Alert and oriented. Tolerating tube feedings. Postoperative day #3 after PEG tube placement. OT and PT evaluations requested. Anticipate eventual discharge to [facility]. Review of Systems Review of Systems: Constitutional-no fever or chills ENT-no blurred vision, no double vision, no epistaxis, no sore throat Respiratory-no cough, no wheezing, no shortness of breath Cardiac-no palpitations, no chest pain, no syncope GI-no nausea, vomiting, diarrhea, melena, hematochezia -no urinary retention, no urinary incontinence, no dysuria, no hematuria Musculoskeletal-no joint pain, no muscle tenderness Skin-no bruising, no rashes, no pruritus Neuro-no isolated weakness, no paresthesia, no weakness Psych-no depression, no anxiety Physical Exam Physical Exam: General-alert and oriented x3, no fevers, no chills HEENT-head atraumatic and normocephalic, TMs intact bilaterally, pupils equal and reactive to light, extraocular muscles intact Neck-no lymphadenopathy or thyromegaly, trachea midline Chest-clear to auscultation percussion. No rales wheezing or rhonchi Cardiac-regular rate and rhythm, normal S1 and S2, no murmurs Abdomen-normal bowel sounds, nontender, no hepatosplenomegaly. Epigastric PEG tube site clean and dry Extremities-no cyanosis, clubbing, or edema Neuro-cranial nerves II through XII intact, motor and sensory function within normal limits, strength symmetrical 5/5, no focal deficits Psych-normal affect, normal mood Results & Data Results & Data ([facility]) Vital Signs (Past 12 Hours) Vital Signs Temp Pulse Resp BP Pulse Ox 08/12/20 07:16 36.5 C 85 18 124/78 94 Laboratory Results 08/12/20 06:00 08/12/20 06:00 PG Care Time/CCT Total # of Minutes Spent Total Time Spent with Patient: Total time spent is greater than 50% in coordination of care (as documented) at patient's floor/unit and/or counseling patient: Coding Level of Care Code 09288 Subseq Hosp Care Lvl 3 Diagnoses Oropharyngeal dysphagia R13.12 Metabolic encephalopathy G93.41 Fall W19.XXXA Encounter type: initial encounter BPH (benign prostatic hyperplasia) N40.0 Lower urinary tract symptom presence: unspecified whether lower urinary tract symptoms present Transaminitis R74.01 COVID-19 U07.1 Acute hypernatremia E87.0 Severe protein-calorie malnutrition E43 Dementia F03.90 Dementia type: unspecified type Dementia behavioral disturbance: without behavioral disturbance Bilateral leg pain M79.604; M79.605 DVT prophylaxis Z29.9 (1) Fall Encounter type: initial encounter Qualified Code(s): W19.XXXA - Unspecified fall, initial encounter (2) BPH (benign prostatic hyperplasia) Lower urinary tract symptom presence: unspecified whether lower urinary tract symptoms present Qualified Code(s): N40.0 - Benign prostatic hyperplasia without lower urinary tract symptoms (3) Dementia Dementia type: unspecified type Dementia behavioral disturbance: without behavioral disturbance Qualified Code(s): F03.90 - Unspecified dementia without behavioral disturbance
[2020-08-12] MEDS: FIBERSOURCE HN 1.2 CAL 1000 ML BAG GT SCH (17:33)
[2020-08-12] MEDS: ENOXAPARIN INJ 40 MG/0.4 ML SYR SQ SCH (19:38)
[2020-08-13] MEDS: LIDOCAINE 5% 1 PATCH TD SCH (08:01)
[2020-08-13] MEDS: TAMSULOSIN HCL 0.4 MG CAP PEG SCH (08:01)
[2020-08-13] MEDS: PROSOURCE NO CARB 30 ML/PKT GT SCH (08:01)
[2020-08-13] MEDS: FIBERSOURCE HN 1.2 CAL 1000 ML BAG GT SCH (11:20)
--- NOTE | 2020-08-13 12:29 | Hospitalist Progress Note ---
Date of Service August 13, 2020 Assessment & Plan (1) Oropharyngeal dysphagia: Due to post-COVID delirium and probable severe deconditioning in setting of illness/dementia. Delirium has resolved. Bedside Swallow evaluation 07/26 -- aspirated pureed diet. Repeat bedside eval this past Sunday -- also did poorly. Video Swallow findings noted - did VERY poorly. Hence s/p PEG tube placement, POD #4. Tube feedings initiated 08/10/20. Tolerating tube feedings at recommended rate . TPN discontinued 08/11. Tube feeding recommendation from nutrition -- Fibersource, with goal of 55cc/hr. Appreciate GI and speech therapy assistance. (2) Metabolic encephalopathy: Most likely COVID delirium/hospital delirium in setting of dementia. Dementia - at least moderate, probably severe. Mental status now at baseline . (3) Fall: Had a fall on 07/31 while hospitalized. X-rays without any fracture fortunately at that time. (4) BPH (benign prostatic hyperplasia): Chronic Roldan catheter. Continue such. Roldan was pulled out on 07/31 after a fall in the hospital. Re-inserted. Some bleeding from his penis on 08/01. On close exam, his glans is split. Appears chronic due to his ongoing roldan usage. Outpatient urology notes indicate he needs a TURP. Apparently failed spontaneous voiding trial in the urology office in the past. Finasteride cannot be crushed and put through the G-tube so it is discontinued. Resumed flomax. (5) Transaminitis: All LFTs elevated - likely due to COVID 19 infection. Cannot rule out other causes but LFTs were normal prior to his COVID illness. (6) COVID-19: Finished course of dexamethasone 3 days prior to admission for covid pneumonia. Stable in room air. Out of isolation. (7) Acute hypernatremia: resolved (8) Severe protein-calorie malnutrition: s/p PEG placement, POD #4. Tolerating feedings. Fibersource - goal rate 55cc/hr. TPN d/c 08/11. 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 (10) Bilateral leg pain: dopplers neg for DVT. Pain resolved. (11) DVT prophylaxis: Lovenox 40mg SQ daily daughter updated on 08/11/20 dispo - [facility] August 14 Admission and Anticipated Discharge Date Admission Date: July 23, 2020 Subjective Alert and pleasant. Case management notes indicate [facility] can accept the patient tomorrow, August 14. Postoperative day #4 after PEG tube insertion. He is tolerating tube feedings. No acute problems at this time. Review of Systems Review of Systems: Constitutional-no fever or chills ENT-no blurred vision, no double vision, no epistaxis, no sore throat Respiratory-no cough, no wheezing, no shortness of breath Cardiac-no palpitations, no chest pain, no syncope GI-no nausea, vomiting, diarrhea, melena, hematochezia -no urinary retention, no urinary incontinence, no dysuria, no hematuria Musculoskeletal-no joint pain, no muscle tenderness Skin-no bruising, no rashes, no pruritus Neuro-no isolated weakness, no paresthesia, no weakness Psych-no depression, no anxiety Physical Exam Physical Exam: General-alert and oriented x3, no fevers, no chills HEENT-head atraumatic and normocephalic, TMs intact bilaterally, pupils equal and reactive to light, extraocular muscles intact Neck-no lymphadenopathy or thyromegaly, trachea midline Chest-clear to auscultation percussion. No rales wheezing or rhonchi Cardiac-regular rate and rhythm, normal S1 and S2, no murmurs Abdomen-normal bowel sounds, nontender, no hepatosplenomegaly. PEG tube site clean and dry Extremities-no cyanosis, clubbing, or edema Neuro-cranial nerves II through XII intact, no focal deficits Psych-normal affect, normal mood. Baseline dementia Results & Data Results & Data ([facility]) Vital Signs (Past 12 Hours) Vital Signs Temp Pulse Resp BP Pulse Ox 08/13/20 07:52 36.4 C L 77 16 113/71 93 Laboratory Results 08/12/20 06:00 08/12/20 06:00 PG Care Time/CCT Total # of Minutes Spent Total Time Spent with Patient: Total time spent is greater than 50% in coordination of care (as documented) at patient's floor/unit and/or counseling patient: Coding Level of Care Code 20343 Subseq Hosp Care Lvl 3 Diagnoses Oropharyngeal dysphagia R13.12 Metabolic encephalopathy G93.41 Fall W19.XXXA Encounter type: initial encounter BPH (benign prostatic hyperplasia) N40.0 Lower urinary tract symptom presence: unspecified whether lower urinary tract symptoms present Transaminitis R74.01 COVID-19 U07.1 Acute hypernatremia E87.0 Severe protein-calorie malnutrition E43 Dementia F03.90 Dementia type: unspecified type Dementia behavioral disturbance: without behavioral disturbance Bilateral leg pain M79.604; M79.605 DVT prophylaxis Z29.9 (1) Fall Encounter type: initial encounter Qualified Code(s): W19.XXXA - Unspecified fall, initial encounter (2) BPH (benign prostatic hyperplasia) Lower urinary tract symptom presence: unspecified whether lower urinary tract symptoms present Qualified Code(s): N40.0 - Benign prostatic hyperplasia without lower urinary tract symptoms (3) Dementia Dementia type: unspecified type Dementia behavioral disturbance: without behavioral disturbance Qualified Code(s): F03.90 - Unspecified dementia without behavioral disturbance
[2020-08-13] MEDS: ENOXAPARIN INJ 40 MG/0.4 ML SYR SQ SCH (20:58)
[2020-08-14 06:23] LABS: Basophils # (auto) 0.01 K/uL (0-0.2); Basophils % (auto) 0.2 %; Eosinophils # (auto) 0.26 K/uL (0-0.5); Eosinophils % (auto) 4.1 %; Hematocrit (blood only) 41.6 % (42-52); Hemoglobin 13.5 g/dL (14.0-18.0); Immature Granulocytes # (auto) 0.03 K/uL (0.00-0.02); Immature Granulocytes % (auto) 0.5 %; Lymphocytes # (auto) 1.62 K/uL (1.2-3.4); Lymphocytes % (auto) 25.7 %; Mean Corpuscular Hemoglobin 29.5 pg (25-34); Mean Corpuscular Hgb Conc 32.5 g/dL (32-36); Mean Corpuscular Volume 90.8 fL (80-100); Mean Platelet Volume 12.4 fL (7.4-10.4); Monocytes # (auto) 0.76 K/uL (0.11-0.59); Neutrophils # (auto) 3.63 K/uL (1.4-6.5); Neutrophils % (auto) 57.5 %; Platelet Count 132 K/uL (130-400); RDW Standard Deviation 50.2 fL (36.4-46.3); Red Blood Count 4.58 M/uL (4.7-6.1); White Blood Count 6.31 K/uL (4.8-10.8)
[2020-08-14 06:55] LABS: BUN Creatinine Ratio 29.2 (10-20); Creatinine Clr Calc Pharmacy 86.5 ml/min; Est GFR (African American) 106.2; Est GFR (Non-African American) 91.7; Potassium 3.6 mmol/L (3.5-5.1)
[2020-08-14] MEDS: FIBERSOURCE HN 1.2 CAL 1000 ML BAG GT SCH (07:47)
[2020-08-14] MEDS: CYANOCOBALAMIN (VITAMIN B-12) 2,500 MCG TAB.SUBL SL SCH (07:48)
[2020-08-14] MEDS: LIDOCAINE 5% 1 PATCH TD SCH (07:48)
[2020-08-14] MEDS: TAMSULOSIN HCL 0.4 MG CAP PEG SCH (07:48)
[2020-08-14] MEDS: PROSOURCE NO CARB 30 ML/PKT GT SCH (07:48)
--- NOTE | 2020-08-14 13:41 | Discharge Summary ---
Date of Service August 14, 2020 Admission HPI Per Admitting Provider David Forrest is a 75 year old male who presents to the ER from [facility] after recent discharge for COVID-19 pneumonia. Unable to get any history from patient as following one step commands and incomprehensible sounds but not saying any words. He was recently hospitalized from July 11 to 2019 due to COVI-19 pneumonia, he was admitted from home at that time. He was discharged to [facility] for rehabilitation with plan for 10 days total of dexamethasone. Reportedly he has been declining there with worsening altered mental status especially over the last 2 days, not eating or drinking and labs concerning for a rising sodium level. Discussed with his daughter over the phone. She confirms his previous wish to have everything possible done to keep him living including CPR and intubation if necessary. Discussed poor prognosis of him having UTI sepsis with recent COVID- 19 pneumonia. She also notes the patient has a lot of issues with constipation. He was in acute urinary retention in June and roldan catheter placed at that time, she feels this has been causing a lot of problems since then. In the ER his urine in roldan catheter was noted to be pus-like. Roldan catheter was changed and urine was sent from new roldan catheter. Sodium level was concerningly elevated at 153. He was started on broad spectrum antibiotics and referred to medicine for admission and ongoing management. Principal Diagnosis COVID 19 delirium with severe dysphagia Discharge Exam Constitutional well developed, + thin and + frail appearing; no acute distress Respiratory normal respiratory effort, lungs clear to auscultation Cardiovascular RRR, no murmur, no edema Gastrointestinal (Abdomen) normal bowel sounds, soft, nontender, no hepatosplenomegaly (PEG tube in place) Musculoskeletal Head/Neck/Chest: normocephalic, head atraumatic and neck supple Extremities: + limited ROM of extremities, + abnormal strength (generalized weakness) and + muscle atrophy (legs bilaterally); no cyanosis, no clubbing and no petechiae Skin no rashes, warm and dry Neurologic moves all extremities and + confused; no focal motor deficits Motor/Sensory: no tremor Psychiatric Orientation: alert, oriented to person and cooperative; + not oriented to place and + not oriented to time Lymphatic no cervical or axillary lymphadenopathy Discharge Data Allergies Allergy/AdvReac Type Severity Reaction Status Date / Time No Known Allergies Allergy Verified 07/23/20 13:11 Consultations 07/23/20 14:37 ED Decision to Admit Stat 08/06/20 12:20 Consult Gastroenterology Routine Procedures Performed Operation Date: 08/09/20 10:00 Actual Procedures p EGD Gastric Tube Placement(Not Applicable) - Rossi Shields MD Ordered Studies 07/23/20 15:35 CT abd pelvis wo con Stat 08/02/20 07:10 FL video swallow Routine 08/08/20 14:25 US venous doppler LE BI Routine Hospital Course (1) Oropharyngeal dysphagia: Due to post-COVID delirium and probable severe deconditioning in setting of illness/dementia. Delirium has resolved. Bedside Swallow evaluation 07/26 -- aspirated pureed diet. Repeat bedside eval this past Sunday -- also did poorly. Video Swallow findings noted - did VERY poorly. Hence s/p PEG tube placement, POD #5 Tube feedings initiated 08/10/20. Tolerating tube feedings at recommended rate . TPN discontinued 08/11. Tube feeding recommendation from nutrition -- Fibersource, with goal of 55cc/hr. Appreciate GI and speech therapy assistance. will discharge to [facility] for continued SNF care with PEG tube feedings (2) Metabolic encephalopathy: Most likely COVID delirium/hospital delirium in setting of dementia. Dementia - at least moderate, probably severe. Mental status now at baseline, very pleasant, cooperative (3) Fall: Had a fall on 07/31 while hospitalized. X-rays without any fracture fortunately at that time. (4) BPH (benign prostatic hyperplasia): Chronic Roldan catheter. Continue such. Roldan was pulled out on 07/31 after a fall in the hospital. Re-inserted. Some bleeding from his penis on 08/01. On close exam, his glans is split. Appears chronic due to his ongoing roldan usage. Outpatient urology notes indicate he needs a TURP. Apparently failed spontaneous voiding trial in the urology office in the past. Finasteride cannot be crushed and put through the G-tube so it is discontinued. Resumed flomax can follow up with Dr. Baires as needed for issues, eventually could get a TURP (5) Transaminitis: All LFTs elevated - likely due to COVID 19 infection. Cannot rule out other causes but LFTs were normal prior to his COVID illness. (6) COVID-19: Finished course of dexamethasone 3 days prior to admission for covid pneumonia. Stable in room air. Out of isolation. (7) Acute hypernatremia: resolved (8) Severe protein-calorie malnutrition: s/p PEG placement, POD #5 Tolerating feedings. Fibersource - goal rate 55cc/hr. TPN d/c 1/. 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 (10) Bilateral leg pain: dopplers neg for DVT. Pain resolved. Total Time Total Time Spent Total Time Spent (In Minutes): 31 minutes Total Time Includes: Examination of the Patient, Discharge Planning, Medication Reconciliation, Communication With Other Providers (case folder) and Other (discussion with patient's daughter) Discharge Plan Discharge Items Patient Disposition: Transfer Halfway Fac Reason For Visit: UTI SEPSIS Discharge Diagnosis: COVID 19 delirium Severe dysphagia with malnutrition placement of PEG tube with enteral nutrition Condition on Discharge: Fair Goals: continue tube feeds follow up with speech therapy in a few weeks, monitor for any improvement in swallowing Activity: Resume your previous activity Non-emergency contact: Primary Care Provider Call non-emergency contact if: you have any medication questions and your symptoms worsen Follow-up/Referrals: Davonte Jackson MD [Primary Care Provider] - Diet: Nothing by Mouth Addtl Attending Provider Instructions: Assessment & Plan (1) Oropharyngeal dysphagia: Due to post-COVID delirium and probable severe deconditioning in setting of illness/dementia. Delirium has resolved. Bedside Swallow evaluation 07/26 -- aspirated pureed diet. Repeat bedside eval this past Sunday -- also did poorly. Video Swallow findings noted - did VERY poorly. Hence s/p PEG tube placement, POD #4. Tube feedings initiated 1/. Tolerating tube feedings at recommended rate . TPN discontinued 1/. Tube feeding recommendation from nutrition -- Fibersource, with goal of 55cc/hr. Appreciate GI and speech therapy assistance. (2) Metabolic encephalopathy: Most likely COVID delirium/hospital delirium in setting of dementia. Dementia - at least moderate, probably severe. Mental status now at baseline . (3) Fall: Had a fall on 07/31 while hospitalized. X-rays without any fracture fortunately at that time. (4) BPH (benign prostatic hyperplasia): Chronic Roldan catheter. Continue such. Roldan was pulled out on 07/31 after a fall in the hospital. Re-inserted. Some bleeding from his penis on 08/01. On close exam, his glans is split. Appears chronic due to his ongoing roldan usage. Outpatient urology notes indicate he needs a TURP. Apparently failed spontaneous voiding trial in the urology office in the past. Finasteride cannot be crushed and put through the G-tube so it is discontinued. Resumed flomax. Pending Studies at Discharge: No Stand-Alone Forms: My [facility] Skilled Items Patient informed of condition?: Yes DNR: No Discharge Level of Care: Skilled Communicable Disease: No Discharge Prognosis: Stable Lines: None Urinary Catheter: Yes Medications and DC Order Prescriptions: New tamsulosin 0.4 mg Capsule 0.4 mg PEG QAM 30 Days Qty: 30 RF: 3 cyanocobalamin (vitamin B-12) 2,500 mcg Tablet, Sublingual 5,000 mcg sublingual Sa@0900 30 Days Qty: 10 RF: 0 Fibersource HN 0.05 gram- 1.2 kcal/mL Liquid 1 ea G-tube UD 30 Days Qty: 6000 RF: 5 ProSource No Carb 15-60 gram-kcal/30 mL Liquid In Packet 1 ea G-tube UD 30 Days Qty: 3000 RF: 3 Changed aspirin 81 mg tablet,delayed release (DR/EC) 81 mg feeding tube QAM Qty: 0 RF: 0 Discontinued lidocaine HCl 2 % jelly 1 applic topical BID PRN (Reason: pain) Qty: 30 RF: 0 tamsulosin 0.4 mg capsule 0.4 mg PO BID RF: 0 docusate sodium 100 mg Capsule 100 mg PO BID RF: 0 cyanocobalamin (vitamin B-12) [Vitamin B-12] 5,000 mcg Tablet, Sublingual 5,000 mcg PO SA RF: 0 polyethylene glycol 3350 [Miralax] 17 gram/dose powder See Rx Instructions .ROUTE .COMPLEX Qty: 238 RF: 0 dutasteride [Avodart] 0.5 mg capsule 0.5 mg PO QAM RF: 0 magnesium hydroxide [Milk of Magnesia] 400 mg/5 mL Suspension 30 ml PO DAILY PRN (Reason: Constipation) RF: 0 cholecalciferol (vitamin D3) [Vitamin D3] 125 mcg (5,000 unit) Tablet 125 mcg PO QAM RF: 0 melatonin 10 mg Tablet 10 mg PO HS RF: 0 Discharge Orders: Discharge Order (Routine); Ordered 08/14/20 Ordered By: Gaurav Leon Admission Data Admit Date/Time: 07/23/20 15:47 Attending Provider: Gaurav Leon Admit Provider: Teofilo Nieto Primary Care Provider: Davonte Jackson Other Providers: [facility] ; Braden Brush ; Randy Santiago at [place] ; Dunn,M[place]in[place] ; Gaston Donis Other Interventions: Discharge Summary Assessment (RN) Last Done: 08/14/20 13:49 Coding Level of Care Code D/C Day Management >30 mins Diagnoses Oropharyngeal dysphagia R13.12 Metabolic encephalopathy G93.41 Fall W19.XXXA Encounter type: initial encounter BPH (benign prostatic hyperplasia) N40.0 Lower urinary tract symptom presence: unspecified whether lower urinary tract symptoms present Transaminitis R74.01 COVID-19 U07.1 Acute hypernatremia E87.0 Severe protein-calorie malnutrition E43 Dementia F03.90 Dementia behavioral disturbance: without behavioral disturbance Dementia type: unspecified type Bilateral leg pain M79.604; M79.605
--- NOTE | 2020-09-01 08:22 | Coding Query ---
CODING QUERY To promote full compliance with coding requirements relating to patient care, provider participation is requested in all cases of veterinary meat inspector uncertainty. Please assist us with the question(s) below: Coding Question(s): 1. There is documentation of COVID 19 Delirium in the record and on Discharge Summary and documentation of Transaminitis likely due to COVID 19 infection with early documentation, as on Progress Notes through 08/03/20, of, "COVID-19: Finished course of dexamethasone 3 days prior to admission. However, requiried 5L NC, CXR with multifocal pneumonia - Added back dexamethasone 6mg IV daily on day 2 of admission. Now he is back to room air. Stopped the dexamethasone on 07/24", and later Progress Notes document, "COVID-19: Finished course of dexamethasone 3 days prior to admission for covid pneumonia. Stable in room air. Out of isolation". There is documentation of recent hospitalization for COVID 19 as well. The documentation of the CXR with multifocal pneumonia drops off later in the record. It is not clear if the patient was treated for COVID-19, and, or Pneumonia during this admission. Please clarify below, in your clinical opinion. ( ) COVID 19 with Pneumonia was treated during this admission ( x ) COVID 19 with No Pneumonia was treated during this admission ( ) Pneumonia with NO COVID-19 was treated during this admission, history only of COVID 19 ( ) NO Pneumonia and NO COVID 19 was treated during this admission, these are both history only ( ) Other: Please Specify 2. Sepsis is documented through Progress Note 07/30/20 with documentation of, " Sepsis: possible UTI due to chronic roldan vs COVID 19", then documentation of Sepsis drops off and it is not clear if this was still possible diagnosis or was ruled-out. Please specify below, in your clinical opinion, regarding Sepsis. ( ) Possible Sepsis, possible due to chronic roldan vs COVID 19 ( ) Possibe Sepsis, possible due to other: Please Specify ( x) Sepsis is Ruled-Out Physician's Response(s): Thank you Inez Davies Principal Diagnosis: "that condition established after study, to be chiefly responsible for occasioning the admission of the patient to the hospital for care." Co-Existing Principal Diagnosis: "when two or more diagnoses equally meet the criteria for principal diagnosis as determined by the circumstances of admission, diagnostic work up, and/or therapy provided, and the Alphabetic Index, Tabular List, or another coding guideline does not provide sequencing direction, any one of the diagnoses may be sequenced first." "When the physician has documented what appears to be a current diagnosis in the body of the record, but has not included the diagnosis in the final diagnostic statement, the physician should be asked whether the diagnosis should be added." (Source Coding [facility] 2 QTR90. p3-4) LAURA
== END 2020-08-14 14:29 | DRG 177 ==
LOC: ED 11:53 → EDINP 15:47 → SUATTDRO 15:47 → 2E 17:40 → 3E 07-27 09:21 → 3W 07-30 19:45

== ENCOUNTER 2020-08-28 16:06 | Inpatient (IN) ==
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
[2020-08-28] MEDS ORDERED: SODIUM CHLORIDE 0.9% 500 ML IV SCH (16:30)
[2020-08-28 17:13] LABS: Basophils # (auto) 0.01 K/uL (0-0.2); Basophils % (auto) 0.1 %; Eosinophils # (auto) 0.04 K/uL (0-0.5); Eosinophils % (auto) 0.3 %; Hemoglobin 12.7 g/dL (14.0-18.0); Immature Granulocytes # (auto) 0.03 K/uL (0.00-0.02); Immature Granulocytes % (auto) 0.2 %; Lymphocytes % (auto) 11.1 %; Mean Corpuscular Hemoglobin 29.5 pg (25-34); Mean Corpuscular Hgb Conc 32.6 g/dL (32-36); Mean Corpuscular Volume 90.7 fL (80-100); Mean Platelet Volume 11.4 fL (7.4-10.4); Monocytes # (auto) 1.43 K/uL (0.11-0.59); Monocytes % (auto) 10.6 %; Neutrophils # (auto) 10.48 K/uL (1.4-6.5); Neutrophils % (auto) 77.7 %; Platelet Count 304 K/uL (130-400); RDW Coefficient of Variation 14.6 % (11.5-14.5); RDW Standard Deviation 48.4 fL (36.4-46.3); White Blood Count 13.49 K/uL (4.8-10.8)
[2020-08-28 17:24] LABS: INR 1.1 (0.9-1.1); Partial Thromboplastin Time 26.9 Seconds (21.0-31.0); Prothrombin Time 11.5 Seconds (9.0-12.0)
[2020-08-28 17:27] LABS: Appearance Urine Cloudy (Clear); Bacteria Urine Automated Negative (Negative); Bilirubin Urine Negative (Negative); Blood Urine 3+ (Negative); Epithelial Cell Urine Auto >30 /lpf (0-5); Glucose Urine UA Negative (Negative); Ketones Urine Negative (Negative); Leukocyte Esterase Urine 2+ (Negative); Nitrite Urine Negative (Negative); RBC Urine Automated >30 /hpf (0-4); Specific Gravity Urine 1.014 (1.000-1.030); Urobilinogen Urine Negative (Negative)
[2020-08-28 17:28] LABS: Protein Urine 3+ (Negative)
[2020-08-28] MEDS ORDERED: cefTRIAXone SODIUM 1,000 MG/50 ML BAG IV STA (17:28)
[2020-08-28 17:29] LABS: Color Urine Red
[2020-08-28 17:32] LABS: Albumin Level 2.8 gm/dl (3.4-5.0); Calcium 9.5 mg/dl (8.5-10.1); Creatinine Clr Calc Pharmacy 76.9 ml/min; Est GFR (African American) 100.1; Est GFR (Non-African American) 86.3; Potassium 3.9 mmol/L (3.5-5.1)
[2020-08-28 17:34] LABS: Albumin Globulin Ratio 0.7 (0.9-2); Bilirubin,Total 0.7 mg/dl (0.2-1); Globulin 4.2 gm/dl (2.5-4.0)
[2020-08-28 17:43] LABS: Cast Urine Automated 0 /lpf (0-5)
[2020-08-28] MEDS ORDERED: SODIUM CHLORIDE 0.9% 1000ML 1,000 ML IV ONE (18:20)
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
[2020-08-28] MEDS ORDERED: POLYETHYLENE (MIRALAX) 17 GM PACK PEG PRN (20:51)
[2020-08-28] MEDS ORDERED: ACETAMINOPHEN SUSP 325 MG/10.15 ML UDC PEG PRN (21:10)
[2020-08-28] MEDS: SODIUM CHLORIDE 0.45 % 1,000 ML IV SCH (21:56)
[2020-08-28 21:59] LABS: Hematocrit (blood only) 34.4 % (42-52); Hemoglobin 11.2 g/dL (14.0-18.0)
[2020-08-29] MEDS ORDERED: Nursing to Pharmacy Communication SCH (05:30)
[2020-08-29] MEDS: TAMSULOSIN HCL 0.4 MG CAP PEG SCH (08:12)
[2020-08-29 09:17] LABS: Basophils # (auto) 0.02 K/uL (0-0.2); Basophils % (auto) 0.2 %; Eosinophils # (auto) 0.14 K/uL (0-0.5); Eosinophils % (auto) 1.5 %; Hematocrit (blood only) 32.2 % (42-52); Hemoglobin 10.4 g/dL (14.0-18.0); Immature Granulocytes # (auto) 0.03 K/uL (0.00-0.02); Immature Granulocytes % (auto) 0.3 %; Lymphocytes # (auto) 1.94 K/uL (1.2-3.4); Lymphocytes % (auto) 20.2 %; Mean Corpuscular Hemoglobin 29.4 pg (25-34); Mean Corpuscular Hgb Conc 32.3 g/dL (32-36); Mean Platelet Volume 10.5 fL (7.4-10.4); Monocytes # (auto) 1.07 K/uL (0.11-0.59); Monocytes % (auto) 11.1 %; Neutrophils # (auto) 6.41 K/uL (1.4-6.5); Neutrophils % (auto) 66.7 %; Platelet Count 260 K/uL (130-400); RDW Coefficient of Variation 14.6 % (11.5-14.5); RDW Standard Deviation 49.3 fL (36.4-46.3); Red Blood Count 3.54 M/uL (4.7-6.1); White Blood Count 9.61 K/uL (4.8-10.8)
[2020-08-29 09:35] LABS: BUN Creatinine Ratio 16.2 (10-20); Calcium 8.8 mg/dl (8.5-10.1); Creatinine Clr Calc Pharmacy 76.9 ml/min; Est GFR (African American) 100.1; Est GFR (Non-African American) 86.3; Potassium 4.1 mmol/L (3.5-5.1)
[2020-08-29] MEDS: SODIUM CHLORIDE 0.45 % 1,000 ML IV SCH ×2 (12:13→20:51)
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
--- NOTE | 2020-08-29 13:00 | Hospitalist Progress Note ---
Date of Service August 29, 2020 Assessment & Plan (1) Urinary retention: Mr. Forrest is a 75yo M with a PMHx of chronic cerebrovascular disease with dementia, former tobacco use, HTN, chronic malnutrition with PEG tube, and BPH with LUTS who presents for urinary retention with roldan obstruction. Urinary Retention due to BPH/LUTS & Catheter Obstruction - Pt recommended for TURP 06/25, was not seen for f/u with chronic indwelling roldan since that time by report. Pt admitted after he was at his nursing facility and developed worsening abdominal distension with increased gross hematuria and roldan obstruction. - Catheter replaced in ED on admission with irrigation - Roldan draining bloody urine - Urology consulted. Recommend support care of roldan decompression at this time. If sx worsen or obstructs transition to continuous bladder irrigation. Appreciate recommendations - Continue tamsulosin 0.4mg qAM. Consider addition of finasteride for BPH pending clinical course. - Empiric rocephin given in ED, d/mandy Oropharyngeal Dysphagia, Severe protein-calorie malnutrition - Following COVID-19 PNA which resolved - GROUP WORK PROGRAM AIDE consulted - PEG tube in place for nutrition. Nutrition consulted. - Est calorie needs 1725kcal/day, protein 80-85kcal per day. Fibersource HN restarted to goal rate of 60cc/hr continuous. Appreciate recommendations. Dementia, hx of chronic cerebrovascular change and behavioral disturbance - Arousable, directable on exam. Aware of building, but not to city or year. - Delirium precautions DVT PPx: Pharmacoppx contraindicated in the setting of gross hematuria Diet: See above, PEG CODE STATUS: Full Code Dispo: MedSurg (2) At risk for aspiration: (3) Dementia: (4) Severe protein-calorie malnutrition: (5) BPH (benign prostatic hyperplasia): (6) Altered mental status: (7) Hepatitis C virus infection resolved after antiviral drug therapy: (8) Cognitive and neurobehavioral dysfunction: (9) Chronic cerebral ischemia: (10) Acquired bilateral ankle deformity: Admission and Anticipated Discharge Date Admission Date: August 28, 2020 Supervising Physician Co-Signing Physician Notes I personally examined the patient and verified all veliz points of history and exam, discussed case, and agree with decision making with Dr Hale. no meaningful HPI or ROS obtainable. no new problems identified. urology input appreciated heent nc at mmm breathing unlabored roldan draining dark bloody appearing urine urinary retention/hematuria - ongoing roldan drainage, urology input appreciated. with no septic s/s for now would hold off on abx suspect enteroccus from 08/26 culture is colonization or contaminant. follow clinically otherwies as above Subjective History limited by cognitive status and dementia. Pt is aware of name and builiding. Denies chest pain, abdominal pain, difficulty breathing, shortness of breath, limb pain. Does not offer spontaneous conversation. Review of Systems Review of Systems: Unobtainable due to cognitive status Physical Exam Physical Exam: General: Oriented to name and 'hospital' only. Not oriented to date, city, or state. NAD. Cooperative. Squeezes hands and intermittent follows some 1 step commands, does not follow 2 step or complex commands (raise your RIGHT hand). Thin, cachectic appearing male. HEENT: Atraumatic, normocephalic. PERLAA. EoM intact. Vision and hearing grossly intact. Pulm:Diminished -wheezes, -rales, -rhonchi. Symmetrical chest rise. No increase work of breathing. No respiratory distress. Cardiac: RRR, -mrg. Radial pulses intact and symmetrical. Abdominal: Nontender, nondistended, soft. BS present. PEG tube in place, C/D/I Ext: Thin. Moving all extremities equally. Awakens to soft touch on lower extremities. Results & Data Results & Data ([facility]) Vital Signs (Past 12 Hours) Vital Signs Temp Pulse Pulse Resp BP Pulse Ox 08/29/20 11:41 36.3 C L 83 16 91/49 L 95 08/29/20 07:58 36.7 C 93 H 16 99/64 L 96 08/29/20 07:01 92 H 08/29/20 04:10 36.8 C 107 H 16 97/65 L 97 Resident Activity Tracking Resident Involvement: Resident Care Provided Care Provided: Adult Hospital Medicine (1) BPH (benign prostatic hyperplasia) Lower urinary tract symptom presence: unspecified whether lower urinary tract symptoms present Qualified Code(s): N40.0 - Benign prostatic hyperplasia without lower urinary tract symptoms (2) Dementia Dementia behavioral disturbance: without behavioral disturbance Dementia type: unspecified type Qualified Code(s): F03.90 - Unspecified dementia without behavioral disturbance (3) Altered mental status Altered mental status type: unspecified Qualified Code(s): R41.82 - Altered mental status, unspecified
[2020-08-29] MEDS ORDERED: FIBERSOURCE HN 1.2 CAL 1000 ML BAG GT SCH (14:15)
--- NOTE | 2020-08-29 15:42 | Billing Data ---
Date of Service August 29, 2020 Coding Level of Care Code 09861 Subseq Hosp Care Lvl 2
[2020-08-30] MEDS: SODIUM CHLORIDE 0.45 % 1,000 ML IV SCH ×2 (06:21→16:47)
[2020-08-30 08:56] LABS: Basophils # (auto) 0.02 K/uL (0-0.2); Basophils % (auto) 0.3 %; Eosinophils # (auto) 0.21 K/uL (0-0.5); Eosinophils % (auto) 2.7 %; Hematocrit (blood only) 30.8 % (42-52); Immature Granulocytes # (auto) 0.05 K/uL (0.00-0.02); Immature Granulocytes % (auto) 0.7 %; Lymphocytes # (auto) 1.76 K/uL (1.2-3.4); Lymphocytes % (auto) 22.9 %; Mean Corpuscular Hemoglobin 29.2 pg (25-34); Mean Corpuscular Hgb Conc 32.5 g/dL (32-36); Mean Corpuscular Volume 90.1 fL (80-100); Mean Platelet Volume 10.7 fL (7.4-10.4); Monocytes # (auto) 0.73 K/uL (0.11-0.59); Monocytes % (auto) 9.5 %; Neutrophils # (auto) 4.91 K/uL (1.4-6.5); Neutrophils % (auto) 63.9 %; Platelet Count 258 K/uL (130-400); RDW Coefficient of Variation 14.6 % (11.5-14.5); RDW Standard Deviation 48.3 fL (36.4-46.3); Red Blood Count 3.42 M/uL (4.7-6.1); White Blood Count 7.68 K/uL (4.8-10.8)
[2020-08-30] MEDS: TAMSULOSIN HCL 0.4 MG CAP PEG SCH (09:16)
--- NOTE | 2020-08-30 09:19 | Urology Progress Note ---
Date of Service August 30, 2020 Assessment & Plan (1) Urinary retention: (2) BPH (benign prostatic hyperplasia): 75 yo M admitted for hematuria and urinary retention. - Pt with chronic indwelling catheter admitted for hematuria and retention/blocked Moncada - Afebrile, lab work reviewed - Cr 0.61, WBC 7.68, Hgb 10.0 - UC&S pending - follow cultures - Maintain Moncada catheter for decompression, continue supportive care - Moncada patent and draining without issue overnight and this morning, continue close monitoring - Okay to manually irrigate prn, may need to consider transition to continuous bladder irrigation if patient has considerable worsening of issues - Consider dual therapy for BPH - Will continue to follow with primary team Admission and Anticipated Discharge Date Admission Date: August 28, 2020 Subjective Pt seen and examined at bedside today. Awake, alert and sitting up in bed. History limited due to cognitive status - answers questions but does not offer spontaneous conversation. Reports no pain at this time. Moncada catheter intact, patent, and draining pink to bean urine with a few small clots noted in tubing. Per nursing, no irrigation or catheter intervention was required overnight. Chart review: Afebrile. Lab work: Hgb 10.0 (08/30), creatinine 0.81 (08/29), WBC 7.68 (08/29). UC&S pending. Review of Systems Review of Systems: Unobtainable due to cognitive status Physical Exam Constitutional: well developed and well nourished; no acute distress and not ill appearing Respiratory: normal respiratory effort and able to speak in complete sentences; no respiratory distress and no labored breathing Gastrointestinal (Abdomen): Inspection/Auscultation: abdomen normal to in spection; abdomen not distended Percussion/Palpation: abdomen soft; abdomen nontender and no guarding PEG tube in place Musculoskeletal: Head/Neck/Chest: normocephalic and head atraumatic Psychiatric: Orientation: alert and cooperative oriented to person and "hospital" Genitourinary: no CVA tenderness Uncircumcised penis. Moncada catheter intact, patent, draining pink to bean urine with few small clots noted. Results & Data ([facility]) Vital Signs (Past 12 Hours) Vital Signs Temp Pulse Pulse Resp BP Pulse Ox 08/30/20 07:27 36.5 C 70 16 108/65 94 08/30/20 07:02 68 08/30/20 02:51 36.6 C 70 18 105/66 98 08/30/20 00:00 75 08/29/20 22:00 36.7 C 80 20 102/64 96 PG Care Time/CCT Total # of Minutes Spent Total Time Spent with Patient: Total time spent is greater than 50% in coordination of care (as documented) at patient's floor/unit and/or counseling patient: Coding Level of Care Code 56580 Subseq Hosp Care Lvl 2 Diagnoses Urinary retention R33.9 BPH (benign prostatic hyperplasia) N40.0 Lower urinary tract symptom presence: unspecified whether lower urinary tract symptoms present (1) BPH (benign prostatic hyperplasia) Lower urinary tract symptom presence: unspecified whether lower urinary tract symptoms present Qualified Code(s): N40.0 - Benign prostatic hyperplasia with out lower urinary tract symptoms
[2020-08-30 09:31] LABS: BUN Creatinine Ratio 20.7 (10-20); Calcium 8.9 mg/dl (8.5-10.1); Creatinine Clr Calc Pharmacy 96.5 ml/min; Est GFR (African American) 112.4; Potassium 3.5 mmol/L (3.5-5.1)
--- NOTE | 2020-08-30 10:24 | Hospitalist Progress Note ---
Date of Service August 30, 2020 Assessment & Plan (1) Urinary retention: Mr. Forrest is a 75yo M with a PMHx of chronic cerebrovascular disease with dementia, former tobacco use, HTN, chronic malnutrition with PEG tube, and BPH with LUTS who presents for urinary retention with roldan obstruction. Urinary Retention due to BPH/LUTS & Catheter Obstruction - Pt admitted after he was at his nursing facility and developed worsening abdominal distension with increased gross hematuria and roldan obstruction. - Catheter replaced in ED and irrigated. Continue manual irrigation PRN. - Urology consulted: conservative medical management at this time. Will do continuous irrigation if sx worsening or clotting. - Given improving hematuria, will continue tamsulosin 0.4mg qAM. Considering addition of finasteride for BPH. Oropharyngeal Dysphagia, Severe protein-calorie malnutrition - Following COVID-19 PNA which resolved - PERSONAL INJURY ATTORNEY recommendations: Pureed diet with sitting assistance for eating. Discontinued PEG feeds. Encouraging oral intake. Dementia, hx of chronic cerebrovascular change and behavioral disturbance - Arousable, conversational. Doesn't initiate conversation but will respond to questions. - Delirium precautions (lights on during day, shades closed at night, frequent re-orientation, avoid sedating agents) DVT PPx: contraindicated in the setting of gross hematuria Diet: pureed PO CODE STATUS: Full Code Dispo: Home to [facility] [employer] with Roldan pending hematuria improvement and stabilization (2) At risk for aspiration: (3) Dementia: (4) Severe protein-calorie malnutrition: (5) BPH (benign prostatic hyperplasia): (6) Altered mental status: (7) Hepatitis C virus infection resolved after antiviral drug therapy: (8) Cognitive and neurobehavioral dysfunction: (9) Chronic cerebral ischemia: (10) Acquired bilateral ankle deformity: Admission and Anticipated Discharge Date Admission Date: August 28, 2020 Supervising Physician Co-Signing Physician Notes Attending attestation Pt seen and examined in concert with Dr. Nix. In agreement with the documented findings as noted in the resident documentation with any exceptions or additions as noted here. Resting comfortably in bed, urinating in roldan without complaint. On examination, S1/S2 nl RRR no MCG. CTAB. Abd NT/ND BS+ve. Roldan just emptied, scant blood tinged urine without visible clots in bag. Urinary retention 2/2 BPH/LUTS w/ catheter obstruction s/p roldan exchange - urology consultation - continue tamsulosin. Conservative care with roldan catheter as drainage continues. Oropharyngeal dysphagia w/ severe protein calorie malnutrition - PERSONAL INJURY ATTORNEY consultation - PEG in place, feeds as noted. Else see resident documentation as noted. Subjective no complaints this morning. denies any pain with urination, burning with urination, increased frequency. No abdominal pain. Review of Systems Cardiovascular: no chest pain Gastrointestinal: no abdominal pain and no nausea Genitourinary: + hematuria; no dysuria, no urinary frequency, no urinary hesitancy and no flank pain Physical Exam Physical Exam: Constitutional: in no apparent distress, sitting comfortably in bed. Eyes: EOMI, pupils equal and reactive bilaterally, no scleral icterus Cardiac: RRR, no murmurs, gallops or rubs. Normal S1, S2 Pulm: CTA BL, no wheezes, rhonchi, crackles or rubs, moving air well throughout both lungs Abd: soft, nontender, nondistended, normal bowel sounds, no rebound or guarding : roldan in place, draining red-purple urine with some clot in roldan bag Neuro: pleasantly demented but conversational, doesn't initiate conversation. Results & Data Results & Data ([facility]) Vital Signs (Past 12 Hours) Vital Signs Temp Pulse Pulse Resp BP Pulse Ox 08/30/20 07:27 36.5 C 70 16 108/65 94 08/30/20 07:02 68 08/30/20 02:51 36.6 C 70 18 105/66 98 08/30/20 00:00 75 Laboratory Results WBC 7.68 K/uL (4.8-10.8) 08/30/20 08:03 RBC 3.42 M/uL (4.7-6.1) L 08/30/20 08:03 Hgb 10.0 g/dL (14.0-18.0) L 08/30/20 08:03 Hct 30.8 % (42-52) L 08/30/20 08:03 MCV 90.1 fL (80-100) 08/30/20 08:03 MCH 29.2 pg (25-34) 08/30/20 08:03 MCHC 32.5 g/dL (32-36) 08/30/20 08:03 RDW Std Deviation 48.3 fL (36.4-46.3) H 08/30/20 08:03 RDW Coeff of Maggie 14.6 % (11.5-14.5) H 08/30/20 08:03 Plt Count 258 K/uL (130-400) 08/30/20 08:03 MPV 10.7 fL (7.4-10.4) H 08/30/20 08:03 Immature Gran % (Auto) 0.7 % 08/30/20 08:03 Neut % (Auto) 63.9 % 08/30/20 08:03 Lymph % (Auto) 22.9 % 08/30/20 08:03 Atkinson % (Auto) 9.5 % 08/30/20 08:03 Eos % (Auto) 2.7 % 08/30/20 08:03 Baso % (Auto) 0.3 % 08/30/20 08:03 Neut # (Auto) 4.91 K/uL (1.4-6.5) 08/30/20 08:03 Lymph # (Auto) 1.76 K/uL (1.2-3.4) 08/30/20 08:03 Atkinson # (Auto) 0.73 K/uL (0.11-0.59) H 08/30/20 08:03 Eos # (Auto) 0.21 K/uL (0-0.5) 08/30/20 08:03 Baso # (Auto) 0.02 K/uL (0-0.2) 08/30/20 08:03 Immature Gran # (Auto) 0.05 K/uL (0.00-0.02) H 08/30/20 08:03 PT 11.5 Seconds (9.0-12.0) 08/28/20 16:30 INR 1.1 (0.9-1.1) 08/28/20 16:30 APTT 26.9 Seconds (21.0-31.0) 08/28/20 16:30 PTT Ratio 1.0 08/28/20 16:30 Sodium 138 mmol/L (136-145) 08/30/20 08:03 Potassium 3.5 mmol/L (3.5-5.1) 08/30/20 08:03 Chloride 105 mmol/L (98-107) 08/30/20 08:03 Carbon Dioxide 28 mmol/L (21-32) 08/30/20 08:03 Anion Gap 5.0 (3-11) 08/30/20 08:03 BUN 13 mg/dl (7-18) 08/30/20 08:03 Creatinine 0.61 mg/dl (0.6-1.4) 08/30/20 08:03 Est Cr Clr Drug Dosing 96.5 ml/min 08/30/20 08:03 Est GFR ( Amer) 112.4 08/30/20 08:03 Est GFR (Non-Af Amer) 97.0 08/30/20 08:03 BUN/Creatinine Ratio 20.7 (10-20) H 08/30/20 08:03 Glucose 109 mg/dl (70-99) H 08/30/20 08:03 POC Glucose 121 mg/dl (70-99) H 08/30/20 06:12 Calcium 8.9 mg/dl (8.5-10.1) 08/30/20 08:03 Total Bilirubin 0.7 mg/dl (0.2-1) 08/28/20 16:30 AST 43 U/L (15-37) H 08/28/20 16:30 ALT 77 U/L (12-78) 08/28/20 16:30 Alkaline Phosphatase 121 U/L (45-117) H 08/28/20 16:30 Total Protein 7.0 gm/dl (6.4-8.2) 08/28/20 16:30 Albumin 2.8 gm/dl (3.4-5.0) L 08/28/20 16:30 Globulin 4.2 gm/dl (2.5-4.0) H 08/28/20 16:30 Albumin/Globulin Ratio 0.7 (0.9-2) L 08/28/20 16:30 Urine Color Red 08/28/20 16:30 Urine Appearance Cloudy (Clear) A 08/28/20 16:30 Urine pH 8.0 (4.5-7.5) H 08/28/20 16:30 Ur Specific Polaris 1.014 (1.000-1.030) 08/28/20 16:30 Urine Protein 3+ (Negative) H 08/28/20 16:30 Urine Glucose (UA) Negative (Negative) 08/28/20 16:30 Urine Ketones Negative (Negative) 08/28/20 16:30 Urine Blood 3+ (Negative) H 08/28/20 16:30 Urine Nitrite Negative (Negative) 08/28/20 16:30 Urine Bilirubin Negative (Negative) 08/28/20 16:30 Urine Urobilinogen Negative (Negative) 08/28/20 16:30 Ur Leukocyte Esterase 2+ (Negative) H 08/28/20 16:30 Urine WBC (Auto) 10-30 /hpf (0-5) H 08/28/20 16:30 Urine RBC (Auto) >30 /hpf (0-4) H 08/28/20 16:30 U Hyaline Cast (Auto) 0 /lpf (0-5) 08/28/20 16:30 U Epithel Cells (Auto) >30 /lpf (0-5) H 08/28/20 16:30 Urine Bacteria (Auto) Negative (Negative) 08/28/20 16:30 Ur Renal Epithelial Cell Not Reportable 08/28/20 16:30 Nasal Screen MRSA (PCR) Negative (Negative) 08/29/20 04:00 COVID-19 Eval Order Covid19 IDNow [facility] 08/28/20 17:20 SARS-CoV-2, RNA, NAAT NEGATIVE (NEGATIVE) 08/28/20 17:20 Blood Type O Positive 08/28/20 18:40 Antibody Screen NEGATIVE 08/28/20 18:40 Resident Activity Tracking Resident Involvement: Resident Care Provided Care Provided: Adult [facility] Medicine (1) BPH (benign prostatic hyperplasia) Lower urinary tract symptom presence: unspecified whether lower urinary tract symptoms present Qualified Code(s): N40.0 - Benign prostatic hyperplasia without lower urinary tract symptoms (2) Dementia Dementia behavioral disturbance: without behavioral disturbance Dementia type: unspecified type Qualified Code(s): F03.90 - Unspecified dementia without behavioral disturbance (3) Altered mental status Altered mental status type: unspecified Qualified Code(s): R41.82 - Altered mental status, unspecified
--- NOTE | 2020-08-30 10:38 | Fluoroscopy Report ---
FL video swallow CLINICAL HISTORY: 75 years-old Male with Determine readiness for oral intake. Possible aspiration TECHNIQUE: Video fluoroscopic evaluation of swallowing was performed in the AP and lateral projection s by the speech pathology staff. The patient is fed thin liquid, nectar thick, pudding and cracker wi th paste consistencies. FLUOROSCOPY TIME: 2.1 minutes. COMPARISON STUDY: Swallow study 08/02/2020 FINDINGS: No aspiration identified. Decreased oropharyngeal transit with cracker with paste consisten cy. Moderate vallecular retention is noted. IMPRESSION: 1. No aspiration identified. 2. Please see the speech pathologist report for detailed findings and recommendations. ACT 112: Negative or not required by law. Electronically signed by: Marko Jama M.D. 08/30/2020 10:36 AM
[2020-08-31] MEDS: SODIUM CHLORIDE 0.45 % 1,000 ML IV SCH ×3 (02:49→23:05)
[2020-08-31 06:47] LABS: Basophils # (auto) 0.01 K/uL (0-0.2); Basophils % (auto) 0.1 %; Eosinophils # (auto) 0.23 K/uL (0-0.5); Eosinophils % (auto) 3.3 %; Hematocrit (blood only) 30.3 % (42-52); Hemoglobin 10.1 g/dL (14.0-18.0); Immature Granulocytes # (auto) 0.03 K/uL (0.00-0.02); Immature Granulocytes % (auto) 0.4 %; Lymphocytes # (auto) 2.09 K/uL (1.2-3.4); Mean Corpuscular Hemoglobin 29.5 pg (25-34); Mean Corpuscular Hgb Conc 33.3 g/dL (32-36); Mean Corpuscular Volume 88.6 fL (80-100); Mean Platelet Volume 10.3 fL (7.4-10.4); Monocytes # (auto) 0.62 K/uL (0.11-0.59); Monocytes % (auto) 8.9 %; Neutrophils # (auto) 3.98 K/uL (1.4-6.5); Neutrophils % (auto) 57.3 %; Platelet Count 281 K/uL (130-400); RDW Coefficient of Variation 14.2 % (11.5-14.5); RDW Standard Deviation 46.8 fL (36.4-46.3); Red Blood Count 3.42 M/uL (4.7-6.1); White Blood Count 6.96 K/uL (4.8-10.8)
--- NOTE | 2020-08-31 08:47 | Urology Progress Note ---
Date of Service August 31, 2020 Assessment & Plan (1) Urinary retention: 75y/o male w/ chronic urinary retention managed by roldan catheter and numerous competing co-morbid conditions including - dementia, hx of COVID pna, chronic osteomyelitis of the foot, very limited mobility - resident of [facility] - admitted with roldan catheter drainage issues and hematuria - catheter exchanged by the ER - stable Cr - no leukocytosis - culture from 08/26 showing enterococcus - repeat culture with streptococcus - does not have any antibiotics currently ordered from what I can tell - ok UoP overnight -Clear urine now We will sign off for the time being, please let us know if you need further assistance during this hospitalization Admission and Anticipated Discharge Date Admission Date: August 30, 2020 Subjective Patient denies any subjective complaints today Resting comfortably in a chair Appropriately interactive Somewhat uncertain about his surroundings/disoriented Urine is clear Physical Exam Physical Exam: Urine clear throughout the tubing and bag, catheter in place Constitutional: well developed and well nourished Respiratory: no respiratory distress Cardiovascular: Extremities: no pedal edema Gastrointestinal (Abdomen): Inspection/Auscultation: abdomen normal to inspection Results & Data ([facility]) Vital Signs (Past 12 Hours) Vital Signs Temp Pulse Pulse Resp BP Pulse Ox 08/31/20 07:40 70 08/31/20 07:21 36.6 C 56 L 18 110/64 95 08/31/20 04:17 36.6 C 72 18 116/68 92 08/30/20 23:23 36.7 C 66 18 118/70 96 08/30/20 22:20 68 PG Care Time/CCT Total # of Minutes Spent Total Time Spent with Patient: Total time spent is greater than 50% in coordination of care (as documented) at patient's floor/unit and/or counseling patient: Coding Level of Care Code 40051 Subseq Hosp Care Lvl 2 Diagnoses Urinary retention R33.9
[2020-08-31] MEDS: TAMSULOSIN HCL 0.4 MG CAP PEG SCH (09:06)
--- NOTE | 2020-08-31 11:46 | Hospitalist Progress Note ---
Date of Service August 31, 2020 Assessment & Plan (1) Urinary retention: Mr. Forrest is a 75yo M with a PMHx of chronic cerebrovascular disease with dementia, former tobacco use, HTN, chronic malnutrition with PEG tube, and BPH with LUTS who presents for urinary retention with roldan obstruction. Urinary Retention due to BPH/LUTS & Catheter Obstruction - Pt admitted after he was at his nursing facility and developed worsening abdominal distension with increased gross hematuria and roldan obstruction. - Catheter replaced in ED and irrigated. Continue manual irrigation PRN. - Urology consulted: continue conservative medical management at this time. - pt likely colonized with bacteria, do not need to treat Ucx growth. - can d/c with chronic roldan Oropharyngeal Dysphagia, Severe protein-calorie malnutrition - Following COVID-19 PNA which resolved - EXPERIMENTAL WORKER recommendations: Pureed diet with sitting assistance for eating. Discontinued PEG feeds. Encouraging oral intake. Dementia, hx of chronic cerebrovascular change and behavioral disturbance - Arousable, conversational. Doesn't initiate conversation but will respond to questions, makes jokes. - Delirium precautions (lights on during day, shades closed at night, frequent re-orientation, avoid sedating agents) DVT PPx: contraindicated in the setting of gross hematuria Diet: pureed PO CODE STATUS: Full Code Dispo: Home to [facility] with Roldan pending authorization (2) At risk for aspiration: (3) Dementia: (4) Severe protein-calorie malnutrition: (5) BPH (benign prostatic hyperplasia): (6) Altered mental status: (7) Hepatitis C virus infection resolved after antiviral drug therapy: (8) Cognitive and neurobehavioral dysfunction: (9) Chronic cerebral ischemia: (10) Acquired bilateral ankle deformity: Admission and Anticipated Discharge Date Admission Date: August 30, 2020 Supervising Physician Co-Signing Physician Notes Attending attestation Pt seen and examined in concert with Dr. Nix. In agreement with the documented findings as noted in the resident documentation with any exceptions or additions as noted here. Resting comfortably in bed, urinating in roldan without complaint. On examination, S1/S2 nl RRR no MCG. CTAB. Abd NT/ND BS+ve. Yellow with blood tinged urine in bag. Urinary retention 2/2 BPH/LUTS w/ catheter obstruction s/p roldan exchange - urology consultation - continue tamsulosin. Add finasteride. Conservative care with roldan catheter as drainage continues. +ve colonization on UCx - no need for abx therapy per urology Oropharyngeal dysphagia w/ severe protein calorie malnutrition - EXPERIMENTAL WORKER consultation - PEG in place - tolerating Po well. Else see resident documentation as noted. Subjective no complaints this morning. eager to go back to [facility]. Review of Systems Constitutional: no fever, no chills, no body aches and no fatigue Respiratory: no cough and no dyspnea Cardiovascular: no chest pain, no dyspnea and no edema Gastrointestinal: no abdominal pain, no nausea, no vomiting, no constipation and no diarrhea/loose stools Genitourinary: no dysuria, no hematuria and no flank pain Physical Exam Physical Exam: Constitutional: in no apparent distress, sitting comfortably in bed. Eyes: EOMI, pupils equal and reactive bilaterally, no scleral icterus Cardiac: RRR, no murmurs, gallops or rubs. Normal S1, S2 Pulm: CTA BL, no wheezes, rhonchi, crackles or rubs, moving air well throughout both lungs Abd: soft, nontender, nondistended, normal bowel sounds, no rebound or guarding. no CVA tenderness : roldan in place, draining clear-yellow urine Neuro: conversational Results & Data Results & Data ([facility]) Vital Signs (Past 12 Hours) Vital Signs Temp Pulse Pulse Resp BP Pulse Ox 08/31/20 11:31 36.4 C L 70 18 111/64 98 08/31/20 07:40 70 08/31/20 07:21 36.6 C 56 L 18 110/64 95 08/31/20 04:17 36.6 C 72 18 116/68 92 Laboratory Results WBC 6.96 K/uL (4.8-10.8) 08/31/20 06:20 RBC 3.42 M/uL (4.7-6.1) L 08/31/20 06:20 Hgb 10.1 g/dL (14.0-18.0) L 08/31/20 06:20 Hct 30.3 % (42-52) L 08/31/20 06:20 MCV 88.6 fL (80-100) 08/31/20 06:20 MCH 29.5 pg (25-34) 08/31/20 06:20 MCHC 33.3 g/dL (32-36) 08/31/20 06:20 RDW Std Deviation 46.8 fL (36.4-46.3) H 08/31/20 06:20 RDW Coeff of Maggie 14.2 % (11.5-14.5) 08/31/20 06:20 Plt Count 281 K/uL (130-400) 08/31/20 06:20 MPV 10.3 fL (7.4-10.4) 08/31/20 06:20 Immature Gran % (Auto) 0.4 % 08/31/20 06:20 Neut % (Auto) 57.3 % 08/31/20 06:20 Lymph % (Auto) 30.0 % 08/31/20 06:20 Antelope % (Auto) 8.9 % 08/31/20 06:20 Eos % (Auto) 3.3 % 08/31/20 06:20 Baso % (Auto) 0.1 % 08/31/20 06:20 Neut # (Auto) 3.98 K/uL (1.4-6.5) 08/31/20 06:20 Lymph # (Auto) 2.09 K/uL (1.2-3.4) 08/31/20 06:20 Antelope # (Auto) 0.62 K/uL (0.11-0.59) H 08/31/20 06:20 Eos # (Auto) 0.23 K/uL (0-0.5) 08/31/20 06:20 Baso # (Auto) 0.01 K/uL (0-0.2) 08/31/20 06:20 Immature Gran # (Auto) 0.03 K/uL (0.00-0.02) H 08/31/20 06:20 PT 11.5 Seconds (9.0-12.0) 08/28/20 16:30 INR 1.1 (0.9-1.1) 08/28/20 16:30 APTT 26.9 Seconds (21.0-31.0) 08/28/20 16:30 PTT Ratio 1.0 08/28/20 16:30 Sodium 138 mmol/L (136-145) 08/30/20 08:03 Potassium 3.5 mmol/L (3.5-5.1) 08/30/20 08:03 Chloride 105 mmol/L (98-107) 08/30/20 08:03 Carbon Dioxide 28 mmol/L (21-32) 08/30/20 08:03 Anion Gap 5.0 (3-11) 08/30/20 08:03 BUN 13 mg/dl (7-18) 08/30/20 08:03 Creatinine 0.61 mg/dl (0.6-1.4) 08/30/20 08:03 Est Cr Clr Drug Dosing 96.5 ml/min 08/30/20 08:03 Est GFR ( Amer) 112.4 08/30/20 08:03 Est GFR (Non-Af Amer) 97.0 08/30/20 08:03 BUN/Creatinine Ratio 20.7 (10-20) H 08/30/20 08:03 Glucose 109 mg/dl (70-99) H 08/30/20 08:03 POC Glucose 121 mg/dl (70-99) H 08/30/20 06:12 Calcium 8.9 mg/dl (8.5-10.1) 08/30/20 08:03 Total Bilirubin 0.7 mg/dl (0.2-1) 08/28/20 16:30 AST 43 U/L (15-37) H 08/28/20 16:30 ALT 77 U/L (12-78) 08/28/20 16:30 Alkaline Phosphatase 121 U/L (45-117) H 08/28/20 16:30 Total Protein 7.0 gm/dl (6.4-8.2) 08/28/20 16:30 Albumin 2.8 gm/dl (3.4-5.0) L 08/28/20 16:30 Globulin 4.2 gm/dl (2.5-4.0) H 08/28/20 16:30 Albumin/Globulin Ratio 0.7 (0.9-2) L 08/28/20 16:30 Urine Color Red 08/28/20 16:30 Urine Appearance Cloudy (Clear) A 08/28/20 16:30 Urine pH 8.0 (4.5-7.5) H 08/28/20 16:30 Ur Specific [place] 1.014 (1.000-1.030) 08/28/20 16:30 Urine Protein 3+ (Negative) H 08/28/20 16:30 Urine Glucose (UA) Negative (Negative) 08/28/20 16:30 Urine Ketones Negative (Negative) 08/28/20 16:30 Urine Blood 3+ (Negative) H 08/28/20 16:30 Urine Nitrite Negative (Negative) 08/28/20 16:30 Urine Bilirubin Negative (Negative) 08/28/20 16:30 Urine Urobilinogen Negative (Negative) 08/28/20 16:30 Ur Leukocyte Esterase 2+ (Negative) H 08/28/20 16:30 Urine WBC (Auto) 10-30 /hpf (0-5) H 08/28/20 16:30 Urine RBC (Auto) >30 /hpf (0-4) H 08/28/20 16:30 U Hyaline Cast (Auto) 0 /lpf (0-5) 08/28/20 16:30 U Epithel Cells (Auto) >30 /lpf (0-5) H 08/28/20 16:30 Urine Bacteria (Auto) Negative (Negative) 08/28/20 16:30 Ur Renal Epithelial Cell Not Reportable 08/28/20 16:30 Nasal Screen MRSA (PCR) Negative (Negative) 08/29/20 04:00 COVID-19 Eval Order Covid19 IDNow [facility] 08/28/20 17:20 SARS-CoV-2, RNA, NAAT NEGATIVE (NEGATIVE) 08/28/20 17:20 Blood Type O Positive 08/28/20 18:40 Antibody Screen NEGATIVE 08/28/20 18:40 Resident Activity Tracking Resident Involvement: Resident Care Provided Care Provided: Adult Hospital Medicine (1) BPH (benign prostatic hyperplasia) Lower urinary tract symptom presence: unspecified whether lower urinary tract symptoms present Qualified Code(s): N40.0 - Benign prostatic hyperplasia without lower urinary tract symptoms (2) Dementia Dementia behavioral disturbance: without behavioral disturbance Dementia type: unspecified type Qualified Code(s): F03.90 - Unspecified dementia without behavioral disturbance (3) Altered mental status Altered mental status type: unspecified Qualified Code(s): R41.82 - Altered mental status, unspecified
[2020-08-31] MEDS ORDERED: ACETAMINOPHEN SUSP 325 MG/10.15 ML UDC PO PRN (20:53)
[2020-08-31] MEDS ORDERED: POLYETHYLENE (MIRALAX) 17 GM PACK PO PRN (20:53)
[2020-09-01 07:31] LABS: Hematocrit (blood only) 30.8 % (42-52); Hemoglobin 10.1 g/dL (14.0-18.0)
[2020-09-01] MEDS ORDERED: TAMSULOSIN HCL 0.4 MG CAP PO SCH (09:00)
[2020-09-01] MEDS: SODIUM CHLORIDE 0.45 % 1,000 ML IV SCH (09:14)
--- NOTE | 2020-09-01 09:47 | Discharge Summary ---
Date of Service September 01, 2020 Admission HPI Per Admitting Provider David Forrest is a 75-year-old male with dementia well-known to the service from recent hospitalizations for hip fracture in March, subsequent urinary retention, followed by two prolonged admissions in July for COVID-19 pneumonia with subsequent delirium, hypernatremia, dysphagia, s/p PEG tube placement and discharged to [facility] 2 weeks ago. After his hip fracture in March he was seen in the emergency room in June for urinary retention with subsequent cystoscopy showing an obstructing prostate. On following up with urology was recommended to have a TURP however the patient never followed up with this appointment due to his subsequent hospitalizations. Roldan catheter remained in place although unclear when this was changed. He returns today from [facility] due to gross hematuria with clot formation and ultimately the catheter stopped flowing despite attempts at irrigating the catheter. No known fever or chills, no abdominal pain. In the ER the patient was noted to be in urine retention, Roldan catheter was changed. New catheter required irrigation x2 due to subsequent blood clots. He was referred to medicine for admission and ongoing management for urine retenti on and gross hematuria. Admission Exam Per Admitting Provider Constitutional: well developed, + ill appearing and + cachectic; no acute distress Eyes: + anicteric sclerae; normal pupil size ENMT: Mouth: + dry oral mucous membranes Neck: trachea midline, no thyromegaly Respiratory: normal respiratory effort, lungs clear to auscultation Cardiovascular: Rate/Rhythm: regular rate and regular rhythm Heart Sounds: no murmur Extremities: normal capillary refill; no pedal edema Gastrointestinal (Abdomen): Inspection/Auscultation: normal bowel sounds; abdomen not distended Percussion/Palpation: abdomen soft; abdomen nontender Skin: no rashes, warm and dry Neurologic: awake and + confused; + does not move all extremities (toe movements of LE b/l only) Psychiatric: Orientation: alert; + not oriented x 3 Genitourinary: + meatus abnormal (Split meatus inferiorly (noted during prior hospitalization)); no CVA tenderness Principal Diagnosis hematuria Discharge Data Allergies Allergy/AdvReac Type Severity Reaction Status Date / Time No Known Allergies Allergy Verified 07/23/20 13:11 Consultations 08/28/20 17:32 ED Decision to Admit Stat 08/28/20 20:51 Consult Urology Routine Ordered Studies 08/30/20 00:01 FL video swallow Routine Hospital Course (1) Urinary retention: Mr. Forrest is a 75yo M with a PMHx of chronic cerebrovascular disease with dementia, former tobacco use, HTN, chronic malnutrition with PEG tube, and BPH with LUTS who presents for urinary retention with roldan obstruction and hematuria Urinary Retention due to BPH/LUTS & Catheter Obstruction Patient was assessed by Urology who opted to manage obstruction and hematuria conservatively. After a few days of flushing catheter to remove clots, he was able to produce clear urine without pain or obstruction. Ucx grew gram positive bacteria however patient is most likely colonized and was completely asymptomatic during his stay. Did not meet criteria for symptomatic UTI/complicated UTI in male. Oropharyngeal Dysphagia, Severe protein-calorie malnutrition Speech therapy able to work with patient during inpatient stay. Noted im provement in dysphagia and new control allowing PO intake of pills and pureed diet. Discontinued use of peg tube for TPN and pills. Patient was discharged back to [facility] with roldan. All other chronic medical conditions managed per home regimen. (2) At risk for aspiration: (3) Dementia: (4) Severe protein-calorie malnutrition: (5) BPH (benign prostatic hyperplasia): (6) Altered mental status: (7) Hepatitis C virus infection resolved after antiviral drug therapy: (8) Cognitive and neurobehavioral dysfunction: (9) Chronic cerebral ischemia: (10) Acquired bilateral ankle deformity: Total Time Total Time Spent Total Time Spent (In Minutes): see attending attestation Discharge Plan Discharge Items Patient Disposition: Transfer Halfway Fac Reason For Visit: URINE RETENTION Discharge Diagnosis: hematuria, Urinary retention Condition on Discharge: Good Activity: Resume your previous activity Non-emergency contact: Primary Care Provider Call non-emergency contact if: your symptoms worsen Follow-up/Referrals: [facility] [Primary Care Provider] - Diet: Heart Healthy Diet Texture: Pureed (blended smooth) Addtl Attending Provider Instructions: (1) Urinary retention: Mr. Forrest is a 75yo M with a PMHx of chronic cerebrovascular disease with dementia, former tobacco use, HTN, chronic malnutrition with PEG tube, and BPH with LUTS who presents for urinary retention with roldan obstruction. Urinary Retention due to BPH/LUTS & Catheter Obstruction - Pt admitted after he was at his nursing facility and developed worsening abdominal distension with increased gross hematuria and roldan obstruction. - Catheter replaced in ED and irrigated. Continue manual irrigation PRN. - Urology consulted: continue conservative medical management at this time. - pt likely colonized with bacteria, do not need to treat Ucx growth. - can d/c with chronic roldan Oropharyngeal Dysphagia, Severe protein-calorie malnutrition - Following COVID-19 PNA which resolved - WELDING FOREMAN recommendations: Pureed diet with sitting assistance for eating. Discontinued PEG feeds. Encouraging oral intake. All meds by mouth. Dementia, hx of chronic cerebrovascular change and behavioral disturbance - Arousable, conversational. Doesn't initiate conversation but will respond to questions, makes jokes. - Delirium precautions (lights on during day, shades closed at night, frequent re-orientation, avoid sedating agents) DVT PPx: contraindicated in the setting of gross hematuria Diet: pureed PO CODE STATUS: Full Code Dispo: Home to [facility] with Roldan Pending Studies at Discharge: No Stand-Alone Forms: My [facility] Skilled Items Patient informed of condition?: Yes DNR: No Discharge Level of Care: Skilled Communicable Disease: No Discharge Prognosis: Stable Lines: None Urinary Catheter: Yes Medications and DC Order Prescriptions: Continued cyanocobalamin (vitamin B-12) 2,500 mcg Tablet, Sublingual 5,000 mcg sublingual Sa@0900 30 Days Qty: 10 RF: 0 Changed aspirin 81 mg tablet,delayed release (DR/EC) 81 mg PO QAM Qty: 0 RF: 0 tamsulosin 0.4 mg Capsule 0.4 mg PO QAM 30 Days Qty: 30 RF: 3 Discontinued Fibersource HN 0.05 gram- 1.2 kcal/mL Liquid 1 ea G-tube UD 30 Days Qty: 6000 RF: 5 ProSource No Carb 15-60 gram-kcal/30 mL Liquid In Packet 1 ea G-tube UD 30 Days Qty: 3000 RF: 3 Discharge Orders: Discharge Order (Routine); Ordered 09/01/20 Ordered By: Marisela Nix Admission Data Admit Date/Time: 08/30/20 17:14 Attending Provider: Mike Garza Admit Provider: Teofilo Nieto Primary Care Provider: Marce Muniz Other Providers: Teofilo Nieto ; Maxx Garnica ; Marisela Nix Other Interventions: Discharge Summary Assessment (RN) Last Done: 09/01/20 12:55 Supervising Physician Co-Signing Physician Notes Attending attestation Pt seen and examined in concert with Dr. Nix. In agreement with the documented findings as noted in the resident documentation with any exceptions or additions as noted here. Resting comfortably in bed, urinating in roldan without complaint. On examination, S1/S2 nl RRR no MCG. CTAB. Abd NT/ND BS+ve. Dark yellow urine in bag. Urinary retention 2/2 BPH/LUTS w/ catheter obstruction s/p roldan exchange - urology consultation - continue tamsulosin, finasteride. Roldan care. Follow up with urology. Urine culture +ve - per discussion with urology, likely colonization no further treatment, monitor for testing Oropharyngeal dysphagia w/ severe protein calorie malnutrition - WELDING FOREMAN consultation - PEG in place - tolerating PO well Else see resident documentation as noted. Total attending time spent on this case on the day of discharge: 35 minutes. Resident Activity Tracking Resident Involvement: Resident Care Provided Care Provided: Adult Hospital Medicine
[2020-09-04] MEDS ORDERED: CYANOCOBALAMIN (VITAMIN B-12) 2,500 MCG TAB.SUBL SL SCH (09:00)
== END 2020-09-01 14:04 | DRG 698 ==
LOC: ED 16:06 → 2W 16:06 → SUATTDRO 18:38 → 2W 19:59

== ENCOUNTER 2022-07-22 22:14 | Inpatient (IN) ==
[2022-07-22] MEDS ORDERED: SODIUM CHLORIDE 0.9% 1000ML 1,000 ML IV SCH (22:45)
[2022-07-22 22:49] LABS: Basophils # (auto) 0.05 K/uL (0-0.2); Basophils % (auto) 0.3 %; Eosinophils # (auto) 0.04 K/uL (0-0.50); Eosinophils % (auto) 0.2 %; Hematocrit (blood only) 46.4 % (40.1-51.0); Hemoglobin 16.1 g/dl (14.0-18.0); Immature Granulocytes # (auto) 0.07 K/uL (0.00-0.02); Immature Granulocytes % (auto) 0.4 %; Lymphocytes # (auto) 0.95 K/uL (1.2-3.4); Lymphocytes % (auto) 5.4 %; Mean Corpuscular Hemoglobin 30.4 pg (25.0-34.0); Mean Corpuscular Hgb Conc 34.7 g/dL (32.0-36.0); Mean Corpuscular Volume 87.7 fL (80.0-100.0); Mean Platelet Volume 11.1 fL (9.4-12.4); Monocytes # (auto) 0.74 K/uL (0.24-0.82); Monocytes % (auto) 4.2 %; Neutrophils # (auto) 15.77 K/uL (1.4-6.5); Neutrophils % (auto) 89.5 %; Platelet Count 204 K/uL (130-400); RDW Coefficient of Variation 13.2 % (11.5-14.5); RDW Standard Deviation 42.6 fL (36.4-46.3); Red Blood Count 5.29 M/uL (4.63-6.08); White Blood Count 17.62 K/ul (4.8-10.8)
--- NOTE | 2022-07-22 22:51 | XRay Report ---
SINGLE VIEW CHEST CLINICAL HISTORY: Generalized weakness. FINDINGS: An AP, portable, upright chest radiograph is compared to study dated 08/19/2021. The examina tion is degraded by portable technique, apical lordotic positioning, and patient rotation. The heart is enlarged. The pulmonary vasculature is noncongested. There is elevation of the right hemidiaphrag m and bibasilar opacities. No large pleural effusion or pneumothorax is seen. The skeletal structures are osteopenic. The bony thorax is grossly intact. IMPRESSION: 1. Cardiomegaly without radiographic evidence of congestive failure. 2. There are left greater than right bibasilar airspace opacities. This likely represents scarring/at electasis. Correlate clinically for evidence of a superimposed infectious/inflammatory pneumonitis. ACT 112: Negative or not required by law. Electronically signed by: Jake Vaughn M.D. 07/22/2022 10:49 PM
--- NOTE | 2022-07-22 23:06 | Emergency Department Note ---
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 to involutional change. Almonte-white matter differentiation is preserved. No extra- axial fluid collection is seen. Thoracic aorta: Visualized portions of the thoracic aorta are normal in caliber. The aortic arch demonstrates standard 3-vessel anatomy. Right carotid arterial system: The right common carotid artery is widely patent, as are the right internal and external carotid arteries. Left carotid arterial system: The left common carotid artery is widely patent, as are the left internal and external carotid arteries. Vertebral arteries: The vertebral arteries are widely patent bilaterally and codominant. Subclavian arteries: Widely patent bilaterally. Intracranial vasculature: There is atherosclerotic calcification of the cavernous carotid arteries. The internal carotid arteries are patent at the skull base, as are the anterior and middle cerebral arteries bilaterally. There is a right posterior communicating artery. The vertebrobasilar system and posterior cerebral arteries are widely patent. The vertebral arteries are codominant. There is no aneurysm, high-grade stenosis, or focal vessel cut off seen throughout the intracranial circulation. Jugular veins: Patent bilaterally. Dural sinuses: Patent. Lung apices: Partially visualized upper lobe lung parenchyma appears clear. Soft tissues: The visualized pharyngeal soft tissues are normal in appearance noting angiographic phase technique. The oropharyngeal airway appears widely patent. The salivary and thyroid glands are normal in appearance. No cervical lymphadenopathy is seen. Skeletal structures: The skeletal structures are orthopedic. Postsurgical change is seen along the convexity bilaterally. No destructive calvarial lesions identified. The calvarium appears intact. The cervical spine is maintained noting multilevel spondylosis. No lytic or blastic lesion is seen. Orbits: The bony orbits are intact. Orbital contents are normal as visualized. Sinuses and mastoids: The paranasal sinuses are clear. The mastoid air cells are well pneumatized. IMPRESSION: 1. Chronic and postsurgical change as above with no evidence of hemorrhage, mass effect, or acute territorial ischemia by CT criteria. 2. Unremarkable CT angiogram of the brain. 3. Unremarkable CT angiogram of the neck. ACT 112: Negative or not required by law. Electronically signed by: Jake Vaughn M.D. 07/23/2022 12:09 AM Neck CTA 07/22/22 22:[address] OF THE BRAIN; CT ANGIOGRAM OF THE BRAIN ; CT ANGIOGRAM OF THE NECK CLINICAL HISTORY: Change in mental status. COMPARISON STUDY: CT angiogram of the head and neck dated 09/08/2019. TECHNIQUE: Unenhanced axial CT scan of the brain is performed. Subsequently, following the IV administration of 113 of Optiray 320, CT angiogram of the head and neck was performed from the aortic arch to the vertex. Images are reviewed in the axial, sagittal, and coronal planes. 3-D MIPS images are created and assessed. IV contrast was administered without complication. All measurements were calculated based on NASCET criteria. A dose lowering technique was utilized adhering to the principles of ALARA. The examination is significantly degraded by streak artifact from metallic plates along the convexity. 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 Foci of bifrontal encephalomalacia are consistent with remote insults. There is no e vidence of hemorrhage, mass effect, or acute territorial ischemia by CT criteria. There is no evidence of enhancing mass lesion on the angiogram phase images. The ventricles, sulci, and cisterns are prominent secondary to involutional change. Almonte-white matter differentiation is preserved. No extra- axial fluid collection is seen. Thoracic aorta: Visualized portions of the thoracic aorta are normal in caliber. The aortic arch demonstrates standard 3-vessel anatomy. Right carotid arterial system: The right common carotid artery is widely patent, as are the right internal and external carotid arteries. Left carotid arterial system: The left common carotid artery is widely patent, as are the left internal and external carotid arteries. Vertebral arteries: The vertebral arteries are widely patent bilaterally and codominant. Subclavian arteries: Widely patent bilaterally. Intracranial vasculature: There is atherosclerotic calcification of the cavernous carotid arteries. The internal carotid arteries are patent at the skull base, as are the anterior and middle cerebral arteries bilaterally. There is a right posterior communicating artery. The vertebrobasilar system and posterior cerebral arteries are widely patent. The vertebral arteries are codominant. There is no aneurysm, high-grade stenosis, or focal vessel cut off seen throughout the intracranial circulation. Jugular veins: Patent bilaterally. Dural sinuses: Patent. Lung apices: Partially visualized upper lobe lung parenchyma appears clear. Soft tissues: The visualized pharyngeal soft tissues are normal in appearance noting angiographic phase technique. The oropharyngeal airway appears widely patent. The salivary and thyroid glands are normal in appearance. No cervical lymphadenopathy is seen. Skeletal structures: The skeletal structures are orthopedic. Postsurgical change is seen along the convexity bilaterally. No destructive calvarial lesions identified. The calvarium appears intact. The cervical spine is maintained noting multilevel spondylosis. No lytic or blastic lesion is seen. Orbits: The bony orbits are intact. Orbital contents are normal as visualized. Sinuses and mastoids: The paranasal sinuses are clear. The mastoid air cells are well pneumatized. IMPRESSION: 1. Chronic and postsurgical change as above with no evidence of hemorrhage, mass effect, or acute territorial ischemia by CT criteria. 2. Unremarkable CT angiogram of the brain. 3. Unremarkable CT angiogram of the neck. ACT 112: Negative or not required by law. Electronically signed by: Jake Vaughn M.D. 07/23/2022 12:09 AM Discharge Plan Visit Data Chief Complaint: Altered Mental Status Stated Complaint: ALTERED MENTAL STATUS ED Provider: Rogerio Novak Discharge Problem: Acute confusion, Catheter-associated urinary tract infection Patient Disposition: Being Evaluated by Hospitalist Forms Stand Alone Forms: [employer] Prescriptions Prescriptions: No Action aspirin 81 mg tablet,delayed release (DR/EC) 81 mg PO HS quetiapine 50 mg tablet 50 mg PO HS cholecalciferol (vitamin D3) [Vitamin D3] 125 mcg (5,000 unit) Tablet 125 mcg PO HS melatonin 10 mg Tablet 10 mg PO HS cyanocobalamin (vitamin B-12) [Vitamin B-12] 5,000 mcg Tablet, Sublingual 5,000 mcg SUBLINGUAL [facility] Rx Instructions: TAKES ON SATURDAYS ONLY. Referrals Referrals: Davonte Jackson MD [Primary Care Provider] - : Catheter-associated urinary tract infection Qualifiers: Indwelling urinary catheter type: unspecified Encounter type: initial encounter Qualified Code(s): T83.511A - Infection and inflammatory reaction due to indwelling urethral catheter, initial encounter
[2022-07-22 23:14] LABS: Albumin Globulin Ratio 1.3 (0.9-2); Albumin Level 4.3 gm/dl (3.4-5.0); BUN Creatinine Ratio 12.1 (10-20); Bilirubin,Total 0.6 mg/dl (0.2-1.0); Calcium 8.7 mg/dl (8.5-10.1); Est GFR (African American) 93.2 ml/min; Est GFR (Non-African American) 80.4 ml/min; Globulin 3.4 gm/dl (2.5-4.0); Magnesium 1.7 mg/dl (1.7-2.4); Total Protein 7.7 gm/dl (6.0-8.3)
[2022-07-22 23:16] LABS: Troponin I High Sensitivity 6.8 pg/ml (0-20)
[2022-07-22 23:25] LABS: iSTAT Creatinine 0.8 mg/dl (0.6-1.3); iSTAT Hemoglobin 16.3 g/dl (14.0-18.0); iSTAT Ionized Calcium 1.13 mmol/l (1.12-1.32); iSTAT Potassium 3.9 mmol/L (3.3-5.0)
[2022-07-22 23:58] LABS: Appearance Urine Cloudy (Clear); Bacteria Urine Automated 1+ (Negative); Bilirubin Urine Negative (Negative); Blood Urine 1+ (Negative); Color Urine Yellow; Epithelial Cell Urine Auto 0-5 /lpf (0-5); Glucose Urine UA 3+ (Negative); Ketones Urine Trace (Negative); Leukocyte Esterase Urine 2+ (Negative); Nitrite Urine Negative (Negative); Protein Urine Negative (Negative); Urobilinogen Urine Negative (Negative); WBC Urine Automated >30 /hpf (0-5); pH Urine 5.5 (4.5-7.5)
[2022-07-23] MEDS ORDERED: OPTIRAY 320 500ml IV ONE (00:01)
--- NOTE | 2022-07-23 00:11 | CT Scan Report ---
UNENHANCED CT OF THE BRAIN; CT ANGIOGRAM OF THE BRAIN ; CT ANGIOGRAM OF THE NECK CLINICAL HISTORY: Change in mental status. COMPARISON STUDY: CT angiogram of the head and neck dated 09/08/2019. TECHNIQUE: Unenhanced axial CT scan of the brain is performed. Subsequently, following the IV adminis tration of 113 of Optiray 320, CT angiogram of the head and neck was performed from the aortic arch t o the vertex. Images are reviewed in the axial, sagittal, and coronal planes. 3-D MIPS images are cre ated and assessed. IV contrast was administered without complication. All measurements were calculate d based on NASCET criteria. A dose lowering technique was utilized adhering to the principles of ALA RA. The examination is significantly degraded by streak artifact from metallic plates along the conve xity. CT DOSE: 1133.57 mGy.cm FINDINGS: Brain parenchyma: There is age related involutional change noting moderate to advanced subcortical an d periventricular microangiopathic disease. Foci of bifrontal encephalomalacia are consistent with re mote insults. There is no evidence of hemorrhage, mass effect, or acute territorial ischemia by CT cr iteria. There is no evidence of enhancing mass lesion on the angiogram phase images. The ventricles, sulci, and cisterns are prominent secondary to involutional change. Almonte-white matter differentiation is preserved. No extra-axial fluid collection is seen. Thoracic aorta: Visualized portions of the thoracic aorta are normal in caliber. The aortic arch demo nstrates standard 3-vessel anatomy. Right carotid arterial system: The right common carotid artery is widely patent, as are the right int ernal and external carotid arteries. Left carotid arterial system: The left common carotid artery is widely patent, as are the left trestle mainternance laborer al and external carotid arteries. Vertebral arteries: The vertebral arteries are widely patent bilaterally and codominant. Subclavian arteries: Widely patent bilaterally. Intracranial vasculature: There is atherosclerotic calcification of the cavernous carotid arteries. T he internal carotid arteries are patent at the skull base, as are the anterior and middle cerebral ar teries bilaterally. There is a right posterior communicating artery. The vertebrobasilar system and p osterior cerebral arteries are widely patent. The vertebral arteries are codominant. There is no aneu rysm, high-grade stenosis, or focal vessel cut off seen throughout the intracranial circulation. Jugular veins: Patent bilaterally. Dural sinuses: Patent. Lung apices: Partially visualized upper lobe lung parenchyma appears clear. Soft tissues: The visualized pharyngeal soft tissues are normal in appearance noting angiographic pha se technique. The oropharyngeal airway appears widely patent. The salivary and thyroid glands are nor mal in appearance. No cervical lymphadenopathy is seen. Skeletal structures: The skeletal structures are orthopedic. Postsurgical change is seen along the co nvexity bilaterally. No destructive calvarial lesions identified. The calvarium appears intact. The c ervical spine is maintained noting multilevel spondylosis. No lytic or blastic lesion is seen. Orbits: The bony orbits are intact. Orbital contents are normal as visualized. Sinuses and mastoids: The paranasal sinuses are clear. The mastoid air cells are well pneumatized. IMPRESSION: 1. Chronic and postsurgical change as above with no evidence of hemorrhage, mass effect, or acute ter ritorial ischemia by CT criteria. 2. Unremarkable CT angiogram of the brain. 3. Unremarkable CT angiogram of the neck. ACT 112: Negative or not required by law. Electronically signed by: Jake Vaughn M.D. 07/23/2022 12:09 AM
[2022-07-23] MEDS ORDERED: PIPERACILLIN/TAZOBACTAM 4.5 GM/120 ML BAG IV ONE (00:17)
[2022-07-23 00:20] LABS: Cast Urine Automated 0 /lpf (0-5)
[2022-07-23] MEDS ORDERED: SODIUM CHLORIDE 0.9% 1000ML 1,000 ML IV ONE (00:26)
[2022-07-23] MEDS ORDERED: SODIUM CHLORIDE 0.9% 500 ML IV ONE (00:26)
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
[2022-07-23] MEDS ORDERED: ACETAMINOPHEN 325 MG TAB PO PRN (03:17)
[2022-07-23] MEDS ORDERED: SODIUM CHLORIDE 0.9% 1000ML 1,000 ML IV SCH (03:17)
[2022-07-23] MEDS: cefTRIAXone SODIUM 2,000 MG in DEXTROSE 5% 50 ML IV SCH (05:44)
[2022-07-23 10:33] LABS: Basophils # (auto) 0.05 K/uL (0-0.2); Basophils % (auto) 0.3 %; Eosinophils # (auto) 0.14 K/uL (0-0.50); Eosinophils % (auto) 0.7 %; Hematocrit (blood only) 42.8 % (40.1-51.0); Hemoglobin 14.5 g/dl (14.0-18.0); Immature Granulocytes % (auto) 0.5 %; Lymphocytes # (auto) 2.67 K/uL (1.2-3.4); Mean Corpuscular Hgb Conc 33.9 g/dL (32.0-36.0); Mean Corpuscular Volume 88.6 fL (80.0-100.0); Mean Platelet Volume 11.1 fL (9.4-12.4); Monocytes # (auto) 0.75 K/uL (0.24-0.82); Monocytes % (auto) 3.9 %; Neutrophils # (auto) 15.37 K/uL (1.4-6.5); Neutrophils % (auto) 80.6 %; Platelet Count 196 K/uL (130-400); RDW Coefficient of Variation 13.4 % (11.5-14.5); RDW Standard Deviation 43.6 fL (36.4-46.3); Red Blood Count 4.83 M/uL (4.63-6.08); White Blood Count 19.08 K/ul (4.8-10.8)
--- NOTE | 2022-07-23 10:41 | Hospitalist Progress Note ---
Date of Service July 23, 2022 Assessment & Plan (1) Acute confusion: Plan: - 77 yo male admitted on 07/22/22 for an acute change in his mental status. episode of confusion, possibly slurred speech. Uncertain of baseline, he does have dementia. Possibly secondary to UTI - suspect secondary to metabolic disturbance (ie acute UTI). 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 Apparently his mentation changed several months ago and initially it was attributed to new onset dementia, however it totally returned to baseline when he had his hip replaced and a roldan catheter was placed. Hence, urology discovered it was due to urinary retention secondary to BPH. Thus, he has a permanent indwelling suprapubic catheter. Daughter says his mental baseline is quite good - perhaps only signs of mild dementia at baseline, but reliably gets delirium with UTIs. - anticipate improvement in mentation with ongoing treatment of UTI (2) UTI (urinary tract infection): Plan: - UA concerning for infection. urine and blood cultures pending - WBC elevated to 17 on admission --> at 19 today. Procal not elevated. Lactate was elevated to 2.3 on admission, has since normalized - Continue to trend CBC daily and follow cultures - 1 dose of zosyn given in ED. Abx deescalated to Rocephin by admitting doc - Apparently he was treated for a UTI two weeks ago with Macrobid and Doxy -- however his catheter was not exchanged since that infection. I did consult urology for catheter exchange. - UA did show budding yeast in addition to signs of a bacterial infection --however he is not neutropenic, not a very low weight infant. I will leave it up to urology as to wether or not they recommend treating him for a fungal infection in urine given the presence of the chronic suprapubic catheter (3) Type II diabetes mellitus: Plan: - history of - A1c 6.7 in 08/2020 - not on any home medications for this - blood sugars here appear acceptable; would hold off on adding insulin - continue daily baby ASA - patient not on a statin or LANDON/ARB - follow up with PCP for this issue - carb consistent diet (4) Systolic ejection murmur: Plan: - noted on PE - suspect functional due to acute illness vs. aortic valve pathology - If it reduces after acute infection is treated, it would suggest the former. If it remains persistent, consideration should be given to an echo as an outpatient Diet: carb consistent Dvt ppx: Lovenox Dispo: Med/Surg Code: Full Admission and Anticipated Discharge Date Admission Date: July 23, 2022 Subjective No acute events overnight. Nursing said he was pulling Ivs out of his arm today. Review of Systems Review of Systems: All systems reviewed & are unremarkable except as noted in HPI & below Physical Exam Constitutional: WD/WN, vitals as above Eyes: + anicteric sclerae ENMT: external ear and nose normal, oropharynx normal Neck: trachea midline, no thyromegaly Respiratory: normal respiratory effort Cardiovascular: Rate/Rhythm: regular rate and regular rhythm Heart Sounds: normal S1, normal S2 and + murmur (systolic ejection ) Musculoskeletal: Head/Neck/Chest: normocephalic and head atraumatic Skin: no rashes, warm and dry Neurologic: moves all extremities Psychiatric: Orientation: alert, oriented to person, oriented to place and oriented to time (knew it was close to [place] but not the year) Genitourinary: +suprapubic catheter in place Results & Data Results & Data ([facility]) Vital Signs (Past 12 Hours) Vital Signs Temp Pulse Pulse Resp BP BP Pulse Ox 07/23/22 07:54 36.7 C 76 16 144/76 H 95 07/23/22 03:00 07/23/22 03:00 36.7 C 84 20 118/68 93 07/23/22 02:57 07/23/22 02:30 79 17 125/82 92 07/23/22 02:00 92 H 18 130/75 07/23/22 01:30 90 14 142/83 H 07/23/22 01:00 130/72 92 07/23/22 00:32 119 H 108/69 07/23/22 00:07 100 H 21 117/69 07/22/22 23:30 101 H 25 H 118/63 07/22/22 23:00 110 H 33 H 105/75 07/23/22 00:27 93 H 22 108/69 93 O2 Del Method 07/23/22 07:54 Room Air 07/23/22 03:00 Room Air 07/23/22 03:00 Room Air 07/23/22 02:57 Room Air 07/23/22 02:30 07/23/22 02:00 07/23/22 01:30 07/23/22 01:00 07/23/22 00:32 07/23/22 00:07 07/22/22 23:30 07/22/22 23:00 07/23/22 00:27 Room Air PG Care Time/CCT Total # of Minutes Spent Total Time Spent with Patient: Total time spent is greater than 50% in coordination of care (as documented) at patient's floor/unit and/or counseling patient: Coding Level of Care Code 53905 Subseq Hosp Care Lvl 2 Diagnoses Acute confusion R41.0 UTI (urinary tract infection) N39.0 Type II diabetes mellitus E11.9 Systolic ejection murmur R01.1
[2022-07-23] MEDS: ENOXAPARIN INJ 40 MG/0.4 ML SYR SQ SCH (14:32)
[2022-07-23] MEDS: QUEtiapine FUMARATE 25 MG TABLET PO SCH (21:06)
[2022-07-23] MEDS: MELATONIN 3 MG TAB PO PRN (21:06)
[2022-07-23] MEDS: ASPIRIN 81 MG ECTAB PO SCH (21:06)
--- NOTE | 2022-07-24 05:45 | Electrocardiogram Report ---
Test Reason : Blood Pressure : / mmHG Vent. Rate : 103 BPM Atrial Rate : 103 BPM P-R Int : 160 ms QRS Dur : 096 ms QT Int : 338 ms P-R-T Axes : 023 -51 030 degrees QTc Int : 442 ms Poor data quality, interpretation may be adversely affected Sinus tachycardia Left anterior fascicular block Abnormal ECG When compared with ECG of 19-AUG-2021 00:44, No significant change was found Confirmed by Josue Gaines ([id number]) on 07/24/2022 5:45:07 AM Referred By: REFERRED SELF Confirmed By:Josue Gaines
[2022-07-24] MEDS: cefTRIAXone SODIUM 2,000 MG in DEXTROSE 5% 50 ML IV SCH (06:22)
--- NOTE | 2022-07-24 08:06 | Hospitalist Progress Note ---
Date of Service July 24, 2022 Assessment & Plan (1) Acute confusion: Plan: 77yo male admitted 07/22/22 with episode of confusion, possibly slurred speech. Uncertain of baseline, he does have dementia. Possibly secondary to UTI Per patients daughter he does get delirium with UTIs and has had frequent UTIs and thus he had a permanent indwelling suprapubic catheter. Patient also follows with urology -Follow urine and blood culture -Frequent orientation (2) UTI (urinary tract infection): Plan: - UA concerning for infection. urine and blood cultures pending (blood culture x 1 and urine culture preliminary + for gram + cocci) Previous infections did not seem to have any resistance to Ceftriaxone in the past. - WBC elevated admission --> at 19 yesterday and today improved to 9. Procal not elevated. Lactate was elevated to 2.3 on admission, has since normalized 1.8 - Continue to trend CBC daily and follow cultures - 1 dose of zosyn given in ED. Abx deescalated to Rocephin 2gm IV, afebrile, clinically improving and WBC also improved - Apparently he was treated for a UTI two weeks ago with Macrobid and Doxy -- however his catheter was not exchanged since that infection. Urology was consulted for catheter exchange. - UA did show budding yeast in addition to signs of a bacterial infection - will leave it up to urology as to wether or not they recommend treating him for a fungal infection in urine given the presence of the chronic suprapubic catheter Updated patient's daughter Hailey Gary today via the phone. (3) Dementia: Plan: -Frequent orientation -Currently seems improved from HPI (4) Type II diabetes mellitus: Plan: - history of - A1c 6.7 in 08/2020 - not on any home medications for this - blood sugars here appear acceptable; would hold off on adding insulin - continue daily baby ASA - patient not on a statin or LANDON/ARB - follow up with PCP for this issue - carb consistent diet (5) Systolic ejection murmur: Plan: - noted on PE - suspect functional due to acute illness vs. aortic valve pathology - If it reduces after acute infection is treated, it would suggest the former. If it remains persistent, consideration should be given to an echo as an outpa tient - DAVID persists today on exam Plan Diet: carb consistent Dvt ppx: Lovenox Dispo: Med/Surg Code: Full Admission and Anticipated Discharge Date Admission Date: July 23, 2022 Subjective Patient is awake in bed and states he feels well. He denies any abdominal pain, chest pain or SOB. Urology has been consulted for suprapubic catheter exchange. VSS, afebrile and in NAD Review of Systems Constitutional: no fever, no chills and no body aches Respiratory: no cough, no chest congestion and no dyspnea Cardiovascular: no chest pain, no dyspnea and no syncope Gastrointestinal: no abdominal pain, no nausea and no vomiting Integumentary: no rash, no lesions and no new lesions Neurologic: + confusion; no falls, no headache(s) and no abnormal speech Patient is alert and oriented to person, place and the month of July Psychiatric: no irritability, no hallucinations and no auditory hallucinations Physical Exam Constitutional: WD/WN, vitals as above ENMT: external ear and nose normal, oropharynx normal Neck: trachea midline, no thyromegaly Respiratory: normal respiratory effort, lungs clear to auscultation Cardiovascular: Rate/Rhythm: regular rate and regular rhythm Heart Sounds: normal S1, normal S2 and + murmur Extremities: no calf tenderness and no e grant Gastrointestinal (Abdomen): normal bowel sounds, soft, nontender, no hepatosplenomegaly suprapubic catheter in place Skin: no rashes, warm and dry Psychiatric: Patient was pleasant and cooperative, he is alert to person and that he is in a hospital and that it is July Results & Data Results & Data ([facility]) Vital Signs (Past 12 Hours) Vital Signs Temp Pulse Resp BP Pulse Ox O2 Del Method 07/24/22 07:50 36.5 C 68 16 138/78 98 Room Air 07/23/22 21:00 Room Air 07/23/22 20:56 36.6 C 76 18 163/82 H 96 Room Air Laboratory Results Abnormal lab results 07/23/22 07/23/22 07/24/22 Range/Units 10:10 20:39 08:05 WBC 19.08 H (4.8-10.8) K/ul Neut # (Auto) 15.37 H (1.4-6.5) K/uL Immature Gran # (Auto) 0.10 H (0.00-0.02) K/uL BUN/Creatinine Ratio (10-20) Glucose (70-99(Fasting)) mg/dl POC Glucose 146 H 110 H (70-99) mg/dl 07/24/22 Range/Units 08:11 WBC (4.8-10.8) K/ul Neut # (Auto) (1.4-6.5) K/uL Immature Gran # (Auto) (0.00-0.02) K/uL BUN/Creatinine Ratio 8.1 L (10-20) Glucose 106 H (70-99(Fasting)) mg/dl POC Glucose (70-99) mg/dl PG Care Time/CCT Total # of Minutes Spent Total Time Spent with Patient: Total time spent is greater than 50% in coordination of care (as documented) at patient's floor/unit and/or counseling patient: Coding Level of Care Code 38224 Subseq Hosp Care Lvl 3 Diagnoses Acute confusion R41.0 UTI (urinary tract infection) N39.0 Dementia F03.90 Dementia behavioral disturbance: without behavioral disturbance Dementia type: unspecified type Type II diabetes mellitus E11.9 Systolic ejection murmur R01.1 Time Spent (min) 20 (1) Dementia Dementia behavioral disturbance: without behavioral disturbance Dementia type: unspecified type Qualified Code(s): F03.90 - Unspecified dementia without behavioral disturbance
[2022-07-24 08:48] LABS: Hematocrit (blood only) 41.4 % (40.1-51.0); Hemoglobin 14.1 g/dl (14.0-18.0); Mean Corpuscular Hemoglobin 30.3 pg (25.0-34.0); Mean Corpuscular Hgb Conc 34.1 g/dL (32.0-36.0); Mean Corpuscular Volume 88.8 fL (80.0-100.0); Mean Platelet Volume 11.2 fL (9.4-12.4); Platelet Count 179 K/uL (130-400); RDW Coefficient of Variation 13.3 % (11.5-14.5); RDW Standard Deviation 43.2 fL (36.4-46.3); Red Blood Count 4.66 M/uL (4.63-6.08); White Blood Count 9.16 K/ul (4.8-10.8)
[2022-07-24 09:17] LABS: BUN Creatinine Ratio 8.1 (10-20); Calcium 8.6 mg/dl (8.5-10.1); Est GFR (African American) 96.3 ml/min; Est GFR (Non-African American) 83.1 ml/min; Potassium 3.8 mmol/L (3.5-5.1)
[2022-07-24] MEDS: ENOXAPARIN INJ 40 MG/0.4 ML SYR SQ SCH (09:27)
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
[2022-07-24 13:55] LABS: A calco-baum cmplx NotReported Not Detected (NotDetected); Bact fragilis Not Reported Not Detected (NotDetected); C auris Not Reported Not Detected (NotDetected); Calbicans Not Reported Not Detected (NotDetected); Candida glabrata Not Reported Not Detected (NotDetected); Candida krusei Not Reported Not Detected (NotDetected); Cneoformans/gatti Not Reported Not Detected (NotDetected); Cparapsilosis Not Reported Not Detected (NotDetected); Ctropicalis Not Reported Not Detected (NotDetected); E cloacae compx Not Reported Not Detected (NotDetected); Efaecalis Not Reported Not Detected (NotDetected); Efaecium Not Reported Not Detected (NotDetected); Enterobacterales Not Reported Not Detected (NotDetected); Escherichia coli Not Reported Not Detected (NotDetected); H influenzae Not Reported Not Detected (NotDetected); K aerogenes Not Reported Not Detected (NotDetected); Koxytoca Not Reported Not Detected (NotDetected); Kpneumoniae grp Not Reported Not Detected (NotDetected); Lmonocyt Not Reported Not Detected (NotDetected); N meningitidis Not Reported Not Detected (NotDetected); P aeruginosa Not Reported Not Detected (NotDetected); Proteus spp Not Reported Not Detected (NotDetected); Salmonella spp Not Reported Not Detected (NotDetected); Smarcescens Not Reported Not Detected (NotDetected); Staph lugdunensis Not Reported Not Detected (NotDetected); Staph spp. Not Reported Not Detected (NotDetected); Staphaureus Not Reported Not Detected (NotDetected); Staphepi Not Reported Not Detected (NotDetected); Stenmaltophilia Not Reported Not Detected (NotDetected); Strep agal(GrpB) Not Reported Not Detected (NotDetected); Strep pneum Not Reported Not Detected (NotDetected); Strep pyog (GrpA) Not Reported Not Detected (NotDetected); Strep spp Not Reported Not Detected (NotDetected)
[2022-07-24] MEDS: ASPIRIN 81 MG ECTAB PO SCH (19:58)
[2022-07-24] MEDS: QUEtiapine FUMARATE 25 MG TABLET PO SCH (19:58)
[2022-07-25] MEDS: cefTRIAXone SODIUM 2,000 MG in DEXTROSE 5% 50 ML IV SCH (06:00)
--- NOTE | 2022-07-25 07:43 | Hospitalist Progress Note ---
Date of Service July 25, 2022 Assessment & Plan (1) Acute confusion: Plan: 77yo male admitted 07/22/22 with episode of confusion, possibly slurred speech. Uncertain of baseline, he does have dementia. Possibly secondary to UTI Per patients daughter he does get delirium with UTIs and has had frequent UTIs and thus he had a permanent indwelling suprapubic catheter. Patient also follows with urology -Follow repeat blood cutures -Frequent orientation (2) UTI (urinary tract infection): Plan: - UA concerning for infection. urine and blood cultures pending (blood culture x 1 and urine culture preliminary + for gram + cocci) Previous infections did not seem to have any resistance to Ceftriaxone in the past. - WBC elevated admission --> at 19 yesterday and today improved to 9. Procal n ot elevated. Lactate was elevated to 2.3 on admission, has since normalized 1.8 - Continue to trend CBC daily - 1 dose of zosyn given in ED. Abx deescalated to Rocephin 2gm IV, afebrile, clinically was improving and WBC also improved - Final urine culture was + Enterococcus faecalis - Change Ceftriaxone to Ampicillin 2000 IV q 6 hours - Await repeat blood cultures -Suprapubic catheter replaced yesterday by urology -Urology recommended to continue with monthly catheter exchanges with Home Health Updated patient's daughter Hailey Gary today via the phone. (3) Dementia: Plan: -Frequent orientation -Currently seems improved from HPI (4) Type II diabetes mellitus: Plan: - history of - A1c 6.7 in 08/2020 - not on any home medications for this - blood sugars here appear acceptable; would hold off on adding insulin - continue daily baby ASA - patient not on a statin or LANDON/ARB - follow up with PCP for this issue - carb consistent diet (5) Systolic ejection murmur: Plan: - noted on PE - suspect functional due to acute illness vs. aortic valve pathology - If it reduces after acute infection is treated, it would suggest the former. If it remains persistent, consideration should be given to an echo as an outpatient - DAVID persists today on exam Plan Diet: carb consistent Dvt ppx: Lovenox Dispo: Med/Surg Code: Full Admission and Anticipated Discharge Date Admission Date: July 23, 2022 Supervising Physician Co-Signing Physician Notes chart reviewed, agree ekta Pack PAC, as above Subjective Patient is awake in bed. He is alert to person and that he is in the hospital. He denies any complaints this AM including no abdominal pain, Chest pain or cough. Sent for repeat blood cultures Review of Systems Constitutional: no fever, no chills and no body aches Respiratory: no cough, no chest congestion and no dyspnea Cardiovascular: no chest pain, no dyspnea and no syncope Gastrointestinal: no abdominal pain, no nausea and no vomiting Integumentary: no rash, no lesions and no new lesions Neurologic: + confusion; no falls, no headache(s) and no abnormal speech Patient is alert and oriented to person, place and the month of July Psychiatric: no irritability, no hallucinations and no auditory hallucinations Physical Exam Constitutional: WD/WN, vitals as above ENMT: external ear and nose normal, oropharynx normal Neck: trachea midline, no thyromegaly Respiratory: normal respiratory effort, lungs clear to auscultation Cardiovascular: Rate/Rhythm: regular rate and regular rhythm Heart Sounds: normal S1, normal S2 and + murmur Extremities: no calf tenderness and no edema Gastrointestinal (Abdomen): normal bowel sounds, soft, nontender, no hepatosplenomegaly Skin: no rashes, warm and dry Neurologic: awake Psychiatric: Alert and oriented to his name, , that he is in a hospital and it is July Results & Data Results & Data ([facility]) Vital Signs (Past 12 Hours) Vital Signs Temp Pulse Resp BP Pulse Ox O2 Del Method 07/25/22 07:36 36.4 C L 73 14 132/85 92 Room Air 07/24/22 19:52 Room Air 07/24/22 19:51 36.4 C L 70 18 165/90 H 96 Room Air Laboratory Results Microbiology 07/22/22 22:30 Aerobic Blood Culture - Preliminary Blood Micrococcus species Anaerobic Blood Culture - Preliminary No growth in Anaerobic bottle after 48 hours. 07/22/22 23:33 Urine Culture - Final Urine,Straight Cath Enterococcus faecalis Aviva albicans/dubliniensis 07/22/22 22:43 Aerobic Blood Culture - Preliminary Blood No growth in Aerobic bottle after 48 hours. Anaerobic Blood Culture - Preliminary No growth in Anaerobic bottle after 48 hours. Abnormal lab results 07/25/22 Range/Units 09:51 Glucose 172 H (70-99(Fasting)) mg/dl 07/22/22 23:33 Urine Culture - Final Urine,Straight Cath Enterococcus faecalis Aviva albicans/dubliniensis 07/25/22 10:29 Aerobic Blood Culture - Pending Blood Anaerobic Blood Culture - Pending 07/25/22 10:34 Aerobic Blood Culture - Pending Blood Anaerobic Blood Culture - Pending Microbiology 07/22/22 22:30 Aerobic Blood Culture - Preliminary Blood Micrococcus species Anaerobic Blood Culture - Preliminary No growth in Anaerobic bottle after 48 hours. 07/22/22 23:33 Urine Culture - Final Urine,Straight Cath Enterococcus faecalis Aviva albicans/dubliniensis 07/22/22 22:43 Aerobic Blood Culture - Preliminary Blood No growth in Aerobic bottle after 48 hours. Anaerobic Blood Culture - Preliminary No growth in Anaerobic bottle after 48 hours. PG Care Time/CCT Total # of Minutes Spent Total Time Spent with Patient: Total time spent is greater than 50% in coordination of care (as documented) at patient's floor/unit and/or counseling patient: Coding Level of Care Code 56381 Subseq Hosp Care Lvl 2 Diagnoses Acute confusion R41.0 UTI (urinary tract infection) N39.0 Dementia F03.90 Dementia behavioral disturbance: without behavioral disturbance Dementia type: unspecified type Type II diabetes mellitus E11.9 Systolic ejection murmur R01.1 Time Spent (min) 15 (1) Dementia Dementia behavioral disturbance: without behavioral disturbance Dementia type: unspecified type Qualified Code(s): F03.90 - Unspecified dementia without behavioral disturbance
[2022-07-25] MEDS: ENOXAPARIN INJ 40 MG/0.4 ML SYR SQ SCH (07:57)
[2022-07-25 10:34] LABS: Hematocrit (blood only) 44.1 % (40.1-51.0); Hemoglobin 15.2 g/dl (14.0-18.0); Mean Corpuscular Hgb Conc 34.5 g/dL (32.0-36.0); Mean Corpuscular Volume 87.2 fL (80.0-100.0); Platelet Count 206 K/uL (130-400); RDW Coefficient of Variation 13.4 % (11.5-14.5); RDW Standard Deviation 42.2 fL (36.4-46.3); Red Blood Count 5.06 M/uL (4.63-6.08); White Blood Count 8.01 K/ul (4.8-10.8)
[2022-07-25 10:43] LABS: BUN Creatinine Ratio 11.1 (10-20); Calcium 9.2 mg/dl (8.5-10.1); Creatinine Clr Calc Pharmacy 59.9 ml/min; Est GFR (African American) 84.2 ml/min; Est GFR (Non-African American) 72.6 ml/min; Potassium 3.8 mmol/L (3.5-5.1)
[2022-07-25] MEDS: AMPICILLIN 2,000 MG in SODIUM CHLOR 0.9% AD-VAN 100 ML IV SCH ×2 (17:50→22:09)
[2022-07-25] MEDS: QUEtiapine FUMARATE 25 MG TABLET PO SCH (20:02)
[2022-07-25] MEDS: ASPIRIN 81 MG ECTAB PO SCH (20:02)
[2022-07-26] MEDS: AMPICILLIN 2,000 MG in SODIUM CHLOR 0.9% AD-VAN 100 ML IV SCH ×4 (04:06→21:04)
[2022-07-26 07:52] LABS: Hematocrit (blood only) 45.3 % (40.1-51.0); Hemoglobin 15.6 g/dl (14.0-18.0); Mean Corpuscular Hemoglobin 29.9 pg (25.0-34.0); Mean Corpuscular Hgb Conc 34.4 g/dL (32.0-36.0); Mean Corpuscular Volume 86.8 fL (80.0-100.0); Mean Platelet Volume 10.8 fL (9.4-12.4); Platelet Count 236 K/uL (130-400); RDW Coefficient of Variation 13.1 % (11.5-14.5); RDW Standard Deviation 41.3 fL (36.4-46.3); Red Blood Count 5.22 M/uL (4.63-6.08); White Blood Count 8.19 K/ul (4.8-10.8)
[2022-07-26] MEDS: ENOXAPARIN INJ 40 MG/0.4 ML SYR SQ SCH (07:57)
--- NOTE | 2022-07-26 15:58 | Hospitalist Progress Note ---
Date of Service July 26, 2022 Assessment & Plan (1) Acute confusion: Plan: 77yo male admitted 07/22/22 with episode of confusion, possibly slurred speech. Uncertain of baseline, he does have dementia. Possibly secondary to UTI Per patients daughter he does get delirium with UTIs and has had frequent UTIs and thus he had a permanent indwelling suprapubic catheter. Patient also follows with urology -Follow repeat blood cutures -Frequent orientation (2) UTI (urinary tract infection): Plan: - UA concerning for infection. urine and blood cultures pending (blood culture x 1 and urine culture preliminary + for gram + cocci) Previous infections did not seem to have any resistance to Ceftriaxone in the past. - WBC elevated admission --> at 19 yesterday and today improved to 9. Procal n ot elevated. Lactate was elevated to 2.3 on admission, has since normalized 1.8 - Continue to trend CBC daily - 1 dose of zosyn given in ED. Abx deescalated to Rocephin 2gm IV, afebrile, clinically was improving and WBC also improved - Final urine culture was + Enterococcus faecalis - Changed Ceftriaxone to Ampicillin 2000 IV q 6 hours 07/25 - Await repeat blood cultures - No growth after 24 hours (likely initial + was a contaminate) -Suprapubic catheter replaced 07/24 by urology -Urology recommended to continue with monthly catheter exchanges with Home Health Updated patient's daughter Hailey Gary daily via the phone. Discussed that therapy recommends SNF with less than 3 hours combined therapy. Also discussed with history of Lewy Body Dementia patient may be progressing with his dementia, along with his acute complicated UTI (3) Dementia: Plan: -Frequent orientation -Currently seems improved from HPI, although today was slightly more confused than previous 2 days -Possibly progression of Lewy Body Dementia (4) Type II diabetes mellitus: Plan: - history of - A1c 6.7 in 08/2020 - not on any home medications for this - blood sugars here appear acceptable; would hold off on adding insulin - continue daily baby ASA - patient not on a statin or LANDON/ARB - follow up with PCP for this issue - carb consistent diet (5) Systolic ejection murmur: Plan: - noted on PE - suspect functional due to acute illness vs. aortic valve pathology - If it reduces after acute infection is treated, it would suggest the former. If it remains persistent, consideration should be given to an echo as an outpatient - DAVID persists today on exam (07/26) Plan Diet: carb consistent Dvt ppx: Lovenox Dispo: Med/Surg Code: Full Awaiting SNF placement Admission and Anticipated Discharge Date Admission Date: July 23, 2022 Supervising Physician Co-Signing Physician Notes I personally examined the patient and verified all veliz points of history and exam, discussed case, and agree with decision making with Tyler CORDON No meaningful HPI review of systems obtainable. For what is worth he denies complaints. Vitals noted, in general he is awake and alert pleasant no distress. HEENT normocephalic atraumatic mucous membranes moist. Breathing unlabored no accessory muscle use good effort. Skin shows no rashes no pallor or icterus. Catheter associated UTIEnterococcusampicillinanticipate transition to amoxicillin at discharge. Of note, initially blood cultures were of concern because there were both gram-positive cocci. With hindsight, fortunately the urine is gram-positive cocci in chainsenterococci, and blood showing gram- positive cocci in clustersmicrococcusso blood culture is a contaminant. Subjective Patient is awake in bed and has no complaints. He is alert to his name and and aware that it is July. He is unable to tell me where he is today. PT evaluated patient and recommend SNF with less than 3 hour combined therapy. CM is working on placement. Patient's daughter is aware. Review of Systems Constitutional: no fever, no chills and no body aches Respiratory: no cough, no chest congestion and no dyspnea Cardiovascular: no chest pain, no dyspnea and no syncope Gastrointestinal: no abdominal pain, no nausea and no vomiting Integumentary: no rash, no lesions and no new lesions Neurologic: + confusion; no falls, no headache(s) and no abnormal speech Patient is alert and oriented to person, place and the month of July Psychiatric: no irritability, no hallucinations and no auditory hallucinations Physical Exam Constitutional: WD/WN, vitals as above ENMT: external ear and nose normal, oropharynx normal Neck: trachea midline, no thyromegaly Respiratory: normal respiratory effort, lungs clear to auscultation Cardiovascular: Rate/Rhythm: regular rate and regular rhythm Heart Sounds: normal S1, normal S2 and + murmur Extremities: no calf tenderness and no edema Gastrointestinal (Abdomen): normal bowel sounds, soft, nontender, no hepatosplenomegaly Skin: no rashes, warm and dry Neurologic: awake Results & Data Results & Data ([facility]) Vital Signs (Past 12 Hours) Vital Signs Temp Pulse Resp BP Pulse Ox O2 Del Method 07/26/22 15:02 36.4 C L 78 18 160/96 H 92 Room Air 07/26/22 07:25 36.4 C L 89 14 147/86 H 94 Room Air 07/26/22 04:13 168/84 H PG Care Time/CCT Total # of Minutes Spent Total Time Spent with Patient: Total time spent is greater than 50% in coordination of care (as documented) at patient's floor/unit and/or counseling patient: Coding Level of Care Code 59141 Subseq Hosp Care Lvl 2 Diagnoses Acute confusion R41.0 UTI (urinary tract infection) N39.0 Indwelling urinary catheter type: cystostomy catheter Urinary tract infection type: catheter-associated UTI Dementia F03.90 Dementia behavioral disturbance: without behavioral disturbance Dementia type: Lewy body dementia Type II diabetes mellitus E11.9 Systolic ejection murmur R01.1 Time Spent (min) 15 (1) UTI (urinary tract infection) Indwelling urinary catheter type: cystostomy catheter Urinary tract infection type: catheter-associated UTI (2) Dementia Dementia behavioral disturbance: without behavioral disturbance Dementia type: Lewy body dementia
[2022-07-26] MEDS: ASPIRIN 81 MG ECTAB PO SCH (20:00)
[2022-07-26] MEDS: MELATONIN 3 MG TAB PO PRN (20:01)
[2022-07-26] MEDS: QUEtiapine FUMARATE 25 MG TABLET PO SCH (20:02)
[2022-07-27] MEDS: AMPICILLIN 2,000 MG in SODIUM CHLOR 0.9% AD-VAN 100 ML IV SCH ×3 (03:02→17:47)
[2022-07-27 08:43] LABS: Hematocrit (blood only) 43.7 % (40.1-51.0); Hemoglobin 15.3 g/dl (14.0-18.0); Mean Corpuscular Hemoglobin 30.6 pg (25.0-34.0); Mean Corpuscular Volume 87.4 fL (80.0-100.0); Mean Platelet Volume 10.6 fL (9.4-12.4); Platelet Count 228 K/uL (130-400); RDW Coefficient of Variation 13.1 % (11.5-14.5); RDW Standard Deviation 41.6 fL (36.4-46.3); White Blood Count 8.08 K/ul (4.8-10.8)
[2022-07-27] MEDS: ENOXAPARIN INJ 40 MG/0.4 ML SYR SQ SCH (09:31)
--- NOTE | 2022-07-27 12:00 | Hospitalist Progress Note ---
Date of Service July 27, 2022 Assessment & Plan (1) Acute confusion: Plan: Attending: Dr. Nix Impression: 77yo male admitted 07/22/22 with episode of confusion, possibly slurred speech. Uncertain of baseline, he does have dementia. Possibly secondary to UTI Per patients daughter he does get delirium with UTIs and has had frequent UTIs and thus he had a permanent indwelling suprapubic catheter. Patient also follows with urology as an outpatient. Urine culture reveals Enterococcus faecalis and Aviva albicans which is pansensitive. Patient initially started on Zosyn and is currently being treated with ampicillin 2 g every 6 hours as IV. Blood cultures negative x2 Patient is afebrile No elevation of white count Referrals made and patient is pending discharge [facility] (2) UTI (urinary tract infection): Plan: - Urine culture positive for Enterococcus faecalis which is pansensitive with exception of tetracycline - WBC now normalized. Procal not elevated. Lactate was elevated to 2.3 on admission, has since normalized 1.8 -Patient continues to be afebrile - 1 dose of zosyn given in ED. Abx deescalated to Rocephin 2gm IV, afebrile, clinically was improving and WBC also improved - Final urine culture was + Enterococcus faecalis - Changed Ceftriaxone to Ampicillin 2000 IV q 6 hours 07/25 - Blood cultures now negative for growth - Discontinue IV Ampicillin and start Amoxicillin 500mg PO q8h for an addition 5 days for a total of 10 days of Abx treatment -Suprapubic catheter replaced 07/24 by urology -Urology recommended to continue with monthly catheter exchanges with Home Health Patient's daughter Hailey Gary requests to be updated daily by now negative for growth phone. History of Lewy Body Dementia patient may be progressing with his dementia, along with his acute complicated UTI (3) Dementia: Plan: -Continue frequent orientation -Currently seems improved. Very responsive and cooperative with me today. -Possibly progression of Lewy Body Dementia (4) Type II diabetes mellitus: Plan: - history of - A1c 6.7 in 08/2020 - not on any home medications for this - blood sugars here appear acceptable; would hold off on adding insulin - continue daily baby ASA - patient not on a statin or LANDON/ARB - follow up with PCP for this issue - carb consistent diet (5) Systolic ejection murmur: Plan: - Systolic ejection murmur noted on physical exam on admission - suspect functional due to acute illness vs. aortic valve pathology - If it reduces after acute infection is treated, it would suggest the former. Echo as an outpatient would be suggested Plan Diet: carb consistent Dvt ppx: Lovenox Dispo: Med/Surg Code: Full Awaiting SNF placement. Per discussion with case management, expect transfer on Sunday or Sunday Admission and Anticipated Discharge Date Admission Date: July 23, 2022 Supervising Physician Co-Signing Physician Notes Attending Attestation - Chart reviewed, care plan d/w PA Jake Gibson. I agree w/ the veliz components of his documentation with the following addition -- UTI is "Catheter-associated UTI." Teofilo Nix MD Subjective Attending: Dr. Nix This is a 77-year-old male that was admitted for altered mental status on 07/23/2022. He was found to have urinary tract infection and was started on ceftriaxone IV. Patient also had some slurred speech and confusion but has uncertain baseline. He is known to have some dementia. CT and CTA scan of the head performed 07/22/2022 shows no acute abnormalities. There is evidence of chronic and postsurgical change. Patient has chronically indwelling suprapubic catheter. Urology was consulted and this was exchanged on 07/24/2022. Blood cultures are negative x2. Patient is afebrile. Urine culture reveals Enterococcus faecalis and Aviva albicans which is pansensitive with exception of tetracycline. Referrals are currently made to [facility] as well as [facility] for discharge Patient seen and examined in room 3 [phone]. Very pleasant and cooperative. Unable to give history. Does present credible review of systems which are negative for acute issues. Review of Systems Review of Systems: A total of 10 systems was reviewed and is negative other than as listed in the HPI Physical Exam Physical Exam: GENERAL : No acute distress EYES: No icterus, gaze conjugate NOSE: No evidence of epistaxis MOUTH: No lesions or candidiasis NECK: Supple LUNGS: CTA B/L, no wheezes, rales or rhonchi HEART: Regular, rate controlled ABDOMEN: Soft, NT, ND, BS Present EXTREMITIES: No LE edema, pedal pulses intact NEURO: A&OX3 Results & Data Results & Data ([facility]) Vital Signs (Past 12 Hours) Vital Signs Temp Pulse Resp BP Pulse Ox O2 Del Method 07/27/22 06:17 36.8 C 72 18 130/77 96 Room Air Critical Care Results & Data Vital Signs (Past 12 Hours) Vital Signs Temp Pulse Resp BP Pulse Ox O2 Del Method 07/27/22 06:17 36.8 C 72 18 130/77 96 Room Air Lab & Micro Results (Past 24 Hours) No Data to Display No Data to Display No Data to Display Microbiology 07/25/22 10:34 Aerobic Blood Culture - Preliminary Blood No growth in Aerobic bottle after 48 hours. Anaerobic Blood Culture - Preliminary No growth in Anaerobic bottle after 48 hours. 07/25/22 10:29 Aerobic Blood Culture - Preliminary Blood No growth in Aerobic bottle after 48 hours. Anaerobic Blood Culture - Preliminary No growth in Anaerobic bottle after 48 hours. I & O Totals 24 Hours 07/26/22 07/27/22 07/28/22 06:59 06:59 06:59 Intake Total 300 / 300 400 / 400 100 / 100 Output Total 1600 / 1600 1550 / 1550 Balance -1300 / -1300 -1150 / -1150 100 / 100 Cumulative 07/22/22 22:04 thru 07/27/22 10:15 Intake Total 4471.333 Output Total 7850 Balance -3378.667 RT Ventilator Mngmt (Last Documented) Ventilator Ordered Settings Respiratory Rate 18 07/27/22 06:17 Ventilator - PT Measurements Respiratory Rate 18 PG Care Time/CCT Total # of Minutes Spent Total Time Spent with Patient: Total time spent is greater than 50% in coordination of care (as documented) at patient's floor/unit and/or counseling patient: Coding Level of Care Code 95223 Subseq Hosp Care Lvl 2 Diagnoses Acute confusion R41.0 UTI (urinary tract infection) N39.0 Indwelling urinary catheter type: cystostomy catheter Urinary tract infection type: catheter-associated UTI Dementia F03.90 Dementia behavioral disturbance: without behavioral disturbance Dementia type: Lewy body dementia Type II diabetes mellitus E11.9 Systolic ejection murmur R01.1 (1) UTI (urinary tract infection) Indwelling urinary catheter type: cystostomy catheter Urinary tract infection type: catheter-associated UTI (2) Dementia Dementia behavioral disturbance: without behavioral disturbance Dementia type: Lewy body dementia
[2022-07-27] MEDS: AMOXICILLIN 500 MG CAP PO SCH (20:02)
[2022-07-27] MEDS: QUEtiapine FUMARATE 25 MG TABLET PO SCH (20:02)
[2022-07-27] MEDS: ASPIRIN 81 MG ECTAB PO SCH (20:02)
[2022-07-28] MEDS: ENOXAPARIN INJ 40 MG/0.4 ML SYR SQ SCH (08:43)
[2022-07-28] MEDS: AMOXICILLIN 500 MG CAP PO SCH ×3 (08:43→21:27)
--- NOTE | 2022-07-28 17:13 | Hospitalist Progress Note ---
Date of Service July 28, 2022 Assessment & Plan (1) Acute metabolic encephalopathy: Plan: Pt is a 77yo male admitted with confusion, possibly slurred speech in the setting of dementia. Has a h/o encephalopathy recurrent especially with UTIs and other infections CT Head, CTA head/neck negative for acute issues, does have old frontal insults/encephalomalacia With UTI evidence as below TSH normal, electrolytes normal, no fever -improving with treatment of UTI -check B12 and B1 levels in AM and then restart thiamine and B12 replacement given h/o thiamine deficiency in 2019 -RPR and Lyme previously negative -ensure proper sleep as he has chronic issues with this-increase melatonin to home dose of 9mg hs, continue Seroquel home dose (2) Catheter-associated urinary tract infection: Plan: Patient follows with urology as an outpatient. Has monthly SP cath exchanges Urine culture reveals Enterococcus faecalis and Aviva albicans which is pansensitive. Patient initially started on Zosyn and then converted to ampicillin 2 g every 6 hours as IV. -WBC now normalized. Procal not elevated. 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 aortic valve pathology - If it reduces after acute infection is treated, it would suggest the former. Echo as an outpatient would be suggested (6) BPH (benign prostatic hyperplasia): Plan: now with chronic SP cath Plan Dvt ppx: Lovenox Dispo: Med/Surg, medically stable for discharge, awaiting SNF placement Code: Full Discussed his care with daughter Hailey on phone on 07/28 Admission and Anticipated Discharge Date Admission Date: July 23, 2022 Subjective Pt has no complaints. He is slightly confused, has trouble remembering the name of objects such as when he was trying to ask me to close the door. Otherwise is pleasant, happy, says he ate today. No pain anywhere, follows all commands. Review of Systems Review of Systems: All systems reviewed & are unremarkable except as noted in HPI & below Physical Exam Constitutional: WD/WN, vitals as above Eyes: + anicteric sclerae Neck: trachea midline, no thyromegaly Respiratory: normal respiratory effort, lungs clear to auscultation Cardiovascular: RRR, no murmur, no edema Chest (Breasts): Chest: normal inspection of chest Gastrointestinal (Abdomen): normal bowel sounds, soft, nontender, no hepatosplenomegaly Musculoskeletal: Extremities: + extremities abnormal to inspection (sarcopenia), no cyanosis and no clubbing Skin: no rashes, warm and dry Neurologic: moves all extremities and awake; no focal motor deficits Psychiatric: Orientation: alert, oriented to person, oriented to place and cooperative Lymphatic: no lymphedema Results & Data Results & Data ([facility]) Vital Signs (Past 12 Hours) Vital Signs Temp Pulse Resp BP BP Pulse Ox O2 Del Method 07/28/22 15:23 36.7 C 69 16 137/74 99 Room Air 07/28/22 07:21 36.6 C 82 16 126/79 97 Room Air PG Care Time/CCT Total # of Minutes Spent Total Time Spent with Patient: Total time spent is greater than 50% in coordination of care (as documented) at patient's floor/unit and/or counseling patient: Coding Level of Care Code 81171 Subseq Hosp Care Lvl 2 Diagnoses Acute metabolic encephalopathy G93.41 Catheter-associated urinary tract infection T83.511A; N39.0 Encounter type: initial encounter Indwelling urinary catheter type: unspecified Dementia F03.90 Dementia type: Lewy body dementia Dementia behavioral disturbance: without behavioral disturbance Type II diabetes mellitus E11.9 Systolic ejection murmur R01.1 BPH (benign prostatic hyperplasia) N40.0 Lower urinary tract symptom presence: unspecified whether lower urinary tract symptoms present (1) Dementia Dementia type: Lewy body dementia Dementia behavioral disturbance: without behavioral disturbance (2) Catheter-associated urinary tract infection Encounter type: initial encounter Indwelling urinary catheter type: unspecified Qualified Code(s): T83.511A - Infection and inflammatory reaction due to indwelling urethral catheter, initial encounter; N39.0 - Urinary tract infection, site not specified (3) BPH (benign prostatic hyperplasia) Lower urinary tract symptom presence: unspecified whether lower urinary tract symptoms present Qualified Code(s): N40.0 - Benign prostatic hyperplasia without lower urinary tract symptoms
[2022-07-28] MEDS: QUEtiapine FUMARATE 25 MG TABLET PO SCH (21:27)
[2022-07-28] MEDS: MELATONIN 3 MG TAB PO SCH (21:27)
[2022-07-28] MEDS: ASPIRIN 81 MG ECTAB PO SCH (21:27)
[2022-07-29 08:16] LABS: Basophils # (auto) 0.05 K/uL (0-0.2); Basophils % (auto) 0.6 %; Eosinophils # (auto) 0.43 K/uL (0-0.50); Eosinophils % (auto) 5.2 %; Hematocrit (blood only) 43.3 % (40.1-51.0); Hemoglobin 14.8 g/dl (14.0-18.0); Immature Granulocytes # (auto) 0.03 K/uL (0.00-0.02); Immature Granulocytes % (auto) 0.4 %; Lymphocytes # (auto) 2.68 K/uL (1.2-3.4); Lymphocytes % (auto) 32.6 %; Mean Corpuscular Hemoglobin 29.8 pg (25.0-34.0); Mean Corpuscular Hgb Conc 34.2 g/dL (32.0-36.0); Mean Corpuscular Volume 87.3 fL (80.0-100.0); Mean Platelet Volume 10.3 fL (9.4-12.4); Monocytes # (auto) 0.46 K/uL (0.24-0.82); Monocytes % (auto) 5.6 %; Neutrophils # (auto) 4.56 K/uL (1.4-6.5); Neutrophils % (auto) 55.6 %; Platelet Count 214 K/uL (130-400); RDW Coefficient of Variation 13.3 % (11.5-14.5); RDW Standard Deviation 42.2 fL (36.4-46.3); Red Blood Count 4.96 M/uL (4.63-6.08); White Blood Count 8.21 K/ul (4.8-10.8)
[2022-07-29 08:44] LABS: BUN Creatinine Ratio 16.1 (10-20); Calcium 8.7 mg/dl (8.5-10.1); Creatinine Clr Calc Pharmacy 68.2 ml/min; Est GFR (African American) 95.8 ml/min; Est GFR (Non-African American) 82.7 ml/min; Potassium 3.7 mmol/L (3.5-5.1)
[2022-07-29] MEDS: AMOXICILLIN 500 MG CAP PO SCH ×3 (09:11→21:23)
[2022-07-29] MEDS: ENOXAPARIN INJ 40 MG/0.4 ML SYR SQ SCH (09:12)
[2022-07-29] MEDS ORDERED: THIAMINE HCL 200 MG in SODIUM CHLORIDE 0.9% 50 ML IV ONE (09:30)
--- NOTE | 2022-07-29 11:03 | Hospitalist Progress Note ---
Date of Service July 29, 2022 Assessment & Plan (1) Acute metabolic encephalopathy: Plan: Pt is a 77yo male admitted with confusion, possibly slurred speech in the setting of dementia. Has a h/o encephalopathy recurrent especially with UTIs and other infections CT Head, CTA head/neck negative for acute issues, does have old frontal insults/encephalomalacia With UTI evidence as below TSH normal, electrolytes normal, no fever -improving with treatment of UTI -much improved on 07/29, oriented to person, place, month but not year and date -check B12 and B1 levels in AM and then restarted thiamine and B12 replacement given h/o thiamine deficiency in 2019-daughter reports she was not giving him thiamine at home but was giving B12 -RPR and Lyme previously negative -ensure proper sleep as he has chronic issues with this-increased melatonin to home dose of 9mg hs, continue Seroquel home dose (2) Catheter-associated urinary tract infection: Plan: Patient follows with urology as an outpatient. Has monthly SP cath exchanges Urine culture reveals Enterococcus faecalis and Aviva albicans which is pansensitive. Patient initially started on Zosyn and then converted to ampicillin 2 g every 6 hours as IV. -WBC now normalized. Procal not elevated. Lactate was elevated to 2.3 on admission, has since normalized 1.8 -Patient continues to be afebrile -now on Amoxicillin 500mg PO q8h since 07/27 for an addition 5 days for a total of 10 days of Abx treatment-last day of tx will be 08/01 -Suprapubic catheter replaced 07/24 by urology -Urology recommended to continue with monthly catheter exchanges with Home Health (3) Dementia: Plan: Followed previously with Neurology Has bifrontal encephalomalacia on MRI and CT head -Continue frequent orientation -gets forgetful at times as per daughter at baseline-doesn't usually know the year -B1 level pending and started empiric thiamine supplementation (4) Type II diabetes mellitus: Plan: - history of - A1c 6.7 in 08/2020 - not on any home medications for this - blood sugars here appear acceptable; would hold off on adding insulin - continue daily baby ASA - patient not on a statin or LANDON/ARB - follow up with PCP for this issue - carb consistent diet (5) Systolic ejection murmur: Plan: - Systolic ejection murmur noted on physical exam on admission but I do not auscultate this now - suspect functional due to acute illness vs. aortic valve pathology - If it reduces after acute infection is treated, it would suggest the former. Echo as an outpatient would be suggested (6) BPH (benign prostatic hyperplasia): Plan: now with chronic SP cath Plan Dvt ppx: Lovenox Dispo: Med/Surg, medically stable for discharge, awaiting SNF placement Code: Full Discussed his care with daughter Hailey on phone on 07/28 and 07/29 Admission and Anticipated Discharge Date Admission Date: July 23, 2022 Subjective Pt feels well, no complaints. Denies pain anywhere, is eating. No issues as per RN. Review of Systems Review of Systems: All systems reviewed & are unremarkable except as noted in HPI & below Physical Exam Constitutional: WD/WN, vitals as above Eyes: + anicteric sclerae Neck: trachea midline, no thyromegaly Respiratory: normal respiratory effort, lungs clear to auscultation Cardiovascular: RRR, no murmur, no edema Chest (Breasts): Chest: normal inspection of chest Gastrointestinal (Abdomen): normal bowel sounds, soft, nontender, no hepatosplenomegaly Musculoskeletal: Extremities: + extremities abnormal to inspection (sarcopenia), no cyanosis and no clubbing Skin: no rashes, warm and dry Neurologic: moves all extremities and awake; no focal motor deficits Psychiatric: Orientation: alert, oriented to person, oriented to place and cooperative Lymphatic: no lymphedema Results & Data Results & Data ([facility]) Vital Signs (Past 12 Hours) Vital Signs Temp Pulse Resp BP Pulse Ox O2 Del Method 07/29/22 07:26 36.5 C 52 L 16 160/77 H 96 Room Air Laboratory Results 07/29/22 07/29/22 07/29/22 Range/Units 07:56 07:56 07:56 WBC (4.8-10.8) K/ul RBC (4.63-6.08) M/uL Hgb (14.0-18.0) g/dl Hct (40.1-51.0) % MCV (80.0-100.0) fL MCH (25.0-34.0) pg MCHC (32.0-36.0) g/dL RDW Std Deviation (36.4-46.3) fL RDW Coeff of Maggie (11.5-14.5) % Plt Count (130-400) K/uL MPV (9.4-12.4) fL Immature Gran % (Auto) % Neut % (Auto) % Lymph % (Auto) % Erath % (Auto) % Eos % (Auto) % Baso % (Auto) % Neut # (Auto) (1.4-6.5) K/uL Lymph # (Auto) (1.2-3.4) K/uL Erath # (Auto) (0.24-0.82) K/uL Eos # (Auto) (0-0.50) K/uL Baso # (Auto) (0-0.2) K/uL Immature Gran # (Auto) (0.00-0.02) K/uL Sodium 139 (136-145) mmol/L Potassium 3.7 (3.5-5.1) mmol/L Chloride 109 H (98-107) mmol/L Carbon Dioxide 25 (21-32) mmol/L Anion Gap 5 (3-11) BUN 14 (6-23) mg/dl Creatinine 0.87 (0.6-1.4) mg/dl Est Cr Clr Drug Dosing 68.2 ml/min Est GFR ( Amer) 95.8 ml/min Est GFR (Non-Af Amer) 82.7 ml/min BUN/Creatinine Ratio 16.1 (10-20) Glucose 115 H (70-99(Fasting)) mg/dl Calcium 8.7 (8.5-10.1) mg/dl Whole Bld Vitamin B1 Pending Vitamin B12 1013 H (180-914) pg/ml 07/29/22 Range/Units 07:56 WBC 8.21 (4.8-10.8) K/ul RBC 4.96 (4.63-6.08) M/uL Hgb 14.8 (14.0-18.0) g/dl Hct 43.3 (40.1-51.0) % MCV 87.3 (80.0-100.0) fL MCH 29.8 (25.0-34.0) pg MCHC 34.2 (32.0-36.0) g/dL RDW Std Deviation 42.2 (36.4-46.3) fL RDW Coeff of Maggie 13.3 (11.5-14.5) % Plt Count 214 (130-400) K/uL MPV 10.3 (9.4-12.4) fL Immature Gran % (Auto) 0.4 % Neut % (Auto) 55.6 % Lymph % (Auto) 32.6 % Erath % (Auto) 5.6 % Eos % (Auto) 5.2 % Baso % (Auto) 0.6 % Neut # (Auto) 4.56 (1.4-6.5) K/uL Lymph # (Auto) 2.68 (1.2-3.4) K/uL Erath # (Auto) 0.46 (0.24-0.82) K/uL Eos # (Auto) 0.43 (0-0.50) K/uL Baso # (Auto) 0.05 (0-0.2) K/uL Immature Gran # (Auto) 0.03 H (0.00-0.02) K/uL Sodium (136-145) mmol/L Potassium (3.5-5.1) mmol/L Chloride (98-107) mmol/L Carbon Dioxide (21-32) mmol/L Anion Gap (3-11) BUN (6-23) mg/dl Creatinine (0.6-1.4) mg/dl Est Cr Clr Drug Dosing ml/min Est GFR ( Amer) ml/min Est GFR (Non-Af Amer) ml/min BUN/Creatinine Ratio (10-20) Glucose (70-99(Fasting)) mg/dl Calcium (8.5-10.1) mg/dl Whole Bld Vitamin B1 Vitamin B12 (180-914) pg/ml PG Care Time/CCT Total # of Minutes Spent Total Time Spent with Patient: Total time spent is greater than 50% in coordination of care (as documented) at patient's floor/unit and/or counseling patient: Coding Level of Care Code 97257 Subseq Hosp Care Lvl 2 Diagnoses Acute metabolic encephalopathy G93.41 Catheter-associated urinary tract infection T83.511A; N39.0 Encounter type: initial encounter Indwelling urinary catheter type: unspecified Dementia F03.90 Dementia type: Lewy body dementia Dementia behavioral disturbance: without behavioral disturbance Type II diabetes mellitus E11.9 Systolic ejection murmur R01.1 BPH (benign prostatic hyperplasia) N40.0 Lower urinary tract symptom presence: unspecified whether lower urinary tract symptoms present (1) Catheter-associated urinary tract infection Encounter type: initial encounter Indwelling urinary catheter type: unspecified Qualified Code(s): T83.511A - Infection and inflammatory reaction due to indwelling urethral catheter, initial encounter; N39.0 - Urinary tract infection, site not specified (2) Dementia Dementia type: Lewy body dementia Dementia behavioral disturbance: without behavioral disturbance (3) BPH (benign prostatic hyperplasia) Lower urinary tract symptom presence: unspecified whether lower urinary tract symptoms present Qualified Code(s): N40.0 - Benign prostatic hyperplasia without lower urinary tract symptoms
[2022-07-29] MEDS: MELATONIN 3 MG TAB PO SCH (21:23)
[2022-07-29] MEDS: ASPIRIN 81 MG ECTAB PO SCH (21:23)
[2022-07-29] MEDS: QUEtiapine FUMARATE 25 MG TABLET PO SCH (21:23)
[2022-07-30] MEDS: AMOXICILLIN 500 MG CAP PO SCH ×3 (11:19→19:15)
[2022-07-30] MEDS: ENOXAPARIN INJ 40 MG/0.4 ML SYR SQ SCH (11:20)
[2022-07-30] MEDS: THIAMINE HCL 100 MG TAB PO SCH (11:20)
--- NOTE | 2022-07-30 17:23 | Hospitalist Progress Note ---
Date of Service July 30, 2022 Assessment & Plan (1) Acute metabolic encephalopathy: Plan: Pt is a 77yo male admitted with confusion, possibly slurred speech in the setting of dementia. Has a h/o encephalopathy recurrent especially with UTIs and other infections CT Head, CTA head/neck negative for acute issues, does have old frontal insults/encephalomalacia With UTI evidence as below TSH normal, electrolytes normal, no fever -improving with treatment of UTI -B12 greater than thousand, B1 pending, is on empiric thiamine supplementation. -RPR and Lyme previously negative -ensure proper sleep as he has chronic issues with this-increased melatonin to home dose of 9mg hs, continue Seroquel home dose, open the blinds during daylight. (2) Catheter-associated urinary tract infection: Plan: Patient follows with urology as an outpatient. Has monthly SP cath exchanges Urine culture reveals Enterococcus faecalis and Aviva albicans which is pansensitive. Patient initially started on Zosyn and then converted to ampicillin 2 g every 6 hours as IV. -WBC now normalized. Procal not elevated. Lactate was elevated to 2.3 on admission, has since normalized 1.8 -Patient continues to be afebrile -now on Amoxicillin 500mg PO q8h since 07/27 for an addition 5 days for a total of 10 days of Abx treatment-last day of tx will be 08/01 -Suprapubic catheter replaced 07/24 by urology -Urology recommended to continue with monthly catheter exchanges with Home Health -No change in this plan today (3) Dementia: Plan: Followed previously with Neurology Has bifrontal encephalomalacia on MRI and CT head -Continue frequent orientation -gets forgetful at times as per daughter at baseline-doesn't usually know the year, today is more confused about where he is as well. -B1 level pending and started empiric thiamine supplementation (4) Type II diabetes mellitus: Plan: - history of - A1c 6.7 in 08/2020 - not on any home medications for this - blood sugars have been reasonable, no insulin needed at this time - continue daily baby ASA - patient not on a statin or LANDON/ARB - follow up with PCP for this issue - carb consistent diet (5) Systolic ejection murmur: Plan: - Systolic ejection murmur noted on physical exam on admission but I do not auscultate this now - suspect functional due to acute illness vs. aortic valve pathology - If it reduces after acute infection is treated, it would suggest the former. Echo as an outpatient would be suggested (6) BPH (benign prostatic hyperplasia): Plan: now with chronic SP cath Plan Dvt ppx: Lovenox Dispo: Med/Surg, medically stable for discharge, awaiting SNF placement Code: Full prior hospitalist discussed his care with daughter Hailey on phone on 07/28 and 07/29, no new updates today given at this point pending placement, but none available today Admission and Anticipated Discharge Date Admission Date: July 23, 2022 Subjective Confused, expresses that he does not know where he is. No physical complaints. Review of Systems Review of Systems: Unobtainable due to cognitive status Physical Exam Physical Exam: In general he is awake and alert but disoriented. No physical distress. HEENT normocephalic atraumatic mucous membranes moist. Cardio regular with systolic murmur. Lungs clear no rales rhonchi or wheezes. Skin without rashes pallor or icterus. Neuro without focal deficits or lateralizing signs. Results & Data Results & Data ([facility]) Vital Signs (Past 12 Hours) Vital Signs Temp Pulse Resp BP Pulse Ox O2 Del Method 07/30/22 15:37 97.9 F 70 16 136/82 93 Room Air 07/30/22 08:06 97.9 F 68 16 146/84 H 93 Room Air PG Care Time/CCT Total # of Minutes Spent Total Time Spent with Patient: Total time spent is greater than 50% in coordination of care (as documented) at patient's floor/unit and/or counseling patient: Coding Level of Care Code 59039 Subseq Hosp Care Lvl 2 Diagnoses Acute metabolic encephalopathy G93.41 Catheter-associated urinary tract infection T83.511A; N39.0 Encounter type: initial encounter Indwelling urinary catheter type: unspecified Dementia F03.90 Dementia type: Lewy body dementia Dementia behavioral disturbance: without behavioral disturbance Type II diabetes mellitus E11.9 Systolic ejection murmur R01.1 BPH (benign prostatic hyperplasia) N40.0 Lower urinary tract symptom presence: unspecified whether lower urinary tract symptoms present (1) Catheter-associated urinary tract infection Encounter type: initial encounter Indwelling urinary catheter type: unspecified Qualified Code(s): T83.511A - Infection and inflammatory reaction due to indwelling urethral catheter, initial encounter; N39.0 - Urinary tract infection, site not specified (2) Dementia Dementia type: Lewy body dementia Dementia behavioral disturbance: without behavioral disturbance (3) BPH (benign prostatic hyperplasia) Lower urinary tract symptom presence: unspecified whether lower urinary tract symptoms present Qualified Code(s): N40.0 - Benign prostatic hyperplasia without lower urinary tract symptoms
[2022-07-30] MEDS: ASPIRIN 81 MG ECTAB PO SCH (19:14)
[2022-07-30] MEDS: MELATONIN 3 MG TAB PO SCH (19:15)
[2022-07-30] MEDS: QUEtiapine FUMARATE 25 MG TABLET PO SCH (20:59)
[2022-07-31] MEDS: AMOXICILLIN 500 MG CAP PO SCH ×3 (07:30→20:30)
[2022-07-31] MEDS: THIAMINE HCL 100 MG TAB PO SCH (07:30)
[2022-07-31] MEDS: ENOXAPARIN INJ 40 MG/0.4 ML SYR SQ SCH (07:31)
--- NOTE | 2022-07-31 18:26 | Hospitalist Progress Note ---
Date of Service July 31, 2022 Assessment & Plan (1) Acute metabolic encephalopathy: Plan: Pt is a 77yo male admitted with confusion, possibly slurred speech in the setting of dementia. Has a h/o encephalopathy recurrent especially with UTIs and other infections CT Head, CTA head/neck negative for acute issues, does have old frontal insults/encephalomalacia With UTI evidence as below TSH normal, electrolytes normal, no fever -improving with treatment of UTI -B12 greater than thousand, B1 pending, is on empiric thiamine supplementation. -RPR and Lyme previously negative -ensure proper sleep as he has chronic issues with this-increased melatonin to home dose of 9mg hs, continue Seroquel home dose, open the blinds during daylight. (2) Catheter-associated urinary tract infection: Plan: Patient follows with urology as an outpatient. Has monthly SP cath exchanges Urine culture reveals Enterococcus faecalis and Aviva albicans which is pansensitive. Patient initially started on Zosyn and then converted to ampicillin 2 g every 6 hours as IV. -WBC now normalized. Procal not elevated. Lactate was elevated to 2.3 on admission, has since normalized 1.8 -Patient continues to be afebrile -now on Amoxicillin 500mg PO q8h since 07/27 for an addition 5 days for a total of 10 days of Abx treatment-last day of tx will be 08/01 -Suprapubic catheter replaced 07/24 by urology -Urology recommended to continue with monthly catheter exchanges with Home Health -No change in this plan today (3) Dementia: Plan: Followed previously with Neurology Has bifrontal encephalomalacia on MRI and CT head -Continue frequent orientation -gets forgetful at times as per daughter at baseline-doesn't usually know the year, today is more confused about where he is as well. -B1 level pending and started empiric thiamine supplementation (4) Type II diabetes mellitus: Plan: - history of - A1c 6.7 in 08/2020 - not on any home medications for this - blood sugars have been reasonable, no insulin needed at this time - continue daily baby ASA - patient not on a statin or LANDON/ARB - follow up with PCP for this issue - carb consistent diet (5) Systolic ejection murmur: Plan: - Systolic ejection murmur noted on physical exam on admission but I do not auscultate this now - suspect functional due to acute illness vs. aortic valve pathology - If it reduces after acute infection is treated, it would suggest the former. Echo as an outpatient would be suggested (6) BPH (benign prostatic hyperplasia): Plan: now with chronic SP cath Plan Dvt ppx: Lovenox Dispo: Med/Surg, medically stable for discharge, awaiting SNF placement--referral sent out to [facility] and [facility]. Pending. Code: Full Admission and Anticipated Discharge Date Admission Date: July 23, 2022 Subjective Feels ok. No complaints today. Review of Systems Review of Systems: per HPI. Physical Exam Constitutional: WD/WN, vitals as above Eyes: PERRL, conjunctivae normal, anicteric sclerae Cardiovascular: Rate/Rhythm: regular rate Heart Sounds: normal S1 and normal S2 Neurologic: moves all extremities Results & Data Results & Data ([facility]) Vital Signs (Past 12 Hours) Vital Signs Temp Pulse Resp BP Pulse Ox O2 Del Method 07/31/22 15:27 36.5 C 88 18 165/71 H 95 Room Air 07/31/22 07:30 36.6 C 63 16 136/76 95 Room Air (1) Catheter-associated urinary tract infection Encounter type: initial encounter Indwelling urinary catheter type: unspecified Qualified Code(s): T83.511A - Infection and inflammatory reaction due to indwelling urethral catheter, initial encounter; N39.0 - Urinary tract infection, site not specified (2) Dementia Dementia type: Lewy body dementia Dementia behavioral disturbance: without behavioral disturbance (3) BPH (benign prostatic hyperplasia) Lower urinary tract symptom presence: unspecified whether lower urinary tract symptoms present Qualified Code(s): N40.0 - Benign prostatic hyperplasia without lower urinary tract symptoms
[2022-07-31] MEDS: MELATONIN 3 MG TAB PO SCH (20:29)
[2022-07-31] MEDS: ASPIRIN 81 MG ECTAB PO SCH (20:30)
[2022-07-31] MEDS: QUEtiapine FUMARATE 25 MG TABLET PO SCH (20:30)
--- NOTE | 2022-08-01 08:10 | Discharge Summary ---
Date of Service August 01, 2022 Admission HPI Per Admitting Provider David Forrest is a 77yo male with history of BPH, HTN and Dementia, suprapubic catheter in place with frequent UTIs presenting with confusion. Patient had a UTI two weeks ago and completed treatment with Doxycycline and Macrobid. His catheter was not changed. Patient presents with confusion and slightly slurred speech. No report fever, chills, abdominal pain, chest pain, cough, SOB. Patient with no complaints presently. In the Er he is afebrile, tachycardic, otherwise HD stable ER Course: Zosyn Admission Exam Per Admitting Provider General: patient resting comfortably, NAD, non-toxic in appearance, oriented to self Skin: warm, dry, intact, no rashes or lesions HEENT: NC/AT, PERRL, EOMI, anicteric sclera, conjunctiva without injection, external ear normal to inspection and nontender, nares patent, moist mucus membranes, dentition intact, no oropharyngeal lesions, neck supple, trachea midline, no LAD, no thyromegaly, no JVD Heart: +S1/S2, regular, tachycardic, no m/r/g Lungs: equal air entry bilaterally, no rales/rhonchi/wheezes Abd: +BS, soft, NT/ND, no masses/organomegaly/ascites Ext: warm, 2+ pulses in UE/LE bilaterally, no clubbing/cyanosis or edema, foot deformity bilaterally Neuro: nonfocal, patient AA&O x 4, speech intact, no facial droop, moving all extremities on command with equal strength 5/5 Principal Diagnosis acute metabolic encephalopathy due to catheter associated urinary tract infection Discharge Exam Constitutional WD/WN, vitals as above Eyes PERRL, conjunctivae normal, anicteric sclerae Cardiovascular Rate/Rhythm: regular rate Heart Sounds: normal S1 and normal S2 Neurologic moves all extremities Discharge Data Allergies Allergy/AdvReac Type Severity Reaction Status Date / Time sulfamethoxazole AdvReac Mild lip Verified 01/19/22 16:16 [From Bactrim] swelling trimethoprim [From Bactrim] AdvReac Mild lip Verified 01/19/22 16:16 swelling Consultations 07/23/22 00:23 ED Decision to Admit Stat 07/23/22 11:02 Consult Urology Routine Ordered Studies 07/22/22 22:32 CT head/brain wo con Stat 07/22/22 22:45 CT angio head w con Stat CT angio neck with con Stat Hospital Course (1) Acute metabolic encephalopathy: Pt is a 77yo male admitted with confusion, possibly slurred speech in the setting of dementia. Has a h/o encephalopathy recurrent especially with UTIs and other infections CT Head, CTA head/neck negative for acute issues, does have old frontal insults/encephalomalacia With UTI evidence as below TSH normal, electrolytes normal, no fever -improving with treatment of UTI -B12 greater than thousand, B1 pending, is on empiric thiamine supplementation. -RPR and Lyme previously negative -ensure proper sleep as he has chronic issues with this-increased melatonin to home dose of 9mg hs, continue Seroquel home dose, open the blinds during daylight. (2) Catheter-associated urinary tract infection: Patient follows with urology as an outpatient. Has monthly SP cath exchanges Urine culture reveals Enterococcus faecalis and Aviva albicans which is pansensitive. Patient initially started on Zosyn and then converted to ampicillin 2 g every 6 hours as IV. -WBC now normalized. Procal not elevated. Lactate was elevated to 2.3 on admission, has since normalized 1.8 -Patient continues to be afebrile -now on Amoxicillin 500mg PO q8h since 07/27 for an addition 5 days for a total of 10 days of Abx treatment-last day of tx will be 08/01 -Suprapubic catheter replaced 07/24 by urology -Urology recommended to continue with monthly catheter exchanges with Home Health -No change in this plan today (3) Dementia: Followed previously with Neurology Has bifrontal encephalomalacia on MRI and CT head -Continue frequent orientation -gets forgetful at times as per daughter at baseline-doesn't usually know the year, today is more confused about where he is as well. -B1 level pending and started empiric thiamine supplementation (4) Type II diabetes mellitus: - history of - A1c 6.7 in 08/2020 - not on any home medications for this - blood sugars have been reasonable, no insulin needed at this time - continue daily baby ASA - patient not on a statin or LANDON/ARB - follow up with PCP for this issue - carb consistent diet (5) Systolic ejection murmur: - Systolic ejection murmur noted on physical exam on admission but I do not auscultate this now - suspect functional due to acute illness vs. aortic valve pathology - If it reduces after acute infection is treated, it would suggest the former. Echo as an outpatient would be suggested (6) BPH (benign prostatic hyperplasia): now with chronic SP cath Plan Discharge to [facility] today. Total Time Total Time Spent Total Time Spent (In Minutes): 35 minutes Discharge Plan Discharge Items Patient Disposition: Transfer [facility] Fac Reason For Visit: UTI, CONFUSION Discharge Diagnosis: acute metabolic encephalopathy due to catheter associated urinary tract infection Activity: Resume your previous activity Non-emergency contact: Primary Care Provider and Urologist Call non-emergency contact if: you have any medication questions, your symptoms worsen and your temperature is above 101.5 Follow-up/Referrals: Davonte Jackson MD [Primary Care Provider] - Diet: Carb Consistent or DM2 Addtl Attending Provider Instructions: You were admitted to the hospital because you were confused. You were found to have a urinary tract infection from your suprapubic catheter. The urine culture grew out a bacteria called Enterococcus faecalis. You were intially on IV antibiotics but are currently on oral amoxicillin 500mg TID. Your last day of antibiotics is today, August 01. A prescription for the remaining doses will be given to you at [facility]. The suprapubic catheter was changed on July 24 by the urologist during your hospital stay. Your other chronic medical conditions were stable and all of your home medications were continued while you were in the hospital. Pending Studies at Discharge: No Stand-Alone Forms: My [facility] Skilled Items Patient informed of condition?: Yes DNR: No Discharge Level of Care: Skilled Communicable Disease: No Discharge Prognosis: Improving Lines: None Urinary Catheter: Yes Medications and DC Order Prescriptions: New polyethylene glycol 3350 17 gram/dose powder 17 g PO DAILY PRN (Reason: constipation) Qty: 119 0RF thiamine HCl (vitamin B1) 100 mg Tablet 100 mg PO QAM Qty: 14 0RF amoxicillin 500 mg capsule 500 mg PO TID 1 Days Qty: 3 0RF Continued aspirin 81 mg tablet,delayed release (DR/EC) 81 mg PO HS quetiapine 50 mg tablet 50 mg PO HS cholecalciferol (vitamin D3) [Vitamin D3] 125 mcg (5,000 unit) Tablet 125 mcg PO HS melatonin 10 mg Tablet 10 mg PO HS cyanocobalamin (vitamin B-12) [Vitamin B-12] 5,000 mcg Tablet, Sublingual 5,000 mcg SUBLINGUAL WK Rx Instructions: TAKES ON SATURDAYS ONLY. Discharge Orders: Discharge Order (Routine); Ordered 08/01/22 Ordered By: Esvin Johnson Admission Data Admit Date/Time: 07/23/22 00:53 Attending Provider: Esvin Johnson Admit Provider: Zenaida Hess Primary Care Provider: Davonte Jackson Other Providers: Zenaida Hess ; Terry Pennington ; Edward Bowden ; [facility] ; Mamta Groves ; [facility] Other Interventions: Discharge Summary Assessment (RN) Last Done: 08/01/22 11:20
[2022-08-01] MEDS: ENOXAPARIN INJ 40 MG/0.4 ML SYR SQ SCH (08:25)
[2022-08-01] MEDS: THIAMINE HCL 100 MG TAB PO SCH (08:26)
[2022-08-01] MEDS: AMOXICILLIN 500 MG CAP PO SCH ×2 (08:26→14:52)
[2022-08-01] MEDS ORDERED: POLYETHYLENE (MIRALAX) 17 GM PACK PO PRN (08:42)
== END 2022-08-01 15:58 | DRG 698 ==
LOC: ED 22:14 → SUATTDRO 07-23 00:53 → 3W 07-23 00:53
DX: Z96.641 Presence of right artificial hip joint; Y92.019 Unspecified place in single-family (private) house as the place of occurrence of the external cause; Z93.59 Other cystostomy status; Z86.16 Personal history of COVID-19; Y81.2 Prosthetic and other implants, materials and accessory general- and plastic-surgery devices associated with adverse incidents; R47.81 Slurred speech; Z93.1 Gastrostomy status; B95.2 Enterococcus as the cause of diseases classified elsewhere; T83.518A Infection and inflammatory reaction due to other urinary catheter, initial encounter; Z87.891 Personal history of nicotine dependence; Z79.82 Long term (current) use of aspirin; F03.90 Unspecified dementia, unspecified severity, without behavioral disturbance, psychotic disturbance, mood disturbance, and anxiety; G93.41 Metabolic encephalopathy; I10 Essential (primary) hypertension; N39.0 Urinary tract infection, site not specified; Z87.440 Personal history of urinary (tract) infections; E11.9 Type 2 diabetes mellitus without complications

== ENCOUNTER 2022-08-22 20:52 | Inpatient (IN) ==
[2022-08-22 21:53] LABS: Basophils # (auto) 0.05 K/uL (0-0.2); Basophils % (auto) 0.6 %; Eosinophils # (auto) 0.33 K/uL (0-0.50); Eosinophils % (auto) 3.7 %; Hematocrit (blood only) 48.5 % (40.1-51.0); Hemoglobin 16.4 g/dl (14.0-18.0); Immature Granulocytes # (auto) 0.03 K/uL (0.00-0.02); Immature Granulocytes % (auto) 0.3 %; Lymphocytes % (auto) 34.4 %; Mean Corpuscular Hemoglobin 30.1 pg (25.0-34.0); Mean Corpuscular Hgb Conc 33.8 g/dL (32.0-36.0); Mean Corpuscular Volume 89.2 fL (80.0-100.0); Mean Platelet Volume 11.1 fL (9.4-12.4); Monocytes # (auto) 0.65 K/uL (0.24-0.82); Monocytes % (auto) 7.2 %; Neutrophils # (auto) 4.84 K/uL (1.4-6.5); Neutrophils % (auto) 53.8 %; Platelet Count 218 K/uL (130-400); RDW Coefficient of Variation 13.2 % (11.5-14.5); RDW Standard Deviation 43.4 fL (36.4-46.3); Red Blood Count 5.44 M/uL (4.63-6.08)
[2022-08-22] MEDS ORDERED: cefTRIAXone SODIUM 2,000 MG/70 ML BAG IV STA (22:04)
[2022-08-22 22:30] LABS: Troponin I High Sensitivity 4.2 pg/ml (0-20)
[2022-08-22 22:32] LABS: Albumin Level 4.2 gm/dl (3.4-5.0); BUN Creatinine Ratio 12.2 (10-20); Bilirubin,Total 0.3 mg/dl (0.2-1.0); Calcium 9.7 mg/dl (8.5-10.1); Creatinine Clr Calc Pharmacy 65.3 ml/min; Est GFR (African American) 94.5 ml/min; Est GFR (Non-African American) 81.5 ml/min; Magnesium 1.9 mg/dl (1.7-2.4); Potassium 3.9 mmol/L (3.5-5.1); Total Protein 7.6 gm/dl (6.0-8.3)
--- NOTE | 2022-08-22 23:03 | CT Scan Report ---
CT SCAN OF THE BRAIN WITHOUT IV CONTRAST CLINICAL HISTORY: Change in mental status. COMPARISON STUDY: CT of the brain dated 07/22/2022. TECHNIQUE: Unenhanced axial CT scan of the brain is performed from the vertex to the skull base. A d ose lowering technique was utilized adhering to the principles of ALARA. The examination is severely degraded by streak artifact from metallic plates. 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 Foci of bifrontal encephalomalacia are consistent with re mote insults. There is no evidence of hemorrhage, mass effect, or acute territorial ischemia by CT cr iteria. Note that streak artifact largely obscures the upper brain. [place]-white matter differentiation is preserved. No extra-axial fluid collection is seen. Ventricles, sulci, cisterns: Prominent secondary to involutional change. Intracranial vasculature: There is atherosclerotic calcification of the cavernous carotid arteries. Calvarium: There is evidence of bilateral craniotomy with metallic plates in place. Sinuses and mastoids: The visualized paranasal sinuses are clear. The mastoid air cells are well pneu matized. Orbits: The bony orbits are grossly intact. IMPRESSION: There is no evidence of hemorrhage, mass effect, or acute territorial ischemia noting sig nificant streak artifact on the examination. ACT 112: Negative or not required by law. Electronically signed by: Jake Vaughn M.D. 08/22/2022 11:01 PM
--- NOTE | 2022-08-22 23:09 | XRay Report ---
SINGLE VIEW CHEST CLINICAL HISTORY: Sepsis. FINDINGS: 2 AP, portable, upright chest radiographs are compared to study dated 07/22/2022. The heart is enlarged. The pulmonary vasculature is noncontrast. There are low lung volumes with bibasilar ate lectasis. No airspace consolidation or large pleural effusion is identified. No pneumothorax is seen. The skeletal structures are osteopenic. Bony thorax is grossly intact. IMPRESSION: No acute cardiopulmonary abnormality. ACT 112: Negative or not required by law. Electronically signed by: Jake Vaughn M.D. 08/22/2022 11:08 PM
[2022-08-22 23:41] LABS: Appearance Urine Clear (Clear); Bilirubin Urine Negative (Negative); Blood Urine Negative (Negative); Color Urine Yellow; Glucose Urine UA Negative (Negative); Ketones Urine Negative (Negative); Leukocyte Esterase Urine Negative (Negative); Nitrite Urine Negative (Negative); Protein Urine Negative (Negative); Specific Gravity Urine 1.014 (1.000-1.030); Urobilinogen Urine Negative (Negative); pH Urine 5.5 (4.5-7.5)
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
[2022-08-23] MEDS ORDERED: VANCOMYCIN CONSULT ACTIVE PRN (04:04)
[2022-08-23] MEDS ORDERED: ALUMINUM/MAGNESIUM SUSP 30 ML UDC PO PRN (04:29)
[2022-08-23] MEDS ORDERED: ONDANSETRON INJ 2 MG/ML 2 ML VIAL IV PRN (04:29)
[2022-08-23] MEDS ORDERED: VANCOMYCIN HCL 1,500 MG in SODIUM CHLORIDE 0.9% 500 ML IV ONE ×2 (04:30→06:00)
[2022-08-23 06:22] LABS: Basophils # (auto) 0.05 K/uL (0-0.2); Basophils % (auto) 0.5 %; Eosinophils # (auto) 0.25 K/uL (0-0.50); Eosinophils % (auto) 2.5 %; Hematocrit (blood only) 45.1 % (40.1-51.0); Hemoglobin 15.4 g/dl (14.0-18.0); Immature Granulocytes # (auto) 0.04 K/uL (0.00-0.02); Immature Granulocytes % (auto) 0.4 %; Lymphocytes # (auto) 3.24 K/uL (1.2-3.4); Mean Corpuscular Hemoglobin 29.9 pg (25.0-34.0); Mean Corpuscular Hgb Conc 34.1 g/dL (32.0-36.0); Mean Corpuscular Volume 87.6 fL (80.0-100.0); Mean Platelet Volume 10.9 fL (9.4-12.4); Monocytes # (auto) 0.67 K/uL (0.24-0.82); Monocytes % (auto) 6.6 %; Neutrophils # (auto) 5.88 K/uL (1.4-6.5); Platelet Count 201 K/uL (130-400); RDW Standard Deviation 41.9 fL (36.4-46.3); Red Blood Count 5.15 M/uL (4.63-6.08); White Blood Count 10.13 K/ul (4.8-10.8)
[2022-08-23 06:52] LABS: Bilirubin,Total 0.4 mg/dl (0.2-1.0); Potassium 4.1 mmol/L (3.5-5.1)
[2022-08-23 06:58] LABS: Albumin Globulin Ratio 1.3 (0.9-2); BUN Creatinine Ratio 11.4 (10-20); Creatinine Clr Calc Pharmacy 66.8 ml/min; Est GFR (African American) 95.4 ml/min; Est GFR (Non-African American) 82.3 ml/min; Globulin 3.1 gm/dl (2.5-4.0); Total Protein 7.1 gm/dl (6.0-8.3)
--- NOTE | 2022-08-23 07:19 | XRay Report ---
XR foot LT min 3V routine HISTORY: 77 years-old Male left great tor/foot infx acute pain of the left great toe with reported s oft tissue infection COMPARISON: Foot radiographs 03/11/2021 TECHNIQUE: 3 views of the left foot FINDINGS: Demineralized appearance of the bones. Arterial calcifications. 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 Advanced joint space narrowing with sclerosis, bridgin g osteophytes and partial bony fusion throughout the foot and ankle. Healed chronic fracture involvin g the base of the fifth proximal phalanx. No acute fracture, dislocation or osseous erosion identifie d. Soft tissue swelling of the first digit. IMPRESSION: 1. No acute osseous abnormality identified. 2. Chronic findings as above. ACT 112: Negative or not required by law. The above report was generated using voice recognition software. It may contain grammatical, syntax o r spelling errors. Electronically signed by: Tae Jama M.D. 08/23/2022 7:17 AM
[2022-08-23] MEDS: metroNIDAZOLE 500 MG/100 ML BAG IV SCH ×2 (09:59→18:34)
--- NOTE | 2022-08-23 10:10 | Magnetic Resonance Report ---
MR foot LT w/o con CLINICAL HISTORY: assess for osteomyelitis . Erythema in left great toe. TECHNIQUE: Multisequence, multiplanar MR images of the left foot were obtained without contrast COMPARISON: Comparison is made to MRI left foot 12/19/2018 and left foot radiograph 08/12/2022 FINDINGS: Patient is status post amputation of the fourth digit at the level of the mid metatarsal diaphysis. T here is mild edema in the distal aspect of the first digit proximal phalanx. There is mild surroundin g soft tissue edema and questionable susceptibility artifact. Extensive degenerative changes and defo rmities in the bones of the foot including bony destruction of multiple midfoot joints, tibiotalar ar ticulation, and deformities of the interphalangeal joints. IMPRESSION: Likely mild osteomyelitis with surrounding cellulitis at the first digit proximal phalanx. ACT 112: Negative or not required by law. Electronically signed by: Gaurav Stinson M.D. 08/23/2022 10:09 AM
--- NOTE | 2022-08-23 10:26 | Pharmacy Report ---
Pharmacy PK ABX Note - Date of Service August 23, 2022 - Assessment and Plan Assessment 77 year old M receiving Metronidazole IV, Rocephin and Vancomycin for treatment of Left foot cellulitis (s/p amputation of 4th digit). Pertinent microbiologic data includes: Blood cultures still pending. Day # 1 of antimicrobial therapy. Plan Vancomycin * Loading dose: 1500 mg IV x 1 * Maintenance dose: 1500 mg IV every 24 hours * Regimen is predicted to achieve target AUC/JACQUES of 400-600 mg/L.hr Pharmacy will continue to follow and will adjust dose/frequency as necessary. Thank you. Pharmacy has transitioned to AUC monitoring for vancomycin. AUC/JACQUES is the preferred PK/PD target and is associated with decreased risk of nephrotoxicity compared to traditional trough targets.
--- NOTE | 2022-08-23 11:55 | Hospitalist Progress Note ---
Date of Service August 23, 2022 Assessment & Plan (1) Cellulitis of foot, left: Plan: Paitient with reported history of DM II but on no medications and with ulceration to his left great toe- admitted for abx and rule out osteo - MRI completed with interpretations of "mild osteomyelitis - ABX coverage - Rocephin 2GM, Vancomycin, and Flagyl added as Diabetic - blood cultures pending, no purulence drainage noted and superficial appearance- wound culture not obtained - Orthopaedics consult appreciated - Consider ID consultation for prolonged coverage following orthopaedics evaluation ? biopsy/surgical need - Wound consultation placed - could trend CRP/ESR within 72 hours - No evidence of sepsis- no organ dysfunction, lactate negative, PCT 0.06 (2) Metabolic encephalopathy: Plan: Resolved- patient improved this morning- remains baseline slow as he has dementia - oriented and able to participate in ROS and exam (3) Hypertension: Plan: Elevated blood pressure on admission without diagnosis of hypertension is not on any medications or treatment as outpatient resolved following IVF and antibiotics UA is without protein or blood continue to follow (4) Suprapubic catheter: Plan: chronic indwelling catheter with history of MDRO organisms draining clear yellow urine and negative UA on admission no acute needs (5) Type II diabetes mellitus: Plan: Patient states that he does not have DM- however his A1C is 6.7 BG aspart sliding scale carb consistent diet (6) Catheter-associated urinary tract infection: Plan: Hisory of- not an acute issue- UA negative Admission and Anticipated Discharge Date Admission Date: August 23, 2022 Supervising Physician Co-Signing Physician Notes Attending Attestation - Chart reviewed, care plan d/w MUNIRA Hou. I agree w/ the veliz components of his documentation. Teofilo Nix MD Subjective Patient is HD #1 following admission for metabolic encephalopathy in setting of concern of cellulitis/osteomyelitis of left great toe. Patient is with baseline Dementia so is questionable historian. His mentation is imrpoved this morning. He reports chronicity of problem of left foot that has had previous surgical care done. He feels that this ulceration has worsened over the past few weeks. He does not fell he has seen wound care in some time, but reports home health evaluating. He remains with chronic Moncada catheter as well. Overall unsure of chronicity of this wound and osteomyelitis. MRI interpreted as mild. PCT, Lacate negative and no organ dysfunction. Ortho consultation for evaluation/biopsy. ID consultation consideration following orthopaedics evaluation for antibiotic course. Review of Systems Review of Systems: REVIEW OF SYSTEMS: Constitutional: No fever, sweats or chills Eyes: No diplopia, no worsening or blurred vision ENT: normal hearing, no trouble swallowing Respiratory: No cough, sputum, dyspnea at rest or on exertion Cardiovascular: No chest pain, tightness or palpitations Abdomen: No pain, nausea, vomiting, diarrhea or constipation Musculoskeletal: (+) joint pain to left toe, calf pain, swelling Neurologic: (+) generalized overall weakness, no numbness/tingling, or balance problems Psychiatric: No anxiety or depression Skin: No rash or itch Physical Exam Physical Exam: PHYSICAL EXAM: General: awake, alert, encephalopathy appears improved Head: Normocephalic, atraumatic ENT: PERRL, EOMI, no pharyngeal exudate, mucous membranes moist Neuro: AAO x 3, speech clear and appropriate, strength intact bilaterally 5/5, sensation intact and equal all extremities and dermatomes, no pronator drift Chest: equal rise and fall of the chest, no accessory muscle use, no heaves or thirlls, Clear to auscultation, on room air, Cardiac: Regular rate and rhythm, skin warm dry, cap refill <3 seconds, peripheral pulses +2 no JVD, Grade II systolic murmur, no edema, GI: NABS x 4 quadrants, soft, nontender to palpation, no rebound, guarding or tenderness : Spontaneously voiding, no pain, no CVA tenderness, Skin: errythema to left great toe and DIP as well as ulceration that is scabbed over without drainage Results & Data Results & Data ([facility]) Vital Signs (Past 12 Hours) Vital Signs Temp Pulse Pulse Resp BP BP Pulse Ox 08/23/22 07:18 08/23/22 08:28 36.6 C 70 17 154/87 H 94 08/23/22 04:45 36.6 C 74 16 162/82 H 96 08/23/22 04:00 80 20 159/85 H 99 08/23/22 03:20 76 19 94 08/23/22 03:10 20 08/23/22 03:00 25 H 92 08/23/22 02:50 92 08/23/22 02:40 76 20 92 08/23/22 02:30 76 20 93 01/18/23 02:20 78 20 94 08/23/22 02:12 81 30 H 08/23/22 02:12 161/104 H 08/23/22 02:10 79 25 H 08/23/22 02:00 85 22 08/23/22 01:50 82 18 08/23/22 01:40 77 14 08/23/22 01:30 83 17 08/23/22 01:20 83 22 08/23/22 01:10 82 21 08/23/22 01:00 82 19 08/23/22 00:50 22 08/23/22 00:40 79 13 96 08/23/22 00:30 74 15 97 08/23/22 00:30 153/79 H 08/23/22 00:20 70 15 98 08/23/22 00:10 74 25 H 98 08/23/22 00:00 73 14 97 08/23/22 02:00 08/23/22 01:00 08/23/22 00:30 08/23/22 00:15 08/23/22 00:00 08/22/22 23:50 72 18 97 O2 Del Method 08/23/22 07:18 Room Air 08/23/22 08:28 Room Air 08/23/22 04:45 Room Air 08/23/22 04:00 Room Air 08/23/22 03:20 08/23/22 03:10 08/23/22 03:00 08/23/22 02:50 08/23/22 02:40 08/23/22 02:30 08/23/22 02:20 08/23/22 02:12 08/23/22 02:12 08/23/22 02:10 08/23/22 02:00 08/23/22 01:50 08/23/22 01:40 08/23/22 01:30 08/23/22 01:20 08/23/22 01:10 08/23/22 01:00 08/23/22 00:50 08/23/22 00:40 08/23/22 00:30 08/23/22 00:30 08/23/22 00:20 08/23/22 00:10 08/23/22 00:00 08/23/22 02:00 Room Air 08/23/22 01:00 Room Air 08/23/22 00:30 Room Air 08/23/22 00:15 Room Air 08/23/22 00:00 Room Air 08/22/22 23:50 Laboratory Results Abnormal lab results 08/22/22 08/22/22 08/22/22 Range/Units 21:00 21:00 21:00 Immature Gran # (Auto) 0.03 H (0.00-0.02) K/uL ESR 21 H (0-20) mm/hr Glucose (70-99(Fasting)) mg/dl C-Reactive Protein 0.95 H (0-0.5) mg/dl 08/23/22 08/23/22 Range/Units 05:55 05:55 Immature Gran # (Auto) 0.04 H (0.00-0.02) K/uL ESR (0-20) mm/hr Glucose 108 H (70-99(Fasting)) mg/dl C-Reactive Protein (0-0.5) mg/dl Diagnostic Findings Chest X-Ray 08/22/22 21:31 SINGLE VIEW CHEST CLINICAL HISTORY: Sepsis. FINDINGS: 2 AP, portable, upright chest radiographs are compared to study dated 07/22/2022. The heart is enlarged. The pulmonary vasculature is noncontrast. There are low lung volumes with bibasilar atelectasis. No airspace consolidation or large pleural effusion is identified. No pneumothorax is seen. The skeletal structures are osteopenic. Bony thorax is grossly intact. IMPRESSION: No acute cardiopulmonary abnormality. ACT 112: Negative or not required by law. Electronically signed by: Jake Vaughn M.D. 08/22/2022 11:[address] 08/22/22 21:31 CT SCAN OF THE BRAIN WITHOUT IV CONTRAST CLINICAL HISTORY: Change in mental status. COMPARISON STUDY: CT of the brain dated 07/22/2022. TECHNIQUE: Unenhanced axial CT scan of the brain is performed from the vertex to the skull base. A dose lowering technique was utilized adhering to the principles of ALARA. The examination is severely degraded by streak artifact from metallic plates. 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 Foci of bifrontal encephalomalacia are consistent with remote insults. There is no evidence of hemorrhage, mass effect, or acute territorial ischemia by CT criteria. Note that streak artifact largely obscures the upper brain. [place]-white matter differentiation is preserved. No extra-axial fluid collection is seen. Ventricles, sulci, cisterns: Prominent secondary to involutional change. Intracranial vasculature: There is atherosclerotic calcification of the cavernous carotid arteries. Calvarium: There is evidence of bilateral craniotomy with metallic plates in place. Sinuses and mastoids: The visualized paranasal sinuses are clear. The mastoid air cells are well pneumatized. Orbits: The bony orbits are grossly intact. IMPRESSION: There is no evidence of hemorrhage, mass effect, or acute territorial ischemia noting significant streak artifact on the examination. ACT 112: Negative or not required by law. Electronically signed by: Jake Vaughn M.D. 08/22/2022 11:01 PM Foot X-Ray 08/22/22 22:04 XR foot LT min 3V routine HISTORY: 77 years-old Male left great tor/foot infx acute pain of the left great toe with reported soft tissue infection COMPARISON: Foot radiographs 03/11/2021 TECHNIQUE: 3 views of the left foot FINDINGS: Demineralized appearance of the bones. Arterial calcifications. 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 Advanced joint space narrowing with sclerosis, bridging osteophytes and partial bony fusion throughout the foot and ankle. Healed chronic fracture involving the base of the fifth proximal phalanx. No acute fracture, dislocation or osseous erosion identified. Soft tissue swelling of the first digit. IMPRESSION: 1. No acute osseous abnormality identified. 2. Chronic findings as above. ACT 112: Negative or not required by law. The above report was generated using voice recognition software. It may contain grammatical, syntax or spelling errors. Electronically signed by: Tae Jama M.D. 08/23/2022 7:17 AM Foot MRI 08/23/22 04:07 MR foot LT w/o con CLINICAL HISTORY: assess for osteomyelitis . Erythema in left great toe. TECHNIQUE: Multisequence, multiplanar MR images of the left foot were obtained without contrast COMPARISON: Comparison is made to MRI left foot 12/19/2018 and left foot radiograph 08/12/2022 FINDINGS: Patient is status post amputation of the fourth digit at the level of the mid metatarsal diaphysis. There is mild edema in the distal aspect of the first digit proximal phalanx. There is mild surrounding soft tissue edema and questionable susceptibility artifact. Extensive degenerative changes and deformities in the bones of the foot including bony destruction of multiple midfoot joints, tibiotalar articulation, and deformities of the interphalangeal joints. IMPRESSION: Likely mild osteomyelitis with surrounding cellulitis at the first digit proximal phalanx. ACT 112: Negative or not required by law. Electronically signed by: Gaurav Stinson M.D. 08/23/2022 10:09 AM Medications Administered Metronidazole (Flagyl) 500 mg in 100 mls @ 100 mls/hr IV Q8H GINA Stop: 08/30/22 08:59 Last Infusion: 08/23/22 11:23 Dose: 0 mls/hr Documented By: Admin: 08/23/22 09:59 Dose: 100 mls/hr Documented By: RONI Vancomycin HCl 1,500 mg/ (Sodium Chloride) 530 mls @ 200 mls/hr IV Q24H GINA Stop: 08/30/22 15:59 Last Admin: 08/23/22 15:35 Dose: 200 mls/hr Documented By: RONI Discontinued Medications Ceftriaxone Sodium (Rocephin) 2,000 mg in 70 mls @ 140 mls/hr IV NOW STA Stop: 08/22/22 22:33 Last Infusion: 08/23/22 00:05 Dose: 0 mls/hr Documented By: Admin: 08/22/22 23:14 Dose: 140 mls/hr Documented By: ASTRID Vancomycin HCl 1,500 mg/ (Sodium Chloride) 530 mls @ 200 mls/hr IV 0600 ONE Stop: 08/23/22 08:38 Last Infusion: 08/23/22 09:59 Dose: 0 mls/hr Documented By: Infusion: 08/23/22 08:24 Dose: 200 mls/hr Documented By: Infusion: 08/23/22 07:20 Dose: 0 mls/hr Documented By: Admin: 08/23/22 05:59 Dose: 200 mls/hr Documented By: RONALD PG Care Time/CCT Total # of Minutes Spent Total Time Spent with Patient: Total time spent is greater than 50% in coordination of care (as documented) at patient's floor/unit and/or counseling patient: Coding Level of Care Code 58246 SUB INP/OBS CARE MIN Diagnoses Cellulitis of foot, left L03.116 Metabolic encephalopathy G93.41 Hypertension I10 Hypertension type: essential hypertension Suprapubic catheter Z93.59 Type II diabetes mellitus E11.9 Catheter-associated urinary tract infection T83.511A; N39.0 Encounter type: initial encounter Indwelling urinary catheter type: unspecified (1) Catheter-associated urinary tract infection Encounter type: initial encounter Indwelling urinary catheter type: unspecified Qualified Code(s): T83.511A - Infection and inflammatory reaction due to indwelling urethral catheter, initial encounter; N39.0 - Urinary tract infection, site not specified (2) Hypertension Hypertension type: essential hypertension Qualified Code(s): I10 - Essential (primary) hypertension
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
[2022-08-23] MEDS: VANCOMYCIN HCL 1,500 MG in SODIUM CHLORIDE 0.9% 500 ML IV SCH (15:35)
[2022-08-23] MEDS ORDERED: DEXTROSE 50% 50 ML SYRINGE IV PRN (17:17)
[2022-08-23] MEDS ORDERED: GLUCOSE 40% GEL 15 GM TUBE PO PRN (17:17)
[2022-08-23] MEDS ORDERED: GLUCOSE 10 TAB/TUBE PO PRN (17:17)
[2022-08-23] MEDS ORDERED: GLUCAGON FOR INJ 1 MG VIAL SQ PRN (17:17)
[2022-08-23] MEDS ORDERED: CARBOHYDRATES FOR HYPOGLYCEMIA PO PRN (17:17)
--- NOTE | 2022-08-23 18:42 | Progress Notes ---
DATE OF SERVICE: 08/23/2022. The patient was seen in conjunction with Inna Scanlon. For further details, refer to his dictation. The patient has been admitted to the hospital for mental status changes. He also has a chronic wound on the left big toe IP joint. He is a little bit of a difficult historian, but indicates that the w ound has been there for a long time. It sounds like 6 months. He denies any pain or drainage. No in jury noted. He has not had a fever. His white count is normal. Sed rate and C-reactive protein are minimally ab normal. The x-ray shows no clear-cut evidence of osteomyelitis. There is a chronic bony deformity o f the foot secondary to previous surgery and chronic degenerative changes. The MRI is reviewed and s hows a little bit of marginally abnormal signal within the distal portion of the proximal phalanx of the big toe. There is no abscess. The interpretation is "likely osteomyelitis." On examination, there is a benign appearance to the left big toe. He has a hyperflexion deformity at the interphalangeal joint with a 5 mm eschar dorsally. This was firmly adherent. There is no eryth amna. Faint if any erythema and no significant swelling. It is nontender. There is no fluctuance an d no drainage. He does not have any significant movement of the foot or ankle. His DP and PT pulses are both 1+. Capillary refill is less than 2 seconds. The toe is not swollen. Deformities are not ed of multiple toes and one of the toes is missing. Previous surgery on the mid foot. Sensation int act. The patient has a chronic wound on his left big toe. I do not see anything, but clearly indicates daron ne infection. I do not recommend a biopsy at this time. I recommend a wound care to see if we can g et this to heal up. I would be happy to follow up with him as an outpatient and if further informati on warrants, then I would consider operative intervention, likely in the form of an amputation of the big toe at another time. We will place a wound care consult if one has not been done already. Clin ically, circulation appears to be adequate for healing. Probably has wound secondary to rubbing. Job ID: [id number]
[2022-08-23] MEDS: ACETAMINOPHEN 500 MG TAB PO SCH (19:28)
[2022-08-23] MEDS: MELATONIN 3 MG TAB PO SCH (19:28)
[2022-08-23] MEDS: DOCUSATE SODIUM 100 MG CAP PO SCH (19:29)
[2022-08-23] MEDS: CHOLECALCIFEROL 1,000 UNITS 25 MCG TAB PO SCH (19:29)
[2022-08-23] MEDS: ADVANCED PROBIOTIC 1250 MG CAPSULE PO SCH (19:29)
[2022-08-23] MEDS: ASPIRIN 81 MG ECTAB PO SCH (19:30)
[2022-08-23] MEDS: QUEtiapine FUMARATE 25 MG TABLET PO SCH (19:30)
[2022-08-23] MEDS: INSULIN ASPART PER UNIT SC SCH (20:30)
[2022-08-23] MEDS: cefTRIAXone SODIUM 2,000 MG in DEXTROSE 5% 50 ML IV SCH (23:31)
[2022-08-24] MEDS: metroNIDAZOLE 500 MG/100 ML BAG IV SCH ×4 (01:37→23:43)
[2022-08-24 06:09] LABS: Basophils # (auto) 0.04 K/uL (0-0.2); Basophils % (auto) 0.4 %; Eosinophils # (auto) 0.24 K/uL (0-0.50); Eosinophils % (auto) 2.7 %; Hematocrit (blood only) 46.7 % (40.1-51.0); Hemoglobin 15.8 g/dl (14.0-18.0); Immature Granulocytes # (auto) 0.02 K/uL (0.00-0.02); Immature Granulocytes % (auto) 0.2 %; Lymphocytes # (auto) 3.11 K/uL (1.2-3.4); Lymphocytes % (auto) 34.9 %; Mean Corpuscular Hgb Conc 33.8 g/dL (32.0-36.0); Mean Corpuscular Volume 88.6 fL (80.0-100.0); Mean Platelet Volume 10.5 fL (9.4-12.4); Monocytes # (auto) 0.61 K/uL (0.24-0.82); Monocytes % (auto) 6.9 %; Neutrophils # (auto) 4.88 K/uL (1.4-6.5); Neutrophils % (auto) 54.9 %; Platelet Count 220 K/uL (130-400); RDW Coefficient of Variation 13.1 % (11.5-14.5); RDW Standard Deviation 42.5 fL (36.4-46.3); Red Blood Count 5.27 M/uL (4.63-6.08)
[2022-08-24 06:33] LABS: Albumin Level 3.9 gm/dl (3.4-5.0); Bilirubin,Total 0.5 mg/dl (0.2-1.0); Calcium 9.1 mg/dl (8.5-10.1); Magnesium 1.8 mg/dl (1.7-2.4); Potassium 3.7 mmol/L (3.5-5.1)
[2022-08-24 06:39] LABS: Albumin Globulin Ratio 1.3 (0.9-2); BUN Creatinine Ratio 7.7 (10-20); Creatinine Clr Calc Pharmacy 64.6 ml/min; Est GFR (African American) 93.2 ml/min; Est GFR (Non-African American) 80.4 ml/min; Globulin 3.1 gm/dl (2.5-4.0)
--- NOTE | 2022-08-24 06:44 | Electrocardiogram Report ---
Test Reason : Blood Pressure : / mmHG Vent. Rate : 059 BPM Atrial Rate : 059 BPM P-R Int : 174 ms QRS Dur : 108 ms QT Int : 396 ms P-R-T Axes : 028 -44 -01 degrees QTc Int : 392 ms Sinus bradycardia Left axis deviation Minimal voltage criteria for LVH, may be normal variant Abnormal ECG When compared with ECG of 22-JUL-2022 23:18, Vent. rate has decreased BY 44 BPM QT has shortened Confirmed by Marcelino Farfan ([id number]) on 08/24/2022 6:44:31 AM Referred By: REFERRED SELF Confirmed By:Marcelino Farfan
[2022-08-24] MEDS: INSULIN ASPART PER UNIT SC SCH ×6 (08:31→20:56)
--- NOTE | 2022-08-24 15:30 | Progress Notes ---
DATE OF SERVICE: 08/24/2022. No problems are reported. The left big toe wound is inspected. Wound care has been performed. Ther e is a little bit of faint surrounding erythema. The eschar softening up. There is no drainage or t enderness. Recommend wound care to see if we can get this to heal and continued evaluation and monit oring for any deeper infection. Job ID: [id number]
[2022-08-24] MEDS: VANCOMYCIN HCL 1,500 MG in SODIUM CHLORIDE 0.9% 500 ML IV SCH (15:48)
[2022-08-24] MEDS: CHOLECALCIFEROL 1,000 UNITS 25 MCG TAB PO SCH (19:55)
[2022-08-24] MEDS: ADVANCED PROBIOTIC 1250 MG CAPSULE PO SCH (19:56)
[2022-08-24] MEDS: MELATONIN 3 MG TAB PO SCH (19:56)
[2022-08-24] MEDS: QUEtiapine FUMARATE 25 MG TABLET PO SCH (19:57)
[2022-08-24] MEDS: ASPIRIN 81 MG ECTAB PO SCH (19:57)
[2022-08-24] MEDS: ACETAMINOPHEN 500 MG TAB PO SCH (19:57)
[2022-08-24] MEDS: DOCUSATE SODIUM 100 MG CAP PO SCH (19:57)
[2022-08-24] MEDS: cefTRIAXone SODIUM 2,000 MG in DEXTROSE 5% 50 ML IV SCH (20:01)
--- NOTE | 2022-08-24 21:00 | Electrocardiogram Report ---
Test Reason : Blood Pressure : / mmHG Vent. Rate : 065 BPM Atrial Rate : 065 BPM P-R Int : 172 ms QRS Dur : 106 ms QT Int : 410 ms P-R-T Axes : 024 -43 -08 degrees QTc Int : 426 ms Normal sinus rhythm Poor R wave progression, consider anterior CO vs. lead placement vs. LVH Left axis deviation Abnormal ECG When compared with ECG of 22-AUG-2022 20:54, No significant change was found Confirmed by Marcelino Farfan ([id number]) on 08/24/2022 8:59:39 PM Referred By: REFERRED SELF Confirmed By:Marcelino Farfan
--- NOTE | 2022-08-24 23:11 | Hospitalist Progress Note ---
Date of Service August 24, 2022 Assessment & Plan (1) Cellulitis of foot, left: Plan: Paitient with reported history of DM II but on no medications and with ulceration to his left great toe- admitted for abx and rule out osteo - MRI completed with interpretations of "mild osteomyelitis - ABX coverage - Rocephin 2GM, Vancomycin, and Flagyl added as Diabetic - blood cultures pending, no purulence drainage noted and superficial appearance- wound culture not obtained - Orthopaedics consult appreciated - Consider ID consultation for prolonged coverage following orthopaedics evaluation ? biopsy/surgical need - Wound consultation placed - could trend CRP/ESR within 72 hours - No evidence of sepsis- no organ dysfunction, lactate negative, PCT 0.06 (2) Metabolic encephalopathy: Plan: Resolved- patient improved this morning- remains baseline slow as he has dementia - oriented and able to participate in ROS and exam (3) Hypertension: Plan: Elevated blood pressure on admission without diagnosis of hypertension is not on any medications or treatment as outpatient resolved following IVF and antibiotics UA is without protein or blood continue to follow (4) Suprapubic catheter: Plan: chronic indwelling catheter with history of MDRO organisms draining clear yellow urine and negative UA on admission no acute needs (5) Type II diabetes mellitus: Plan: Patient states that he does not have DM- however his A1C is 6.7 BG aspart sliding scale carb consistent diet (6) Catheter-associated urinary tract infection: Plan: Hisory of- not an acute issue- UA negative Admission and Anticipated Discharge Date Admission Date: August 23, 2022 Subjective Patient admitted with encephalopathy in the setting of osteomyelitis of left great toe Patient feels that this ulceration has worsened over the past few weeks. He does not fell he has seen wound care in some time, but reports home health evaluating. He remains with chronic Moncada catheter as well. Overall unsure of chronicity of this wound and osteomyelitis. MRI interpreted as mild. PCT, Lacate negative and no organ dysfunction. Physical Exam Physical Exam: Head and ENT no thyroid enlargement trachea midline Cardiovascular S1-S2 are normal no S3 Lungs bilateral air entry fair no wheezing Abdomen soft nondistended positive bowel sounds no rebound tenderness Extremity shows trace edema Neurologically no focal deficits Skin shows no rash Results & Data Results & Data ([facility]) Vital Signs (Past 12 Hours) Vital Signs Temp Pulse Resp BP Pulse Ox O2 Del Method 08/24/22 21:30 37 C 87 20 151/91 H 96 Room Air 08/24/22 14:33 36.4 C L 78 17 165/92 H 97 Room Air PG Care Time/CCT Total # of Minutes Spent Total Time Spent with Patient: Total time spent is greater than 50% in coordination of care (as documented) at patient's floor/unit and/or counseling patient: Coding Level of Care Code 68077 SUB INP/OBS CARE 2/35MIN Diagnoses Cellulitis of foot, left L03.116 Metabolic encephalopathy G93.41 Hypertension I10 Hypertension type: essential hypertension Suprapubic catheter Z93.59 Type II diabetes mellitus E11.9 Catheter-associated urinary tract infection T83.511A; N39.0 Encounter type: initial encounter Indwelling urinary catheter type: unspecified (1) Hypertension Hypertension type: essential hypertension Qualified Code(s): I10 - Essential (primary) hypertension (2) Catheter-associated urinary tract infection Encounter type: initial encounter Indwelling urinary catheter type: unspecified Qualified Code(s): T83.511A - Infection and inflammatory reaction due to indwelling urethral catheter, initial encounter; N39.0 - Urinary tract infection, site not specified
[2022-08-25] MEDS: DOCUSATE SODIUM 100 MG CAP PO SCH ×2 (04:38→20:43)
[2022-08-25 06:24] LABS: Basophils # (auto) 0.05 K/uL (0-0.2); Basophils % (auto) 0.6 %; Eosinophils % (auto) 4.5 %; Hematocrit (blood only) 43.7 % (40.1-51.0); Immature Granulocytes # (auto) 0.03 K/uL (0.00-0.02); Immature Granulocytes % (auto) 0.3 %; Lymphocytes # (auto) 2.56 K/uL (1.2-3.4); Lymphocytes % (auto) 28.7 %; Mean Corpuscular Hgb Conc 34.3 g/dL (32.0-36.0); Mean Corpuscular Volume 87.4 fL (80.0-100.0); Mean Platelet Volume 10.9 fL (9.4-12.4); Monocytes # (auto) 0.65 K/uL (0.24-0.82); Monocytes % (auto) 7.3 %; Neutrophils # (auto) 5.24 K/uL (1.4-6.5); Neutrophils % (auto) 58.6 %; Platelet Count 192 K/uL (130-400); RDW Coefficient of Variation 13.2 % (11.5-14.5); RDW Standard Deviation 42.4 fL (36.4-46.3); White Blood Count 8.93 K/ul (4.8-10.8)
[2022-08-25 06:50] LABS: Albumin Level 3.5 gm/dl (3.4-5.0); Bilirubin,Total 0.5 mg/dl (0.2-1.0); Calcium 8.8 mg/dl (8.5-10.1); Magnesium 1.7 mg/dl (1.7-2.4); Potassium 3.8 mmol/L (3.5-5.1)
[2022-08-25 06:56] LABS: Albumin Globulin Ratio 1.3 (0.9-2); BUN Creatinine Ratio 10.8 (10-20); Creatinine Clr Calc Pharmacy 63.2 ml/min; Est GFR (African American) 90.8 ml/min; Est GFR (Non-African American) 78.4 ml/min; Globulin 2.6 gm/dl (2.5-4.0); Total Protein 6.1 gm/dl (6.0-8.3)
[2022-08-25] MEDS: metroNIDAZOLE 500 MG/100 ML BAG IV SCH ×2 (08:31→18:45)
[2022-08-25] MEDS: INSULIN ASPART PER UNIT SC SCH ×4 (08:33→21:48)
--- NOTE | 2022-08-25 09:09 | Pharmacy Report ---
Pharmacy Vanc AUC Short Note - Date of Service August 25, 2022 - Assessment & Plan Assessment 77 year old M receiving Metronidazole IV, Rocephin and Vancomycin for treatment of Left foot cellulitis (s/p amputation of 4th digit). Preliminary blood cultures no growth. No leukocytosis noted, afebrile - no purulent drainage noted per provider notes. Foot MRI interpreted as mild osteomyelitis. Day # 3 of antimicrobial therapy. Plan Vancomycin * AUC/JACQUES is the preferred PK/PD target for vancomycin * AUC guided dosing is effective and associated with decreased risk of nephrotoxicity compared to traditional trough targets * Collected random level for vancomycin this morning - returned at ~14 mcg/ml. This current vancomycin dosing of 1500 mg iv q 24 hr is predicted to achieve a trough level of ~12 mcg/ml and to reach AUC/JACQUES of 400-600 and is associated with 7% toxicity * Reasonable to continue current vancomycin regimen since AUC/JACQUES within range * Plan to recheck level in next 2-3 days Pharmacy will continue to follow and will adjust dose/frequency as necessary. Thank you.
[2022-08-25] MEDS: VANCOMYCIN HCL 1,500 MG in SODIUM CHLORIDE 0.9% 500 ML IV SCH (15:39)
[2022-08-25] MEDS: ASPIRIN 81 MG ECTAB PO SCH (20:42)
[2022-08-25] MEDS: MELATONIN 3 MG TAB PO SCH (20:42)
[2022-08-25] MEDS: ACETAMINOPHEN 500 MG TAB PO SCH (20:43)
[2022-08-25] MEDS: ADVANCED PROBIOTIC 1250 MG CAPSULE PO SCH (20:43)
[2022-08-25] MEDS: QUEtiapine FUMARATE 25 MG TABLET PO SCH (20:44)
[2022-08-25] MEDS: CHOLECALCIFEROL 1,000 UNITS 25 MCG TAB PO SCH (20:44)
[2022-08-25] MEDS: cefTRIAXone SODIUM 2,000 MG in DEXTROSE 5% 50 ML IV SCH (20:50)
--- NOTE | 2022-08-25 22:58 | Hospitalist Progress Note ---
Date of Service August 25, 2022 Assessment & Plan (1) Cellulitis of foot, left: Plan: Paitient with reported history of DM II but on no medications and with ulceration to his left great toe- admitted for abx and rule out osteo - MRI completed with interpretations of "mild osteomyelitis - ABX coverage - Rocephin 2GM, Vancomycin, and Flagyl added as Diabetic - blood cultures pending, no purulence drainage noted and superficial appearance- wound culture not obtained - Orthopaedics consult appreciated - Consider ID consultation for prolonged coverage following orthopaedics evaluation ? biopsy/surgical need - Wound consultation placed - could trend CRP/ESR within 72 hours - No evidence of sepsis- no organ dysfunction, lactate negative, PCT 0.06 Continue IV antibiotics (2) Metabolic encephalopathy: Plan: Resolved- patient improved this morning- remains baseline slow as he has dementia - oriented and able to participate in ROS and exam (3) Hypertension: Plan: Elevated blood pressure on admission without diagnosis of hypertension is not on any medications or treatment as outpatient resolved following IVF and antibiotics UA is without protein or blood continue to follow (4) Suprapubic catheter: Plan: chronic indwelling catheter with history of MDRO organisms draining clear yellow urine and negative UA on admission no acute needs (5) Type II diabetes mellitus: Plan: Patient states that he does not have DM- however his A1C is 6.7 BG aspart sliding scale carb consistent diet (6) Catheter-associated urinary tract infection: Plan: Hisory of- not an acute issue- UA negative Admission and Anticipated Discharge Date Admission Date: August 23, 2022 Subjective Patient admitted with encephalopathy in the setting of osteomyelitis of left great toe Patient remains with chronic Moncada catheter as well. No acute complaints noted Overall unsure of chronicity of this wound and osteomyelitis. MRI interpreted as mild. PCT, Lacate negative and no organ dysfunction. Physical Exam Physical Exam: Head and ENT no thyroid enlargement trachea midline Cardiovascular S1-S2 are normal no S3 Lungs bilateral air entry fair no wheezing Abdomen soft nondistended positive bowel sounds no rebound tenderness Extremity shows trace edema Neurologically no focal deficits Results & Data Results & Data ([facility]) Vital Signs (Past 12 Hours) Vital Signs Temp Pulse Resp BP Pulse Ox O2 Del Method 08/25/22 20:29 36.9 C 63 18 147/81 H 96 Room Air 08/25/22 15:56 36.6 C 70 18 152/81 H 95 Room Air PG Care Time/CCT Total # of Minutes Spent Total Time Spent with Patient: Total time spent is greater than 50% in coordination of care (as documented) at patient's floor/unit and/or counseling patient: Coding Level of Care Code 99751 SUB INP/OBS CARE 2/35MIN Diagnoses Cellulitis of foot, left L03.116 Metabolic encephalopathy G93.41 Hypertension I10 Hypertension type: essential hypertension Suprapubic catheter Z93.59 Type II diabetes mellitus E11.9 Catheter-associated urinary tract infection T83.511A; N39.0 Encounter type: initial encounter Indwelling urinary catheter type: unspecified (1) Hypertension Hypertension type: essential hypertension Qualified Code(s): I10 - Essential (primary) hypertension (2) Catheter-associated urinary tract infection Encounter type: initial encounter Indwelling urinary catheter type: unspecified Qualified Code(s): T83.511A - Infection and inflammatory reaction due to indwelling urethral catheter, initial encounter; N39.0 - Urinary tract infection, site not specified
[2022-08-26] MEDS: metroNIDAZOLE 500 MG/100 ML BAG IV SCH ×3 (00:54→18:05)
[2022-08-26 05:54] LABS: Basophils # (auto) 0.04 K/uL (0-0.2); Basophils % (auto) 0.5 %; Eosinophils % (auto) 3.5 %; Hematocrit (blood only) 40.7 % (40.1-51.0); Hemoglobin 14.2 g/dl (14.0-18.0); Immature Granulocytes # (auto) 0.02 K/uL (0.00-0.02); Immature Granulocytes % (auto) 0.2 %; Lymphocytes # (auto) 3.26 K/uL (1.2-3.4); Lymphocytes % (auto) 37.9 %; Mean Corpuscular Hemoglobin 30.1 pg (25.0-34.0); Mean Corpuscular Hgb Conc 34.9 g/dL (32.0-36.0); Mean Corpuscular Volume 86.4 fL (80.0-100.0); Mean Platelet Volume 10.6 fL (9.4-12.4); Monocytes # (auto) 0.51 K/uL (0.24-0.82); Monocytes % (auto) 5.9 %; Neutrophils # (auto) 4.47 K/uL (1.4-6.5); Platelet Count 185 K/uL (130-400); RDW Coefficient of Variation 13.1 % (11.5-14.5); RDW Standard Deviation 41.1 fL (36.4-46.3); Red Blood Count 4.71 M/uL (4.63-6.08)
[2022-08-26 06:16] LABS: Calcium 8.7 mg/dl (8.5-10.1); Magnesium 1.7 mg/dl (1.7-2.4); Potassium 3.7 mmol/L (3.5-5.1)
[2022-08-26 06:22] LABS: BUN Creatinine Ratio 13.8 (10-20); Creatinine Clr Calc Pharmacy 62.5 ml/min; Est GFR (African American) 89.6 ml/min; Est GFR (Non-African American) 77.3 ml/min
[2022-08-26] MEDS: INSULIN ASPART PER UNIT SC SCH ×4 (08:47→22:08)
[2022-08-26] MEDS: VANCOMYCIN HCL 1,500 MG in SODIUM CHLORIDE 0.9% 500 ML IV SCH (15:30)
[2022-08-26] MEDS: ASPIRIN 81 MG ECTAB PO SCH (19:28)
[2022-08-26] MEDS: MELATONIN 3 MG TAB PO SCH (19:29)
[2022-08-26] MEDS: ADVANCED PROBIOTIC 1250 MG CAPSULE PO SCH (19:29)
[2022-08-26] MEDS: CHOLECALCIFEROL 1,000 UNITS 25 MCG TAB PO SCH (19:30)
[2022-08-26] MEDS: QUEtiapine FUMARATE 25 MG TABLET PO SCH (19:30)
[2022-08-26] MEDS: ACETAMINOPHEN 500 MG TAB PO SCH (19:31)
[2022-08-26] MEDS: DOCUSATE SODIUM 100 MG CAP PO SCH (19:31)
[2022-08-26] MEDS: cefTRIAXone SODIUM 2,000 MG in DEXTROSE 5% 50 ML IV SCH (21:11)
--- NOTE | 2022-08-26 23:15 | Hospitalist Progress Note ---
Date of Service August 26, 2022 Assessment & Plan (1) Cellulitis of foot, left: Plan: Paitient with reported history of DM II but on no medications and with ulceration to his left great toe- admitted for abx and rule out osteo - MRI completed with interpretations of "mild osteomyelitis - ABX coverage - Rocephin 2GM, Vancomycin, and Flagyl added as Diabetic - blood cultures pending, no purulence drainage noted and superficial appearance- wound culture not obtained - Orthopaedics consult appreciated - Consider ID consultation for prolonged coverage following orthopaedics evaluation ? biopsy/surgical need - Wound consultation placed 08/26-Continue IV antibiotics Patient continues to improve on antibiotic regimen No evidence of acute sepsis noted Case management to assist with extended antibiotic administration and placement (2) Metabolic encephalopathy: Plan: Resolved- patient improved this morning- remains baseline slow as he has dementia - oriented and able to participate in ROS and exam (3) Hypertension: Plan: Elevated blood pressure on admission without diagnosis of hypertension is not on any medications or treatment as outpatient resolved following IVF and antibiotics UA is without protein or blood continue to follow (4) Suprapubic catheter: Plan: chronic indwelling catheter with history of MDRO organisms draining clear yellow urine and negative UA on admission no acute needs (5) Type II diabetes mellitus: Plan: Patient states that he does not have DM- however his A1C is 6.7 BG aspart sliding scale carb consistent diet (6) Catheter-associated urinary tract infection: Plan: Hisory of- not an acute issue- UA negative Admission and Anticipated Discharge Date Admission Date: August 23, 2022 Subjective Patient admitted with encephalopathy in the setting of osteomyelitis of left great toe Patient remains with chronic Moncada catheter as well. Denies any acute complaints but still remains confused Physical Exam Physical Exam: Head and ENT no thyroid enlargement trachea midline Cardiovascular S1-S2 are normal no S3 Lungs bilateral air entry fair no wheezing Abdomen soft nondistended positive bowel sounds no rebound tenderness Extremity shows trace edema, left great toe osteomyelitis Neurologically no focal deficits Results & Data Results & Data ([facility]) Vital Signs (Past 12 Hours) Vital Signs Temp Pulse Pulse Resp BP Pulse Ox O2 Del Method 08/26/22 20:25 36.6 C 62 16 144/80 H 94 Room Air 08/26/22 15:55 36.5 C 69 17 162/87 H 96 Room Air 08/26/22 13:02 37.3 C 64 17 150/90 H 96 Room Air Laboratory Results Short CBC 08/26/22 Range/Units 05:42 WBC 8.60 (4.8-10.8) K/ul Hgb 14.2 (14.0-18.0) g/dl Hct 40.7 (40.1-51.0) % Plt Count 185 (130-400) K/uL BMP 08/26/22 05:42 Sodium 140 Potassium 3.7 Chloride 108 H Carbon Dioxide 26 BUN 13 Creatinine 0.94 Glucose 104 H Calcium 8.7 PG Care Time/CCT Total # of Minutes Spent Total Time Spent with Patient: Total time spent is greater than 50% in coordination of care (as documented) at patient's floor/unit and/or counseling patient: Coding Level of Care Code 26537 SUB INP/OBS CARE MIN Diagnoses Cellulitis of foot, left L03.116 Metabolic encephalopathy G93.41 Hypertension I10 Hypertension type: essential hypertension Suprapubic catheter Z93.59 Type II diabetes mellitus E11.9 Catheter-associated urinary tract infection T83.511A; N39.0 Encounter type: initial encounter Indwelling urinary catheter type: unspecified (1) Hypertension Hypertension type: essential hypertension Qualified Code(s): I10 - Essential (primary) hypertension (2) Catheter-associated urinary tract infection Encounter type: initial encounter Indwelling urinary catheter type: unspecified Qualified Code(s): T83.511A - Infection and inflammatory reaction due to indwelling urethral catheter, initial encounter; N39.0 - Urinary tract infection, site not specified
[2022-08-27] MEDS: metroNIDAZOLE 500 MG/100 ML BAG IV SCH ×3 (00:26→18:30)
[2022-08-27 05:42] LABS: Basophils # (auto) 0.07 K/uL (0-0.2); Basophils % (auto) 0.9 %; Eosinophils # (auto) 0.35 K/uL (0-0.50); Eosinophils % (auto) 4.5 %; Hematocrit (blood only) 40.8 % (40.1-51.0); Hemoglobin 13.8 g/dl (14.0-18.0); Immature Granulocytes # (auto) 0.01 K/uL (0.00-0.02); Immature Granulocytes % (auto) 0.1 %; Lymphocytes # (auto) 2.56 K/uL (1.2-3.4); Lymphocytes % (auto) 32.7 %; Mean Corpuscular Hemoglobin 29.6 pg (25.0-34.0); Mean Corpuscular Hgb Conc 33.8 g/dL (32.0-36.0); Mean Corpuscular Volume 87.6 fL (80.0-100.0); Mean Platelet Volume 10.6 fL (9.4-12.4); Monocytes # (auto) 0.54 K/uL (0.24-0.82); Monocytes % (auto) 6.9 %; Neutrophils # (auto) 4.31 K/uL (1.4-6.5); Neutrophils % (auto) 54.9 %; Platelet Count 186 K/uL (130-400); RDW Coefficient of Variation 13.1 % (11.5-14.5); RDW Standard Deviation 41.8 fL (36.4-46.3); Red Blood Count 4.66 M/uL (4.63-6.08); White Blood Count 7.84 K/ul (4.8-10.8)
[2022-08-27 06:16] LABS: BUN Creatinine Ratio 11.4 (10-20); Calcium 8.9 mg/dl (8.5-10.1); Creatinine Clr Calc Pharmacy 66.8 ml/min; Est GFR (African American) 95.4 ml/min; Est GFR (Non-African American) 82.3 ml/min; Potassium 3.8 mmol/L (3.5-5.1)
[2022-08-27] MEDS: INSULIN ASPART PER UNIT SC SCH ×4 (09:04→21:01)
[2022-08-27] MEDS: VANCOMYCIN HCL 1,500 MG in SODIUM CHLORIDE 0.9% 500 ML IV SCH (15:30)
--- NOTE | 2022-08-27 19:52 | Hospitalist Progress Note ---
Date of Service August 27, 2022 Assessment & Plan (1) Cellulitis of foot, left: Plan: Paitient with reported history of DM II but on no medications and with ulceration to his left great toe- admitted for abx and rule out osteo - MRI completed with interpretations of "mild osteomyelitis - ABX coverage - Rocephin 2GM, Vancomycin, and Flagyl added as Diabetic - blood cultures pending, no purulence drainage noted and superficial appearance- wound culture not obtained - Orthopaedics consult appreciated - Consider ID consultation for prolonged coverage following orthopaedics evaluation ? biopsy/surgical need - Wound consultation placed 08/26-Continue IV antibiotics Patient continues to improve on antibiotic regimen No evidence of acute sepsis noted Case management to assist with extended antibiotic administration and placement 08/27-continue antibiotic regimen with IV vancomycin in conjunction with ceftriaxone and metronidazole Continue wound care Case management to assist with placement Will obtain PT OT eval to assess patient's stability and functional status (2) Metabolic encephalopathy: Plan: Resolved- patient improved this morning- remains baseline slow as he has dementia - oriented and able to participate in ROS and exam (3) Hypertension: Plan: Elevated blood pressure on admission without diagnosis of hypertension is not on any medications or treatment as outpatient resolved following IVF and antibiotics UA is without protein or blood continue to follow (4) Suprapubic catheter: Plan: chronic indwelling catheter with history of MDRO organisms draining clear yellow urine and negative UA on admission no acute needs (5) Type II diabetes mellitus: Plan: Patient states that he does not have DM- however his A1C is 6.7 BG aspart sliding scale carb consistent diet (6) Catheter-associated urinary tract infection: Plan: Hisory of- not an acute issue- UA negative Admission and Anticipated Discharge Date Admission Date: August 23, 2022 Subjective Patient admitted with encephalopathy in the setting of osteomyelitis of left great toe Patient remains confused intermittently Denies any acute complaints no chest pain reported Physical Exam Physical Exam: Head and ENT no thyroid enlargement trachea midline Cardiovascular S1-S2 are normal no S3 Lungs bilateral air entry fair no wheezing Abdomen soft nondistended positive bowel sounds no rebound tenderness Extremity shows trace edema, left great toe osteomyelitis Neurologically no focal deficits but not oriented to time or place Results & Data Results & Data ([facility]) Vital Signs (Past 12 Hours) Vital Signs Temp Pulse Resp BP Pulse Ox O2 Del Method 08/27/22 14:50 36.4 C L 82 17 143/86 H 94 Room Air Laboratory Results Short CBC 08/27/22 Range/Units 05:25 WBC 7.84 (4.8-10.8) K/ul Hgb 13.8 L (14.0-18.0) g/dl Hct 40.8 (40.1-51.0) % Plt Count 186 (130-400) K/uL BMP 08/27/22 05:25 Sodium 141 Potassium 3.8 Chloride 108 H Carbon Dioxide 27 BUN 10 Creatinine 0.88 Glucose 98 Calcium 8.9 PG Care Time/CCT Total # of Minutes Spent Total Time Spent with Patient: Total time spent is greater than 50% in coordination of care (as documented) at patient's floor/unit and/or counseling patient: Coding Level of Care Code 41060 SUB INP/OBS CARE MIN Diagnoses Cellulitis of foot, left L03.116 Metabolic encephalopathy G93.41 Hypertension I10 Hypertension type: essential hypertension Suprapubic catheter Z93.59 Type II diabetes mellitus E11.9 Catheter-associated urinary tract infection T83.511A; N39.0 Encounter type: initial encounter Indwelling urinary catheter type: unspecified (1) Hypertension Hypertension type: essential hypertension Qualified Code(s): I10 - Essential (primary) hypertension (2) Catheter-associated urinary tract infection Encounter type: initial encounter Indwelling urinary catheter type: unspecified Qualified Code(s): T83.511A - Infection and inflammatory reaction due to indwelling urethral catheter, initial encounter; N39.0 - Urinary tract infection, site not specified
[2022-08-27] MEDS: ASPIRIN 81 MG ECTAB PO SCH (20:20)
[2022-08-27] MEDS: ACETAMINOPHEN 500 MG TAB PO SCH (20:20)
[2022-08-27] MEDS: DOCUSATE SODIUM 100 MG CAP PO SCH (20:21)
[2022-08-27] MEDS: ADVANCED PROBIOTIC 1250 MG CAPSULE PO SCH (20:21)
[2022-08-27] MEDS: MELATONIN 3 MG TAB PO SCH (20:21)
[2022-08-27] MEDS: QUEtiapine FUMARATE 25 MG TABLET PO SCH (20:21)
[2022-08-27] MEDS: CHOLECALCIFEROL 1,000 UNITS 25 MCG TAB PO SCH (20:21)
[2022-08-27] MEDS: cefTRIAXone SODIUM 2,000 MG in DEXTROSE 5% 50 ML IV SCH (21:09)
[2022-08-28] MEDS: metroNIDAZOLE 500 MG/100 ML BAG IV SCH ×3 (00:30→17:15)
[2022-08-28 05:58] LABS: Basophils # (auto) 0.05 K/uL (0-0.2); Basophils % (auto) 0.6 %; Eosinophils # (auto) 0.34 K/uL (0-0.50); Eosinophils % (auto) 4.3 %; Hemoglobin 14.5 g/dl (14.0-18.0); Immature Granulocytes # (auto) 0.09 K/uL (0.00-0.02); Immature Granulocytes % (auto) 1.1 %; Lymphocytes # (auto) 2.68 K/uL (1.2-3.4); Lymphocytes % (auto) 33.8 %; Mean Corpuscular Hgb Conc 34.5 g/dL (32.0-36.0); Mean Corpuscular Volume 86.8 fL (80.0-100.0); Mean Platelet Volume 10.5 fL (9.4-12.4); Monocytes # (auto) 0.55 K/uL (0.24-0.82); Monocytes % (auto) 6.9 %; Neutrophils # (auto) 4.22 K/uL (1.4-6.5); Neutrophils % (auto) 53.3 %; Platelet Count 189 K/uL (130-400); RDW Coefficient of Variation 13.1 % (11.5-14.5); RDW Standard Deviation 41.2 fL (36.4-46.3); Red Blood Count 4.84 M/uL (4.63-6.08); White Blood Count 7.93 K/ul (4.8-10.8)
[2022-08-28 06:28] LABS: BUN Creatinine Ratio 12.8 (10-20); Calcium 8.9 mg/dl (8.5-10.1); Creatinine Clr Calc Pharmacy 75.3 ml/min; Est GFR (African American) 100.2 ml/min; Est GFR (Non-African American) 86.5 ml/min; Potassium 3.7 mmol/L (3.5-5.1)
--- NOTE | 2022-08-28 07:49 | Pharmacy Report ---
Pharmacy PK ABX Note - Date of Service August 28, 2022 - Assessment and Plan Assessment * 77 year old M receiving ceftriaxone, metronidazole, and vancomycin for treatment of mild osteomyelitis. * Pertinent microbiologic data includes: Blood cultures 08/22 w NGTD. No local cultures obtained of infected area. * SCr stable x many days * WBC wnl and afebrile Vancomycin * Random level of 11.4 mcg/mL obtained this AM associated with a subtherapeutic AUC. Dose increase indicated * Would prefer to keep vancomycin on q24h interval given possibility of prolonged outpatient course for osteomyelitis Plan Vancomycin * 2000 mg IV q24h * Repeat random level in 48 hours * Regimen is predicted to achieve target AUC/JACQUES of 400-600 mg/L.hr Pharmacy will continue to follow and will adjust dose/frequency as necessary. Thank you. Pharmacy has transitioned to AUC monitoring for vancomycin. AUC/JACQUES is the preferred PK/PD target and is associated with decreased risk of nephrotoxicity compared to traditional trough targets.
[2022-08-28] MEDS: INSULIN ASPART PER UNIT SC SCH ×4 (09:03→21:15)
[2022-08-28] MEDS: VANCOMYCIN HCL 2,000 MG in SODIUM CHLORIDE 0.9% 500 ML IV SCH (10:28)
[2022-08-28] MEDS ORDERED: VANCOMYCIN HCL 2,000 MG in SODIUM CHLORIDE 0.9% 500 ML IV SCH (12:00)
--- NOTE | 2022-08-28 14:25 | Hospitalist Progress Note ---
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 - ABX coverage - Rocephin 2GM, Vancomycin, and Flagyl added as Diabetic - blood cultures pending, no purulence drainage noted and superficial appearance- wound culture not obtained - Orthopedics consulted, no plan for biopsy or amputation, advised wound care and outpatient f/u - Wound consultation placed - Consult ID as patient will require minimum of 6 weeks of IV abx, unfortuna tely, will require broad spectrum as there is no culture data to guide therapy - Will need PICC line inserted and anticipate placement due to needing 6w of broad spectrum IV abx (2) Metabolic encephalopathy: Plan: Resolved- patient improved this morning- remains baseline slow as he has dementia - oriented and able to participate in ROS and exam (3) Hypertension: Plan: Elevated blood pressure on admission without diagnosis of hypertension - is not on any medications or treatment as outpatient - resolved following IVF and antibiotics - UA is without protein or blood - acceptable control (4) Suprapubic catheter: Plan: chronic indwelling catheter with history of MDRO organisms - draining clear yellow urine and negative UA on admission - no acute needs (5) Type II diabetes mellitus: Plan: Patient states that he does not have DM- however his A1C is 6.7 - BG aspart sliding scale - carb consistent diet Plan Await recommendations from infectious disease. Updated patient's daughter via phone on 08/28/22. Gave consent for PICC line insertion which will proceed with if ID agrees with 6w of IV abx. Above plan of care d/w Dr. Bowden. Further orders as warranted. Admission and Anticipated Discharge Date Admission Date: August 23, 2022 Subjective Mr. Forrest was seen on daily rounds this morning. He is resting comfortably in bed. Reports no complaints (although noted that he has a h/o dementia). Noted to have evidence of osteomyelitis of his left great toe, no plan for orthopedics to do any surgery at this time. Pt denies chest pain, dyspnea, fever/chills, n/v/d. Review of Systems Review of Systems: All systems reviewed and are unremarkable except as noted in HPI and below. Denies fever, chills, fatigue, headache, nasal congestion, sore throat, cough, chest pain, shortness of breath, palpitations, orthopnea, PND, abdominal pain, n/v/d, constipation, dysuria, hematuria, frequency, back pain, joint pain or swelling, easy bruising or bleeding. Physical Exam Physical Exam: GEN: 77 yo well developed, well nourished elderly WM. NAD. LUNGS: Clear to auscultation bilaterally. No W/R/R. CARDIOVASCULAR: Regular rate and rhythm. 3/6 DAVID noted. ABDOMEN: Soft, non-tender and non-distended. BS normoactive x 4 quad. EXTREMITIES: No edema. Non-tender. Peripheral pulses +2/4. NEUROLOGIC: A&O x3. Nonfocal PSYCHIATRIC: Cooperative. Appropriate mood and affect. SKIN: Warm, dry, intact. L hallux is dressed. No surrounding erythema. Results & Data Results & Data ([facility]) Vital Signs (Past 12 Hours) Vital Signs Temp Pulse Resp BP Pulse Ox O2 Del Method 08/28/22 07:30 36.5 C 60 16 137/76 96 Room Air Laboratory Results 08/28/22 05:35 08/28/22 05:35 PG Care Time/CCT Total # of Minutes Spent Total Time Spent with Patient: Total time spent is greater than 50% in coordination of care (as documented) at patient's floor/unit and/or counseling patient: Coding Level of Care Code 98537 SUB INP/OBS CARE 2/35MIN Diagnoses Cellulitis of foot, left L03.116 Metabolic encephalopathy G93.41 Hypertension I10 Hypertension type: essential hypertension Suprapubic catheter Z93.59 Type II diabetes mellitus E11.9 (1) Hypertension Hypertension type: essential hypertension Qualified Code(s): I10 - Essential (primary) hypertension
[2022-08-28] MEDS: QUEtiapine FUMARATE 25 MG TABLET PO SCH (21:11)
[2022-08-28] MEDS: ADVANCED PROBIOTIC 1250 MG CAPSULE PO SCH (21:11)
[2022-08-28] MEDS: ASPIRIN 81 MG ECTAB PO SCH (21:11)
[2022-08-28] MEDS: CHOLECALCIFEROL 1,000 UNITS 25 MCG TAB PO SCH (21:11)
[2022-08-28] MEDS: DOCUSATE SODIUM 100 MG CAP PO SCH (21:11)
[2022-08-28] MEDS: MELATONIN 3 MG TAB PO SCH (21:11)
[2022-08-28] MEDS: ACETAMINOPHEN 500 MG TAB PO SCH (21:11)
[2022-08-28] MEDS: cefTRIAXone SODIUM 2,000 MG in DEXTROSE 5% 50 ML IV SCH (21:29)
[2022-08-29] MEDS: metroNIDAZOLE 500 MG/100 ML BAG IV SCH ×4 (00:10→23:55)
[2022-08-29] MEDS: INSULIN ASPART PER UNIT SC SCH ×4 (08:37→22:21)
[2022-08-29] MEDS: VANCOMYCIN HCL 2,000 MG in SODIUM CHLORIDE 0.9% 500 ML IV SCH (08:47)
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
--- NOTE | 2022-08-29 16:26 | Hospitalist Progress Note ---
Date of Service August 29, 2022 Assessment & Plan (1) Cellulitis of foot, left: Plan: Patient with reported history of DM II but on no medications and with ulceration to his left great toe- admitted for abx and rule out osteo - MRI completed with interpretation of mild osteoarthritis - ABX coverage - Rocephin 2GM, Vancomycin, and Flagyl - blood cultures NGTD, no purulence drainage noted and superficial appearance- wound culture not obtained - Orthopedics consulted, no plan for biopsy or amputation, advised wound care and outpatient f/u - Wound consultation placed-seen by rehabilitation technician, recommending clean with saline, paint with betadine, allow to dry and cover with optifoam - is to f/u in wound care clinic - Consulted ID, spoke with Dr. Cardoso, she agreed with treating w/ abx for cellulitis, however is reluctant to treat for 6w with IV abx due to lack of confirmation of osteo via bone biopsy (only noted on imaging) * Dr. Cardoso plans to speak directly with daughter, Hailey, to go over options for treatment which will ultimately determine patient dispo upon discharge (2) Metabolic encephalopathy: Plan: Resolved- patient improved this morning- remains baseline slow as he has shirley ia (3) Hypertension: Plan: Elevated blood pressure on admission without diagnosis of hypertension - is not on any medications or treatment as outpatient - resolved following IVF and antibiotics - UA is without protein or blood - acceptable control (4) Suprapubic catheter: Plan: chronic indwelling catheter with history of MDRO organisms - draining clear yellow urine and negative UA on admission - no acute needs (5) Type II diabetes mellitus: Plan: Patient states that he does not have DM- however his A1C is 6.7 - BG aspart sliding scale - carb consistent diet Plan Dispo: Home w/ HH v SNF with rehab. Await discussion between patient's daughter and ID to determine dispo once plan is established. Updated patient's daughter via phone on 08/29. Above has been d/w Dr. Bowden. Admission and Anticipated Discharge Date Admission Date: August 23, 2022 Subjective Mr. Forrest was seen on daily rounds this morning. He was working with OT at the time of my visit. He is more confused today, but verbalizes no complaints. Review of Systems Review of Systems: Reliable ROS difficult to obtain from pt today d/t his confusion, pt with known dementia Physical Exam Physical Exam: GEN: 77 yo well developed, well nourished elderly WM. NAD. LUNGS: Clear to auscultation bilaterally. No W/R/R. CARDIOVASCULAR: Regular rate and rhythm. 3/6 DAVID noted. ABDOMEN: Soft, non-tender and non-distended. BS normoactive x 4 quad. EXTREMITIES: No edema. Non-tender. Peripheral pulses +2/4. NEUROLOGIC: Confused but awake, alert and pleasant. Nonfocal PSYCHIATRIC: Cooperative. Appropriate mood and affect. SKIN: Warm, dry, intact. L hallux is dressed. No surrounding erythema. Results & Data Results & Data ([facility]) Vital Signs (Past 12 Hours) Vital Signs Temp Pulse Resp BP Pulse Ox O2 Del Method 08/29/22 15:20 36.5 C 61 18 133/80 95 Room Air 08/29/22 07:12 36.5 C 68 16 133/67 94 Room Air PG Care Time/CCT Total # of Minutes Spent Total Time Spent with Patient: Total time spent is greater than 50% in coordination of care (as documented) at patient's floor/unit and/or counseling patient: Coding Level of Care Code 91386 SUB INP/OBS CARE 2/35MIN Diagnoses Cellulitis of foot, left L03.116 Metabolic encephalopathy G93.41 Hypertension I10 Hypertension type: essential hypertension Suprapubic catheter Z93.59 Type II diabetes mellitus E11.9 (1) Hypertension Hypertension type: essential hypertension Qualified Code(s): I10 - Essential (primary) hypertension
[2022-08-29] MEDS ORDERED: DAPTOmycin 400 MG in SYRINGE 0 ML IV SCH (20:00)
[2022-08-29] MEDS: DAPTOmycin 375 MG in SYRINGE 0 ML IV SCH (20:41)
[2022-08-29] MEDS: ASPIRIN 81 MG ECTAB PO SCH (20:41)
[2022-08-29] MEDS: CHOLECALCIFEROL 1,000 UNITS 25 MCG TAB PO SCH (20:42)
[2022-08-29] MEDS: ACETAMINOPHEN 500 MG TAB PO SCH (20:42)
[2022-08-29] MEDS: DOCUSATE SODIUM 100 MG CAP PO SCH (20:42)
[2022-08-29] MEDS: QUEtiapine FUMARATE 25 MG TABLET PO SCH (20:43)
[2022-08-29] MEDS: ADVANCED PROBIOTIC 1250 MG CAPSULE PO SCH (20:43)
[2022-08-29] MEDS: MELATONIN 3 MG TAB PO SCH (20:43)
[2022-08-29] MEDS: cefTRIAXone SODIUM 2,000 MG in DEXTROSE 5% 50 ML IV SCH (20:45)
[2022-08-30 06:21] LABS: Creatinine Clr Calc Pharmacy 67.5 ml/min; Est GFR (African American) 95.8 ml/min; Est GFR (Non-African American) 82.7 ml/min
[2022-08-30] MEDS ORDERED: VANCOMYCIN LEVEL ONE (08:30)
[2022-08-30] MEDS: INSULIN ASPART PER UNIT SC SCH ×4 (11:33→20:45)
--- NOTE | 2022-08-30 14:24 | Hospitalist Progress Note ---
Date of Service August 30, 2022 Assessment & Plan (1) Cellulitis of foot, left: Plan: Patient with reported history of DM II but on no medications and with ulceration to his left great toe- admitted for abx and rule out osteo - MRI completed with interpretation of mild osteoarthritis - ABX coverage - Rocephin 2GM, Vancomycin, and Flagyl - blood cultures NGTD, no purulence drainage noted and superficial appearance- wound culture not obtained - Orthopedics consulted, no plan for biopsy or amputation, advised wound care and outpatient f/u - Wound consultation placed-seen by straightening machine operator, recommending clean with saline, paint with betadine, allow to dry and cover with optifoam - is to f/u in wound care clinic - Consulted ID, spoke with Dr. Cardoso, she agreed with treating w/ abx for cellulitis, however is reluctant to treat for 6w with IV abx due to lack of confirmation of osteo via bone biopsy (only noted on imaging) * Dr. Cardoso spoke with pt's daughter on 08/30, daughter would like to proceed with treating for osteomyelitis * PICC line ordered * Will need 6w (total, minus days received in house) of Rocephin 2g, Daptomycin 375mg IV daily + oral Flagyl 500mg q8h - Will need ortho f/u as outpatient (2) Metabolic encephalopathy: Plan: Resolved- patient improved this morning- remains baseline slow as he has dementia (3) Hypertension: Plan: Elevated blood pressure on admission without diagnosis of hypertension - is not on any medications or treatment as outpatient - resolved following IVF and antibiotics - UA is without protein or blood - acceptable control (4) Suprapubic catheter: Plan: chronic indwelling catheter with history of MDRO organisms - draining clear yellow urine and negative UA on admission - no acute needs (5) Type II diabetes mellitus: Plan: Patient states that he does not have DM- however his A1C is 6.7 - BG aspart sliding scale - carb consistent diet Plan Dispo: Daughter requesting SNF for rehab + IV abx. CM consulted and working on this. Daptomycin may pose an issue for the SNF (d/t cost) and this may need to be altered. Above has been d/w Dr. Bowden. Admission and Anticipated Discharge Date Admission Date: August 23, 2022 Subjective Mr. Forrest was seen on daily rounds this morning. He verbalizes no complaints or concerns. He is oriented this morning. Review of Systems Review of Systems: All systems reviewed and are unremarkable except as noted in HPI and below. Denies fever, chills, fatigue, headache, nasal congestion, sore throat, cough, chest pain, shortness of breath, palpitations, orthopnea, PND, abdominal pain, n/v/d, constipation, dysuria, hematuria, frequency, back pain, joint pain or swelling, easy bruising or bleeding. Physical Exam Physical Exam: GEN: 77 yo well developed, well nourished elderly WM. NAD. LUNGS: Clear to auscultation bilaterally. No W/R/R. CARDIOVASCULAR: Regular rate and rhythm. 3/6 DAVID noted. ABDOMEN: Soft, non-tender and non-distended. BS normoactive x 4 quad. : suprapubic catheter EXTREMITIES: No edema. Non-tender. Peripheral pulses +2/4. NEUROLOGIC: Confused but awake, alert and pleasant. Nonfocal PSYCHIATRIC: Cooperative. Appropriate mood and affect. SKIN: Warm, dry, intact. Pea size open dry wound on PIP joint of L hallux. No surrounding erythema, active bleeding or drainage. Results & Data Results & Data ([facility]) Vital Signs (Past 12 Hours) Vital Signs Temp Pulse Resp BP Pulse Ox O2 Del Method 08/30/22 07:13 36.4 C L 65 18 154/96 H 97 Room Air PG Care Time/CCT Total # of Minutes Spent Total Time Spent with Patient: Total time spent is greater than 50% in coordination of care (as documented) at patient's floor/unit and/or counseling patient: Coding Level of Care Code 52064 SUB INP/OBS CARE 2/35MIN Diagnoses Cellulitis of foot, left L03.116 Metabolic encephalopathy G93.41 Hypertension I10 Hypertension type: essential hypertension Suprapubic catheter Z93.59 Type II diabetes mellitus E11.9 (1) Hypertension Hypertension type: essential hypertension Qualified Code(s): I10 - Essential (primary) hypertension
--- NOTE | 2022-08-30 15:37 | Infectious Disease Progress Nt ---
Date of Service August 30, 2022 Assessment & Plan (1) Cellulitis of foot, left: (2) Suprapubic catheter: (3) Altered mental status: (4) Osteomyelitis: Plan This is a 77 year old male with history of dementia, BPH with urine retention s/p suprapubic catheter, left 4th toe osteomyelitis s/p amputation ( 2019 , Cx+ CONS), right hip replacement, who was brought in by EMS for increased confusion and left foot ulcer and redness. The patient is a poor historian secondary to dementia.He is not able to elaborate on duration of foot ulcer. He admits to new erythema but denies pain, swelling or ulcer drainage. He denies fever, chills, sweats, chest pain, nausea, vomiting, diarrhea, change in urine, cough. In the Ed, he is afebrile and hemodynamically stable. Labs noted for a wbc 9.0, cr 0.9, procalcitonin 0.06, crp 0.95, esr 21, lactate 1.6. Ct head showed no acute changes. Blood cultures are sterile. A Left foot xray showed no acute osseous changes. An Mri of the left foot shows possible mild osteomyelitis with surrounding cellulitis at the first digit proximal phalanx. He was evaluated but orthopedics for osteomyelitis, but no intervention was offered. He was started on broad antibiotic coverage with Iv vancomycin , ceftriaxone and Flagyl. He feels well and states his toe is less red. ID consulted for possible left toe osteomyelitis. Micro: BC 08/22 sterile Abx: ceftriaxone 08/22- ongoing vancomycin 08/22- 08/29 Flagyl 08/23- ongoing Dapto 08/30- ongoing 1. Left great toe ulcer ( unknown duration and ? cellulitis 2. Possible early great toe osteomyelitis on MRI 3. History of left 4th digit osteomyelitis with CONS, sp amputation in 2019 4.Tmp- sulfa allergy: lip swelling Discussion: Patient has dementia and is a poor historian . He is unable to tell me how long the left big toe ulcer has been present. He admits to gradual redness of the toe. He denies a history of DM2 and is not on DM2 medication. ESr is 21 and Crp is 0.95. He had no systemic symptoms on admission such as fever or rigors. He did have a change in MS , which has resolved. On my exam he has chronic charcot foot deformities and a chronic appearing left great toe ulcer with mild surrounding erythema,without TTP, warmth or edema but I am ev aluating the foot after 7 days of broad abx, so I have to rely on documentation and d/w staff on how it appeared prior to the initiation of abx. The ulcer does not probe to bone. Wbc is wnl, BC sterile. He has no confirmed diagnosis of underlying osteomyelitis. There is suspicion of early proximal phalanx mild osteomyelitis based on the MRI findings. He was evaluated early in the admission by Orthopedics, but no debridement, bone biopsy or other surgical intervention was offered. To help rule out osteomyelitis, a bone biopsy sent for BOTH histopathology and culture would help with definitive diagnosis , provide culture results to direct therapy and help to determine need for longterm abx vs short course for SSTI . Given patient's dementia , I spoke to his daughter his HC proxy to discuss potential avenues for management which include approximately 2 weeks of PO antibiotics to treat for SSTI, or 6 weeks of IV antibiotic to treat for a possible underlying osteomyelitis. Risk of untreated osteomyelitis include sepsis, loss of toe. My concern however is that the 6 weeks of IV antibiotics would be broad as we do not have a bone culture to direct therapy, there are adverse effects with terminologist IV antibiotics including C diff, antibiotic resistance, PICC-associated complications, and there is no guarantee that the abx chosen for 6 weeks of treatment would cover the contributing pathogen/s. We do not have a definite diagnosis of osteomyelitis by bone biopsy. On 08/30, i discussed case with his daugher Hailey Gary. She feels her father is too frail for surgical intervention and anaesthesia and does not want to pursue reevaluation by surgery for biopsy for bone cx and histopathology. She wants to move forward with a trial to 6 weeks of IV abx. She verbalized understanding the risk and benefits as outlined above. If he were to fail antibiotic therapy, she will reconsider surgical intervention for definitive diagnosis and possible surgical cure with amputation if needed Recommendations His SSTI has improved on current regimen ,Continue Ceftriaxone 2 mg Iv daily and Flagyl 500 mg iv q8 hr ( can change to po ) and Daptomycin 6mg/kg iv q24 (to cover history of CONS) for 6 weeks from initiation of antibiotics. BC sterile. Tentative end date for abx 10/03/22 Ordered CPK for AM On abx monitor,weekly cbc with diff, bmp, lfts , CPK Side of concern for daptomycin to monitor: myopathy, eosinophilia, eosinophilic pneumonia, peripheral neuropathy Picc can be placed Labs should be followed by PCP. ID COnnect will not follow outpatient. Can establish care with ID in local community. Will need close follow up with podiatry or orthopedics of toe. Discussed assessment/recommendations with team, Tao MANUEL and daughter, Hailey. ID will continue to follow. Matthew Cardoso MD, MPH Infectious Disease [facility], [facility] Call [phone] with questions . Admission and Anticipated Discharge Date Admission Date: August 23, 2022 Subjective Subsequent visit was provided via telemedicine using two-way real-time interactive telecommunication between the patient and the telemedicine provider. For the duration of the visit, the provider was performing the assessment from a different facility than the patient. This includesuse of bluetooth stethoscope forauscultationperformed by the telepresenter that the telemedicine provider can hear if described in the physical exam. [place] contact information: Please call [facility] Call Center . (Phone Number For Physician Use Only) After establishing a telemedicine visit, patient was: Patient was verified with two unique identifiers and Gave permission to continue telehealth session Time Spent with Patient: Subsequent => 35 min Afebrile, feels well. denies foot pain. Discussed case with his daughter Hailey Gary over phone Physical Exam Constitutional: Awake, alert, responds to questions, but has dementia Eyes: EOMI Respiratory: No increased WOB Cardiovascular: RRR Gastrointestinal (Abdomen): soft, not tender, not distended, + suprapubic cath Musculoskeletal: BL foot Charcot appearing abnormalities deformities. Left great toe with a chronic appearing ulcer on IP joint with mild surrounding erythema, not warm, not tender, NO probe to bone, Not indurated, no edema, no drainage ( seen after multiple days of abx) , Left 4th toe sp amputation Neurologic: Awake, alert and oriented to self.. Has dementia. Psychiatric: Cooperative Genitourinary: + suprapubic catheter.. [place] with clear yellow urine Results & Data ([facility]) Vital Signs (Past 12 Hours) Vital Signs Temp Pulse Resp BP Pulse Ox O2 Del Method 08/30/22 07:13 36.4 C L 65 18 154/96 H 97 Room Air Laboratory Results Laboratory Results - last 48 hr 08/28/22 08/28/22 08/29/22 17:01 20:46 08:09 Creatinine Est Cr Clr Drug Dosing Est GFR ( Amer) Est GFR (Non-Af Amer) POC Glucose 101 H 167 H 95 08/29/22 08/29/22 08/29/22 12:03 17:03 20:34 Creatinine Est Cr Clr Drug Dosing Est GFR ( Amer) Est GFR (Non-Af Amer) POC Glucose 156 H 99 123 H 08/30/22 08/30/22 08/30/22 05:41 07:52 11:57 Creatinine 0.87 Est Cr Clr Drug Dosing 67.5 Est GFR ( Amer) 95.8 Est GFR (Non-Af Amer) 82.7 POC Glucose 92 115 H Diagnostic Findings Microbiology 08/22/22 23:25 Blood Aerobic Blood Culture - Final No growth in Aerobic bottle after 5 days. 08/22/22 23:25 Blood Anaerobic Blood Culture - Final No growth in Anaerobic bottle after 5 days. 08/22/22 23:37 Blood Aerobic Blood Culture - Final No growth in Aerobic bottle after 5 days. 08/22/22 23:37 Blood Anaerobic Blood Culture - Final No growth in Anaerobic bottle after 5 days. Left Foot xray 08/23/22 FINDINGS: Demineralized appearance of the bones. Arterial calcifications. 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 Advanced joint space narrowing with sclerosis, bridging osteophytes and partial bony fusion throughout the foot and ankle. Healed chronic fracture involving the base of the fifth proximal phalanx. No acute fracture, dislocation or osseous erosion identified. Soft tissue swelling of the first digit. IMPRESSION: 1. No acute osseous abnormality identified. 2. Chronic findings as above. Left foot MRI w/o con 08/23/22 FINDINGS: Patient is status post amputation of the fourth digit at the level of the mid metatarsal diaphysis. There is mild edema in the distal aspect of the first digit proximal phalanx. There is mild surrounding soft tissue edema and questionable susceptibility artifact. Extensive degenerative changes and deformities in the bones of the foot including bony destruction of multiple midfoot joints, tibiotalar articulation, and deformities of the interphalangeal joints. IMPRESSION: Likely mild osteomyelitis with surrounding cellulitis at the first digit proximal phalanx. Ct brain 08/22/22 Brain parenchyma: There is age related involutional change noting moderate to advanced subcortical and periventricular microangiopathic disease. Foci of bifrontal encephalomalacia are consistent with remote insults. There is no evidence of hemorrhage, mass effect, or acute territorial ischemia by CT criteria. Note that streak artifact largely obscures the upper brain. Almonte-white matter differentiation is preserved. No extra-axial fluid collection is seen. Ventricles, sulci, cisterns: Prominent secondary to involutional change. Intracranial vasculature: There is atherosclerotic calcification of the cavernous carotid arteries. Calvarium: There is evidence of bilateral craniotomy with metallic plates in place. Sinuses and mastoids: The visualized paranasal sinuses are clear. The mastoid ai r cells are well pneumatized. Orbits: The bony orbits are grossly intact. IMPRESSION: There is no evidence of hemorrhage, mass effect, or acute territorial ischemia noting significant streak artifact on the examination. CXR 08/22/22 FINDINGS: 2 AP, portable, upright chest radiographs are compared to study dated 07/22/2022. The heart is enlarged. The pulmonary vasculature is noncontrast. There are low lung volumes with bibasilar atelectasis. No airspace consolidation or large pleural effusion is identified. No pneumothorax is seen. The skeletal structures are osteopenic. Bony thorax is grossly intact. IMPRESSION: No acute cardiopulmonary abnormality. Medications Administered Home Medications Medication Instructions Recorded Confirmed Last Taken aspirin 81 mg tablet,delayed 81 mg PO HS 03/11/21 08/23/22 07/21/22 release melatonin 10 mg tablet 10 mg PO HS 05/18/21 08/23/22 07/21/22 quetiapine 50 mg tablet 50 mg PO HS 05/18/21 08/23/22 07/21/22 cyanocobalamin (vitamin B-12) 5,000 mcg sublingual WK 01/19/22 08/23/22 08/19/22 5,000 mcg sublingual tablet (Vitamin B-12) Lactobacillus acidophilus 10 10,000 mmu cells PO HS 08/23/22 08/23/22 Unknown billion cell capsule (Probiotic) acetaminophen 500 mg tablet 1,000 mg PO HS 08/23/22 08/23/22 Unknown (Tylenol Extra Strength) cholecalciferol (vitamin D3) 50 50 mcg PO HS 08/23/22 08/23/22 Unknown mcg (2,000 unit) capsule (Vitamin D3) docusate sodium 250 mg capsule 250 mg PO HS 08/23/22 08/23/22 Unknown fluconazole 100 mg tablet 100 mg PO HS 08/23/22 08/23/22 Unknown (Diflucan) Active Medications Generic Name Dose Route Start Last Admin Trade Name Renardq PRN Reason Stop Dose Admin Acetaminophen 1,000 mg 08/23/22 21:00 08/29/22 20:42 Acetaminophen 500 Mg Tab PO 09/22/22 20:59 1,000 mg HS GINA Administration Aspirin 81 mg 08/23/22 21:00 08/29/22 20:41 Aspirin 81 Mg Ectab PO 09/22/22 20:59 81 mg HS GINA Administration Docusate Sodium 200 mg 08/23/22 21:00 08/29/22 20:42 Docusate Sodium 100 Mg Cap PO 09/22/22 20:59 200 mg HS GINA Administration Ceftriaxone Sodium 2,000 mg/ 70 mls @ 100 mls/hr 08/23/22 22:00 08/29/22 23:55 Dextrose IV 08/30/22 21:59 Infused Q24H GINA Infusion Protocol Daptomycin 375 mg/ Syringe 7.5 mls @ 3.75 mls/min 08/29/22 20:00 08/29/22 20:41 IV 10/10/22 19:59 3.75 mls/min Q24H GINA Administration Protocol Insulin Aspart 0 units 08/23/22 21:00 08/30/22 12:58 Insulin Aspart Per Unit SC 09/22/22 20:59 3 units ACHS GINA Administration Lactobacillus Acidophilus 2 cap 08/23/22 21:00 08/29/22 20:43 Advanced Probiotic 1250 Mg Capsule PO 09/22/22 20:59 2 cap HS GINA Administration Melatonin 9 mg 08/23/22 21:00 08/29/22 20:43 Melatonin 3 Mg Tab PO 09/22/22 20:59 9 mg HS GINA Administration Quetiapine Fumarate 50 mg 08/23/22 21:00 08/29/22 20:43 Quetiapine Fumarate 25 Mg Tablet PO 09/22/22 20:59 50 mg HS GINA Administration Vitamin D 2,000 units 08/23/22 21:00 08/29/22 20:42 Cholecalciferol 1,000 Units 25 Mcg Tab PO 09/22/22 20:59 2,000 units HS GINA Administration
[2022-08-30] MEDS: DAPTOmycin 375 MG in SYRINGE 0 ML IV SCH (20:51)
[2022-08-30] MEDS: ACETAMINOPHEN 500 MG TAB PO SCH (20:53)
[2022-08-30] MEDS: ADVANCED PROBIOTIC 1250 MG CAPSULE PO SCH (20:53)
[2022-08-30] MEDS: ASPIRIN 81 MG ECTAB PO SCH (20:54)
[2022-08-30] MEDS: DOCUSATE SODIUM 100 MG CAP PO SCH (20:54)
[2022-08-30] MEDS: CHOLECALCIFEROL 1,000 UNITS 25 MCG TAB PO SCH (20:54)
[2022-08-30] MEDS: QUEtiapine FUMARATE 25 MG TABLET PO SCH (20:55)
[2022-08-30] MEDS: MELATONIN 3 MG TAB PO SCH (20:55)
[2022-08-31] MEDS: INSULIN ASPART PER UNIT SC SCH ×4 (08:57→20:55)
--- NOTE | 2022-08-31 10:52 | Hospitalist Progress Note ---
Date of Service August 31, 2022 Assessment & Plan (1) Cellulitis of foot, left: Plan: Patient with reported history of DM II but on no medications and with ulceration to his left great toe- admitted for abx and rule out osteo - MRI completed with interpretation of mild osteoarthritis - ABX coverage - Rocephin 2GM, Vancomycin, and Flagyl - blood cultures NGTD, no purulence drainage noted and superficial appearance- wound culture not obtained - Orthopedics consulted, no plan for biopsy or amputation, advised wound care and outpatient f/u - Wound consultation placed-seen by radio sportscaster, recommending clean with saline, paint with betadine, allow to dry and cover with optifoam - is to f/u in wound care clinic - Consulted ID, spoke with Dr. Cardoso, she agreed with treating w/ abx for cellulitis, however is reluctant to treat for 6w with IV abx due to lack of confirmation of osteo via bone biopsy (only noted on imaging) * Dr. Cardoso spoke with pt's daughter on 08/30, daughter would like to proceed with treating for osteomyelitis * PICC line ordered * Will need 6w (total, minus days received in house) of Rocephin 2g, Daptomycin 375mg IV daily + oral Flagyl 500mg q8h * Discussed SNF and Daptomycin with case management and also with ID - Dr Cardoso who informed me that Daptomycin now has another generic form available and should be covered by patient's insurance. NANCY (Margaret Villalba) is reaching out to [facility] and [facility] to have their pharmacies check on the generic Daptomycin and coverage. - Will need ortho f/u as outpatient (2) Metabolic encephalopathy: Plan: Resolved- patient improved this morning- remains baseline slow as he has dementia (3) Hypertension: Plan: Elevated blood pressure on admission without diagnosis of hypertension - is not on any medications or treatment as outpatient - resolved following IVF and antibiotics - UA is without protein or blood - acceptable control - BP today 136/81 (4) Suprapubic catheter: Plan: chronic indwelling catheter with history of MDRO organisms - draining clear yellow urine and negative UA on admission - no acute needs (5) Type II diabetes mellitus: Plan: Patient states that he does not have DM- however his A1C is 6.7 - BG aspart sliding scale - carb consistent diet Plan Dispo: Daughter requesting SNF for rehab + IV abx. CM consulted and working on this. Daptomycin is now available in another generic form (per ID )and CM working with [facility] and [facility] pharmacies to see if this is covered by patient's insurance. Admission and Anticipated Discharge Date Admission Date: August 23, 2022 Subjective Patient is awake sitting up in bed in NAD watching television. He voices no complaints. Review of Systems Constitutional: no fever, no chills and no body aches Respiratory: no cough, no chest congestion and no dyspnea Cardiovascular: no chest pain, no dyspnea, no syncope and no calf pain Gastrointestinal: no nausea, no vomiting, no constipation and no diarrhea/loose stools Integumentary: no rash, no lesions and no new lesions Physical Exam Constitutional: well developed, + thin and comfortable; not in distress Neck: trachea midline, no thyromegaly Respiratory: normal respiratory effort, lungs clear to auscultation Cardiovascular: Rate/Rhythm: regular rate and regular rhythm Heart Sounds: normal S1, normal S2 and + murmur (2/6 DAVID) Extremities: no calf tenderness, no pedal edema and no edema Gastrointestinal (Abdomen): normal bowel sounds, soft, nontender, no hepatosplenomegaly Skin: dressing over left 1st hallux, no surrounding erythema or edema, discharge to center of the dressing Psychiatric: Orientation: alert, oriented to person and cooperative Results & Data Results & Data ([facility]) Vital Signs (Past 12 Hours) Vital Signs Temp Pulse Resp BP Pulse Ox O2 Del Method 08/31/22 07:45 Room Air 08/31/22 06:59 36.5 C 70 16 136/81 94 Room Air Laboratory Results Abnormal lab results 08/30/22 08/30/22 08/30/22 Range/Units 11:57 17:01 20:31 POC Glucose 115 H 116 H 120 H (70-99) mg/dl Total Creatine Kinase (30-223) U/L 08/31/22 08/31/22 Range/Units 06:29 08:06 POC Glucose 106 H (70-99) mg/dl Total Creatine Kinase 24 L (30-223) U/L Diagnostic Findings Chest X-Ray 08/31/22 11:02 XR chest 1V portable CLINICAL HISTORY: picc line placement to right arm TECHNIQUE: Single frontal radiograph of the chest was obtained. Comparison: Comparison is made to chest radiograph 08/22/2022 FINDINGS: A right PICC is seen with the tip in the lower SVC. The cardiomediastinal silhouette is normal. The lungs are clear. No evidence of pleural effusion or pneumothorax. IMPRESSION: Satisfactory position of the right PICC. ACT 112: Negative or not required by law. Electronically signed by: Gaurav Stinson M.D. 08/31/2022 11:33 AM PG Care Time/CCT Total # of Minutes Spent Total Time Spent with Patient: Total time spent is greater than 50% in coordination of care (as documented) at patient's floor/unit and/or counseling patient: Coding Level of Care Code 22127 SUB INP/OBS CARE 2/35MIN Diagnoses Cellulitis of foot, left L03.116 Metabolic encephalopathy G93.41 Hypertension I10 Hypertension type: essential hypertension Suprapubic catheter Z93.59 Type II diabetes mellitus E11.9 (1) Hypertension Hypertension type: essential hypertension Qualified Code(s): I10 - Essential (primary) hypertension
--- NOTE | 2022-08-31 11:35 | XRay Report ---
XR chest 1V portable CLINICAL HISTORY: picc line placement to right arm TECHNIQUE: Single frontal radiograph of the chest was obtained. Comparison: Comparison is made to chest radiograph 08/22/2022 FINDINGS: A right PICC is seen with the tip in the lower SVC. The cardiomediastinal silhouette is normal. The l ungs are clear. No evidence of pleural effusion or pneumothorax. IMPRESSION: Satisfactory position of the right PICC. ACT 112: Negative or not required by law. Electronically signed by: Gaurav Stinson M.D. 08/31/2022 11:33 AM
--- NOTE | 2022-08-31 17:02 | Infectious Disease Progress Nt ---
Date of Service August 31, 2022 Assessment & Plan (1) Cellulitis of foot, left: (2) Suprapubic catheter: (3) Altered mental status: (4) Osteomyelitis: Plan This is a 77 year old male with history of dementia, BPH with urine retention s/p suprapubic catheter, left 4th toe osteomyelitis s/p amputation ( 2019 , Cx+ CONS), right hip replacement, who was brought in by EMS for increased confusion and left foot ulcer and redness. The patient is a poor historian secondary to dementia.He is not able to elaborate on duration of foot ulcer. He admits to new erythema but denies pain, swelling or ulcer drainage. He denies fever, chills, sweats, chest pain, nausea, vomiting, diarrhea, change in urine, cough. In the Ed, he is afebrile and hemodynamically stable. Labs noted for a wbc 9.0, cr 0.9, procalcitonin 0.06, crp 0.95, esr 21, lactate 1.6. Ct head showed no acute changes. Blood cultures are sterile. A Left foot xray showed no acute osseous changes. An Mri of the left foot shows possible mild osteomyelitis with surrounding cellulitis at the first digit proximal phalanx. He was evaluated but orthopedics for osteomyelitis, but no intervention was offered. He was started on broad antibiotic coverage with Iv vancomycin , ceftriaxone and Flagyl. He feels well and states his toe is less red. ID consulted for possible left toe osteomyelitis. Micro: BC 08/22 sterile Abx: ceftriaxone 08/22- ongoing vancomycin 08/22- 08/29 Flagyl 08/23- ongoing Dapto 08/30- ongoing 1. Left great toe ulcer 2. Possible early great toe osteomyelitis on MRI 3. History of left 4th digit osteomyelitis with CONS, sp amputation in 2019 4.Tmp- sulfa allergy: lip swelling Discussion: Patient has dementia and is a poor historian . He is unable to tell me how long the left big toe ulcer has been present. He admits to gradual redness of the toe. He denies a history of DM2 and is not on DM2 medication. ESr is 21 and Crp is 0.95. He had no systemic symptoms on admission such as fever or rigors. He did have a change in MS , which has resolved. On my exam he has chronic charcot foot deformities and a chronic appearing left great toe ulcer with mild surrounding erythema,without TTP, warmth or edema but first evaluated the foot after 7 days of broad abx. The ulcer does not probe to bone. Wbc is wnl, BC sterile. He has no confirmed diagnosis of underlying osteomyelitis. There is suspicion of early proximal phalanx mild osteomyelitis based on the MRI findings. He was evaluated early in the admission by Orthopedics, but no debridement, bone biopsy or other surgical intervention was offered. 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 Given patient's dementia , I spoke to his daughter his HC proxy,Hailey Gary on 08/30 to discuss potential avenues for management which include approximately 2 weeks of PO antibiotics to treat for SSTI, or 6 weeks of IV antibiotic for possible underlying osteomyelitis. Risk of untreated osteomyelitis include sepsis, loss of toe. My concern however is that the 6 weeks of IV antibiotics would be broad as we do not have a bone culture to direct therapy, there are adverse effects with correction IV antibiotics including C diff, antibiotic resistance, PICC-associated complications, and there is no guarantee that the abx chosen for 6 weeks of treatment would cover the contributing pathogen/s. We do not have a definite diagnosis of osteomyelitis by bone biopsy. His daughter feels that he iis too frail for surgical intervention and anaesthesia. She does not want to pursue reevaluation by surgery for biopsy for bone cx and histopathology. She wants to move forward with a trial of 6 weeks of IV abx. She verbalized understanding the risk and benefits as outlined above. If he were to fail antibiotic therapy, she will reconsider surgical intervention for definitive diagnosis and possible surgical cure with amputation if needed Recommendations His SSTI has improved on current regimen, so continued current abx completre Ceftriaxone 2 mg Iv daily Flagyl 500 mg PO q8 hr and Daptomycin 6mg/kg iv q24 for 6 weeks from initiation of antibiotics. BCs sterile. Tentative end date for abx is 10/03/22 CPK 24 on 08/31 On abx monitor,weekly cbc with diff, bmp, lfts , CPK, esr, crp Side effects of concern for daptomycin to monitor: myopathy, eosinophilia, eosinophilic pneumonia, peripheral neuropathy Labs should be followed by PCP. ID COnnect will not follow outpatient. He can establish care with ID in local community. He will need close follow up with podiatry or orthopedics for monitoring of the toe. Discussed assessment/recommendations with team. ID will sign off. If any questions, please call [phone] with questions Matthew Cardoso MD, MPH Infectious Disease [facility], ID Division . Admission and Anticipated Discharge Date Admission Date: August 23, 2022 Subjective This patient recommendation is based on a telemedicine consult request which was completed asynchronously through chart review and information provided by the primary physician. The patient was not seen or examined today. The evaluation is consultative in nature and all patient care and treatment decisions can either be accepted or rejected by the patient's primary hospital-based treating physician using their own independent medical judgment for their patient. Time Spent Reviewing Chart: 21 - 30 minutes Picc placed, pending SNF. No chaanges Results & Data ([place]) Vital Signs (Past 12 Hours) Vital Signs Temp Pulse Resp BP Pulse Ox O2 Del Method 08/31/22 14:44 36.3 C L 70 18 144/76 H 96 Room Air 08/31/22 07:45 Room Air 08/31/22 06:59 36.5 C 70 16 136/81 94 Room Air Laboratory Results Laboratory Results - last 48 hr 08/30/22 08/30/22 08/30/22 05:41 07:52 11:57 Creatinine 0.87 Est Cr Clr Drug Dosing 67.5 Est GFR ( Amer) 95.8 Est GFR (Non-Af Amer) 82.7 POC Glucose 92 115 H Total Creatine Kinase Urine Color Urine Appearance Urine pH Ur Specific [place] Urine Protein Urine Glucose (UA) Urine Ketones Urine Blood Urine Nitrite Urine Bilirubin Urine Urobilinogen Ur Leukocyte Esterase 08/30/22 08/30/22 08/31/22 17:01 20:31 06:29 Creatinine Est Cr Clr Drug Dosing Est GFR ( Amer) Est GFR (Non-Af Amer) POC Glucose 116 H 120 H Total Creatine Kinase 24 L Urine Color Urine Appearance Urine pH Ur Specific [place] Urine Protein Urine Glucose (UA) Urine Ketones Urine Blood Urine Nitrite Urine Bilirubin Urine Urobilinogen Ur Leukocyte Esterase 08/31/22 08/31/22 08/31/22 08:06 12:05 17:06 Creatinine Est Cr Clr Drug Dosing Est GFR ( Amer) Est GFR (Non-Af Amer) POC Glucose 106 H 123 H 111 H Total Creatine Kinase Urine Color Urine Appearance Urine pH Ur Specific [place] Urine Protein Urine Glucose (UA) Urine Ketones Urine Blood Urine Nitrite Urine Bilirubin Urine Urobilinogen Ur Leukocyte Esterase Diagnostic Findings Microbiology 08/22/22 23:25 Blood Aerobic Blood Culture - Final No growth in Aerobic bottle after 5 days. 08/22/22 23:25 Blood Anaerobic Blood Culture - Final No growth in Anaerobic bottle after 5 days. 08/22/22 23:37 Blood Aerobic Blood Culture - Final No growth in Aerobic bottle after 5 days. 08/22/22 23:37 Blood Anaerobic Blood Culture - Final No growth in Anaerobic bottle after 5 days. Chest X-Ray 08/31/22 11:02 XR chest 1V portable CLINICAL HISTORY: picc line placement to right arm TECHNIQUE: Single frontal radiograph of the chest was obtained. Comparison: Comparison is made to chest radiograph 08/22/2022 FINDINGS: A right PICC is seen with the tip in the lower SVC. The cardiomediastinal silhouette is normal. The lungs are clear. No evidence of pleural effusion or pneumothorax. IMPRESSION: Satisfactory position of the right PICC. ACT 112: Negative or not required by law. Electronically signed by: Gaurav Stinson M.D. 08/31/2022 11:33 AM Medications Administered Home Medications Medication Instructions Recorded Confirmed Last Taken aspirin 81 mg tablet,delayed 81 mg PO HS 03/11/21 08/23/22 07/21/22 release melatonin 10 mg tablet 10 mg PO HS 05/18/21 08/23/22 07/21/22 quetiapine 50 mg tablet 50 mg PO HS 05/18/21 08/23/22 07/21/22 cyanocobalamin (vitamin B-12) 5,000 mcg sublingual WK 01/19/22 08/23/22 08/19/22 5,000 mcg sublingual tablet (Vitamin B-12) Lactobacillus acidophilus 10 10,000 mmu cells PO HS 08/23/22 08/23/22 Unknown billion cell capsule (Probiotic) acetaminophen 500 mg tablet 1,000 mg PO HS 08/23/22 08/23/22 Unknown (Tylenol Extra Strength) cholecalciferol (vitamin D3) 50 50 mcg PO HS 08/23/22 08/23/22 Unknown mcg (2,000 unit) capsule (Vitamin D3) docusate sodium 250 mg capsule 250 mg PO HS 08/23/22 08/23/22 Unknown fluconazole 100 mg tablet 100 mg PO HS 08/23/22 08/23/22 Unknown (Diflucan) Active Medications Generic Name Dose Route Start Last Admin Trade Name Edison PRN Reason Stop Dose Admin Acetaminophen 1,000 mg 08/23/22 21:00 08/30/22 20:53 Acetaminophen 500 Mg Tab PO 09/22/22 20:59 1,000 mg HS GINA Administration Aspirin 81 mg 08/23/22 21:00 08/30/22 20:54 Aspirin 81 Mg Ectab PO 09/22/22 20:59 81 mg HS GINA Administration Docusate Sodium 200 mg 08/23/22 21:00 08/30/22 20:54 Docusate Sodium 100 Mg Cap PO 09/22/22 20:59 200 mg HS GINA Administration Daptomycin 375 mg/ Syringe 7.5 mls @ 3.75 mls/min 08/29/22 20:00 08/30/22 20:51 IV 10/10/22 19:59 3.75 mls/min Q24H GINA Administration Protocol Insulin Aspart 0 units 08/23/22 21:00 08/31/22 12:28 Insulin Aspart Per Unit SC 09/22/22 20:59 3 units ACHS GINA Administration Lactobacillus Acidophilus 2 cap 08/23/22 21:00 08/30/22 20:53 Advanced Probiotic 1250 Mg Capsule PO 09/22/22 20:59 2 cap HS GINA Administration Melatonin 9 mg 08/23/22 21:00 08/30/22 20:55 Melatonin 3 Mg Tab PO 09/22/22 20:59 9 mg HS GINA Administration Quetiapine Fumarate 50 mg 08/23/22 21:00 08/30/22 20:55 Quetiapine Fumarate 25 Mg Tablet PO 09/22/22 20:59 50 mg HS GINA Administration Vitamin D 2,000 units 08/23/22 21:00 08/30/22 20:54 Cholecalciferol 1,000 Units 25 Mcg Tab PO 09/22/22 20:59 2,000 units HS GINA Administration
[2022-08-31] MEDS: cefTRIAXone SODIUM 2,000 MG in DEXTROSE 5% 50 ML IV SCH (18:07)
[2022-08-31] MEDS: ASPIRIN 81 MG ECTAB PO SCH (20:24)
[2022-08-31] MEDS: ACETAMINOPHEN 500 MG TAB PO SCH (20:24)
[2022-08-31] MEDS: QUEtiapine FUMARATE 25 MG TABLET PO SCH (20:24)
[2022-08-31] MEDS: ADVANCED PROBIOTIC 1250 MG CAPSULE PO SCH (20:25)
[2022-08-31] MEDS: MELATONIN 3 MG TAB PO SCH (20:25)
[2022-08-31] MEDS: CHOLECALCIFEROL 1,000 UNITS 25 MCG TAB PO SCH (20:25)
[2022-08-31] MEDS: DOCUSATE SODIUM 100 MG CAP PO SCH (20:26)
[2022-08-31] MEDS: DAPTOmycin 375 MG in SYRINGE 0 ML IV SCH (20:33)
[2022-08-31 23:59] LABS: Appearance Urine Clear (Clear); Bilirubin Urine Negative (Negative); Blood Urine Negative (Negative); Color Urine Yellow; Glucose Urine UA Negative (Negative); Ketones Urine Trace (Negative); Leukocyte Esterase Urine Negative (Negative); Nitrite Urine Negative (Negative); Protein Urine Negative (Negative); Specific Gravity Urine 1.014 (1.000-1.030); Urobilinogen Urine Negative (Negative)
[2022-09-01 06:42] LABS: Albumin Level 3.6 gm/dl (3.4-5.0); Bilirubin Direct 0.1 mg/dl (0-0.2); Bilirubin,Total 0.5 mg/dl (0.2-1.0)
[2022-09-01 06:48] LABS: Total Protein 6.2 gm/dl (6.0-8.3)
[2022-09-01] MEDS: INSULIN ASPART PER UNIT SC SCH ×4 (09:05→20:46)
--- NOTE | 2022-09-01 10:51 | Hospitalist Progress Note ---
Date of Service September 01, 2022 Assessment & Plan (1) Cellulitis of foot, left: Plan: Paitient with reported history of DM II but on no medications and with ulceration to his left great toe- admitted for abx and rule out osteo - MRI completed with interpretations of "mild osteomyelitis" - blood cultures -no growth after 5 days - no purulence drainage noted and superficial appearance- wound culture not obtained - Orthopaedics consult appreciated - ID consulted appreciate their input - Wound consultation placed - No evidence of sepsis- no organ dysfunction, lactate negative, PCT 0.06 Patient's family wished to treat for osteomyelitis - Continue Daptomycin, Flagyl and Rocephin (2) Metabolic encephalopathy: Plan: Resolved- patient improved this morning- remains baseline slow as he has de mentia - oriented x2 and able to participate in ROS and exam (3) Hypertension: Plan: Elevated blood pressure on admission without diagnosis of hypertension is not on any medications or treatment as outpatient resolved following IVF and antibiotics UA is without protein or blood continue to follow (4) Suprapubic catheter: Plan: chronic indwelling catheter with history of MDRO organisms draining clear yellow urine and negative UA on admission and also negative U/A yesterday no acute needs (5) Type II diabetes mellitus: Plan: Patient's HgbA1C is 6.7 BG aspart sliding scale carb consistent diet (6) Catheter-associated urinary tract infection: Plan: Hisory of- not an acute issue- UA negative Admission and Anticipated Discharge Date Admission Date: August 23, 2022 Subjective Picc placed yesterday, awaiting to [facility]. Per nursing patient fell out of bed last night. His daughter was called and she stated he has done this various times in the past. He has no visible injuries and has no complaints or pain to palpation on exam. Review of Systems Review of Systems: All systems reviewed and are unremarkable except as noted in HPI and below. Constitutional: no fever, no chills and no body aches Respiratory: no cough, no chest congestion and no dyspnea Cardiovascular: no chest pain, no dyspnea, no syncope and no calf pain Gastrointestinal: no nausea, no vomiting, no constipation and no diarrhea/loose stools Integumentary: no rash, no lesions and no new lesions Physical Exam Constitutional: well developed, + thin and comfortable; not in distress Neck: trachea midline, no thyromegaly Respiratory: normal respiratory effort, lungs clear to auscultation Cardiovascular: Rate/Rhythm: regular rate and regular rhythm Heart Sounds: normal S1, normal S2 and + murmur (2/6 DAVID) Extremities: no calf tenderness, no pedal edema and no edema Gastrointestinal (Abdomen): normal bowel sounds, soft, nontender, no hepatosplenomegaly Skin: Left toe with dressing, clean and dry no other skin lesions or wounds Psychiatric: Orientation: alert, oriented to person and cooperative Results & Data Results & Data ([facility]) Vital Signs (Past 12 Hours) Vital Signs Temp Pulse Resp BP Pulse Ox O2 Del Method 09/01/22 07:38 36.5 C 63 16 141/79 H 99 Room Air Laboratory Results Abnormal lab results 08/31/22 08/31/22 08/31/22 Range/Units 12:05 17:06 20:51 POC Glucose 123 H 111 H 113 H (70-99) mg/dl Urine Ketones (Negative) 08/31/22 Range/Units 23:35 POC Glucose (70-99) mg/dl Urine Ketones Trace H (Negative) Diagnostic Findings Chest X-Ray 08/31/22 11:02 XR chest 1V portable CLINICAL HISTORY: picc line placement to right arm TECHNIQUE: Single frontal radiograph of the chest was obtained. Comparison: Comparison is made to chest radiograph 08/22/2022 FINDINGS: A right PICC is seen with the tip in the lower SVC. The cardiomediastinal silhouette is normal. The lungs are clear. No evidence of pleural effusion or pneumothorax. IMPRESSION: Satisfactory position of the right PICC. ACT 112: Negative or not required by law. Electronically signed by: Gaurav Stinson M.D. 08/31/2022 11:33 AM PG Care Time/CCT Total # of Minutes Spent Total Time Spent with Patient: Total time spent is greater than 50% in coordination of care (as documented) at patient's floor/unit and/or counseling patient: Coding Level of Care Code 27824 SUB INP/OBS CARE Diagnoses Cellulitis of foot, left L03.116 Metabolic encephalopathy G93.41 Hypertension I10 Hypertension type: essential hypertension Suprapubic catheter Z93.59 Type II diabetes mellitus E11.9 Catheter-associated urinary tract infection T83.511A; N39.0 Encounter type: initial encounter Indwelling urinary catheter type: unspecified (1) Catheter-associated urinary tract infection Encounter type: initial encounter Indwelling urinary catheter type: unspecified Qualified Code(s): T83.511A - Infection and inflammatory reaction due to indwelling urethral catheter, initial encounter; N39.0 - Urinary tract infection, site not specified (2) Hypertension Hypertension type: essential hypertension Qualified Code(s): I10 - Essential (primary) hypertension
[2022-09-01] MEDS: cefTRIAXone SODIUM 2,000 MG in DEXTROSE 5% 50 ML IV SCH (17:54)
[2022-09-01] MEDS: metroNIDAZOLE 500 MG TAB PO SCH ×2 (18:40→23:02)
[2022-09-01] MEDS: ACETAMINOPHEN 500 MG TAB PO SCH (20:32)
[2022-09-01] MEDS: DAPTOmycin 450 MG in SYRINGE 0 ML IV SCH (20:32)
[2022-09-01] MEDS: CHOLECALCIFEROL 1,000 UNITS 25 MCG TAB PO SCH (20:33)
[2022-09-01] MEDS: DOCUSATE SODIUM 100 MG CAP PO SCH (20:33)
[2022-09-01] MEDS: ADVANCED PROBIOTIC 1250 MG CAPSULE PO SCH (20:33)
[2022-09-01] MEDS: MELATONIN 3 MG TAB PO SCH (20:33)
[2022-09-01] MEDS: QUEtiapine FUMARATE 25 MG TABLET PO SCH (20:34)
[2022-09-01] MEDS: ASPIRIN 81 MG ECTAB PO SCH (20:34)
[2022-09-02] MEDS: metroNIDAZOLE 500 MG TAB PO SCH ×3 (05:22→21:45)
--- NOTE | 2022-09-02 08:49 | Hospitalist Progress Note ---
Date of Service September 02, 2022 Assessment & Plan (1) Cellulitis of foot, left: Plan: Paitient with reported history of DM II but on no medications and with ulceration to his left great toe- admitted for abx and to rule out osteomyelitis - MRI completed with interpretations of "mild osteomyelitis" - blood cultures -no growth after 5 days - no purulence drainage noted and superficial appearance- wound culture not obtained - Orthopaedics consult appreciated - ID consulted appreciate their input - Wound consultation placed - No evidence of sepsis- no organ dysfunction, lactate negative, PCT 0.06 Patient's family wished to treat for osteomyelitis - Continue Daptomycin, Flagyl and Rocephin (2) Metabolic encephalopathy: Plan: Resolved- patient improved this morning- remains baseline slow as he has dementia - oriented x2 and able to participate in ROS and exam (3) Hypertension: Plan: Elevated blood pressure on admission without diagnosis of hypertension is not on any medications or treatment as outpatient resolved following IVF and antibiotics UA is without protein or blood continue to follow (4) Suprapubic catheter: Plan: chronic indwelling catheter with history of MDRO organisms draining clear yellow urine and negative UA on admission and also negative U/A yesterday no acute needs (5) Type II diabetes mellitus: Plan: Patient's HgbA1C is 6.7 BG aspart sliding scale carb consistent diet (6) Catheter-associated urinary tract infection: Plan: Hisory of- not an acute issue- UA negative Plan [facility] has accepted patient on Daptomycin and possible bed there next week. Admission and Anticipated Discharge Date Admission Date: August 23, 2022 Subjective Patient is sitting up in bed watching News. He has no complaints today. CM is waiting on a bd at [facility]. [facility] accepted patient and the Daptomycin and now awaiting bed. Review of Systems Review of Systems: All systems reviewed and are unremarkable except as noted in HPI and below. Constitutional: no fever, no chills and no body aches Respiratory: no cough, no chest congestion and no dyspnea Cardiovascular: no chest pain, no dyspnea, no syncope and no calf pain Gastrointestinal: no nausea, no vomiting, no constipation and no diarrhea/loose stools Integumentary: no rash, no lesions and no new lesions Physical Exam Constitutional: well developed, + thin and comfortable; not in distress Neck: trachea midline, no thyromegaly Respiratory: normal respiratory effort, lungs clear to auscultation Cardiovascular: Rate/Rhythm: regular rate and regular rhythm Heart Sounds: normal S1, normal S2 and + murmur (2/6 DAVID) Extremities: no calf tenderness, no pedal edema and no edema Gastrointestinal (Abdomen): normal bowel sounds, soft, nontender, no hepatosplenomegaly Skin: dressing over left 1st phallux clean and surrounding skin with no erythema Psychiatric: Orientation: alert, oriented to person and cooperative Results & Data Results & Data ([facility]) Vital Signs (Past 12 Hours) Vital Signs Temp Pulse Resp BP Pulse Ox O2 Del Method 09/02/22 06:57 36.4 C L 68 16 145/81 H 93 Room Air Laboratory Results Abnormal lab results 09/01/22 09/01/22 09/02/22 Range/Units 17:16 20:42 12:05 POC Glucose 166 H 147 H 133 H (70-99) mg/dl PG Care Time/CCT Total # of Minutes Spent Total Time Spent with Patient: Total time spent is greater than 50% in coordination of care (as documented) at patient's floor/unit and/or counseling patient: Coding Level of Care Code 55515 SUB INP/OBS CARE 08/30MIN Diagnoses Cellulitis of foot, left L03.116 Metabolic encephalopathy G93.41 Hypertension I10 Hypertension type: essential hypertension Suprapubic catheter Z93.59 Type II diabetes mellitus E11.9 Catheter-associated urinary tract infection T83.511A; N39.0 Encounter type: initial encounter Indwelling urinary catheter type: unspecified (1) Catheter-associated urinary tract infection Encounter type: initial encounter Indwelling urinary catheter type: unspecified Qualified Code(s): T83.511A - Infection and inflammatory reaction due to indwelling urethral catheter, initial encounter; N39.0 - Urinary tract infection, site not specified (2) Hypertension Hypertension type: essential hypertension Qualified Code(s): I10 - Essential (primary) hypertension
[2022-09-02] MEDS: INSULIN ASPART PER UNIT SC SCH ×4 (09:11→20:21)
[2022-09-02] MEDS: cefTRIAXone SODIUM 2,000 MG in DEXTROSE 5% 50 ML IV SCH (17:45)
[2022-09-02] MEDS: QUEtiapine FUMARATE 25 MG TABLET PO SCH (19:28)
[2022-09-02] MEDS: DAPTOmycin 450 MG in SYRINGE 0 ML IV SCH (19:28)
[2022-09-02] MEDS: DOCUSATE SODIUM 100 MG CAP PO SCH (19:28)
[2022-09-02] MEDS: ACETAMINOPHEN 500 MG TAB PO SCH (19:29)
[2022-09-02] MEDS: ADVANCED PROBIOTIC 1250 MG CAPSULE PO SCH (19:29)
[2022-09-02] MEDS: MELATONIN 3 MG TAB PO SCH (19:30)
[2022-09-02] MEDS: CHOLECALCIFEROL 1,000 UNITS 25 MCG TAB PO SCH (19:30)
[2022-09-02] MEDS: ASPIRIN 81 MG ECTAB PO SCH (19:30)
[2022-09-03] MEDS: metroNIDAZOLE 500 MG TAB PO SCH ×3 (05:48→22:09)
--- NOTE | 2022-09-03 08:42 | Hospitalist Progress Note ---
Date of Service September 03, 2022 Assessment & Plan (1) Cellulitis of foot, left: Plan: Patient with reported history of DM II but on no medications and with ulceration to his left great toe- admitted for abx and to rule out osteomyelitis - MRI completed with interpretations of "mild osteomyelitis" - blood cultures -no growth after 5 days - no purulence drainage noted and superficial appearance- wound culture not obtained - Orthopaedics consult appreciated - ID consulted appreciate their input Continue Flagyl 500mg TID, Daptomycin 6mg/kg IV q24H and Ceftriaxone 2gm IV Q24H. Tentative end date for abx is 10/03/22 Also recommended to check weekly CBC w diff, BMP, LFT, CPK, ESR and CPK - Wound consultation placed - No evidence of sepsis- no organ dysfunction, lactate negative, PCT 0.06 Patient's family wished to treat for osteomyelitis - Continue Daptomycin, Flagyl and Rocephin (2) Metabolic encephalopathy: Plan: Resolved- patient improved this morning- remains baseline slow as he has dementia - oriented x2 and able to participate in ROS and exam, pleasant (3) Hypertension: Plan: Elevated blood pressure on admission without diagnosis of hypertension is not on any medications or treatment as outpatient resolved following IVF and antibiotics UA is without protein or blood continue to follow (4) Suprapubic catheter: Plan: chronic indwelling catheter with history of MDRO organisms draining clear yellow urine and negative UA on admission and also negative U/A on repeat08/31/22 no acute needs (5) Type II diabetes mellitus: Plan: Patient's HgbA1C is 6.7 BG aspart sliding scale carb consistent diet (6) Catheter-associated urinary tract infection: Plan: Hisory of- not an acute issue- UA negative Plan [facility] has accepted patient on Daptomycin and possible bed there next week. Admission and Anticipated Discharge Date Admission Date: August 23, 2022 Subjective Patient is awake sitting up in bed with legs crossed. He has no complaints today. He tells me that his dressing was changed on his left foot. He denies any chest pain, SOB, dyspnea or any pain. Review of Systems Review of Systems: All systems reviewed and are unremarkable except as noted in HPI and below. Constitutional: no fever, no chills and no body aches Respiratory: no cough, no chest congestion and no dyspnea Cardiovascular: no chest pain, no dyspnea, no syncope and no calf pain Gastrointestinal: no nausea, no vomiting, no constipation and no diarrhea/loose stools Integumentary: no rash, no lesions and no new lesions Physical Exam Constitutional: well developed, + thin and comfortable; not in distress Neck: trachea midline, no thyromegaly Respiratory: normal respiratory effort, lungs clear to auscultation Cardiovascular: Rate/Rhythm: regular rate and regular rhythm Heart Sounds: normal S1, normal S2 and + murmur (2/6 DAVID) Extremities: no calf tenderness, no pedal edema and no edema Gastrointestinal (Abdomen): normal bowel sounds, soft, nontender, no hepatosplenomegaly Skin: dressing over left first hallux, clean and dry with no surrounding erythema noted Psychiatric: Orientation: alert, oriented to person and cooperative Results & Data Results & Data ([facility]) Vital Signs (Past 12 Hours) Vital Signs Temp Pulse Resp BP Pulse Ox O2 Del Method 09/03/22 07:04 36.6 C 81 18 178/76 H 97 Room Air Laboratory Results Abnormal lab results 09/02/22 09/02/22 09/03/22 Range/Units 17:01 20:18 12:13 POC Glucose 106 H 173 H 157 H (70-99) mg/dl PG Care Time/CCT Total # of Minutes Spent Total Time Spent with Patient: Total time spent is greater than 50% in coordination of care (as documented) at patient's floor/unit and/or counseling patient: Coding Level of Care Code 41002 SUB INP/OBS CARE 08/30MIN Diagnoses Cellulitis of foot, left L03.116 Metabolic encephalopathy G93.41 Hypertension I10 Hypertension type: essential hypertension Suprapubic catheter Z93.59 Type II diabetes mellitus E11.9 Catheter-associated urinary tract infection T83.511A; N39.0 Encounter type: initial encounter Indwelling urinary catheter type: unspecified (1) Catheter-associated urinary tract infection Encounter type: initial encounter Indwelling urinary catheter type: unspecified Qualified Code(s): T83.511A - Infection and inflammatory reaction due to indwelling urethral catheter, initial encounter; N39.0 - Urinary tract infection, site not specified (2) Hypertension Hypertension type: essential hypertension Qualified Code(s): I10 - Essential (primary) hypertension
[2022-09-03] MEDS: INSULIN ASPART PER UNIT SC SCH ×4 (09:02→20:46)
[2022-09-03] MEDS: ENOXAPARIN INJ 30 MG/0.3 ML SYR SQ SCH (09:59)
[2022-09-03] MEDS: cefTRIAXone SODIUM 2,000 MG in DEXTROSE 5% 50 ML IV SCH (17:44)
[2022-09-03] MEDS: ASPIRIN 81 MG ECTAB PO SCH (19:36)
[2022-09-03] MEDS: DOCUSATE SODIUM 100 MG CAP PO SCH (19:36)
[2022-09-03] MEDS: MELATONIN 3 MG TAB PO SCH (19:36)
[2022-09-03] MEDS: ACETAMINOPHEN 500 MG TAB PO SCH (19:37)
[2022-09-03] MEDS: CHOLECALCIFEROL 1,000 UNITS 25 MCG TAB PO SCH (19:37)
[2022-09-03] MEDS: ADVANCED PROBIOTIC 1250 MG CAPSULE PO SCH (19:37)
[2022-09-03] MEDS: QUEtiapine FUMARATE 25 MG TABLET PO SCH (19:37)
[2022-09-03] MEDS: DAPTOmycin 450 MG in SYRINGE 0 ML IV SCH (19:44)
[2022-09-04] MEDS: metroNIDAZOLE 500 MG TAB PO SCH ×3 (05:04→21:35)
[2022-09-04 06:40] LABS: Basophils # (auto) 0.05 K/uL (0-0.2); Basophils % (auto) 0.7 %; Eosinophils # (auto) 0.29 K/uL (0-0.50); Eosinophils % (auto) 4.1 %; Hematocrit (blood only) 41.5 % (42.0-52.0); Hemoglobin 14.2 g/dl (14.0-18.0); Immature Granulocytes % (auto) 1.4 %; Lymphocytes # (auto) 2.24 K/uL (1.2-3.4); Lymphocytes % (auto) 31.6 %; Mean Corpuscular Hemoglobin 30.1 pg (25.0-34.0); Mean Corpuscular Hgb Conc 34.2 g/dL (32.0-36.0); Mean Corpuscular Volume 87.9 fL (80.0-100.0); Monocytes # (auto) 0.51 K/uL (0.11-0.59); Monocytes % (auto) 7.2 %; Platelet Count 200 K/uL (130-400); RDW Coefficient of Variation 13.7 % (11.5-14.5); RDW Standard Deviation 44.1 fL (36.4-46.3); Red Blood Count 4.72 M/uL (4.70-6.10); White Blood Count 7.09 K/ul (4.8-10.8)
[2022-09-04 06:51] LABS: Albumin Level 3.5 gm/dl (3.4-5.0); Anion Gap 4 (3-11); Bilirubin Direct 0.1 mg/dl (0-0.2); Bilirubin,Total 0.5 mg/dl (0.2-1.0); Calcium 8.9 mg/dl (8.5-10.1); Carbon Dioxide 29 mmol/L (21-32); Chloride 108 mmol/L (98-107); Potassium 3.7 mmol/L (3.5-5.1); Sodium 141 mmol/L (136-145)
[2022-09-04 06:57] LABS: Alanine Aminotransferase 21 U/L (7-52); Alkaline Phosphatase 48 U/L (34-104); Aspartate Aminotransferase 22 U/L (13-39); BUN Creatinine Ratio 15.7 (10-20); Blood Urea Nitrogen 13 mg/dl (6-23); C Reactive Protein < 0.50 mg/dl (0-0.5); Creatine Kinase 23 U/L (30-223); Creatinine Clr Calc Pharmacy 70.8 ml/min; Est GFR (African American) 97.7 ml/min; Est GFR (Non-African American) 84.3 ml/min; Glucose 97 mg/dl (70-99(Fasting)); Total Protein 6.1 gm/dl (6.0-8.3)
[2022-09-04] MEDS: INSULIN ASPART PER UNIT SC SCH ×4 (08:58→20:03)
[2022-09-04] MEDS: ENOXAPARIN INJ 30 MG/0.3 ML SYR SQ SCH (09:06)
--- NOTE | 2022-09-04 12:31 | Hospitalist Progress Note ---
Date of Service September 04, 2022 Assessment & Plan (1) Cellulitis of foot, left: Plan: Patient with reported history of DM II but on no medications and with ulceration to his left great toe- admitted for abx and to rule out osteomyelitis - MRI completed with interpretations of "mild osteomyelitis" - blood cultures -no growth after 5 days - no purulence drainage noted and superficial appearance- wound culture not obtained - Orthopaedics consult appreciated - ID consulted appreciate their input Continue Flagyl 500mg TID, Daptomycin 6mg/kg IV q24H and Ceftriaxone 2gm IV Q24H. Tentative end date for abx is 10/03/22 Also recommended to check weekly CBC w diff, BMP, LFT, CPK, ESR and CPK Above labs checked today 09/04/22 all are WNL - Wound consultation placed - No evidence of sepsis- no organ dysfunction, lactate negative, PCT 0.06 Patient's family wished to treat for osteomyelitis - Continue Daptomycin, Flagyl and Rocephin (2) Metabolic encephalopathy: Plan: Resolved- patient improved this morning- remains baseline slow as he has dementia - oriented x2 and able to participate in ROS and exam, pleasant (3) Hypertension: Plan: Elevated blood pressure on admission without diagnosis of hypertension is not on any medications or treatment as outpatient resolved following IVF and antibiotics UA is without protein or blood continue to follow (4) Suprapubic catheter: Plan: chronic indwelling catheter with history of MDRO organisms draining clear yellow urine and negative UA on admission and also negative U/A on repeat08/31/22 no acute needs (5) Type II diabetes mellitus: Plan: Patient's HgbA1C is 6.7 BG aspart sliding scale carb consistent diet (6) Catheter-associated urinary tract infection: Plan: Hisory of- not an acute issue- UA negative Plan [facility] has accepted patient on Daptomycin and possible bed there next week. CM also checking with Pamela Admission and Anticipated Discharge Date Admission Date: August 23, 2022 Subjective Patient is awake layng in bed. He has no complaints today. He denies any chest pain, SOB, dyspnea or any pain. Review of Systems Review of Systems: All systems reviewed and are unremarkable except as noted in HPI and below. Constitutional: no fever, no chills and no body aches Respiratory: no cough, no chest congestion and no dyspnea Cardiovascular: no chest pain, no dyspnea, no syncope and no calf pain Gastrointestinal: no nausea, no vomiting, no constipation and no diarrhea/loose stools Integumentary: no rash, no lesions and no new lesions Physical Exam Constitutional: well developed, + thin and comfortable; not in distress Neck: trachea midline, no thyromegaly Respiratory: normal respiratory effort, lungs clear to auscultation Cardiovascular: Rate/Rhythm: regular rate and regular rhythm Heart Sounds: normal S1, normal S2 and + murmur (2/6 DAVID) Extremities: no calf tenderness, no pedal edema and no edema Gastrointestinal (Abdomen): normal bowel sounds, soft, nontender, no hepatosplenomegaly Skin: dressing over left 1st hallux dressing clean and dry Psychiatric: Orientation: alert, oriented to person (pleasant) and cooperative Results & Data Results & Data ([facility]) Vital Signs (Past 12 Hours) Vital Signs Temp Pulse Resp BP Pulse Ox O2 Del Method 09/04/22 07:08 36.9 C 71 18 122/73 96 Room Air Laboratory Results Abnormal lab results 09/03/22 09/04/22 09/04/22 Range/Units 20:40 06:00 06:00 Hct 41.5 L (42.0-52.0) % Chloride 108 H (98-107) mmol/L POC Glucose 143 H (70-99) mg/dl Total Creatine Kinase 23 L (30-223) U/L 09/04/22 09/04/22 Range/Units 08:23 12:01 Hct (42.0-52.0) % Chloride (98-107) mmol/L POC Glucose 100 H 136 H (70-99) mg/dl Total Creatine Kinase (30-223) U/L PG Care Time/CCT Total # of Minutes Spent Total Time Spent with Patient: Total time spent is greater than 50% in coordination of care (as documented) at patient's floor/unit and/or counseling patient: Coding Level of Care Code 78504 SUB INP/OBS CARE Diagnoses Cellulitis of foot, left L03.116 Metabolic encephalopathy G93.41 Hypertension I10 Hypertension type: essential hypertension Suprapubic catheter Z93.59 Type II diabetes mellitus E11.9 Catheter-associated urinary tract infection T83.511A; N39.0 Encounter type: initial encounter Indwelling urinary catheter type: unspecified (1) Hypertension Hypertension type: essential hypertension Qualified Code(s): I10 - Essential (primary) hypertension (2) Catheter-associated urinary tract infection Encounter type: initial encounter Indwelling urinary catheter type: unspecified Qualified Code(s): T83.511A - Infection and inflammatory reaction due to indwelling urethral catheter, initial encounter; N39.0 - Urinary tract infection, site not specified
[2022-09-04] MEDS: cefTRIAXone SODIUM 2,000 MG in DEXTROSE 5% 50 ML IV SCH (17:12)
[2022-09-04] MEDS: DAPTOmycin 450 MG in SYRINGE 0 ML IV SCH (20:01)
[2022-09-04] MEDS: ACETAMINOPHEN 500 MG TAB PO SCH (20:02)
[2022-09-04] MEDS: ADVANCED PROBIOTIC 1250 MG CAPSULE PO SCH (20:02)
[2022-09-04] MEDS: MELATONIN 3 MG TAB PO SCH (20:02)
[2022-09-04] MEDS: DOCUSATE SODIUM 100 MG CAP PO SCH (20:02)
[2022-09-04] MEDS: QUEtiapine FUMARATE 25 MG TABLET PO SCH (20:03)
[2022-09-04] MEDS: ASPIRIN 81 MG ECTAB PO SCH (20:03)
[2022-09-04] MEDS: CHOLECALCIFEROL 1,000 UNITS 25 MCG TAB PO SCH (20:03)
[2022-09-05] MEDS: metroNIDAZOLE 500 MG TAB PO SCH ×3 (05:23→21:23)
[2022-09-05] MEDS: INSULIN ASPART PER UNIT SC SCH ×4 (08:50→20:45)
[2022-09-05] MEDS: ENOXAPARIN INJ 30 MG/0.3 ML SYR SQ SCH (08:51)
--- NOTE | 2022-09-05 14:42 | Hospitalist Progress Note ---
Date of Service September 05, 2022 Assessment & Plan (1) Cellulitis of foot, left: Plan: Patient with reported history of DM II but on no medications and with ulceration to his left great toe- admitted for abx and to rule out osteomyelitis - MRI completed with interpretations of "mild osteomyelitis" - blood cultures -no growth after 5 days - no purulence drainage noted and superficial appearance- wound culture not obtained - Orthopaedics consult appreciated - ID consulted appreciate their input Continue Flagyl 500mg TID, Daptomycin 6mg/kg IV q24H and Ceftriaxone 2gm IV Q24H. Tentative end date for abx is 10/03/22 Also recommended to check weekly CBC w diff, BMP, LFT, CPK, ESR and CPK Above labs checked today 09/04/22 all are WNL - Wound consultation placed - No evidence of sepsis- no organ dysfunction, lactate negative, PCT 0.06 Patient's family wished to treat for osteomyelitis - Continue Daptomycin, Flagyl and Rocephin (2) Metabolic encephalopathy: Plan: Remains baseline slow as he has dementia - oriented x2 and able to participate in ROS and exam, pleasant, cooperative and answers most questions appropriately (3) Hypertension: Plan: Elevated blood pressure on admission without diagnosis of hypertension is not on any medications or treatment as outpatient Improved some but remains elevated UA is without protein or blood - Add Lisinopril 10mg daily - check BMP in AM (4) Suprapubic catheter: Plan: chronic indwelling catheter with history of MDRO organisms draining clear yellow urine and negative UA on admission and also negative U/A on repeat08/31/22 no acute needs (5) Type II diabetes mellitus: Plan: Patient's HgbA1C is 6.7 BG aspart sliding scale carb consistent diet (6) Catheter-associated urinary tract infection: Plan: Hisory of- not an acute issue- UA negative Plan [facility] has accepted patient on Daptomycin and possible bed there next week. CM also checking with Pamela Admission and Anticipated Discharge Date Admission Date: August 23, 2022 Subjective Patient is awake sitting up in bed. He ate all of his breakfast. He denies any chest pain, SOB, dyspnea or any pain. Review of Systems Review of Systems: All systems reviewed and are unremarkable except as noted in HPI and below. Constitutional: no fever, no chills and no body aches Respiratory: no cough, no chest congestion and no dyspnea Cardiovascular: no chest pain, no dyspnea, no syncope and no calf pain Gastrointestinal: no nausea, no vomiting, no constipation and no diarrhea/loose stools Integumentary: no rash, no lesions and no new lesions Physical Exam Constitutional: well developed, + thin and comfortable; not in distress Neck: trachea midline, no thyromegaly Respiratory: normal respiratory effort, lungs clear to auscultation Cardiovascular: Rate/Rhythm: regular rate and regular rhythm Heart Sounds: normal S1, normal S2 and + murmur (2/6 DAVID) Extremities: no calf tenderness, no pedal edema and no edema Gastrointestinal (Abdomen): normal bowel sounds, soft, nontender, no hepatosplenomegaly Psychiatric: Orientation: alert, oriented to person (pleasant) and cooperative Results & Data Results & Data ([facility]) Vital Signs (Past 12 Hours) Vital Signs Temp Pulse Resp BP Pulse Ox O2 Del Method 09/05/22 07:35 37.0 C 81 16 152/93 H 94 Room Air PG Care Time/CCT Total # of Minutes Spent Total Time Spent with Patient: Total time spent is greater than 50% in coordination of care (as documented) at patient's floor/unit and/or counseling patient: Coding Level of Care Code 32998 SUB INP/OBS CARE MIN Diagnoses Cellulitis of foot, left L03.116 Metabolic encephalopathy G93.41 Hypertension I10 Hypertension type: essential hypertension Suprapubic catheter Z93.59 Type II diabetes mellitus E11.9 Catheter-associated urinary tract infection T83.511A; N39.0 Encounter type: initial encounter Indwelling urinary catheter type: unspecified (1) Hypertension Hypertension type: essential hypertension Qualified Code(s): I10 - Essential (primary) hypertension (2) Catheter-associated urinary tract infection Encounter type: initial encounter Indwelling urinary catheter type: unspecified Qualified Code(s): T83.511A - Infection and inflammatory reaction due to indwelling urethral catheter, initial encounter; N39.0 - Urinary tract infection, site not specified
[2022-09-05] MEDS: cefTRIAXone SODIUM 2,000 MG in DEXTROSE 5% 50 ML IV SCH (17:50)
[2022-09-05] MEDS: DOCUSATE SODIUM 100 MG CAP PO SCH (19:36)
[2022-09-05] MEDS: ACETAMINOPHEN 500 MG TAB PO SCH (19:36)
[2022-09-05] MEDS: MELATONIN 3 MG TAB PO SCH (19:36)
[2022-09-05] MEDS: CHOLECALCIFEROL 1,000 UNITS 25 MCG TAB PO SCH (19:37)
[2022-09-05] MEDS: ADVANCED PROBIOTIC 1250 MG CAPSULE PO SCH (19:37)
[2022-09-05] MEDS: QUEtiapine FUMARATE 25 MG TABLET PO SCH (19:37)
[2022-09-05] MEDS: ASPIRIN 81 MG ECTAB PO SCH (19:38)
[2022-09-05] MEDS: DAPTOmycin 450 MG in SYRINGE 0 ML IV SCH (19:42)
[2022-09-06] MEDS: metroNIDAZOLE 500 MG TAB PO SCH ×3 (05:29→21:15)
[2022-09-06 07:24] LABS: BUN Creatinine Ratio 14.3 (10-20); Calcium 9.5 mg/dl (8.5-10.1); Creatinine Clr Calc Pharmacy 69.9 ml/min; Est GFR (African American) 97.2 ml/min; Est GFR (Non-African American) 83.9 ml/min; Potassium 3.9 mmol/L (3.5-5.1)
[2022-09-06] MEDS: lisinopril 10 MG TAB PO SCH (09:10)
[2022-09-06] MEDS: INSULIN ASPART PER UNIT SC SCH ×4 (09:10→21:10)
[2022-09-06] MEDS: ENOXAPARIN INJ 30 MG/0.3 ML SYR SQ SCH (09:11)
--- NOTE | 2022-09-06 10:27 | Progress Notes ---
DATE OF SERVICE: 09/06/2022 Kenneth recognized me today. He is reporting no problems. He is continuing to get IV antibiotics for po ssible osteomyelitis of his left big toe. He is on daptomycin and ceftriaxone. On examination, the toe is not swollen or red. He has a hyperflexion deformity. Overlying the wound on the IP joint was evaluated. There was eschar present with some dried skin, which was debrided manually. Underneath this was a shallow ulceration a millimeter or two deep without any exposed tendon or bone and a good healthy granulating bed. It was about 3 mm in diameter. I recommend that we continue the IV antibio tics. The toe is not swollen and the potential for osteomyelitis is uncertain. Biopsying is problem atic. We will follow up with some x-rays. Continue wound care. Job ID: [id number]
--- NOTE | 2022-09-06 13:46 | Hospitalist Progress Note ---
Date of Service September 06, 2022 Assessment & Plan (1) Cellulitis of foot, left: Plan: Patient with reported history of DM II but on no medications and with ulceration to his left great toe- admitted for abx and to rule out osteomyelitis - MRI completed with interpretations of "mild osteomyelitis" - Patient's family wished to treat for osteomyelitis - blood cultures -no growth after 5 days - no purulence drainage noted and superficial appearance- wound culture not obtained - Orthopaedics consult appreciated - ID consulted appreciate their input Continue Flagyl 500mg TID, Daptomycin 6mg/kg IV q24H and Ceftriaxone 2gm IV Q24H. Tentative end date for abx is 10/03/22 Also recommended to check weekly CBC w diff, BMP, LFT, CPK, ESR and CPK while on Daptomycin Above labs checked 09/04/22 all are WNL - Wound following - No evidence of sepsis- no organ dysfunction, lactate negative, PCT 0.06 [facility] is able to take patient for placement BUT is not willing to take on Daptomycin Per ID, recommended the Dapto but if unable to get this medication covered at SNF, could knife changer to vancomycin. Spoke with ID Dr Guan via the phone, who recommended to restart the Vancomycin today and should be able to be discharged to [facility] on Sunday. Pharmacy aware and are restarting the Vancomycin today. Daptomycin has been stopped. (2) Metabolic encephalopathy: Plan: Remains baseline slow as he has dementia - oriented x2 and able to participate in ROS and exam, pleasant, cooperative and answers most questions appropriately (3) Hypertension: Plan: Elevated blood pressure on admission without diagnosis of hypertension is not on any medications or treatment as outpatient Improved some but remains elevated UA is without protein or blood - Add Lisinopril 10mg daily - DENISE improved 132/78 - check BMP in AM (4) Suprapubic catheter: Plan: chronic indwelling catheter with history of MDRO organisms draining clear yellow urine and negative UA on admission and also negative U/A on repeat08/31/22 no acute needs (5) Type II diabetes mellitus: Plan: Patient's HgbA1C is 6.7 BG aspart sliding scale carb consistent diet (6) Catheter-associated urinary tract infection: Plan: Hisory of- not an acute issue- UA negative Plan [facility] has accepted patient on Daptomycin and possible bed there next week. CM also checking with Tono Admission and Anticipated Discharge Date Admission Date: August 23, 2022 Subjective Patient is awake sitting up in bed with legs crossed. He ate all of his breakfast. He denies any chest pain, SOB, dyspnea or any pain. [facility] and [facility] were unwilling to accept patient with the Daptomycin. Spoke with ID via the phone. Review of Systems Review of Systems: All systems reviewed and are unremarkable except as noted in HPI and below. Constitutional: no fever, no chills and no body aches Respiratory: no cough, no chest congestion and no dyspnea Cardiovascular: no chest pain, no dyspnea, no syncope and no calf pain Gastrointestinal: no nausea, no vomiting, no constipation and no diarrhea/loose stools Integumentary: no rash, no new lesions and no changing lesions Physical Exam Constitutional: well developed, + thin and comfortable; not in distress Neck: trachea midline, no thyromegaly Respiratory: normal respiratory effort, lungs clear to auscultation Cardiovascular: Rate/Rhythm: regular rate and regular rhythm Heart Sounds: normal S1, normal S2 and + murmur (2/6 DAVID) Extremities: no calf tenderness, no pedal edema and no edema Gastrointestinal (Abdomen): normal bowel sounds, soft, nontender, no hepatosplenomegaly Skin: dressing over 1st hallux left foot dressing clean and dry and surrounding skin with no erythema. area nontender Psychiatric: Orientation: alert, oriented to person (pleasant) and cooperative Results & Data Results & Data ([facility]) Vital Signs (Past 12 Hours) Vital Signs Temp Pulse Resp BP Pulse Ox O2 Del Method 09/06/22 07:52 36.6 C 62 17 152/82 H 95 Room Air Laboratory Results Abnormal lab results 09/05/22 09/06/22 Range/Units 20:28 12:14 POC Glucose 139 H 126 H (70-99) mg/dl PG Care Time/CCT Total # of Minutes Spent Total Time Spent with Patient: Total time spent is greater than 50% in coordination of care (as documented) at patient's floor/unit and/or counseling patient: Coding Level of Care Code 48585 SUB INP/OBS CARE 2/35MIN Diagnoses Cellulitis of foot, left L03.116 Metabolic encephalopathy G93.41 Hypertension I10 Hypertension type: essential hypertension Suprapubic catheter Z93.59 Type II diabetes mellitus E11.9 Catheter-associated urinary tract infection T83.511A; N39.0 Encounter type: initial encounter Indwelling urinary catheter type: unspecified (1) Catheter-associated urinary tract infection Encounter type: initial encounter Indwelling urinary catheter type: unspecified Qualified Code(s): T83.511A - Infection and inflammatory reaction due to indwelling urethral catheter, initial encounter; N39.0 - Urinary tract infection, site not specified (2) Hypertension Hypertension type: essential hypertension Qualified Code(s): I10 - Essential (primary) hypertension
[2022-09-06] MEDS ORDERED: VANCOMYCIN CONSULT ACTIVE PRN (14:52)
--- NOTE | 2022-09-06 14:56 | XRay Report ---
LEFT FIRST TOE 3 VIEWS CLINICAL HISTORY: Wound. FINDINGS: 3 views of the left first toe are correlated with radiographs of the left foot dated 023. The skeletal structures are osteopenic. No acute fracture is seen. 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 Advanced arthritic change is seen at the first tarsometa tarsal, metatarsophalangeal, and interphalangeal joints. There is subluxation at the first interphala ngeal joint. No bony erosion or periostitis is identified. Soft tissue swelling is noted in the first toe. Advanced arthritic change is seen in the partially visualized mid foot. There is atheroscleroti c calcification of the regional arteries. No soft tissue gas is suggested. There is no radiodense for eign body identified. IMPRESSION: 1. Soft tissue swelling with no acute bony abnormality identified. 2. Osteopenia and advanced degenerative change as above. Electronically signed by: Jake Vaughn M.D. 09/06/2022 2:55 PM
[2022-09-06] MEDS ORDERED: VANCOMYCIN HCL 2,000 MG in SODIUM CHLORIDE 0.9% 500 ML IV ONE (15:15)
[2022-09-06] MEDS: cefTRIAXone SODIUM 2,000 MG in DEXTROSE 5% 50 ML IV SCH (19:06)
[2022-09-06] MEDS: DOCUSATE SODIUM 100 MG CAP PO SCH (19:10)
[2022-09-06] MEDS: CHOLECALCIFEROL 1,000 UNITS 25 MCG TAB PO SCH (19:10)
[2022-09-06] MEDS: MELATONIN 3 MG TAB PO SCH (19:10)
[2022-09-06] MEDS: ACETAMINOPHEN 500 MG TAB PO SCH (19:10)
[2022-09-06] MEDS: ADVANCED PROBIOTIC 1250 MG CAPSULE PO SCH (19:11)
[2022-09-06] MEDS: QUEtiapine FUMARATE 25 MG TABLET PO SCH (19:11)
[2022-09-06] MEDS: ASPIRIN 81 MG ECTAB PO SCH (19:11)
--- NOTE | 2022-09-06 20:04 | Pharmacy Report ---
Pharmacy PK ABX Note - Date of Service September 06, 2022 - Assessment and Plan Assessment * 77 year old M receiving ceftriaxone, metronidazole, and vancomycin for treatment of mild osteomyelitis. * Pertinent microbiologic data includes: Blood cultures 08/22 w NGTD. No local cultures obtained of infected area. * SCr stable x many days * WBC wnl and afebrile Vancomycin * Random level of 11.4 mcg/mL obtained this AM associated with a subtherapeutic AUC. Dose increase indicated * Would prefer to keep vancomycin on q24h interval given possibility of prolonged outpatient course for osteomyelitis 09/06/22: * Vancomycin was discontinued on 08/29 and switched to daptomycin. Changing back to vancomycin as difficulty with placement on daptomycin. * Will give 2000 mg load x1 and start 1250 mg q12H as this is predicting to achieve the target AUC/JACQUES with previous dosing data. Plan Vancomycin * 1250 mg IV q12h * Repeat random level in 48 hours * Regimen is predicted to achieve target AUC/JACQUES of 400-600 mg/L.hr Pharmacy will continue to follow and will adjust dose/frequency as necessary. Thank you. Pharmacy has transitioned to AUC monitoring for vancomycin. AUC/JACQUES is the preferred PK/PD target and is associated with decreased risk of nephrotoxicity compared to traditional trough targets.
[2022-09-07] MEDS: metroNIDAZOLE 500 MG TAB PO SCH ×4 (04:52→21:00)
[2022-09-07] MEDS ORDERED: VANCOMYCIN HCL 1,250 MG in SODIUM CHLORIDE 0.9% 250 ML IV SCH (05:00)
[2022-09-07 06:44] LABS: BUN Creatinine Ratio 17.1 (10-20); Calcium 9.1 mg/dl (8.5-10.1); Creatinine Clr Calc Pharmacy 77.3 ml/min; Est GFR (African American) 101.3 ml/min; Est GFR (Non-African American) 87.4 ml/min; Potassium 3.8 mmol/L (3.5-5.1)
[2022-09-07] MEDS: INSULIN ASPART PER UNIT SC SCH ×4 (09:19→20:46)
[2022-09-07] MEDS: lisinopril 10 MG TAB PO SCH (09:23)
[2022-09-07] MEDS: ENOXAPARIN INJ 30 MG/0.3 ML SYR SQ SCH (09:25)
[2022-09-07] MEDS ORDERED: VANCOMYCIN HCL 2,000 MG in SODIUM CHLORIDE 0.9% 500 ML IV SCH (12:00)
--- NOTE | 2022-09-07 12:13 | Hospitalist Progress Note ---
Date of Service September 07, 2022 Assessment & Plan (1) Cellulitis of foot, left: Plan: Patient with reported history of DM II but on no medications and with ulceration to his left great toe- admitted for abx and rule out osteo - MRI completed with interpretation of mild osteoarthritis - ABX coverage - Rocephin 2GM, Vancomycin, and Flagyl - blood cultures NGTD, no purulence drainage noted and superficial appearance- wound culture not obtained - Orthopedics consulted, no plan for biopsy or amputation, advised wound care and outpatient f/u - Wound consultation placed-seen by route service representative, recommending clean with saline, paint with betadine, allow to dry and cover with optifoam - is to f/u in wound care clinic - Consulted ID, spoke with Dr. Cardoso, she agreed with treating w/ abx for cellulitis, however is reluctant to treat for 6w with IV abx due to lack of confirmation of osteo via bone biopsy (only noted on imaging) * Dr. Cardoso spoke with pt's daughter on 08/30, daughter would like to proceed with treating for osteomyelitis * PICC line in place in right upper arm * Continue oral Flagyl 500mg po q8, IV Vancomycin, and IV Rocephin * Changed back to IV Vancomycin on 09/06 due to SNF being unwilling to accept pt on Daptomycin d/t cost * Reviewed BMP today, 09/07 * Tenative end date for abx is 10/03/22 - Seen by Dr. Sousa on 09/06 (2) Metabolic encephalopathy: Plan: Resolved-- remains baseline slow as he has dementia (3) Hypertension: Plan: Elevated blood pressure on admission without diagnosis of hypertension - is not on any medications or treatment as outpatient - resolved following IVF and antibiotics - UA is without protein or blood - Started on oral Lisinopril and BP now down to 120/76 (4) Suprapubic catheter: Plan: chronic indwelling catheter with history of MDRO organisms - draining clear yellow urine and negative UA on admission - no acute needs (5) Type II diabetes mellitus: Plan: Patient states that he does not have DM- however his A1C is 6.7 - BG aspart sliding scale - carb consistent diet Plan Accepted at [facility], tentatively ready for dc on 09/08/22. Above has been d/w Dr. Bowden. Admission and Anticipated Discharge Date Admission Date: August 23, 2022 Subjective Patient seen on daily rounds this morning. Pleasantly confused but is without complaints. Physical Exam Physical Exam: GEN: 77 yo well developed, well nourished elderly WM. NAD. CARDIOVASCULAR: Regular rate and rhythm. 3/6 DAVID noted. : suprapubic catheter in place, draining appropriately. Site w/o redness or drainage. SKIN: Pea size wound with yellow ulceration on PIP joint of L hallux. No surrounding erythema, active bleeding or drainage. Results & Data Results & Data ([facility]) Vital Signs (Past 12 Hours) Vital Signs Temp Pulse Resp BP Pulse Ox O2 Del Method 09/07/22 07:15 36.5 C 72 17 120/76 98 Room Air Laboratory Results 09/04/22 06:00 09/07/22 05:59 PG Care Time/CCT Total # of Minutes Spent Total Time Spent with Patient: Total time spent is greater than 50% in coordination of care (as documented) at patient's floor/unit and/or counseling patient: Coding Level of Care Code 24023 SUB INP/OBS CARE 2/35MIN Diagnoses Cellulitis of foot, left L03.116 Metabolic encephalopathy G93.41 Hypertension I10 Hypertension type: essential hypertension Suprapubic catheter Z93.59 Type II diabetes mellitus E11.9 (1) Hypertension Hypertension type: essential hypertension Qualified Code(s): I10 - Essential (primary) hypertension
--- NOTE | 2022-09-07 14:15 | Orthopedic Progress Note ---
Date of Service September 07, 2022 Assessment & Plan (1) Diabetic toe ulcer: Present on Admission?: Yes Plan Radiographs of the left big toe are reviewed. The report is noted. The radiographs are difficult secondary to projection and deformity however there is no evidence of fractures or dislocations and no evidence of bony destruction. There is chronic changes related to previous surgery. At this time I recommend continued diabetic foot care and monitoring of the toe. If patient is discharged she can follow-up with me in the office in 2 to 3 weeks. Admission and Anticipated Discharge Date Admission Date: August 23, 2022 Results & Data ([facility]) Vital Signs (Past 12 Hours) Vital Signs Temp Pulse Resp BP Pulse Ox O2 Del Method 09/07/22 07:15 36.5 C 72 17 120/76 98 Room Air
[2022-09-07] MEDS: VANCOMYCIN HCL 1,000 MG in SODIUM CHLORIDE 0.9% 250 ML IV SCH (16:57)
[2022-09-07] MEDS: cefTRIAXone SODIUM 2,000 MG in DEXTROSE 5% 50 ML IV SCH (18:46)
[2022-09-07] MEDS: CHOLECALCIFEROL 1,000 UNITS 25 MCG TAB PO SCH ×2 (20:17→21:00)
[2022-09-07] MEDS: QUEtiapine FUMARATE 25 MG TABLET PO SCH ×2 (20:17→21:00)
[2022-09-07] MEDS: ACETAMINOPHEN 500 MG TAB PO SCH (20:18)
[2022-09-07] MEDS: ASPIRIN 81 MG ECTAB PO SCH ×2 (20:19→21:00)
[2022-09-07] MEDS: DOCUSATE SODIUM 100 MG CAP PO SCH (20:19)
[2022-09-07] MEDS: MELATONIN 3 MG TAB PO SCH ×2 (20:19→21:00)
[2022-09-07] MEDS: ADVANCED PROBIOTIC 1250 MG CAPSULE PO SCH (20:20)
[2022-09-08] MEDS ORDERED: VANCOMYCIN LEVEL ONE (04:30)
[2022-09-08] MEDS: VANCOMYCIN HCL 1,000 MG in SODIUM CHLORIDE 0.9% 250 ML IV SCH (05:03)
[2022-09-08] MEDS: metroNIDAZOLE 500 MG TAB PO SCH (05:10)
[2022-09-08] MEDS: ENOXAPARIN INJ 30 MG/0.3 ML SYR SQ SCH (07:55)
[2022-09-08] MEDS: lisinopril 10 MG TAB PO SCH (07:55)
[2022-09-08] MEDS: INSULIN ASPART PER UNIT SC SCH (08:12)
--- NOTE | 2022-09-08 08:27 | Pharmacy Report ---
Pharmacy PK ABX Note - Date of Service September 08, 2022 - Assessment and Plan Assessment * 77 year old M receiving ceftriaxone, metronidazole, and vancomycin for treatment of mild osteomyelitis. * Pertinent microbiologic data includes: Blood cultures 08/22 w NGTD. No local cultures obtained of infected area. * SCr stable x many days * WBC wnl and afebrile * Vancomycin was discontinued on 08/29 and switched to daptomycin. Changed back to vancomycin on 09/06/22 as difficulty with placement on daptomycin. Plan Vancomycin * Current regimen: 1000 mg IV every 12 hours * Trough level obtained 09/08/22 resulted as 14.3 mcg/mL. This is predicted to achieve target AUC/JACQUES of 400-600 mg/L.hr * Predicted AUC at steady state: 509 mg/L.hr * Continue 1000 mg IV every 12 hours * Will repeat level in the next 48-72 hours if therapy is continued and/or change in patient clinical status Pharmacy will continue to follow and will adjust dose/frequency as necessary. Thank you. Pharmacy has transitioned to AUC monitoring for vancomycin. AUC/JACQUES is the preferred PK/PD target and is associated with decreased risk of nephrotoxicity compared to traditional trough targets.
--- NOTE | 2022-09-08 08:49 | Infectious Disease Progress Nt ---
Date of Service September 08, 2022 24 hours: I was called by Primary team, SNF facilities unable to take patient because of Daptomycin I spoke with CM on 09/07, confirmed this to be true. Recommended DC Daptomycin and started Vancomycin Assessment & Plan (1) Cellulitis of foot, left: (2) Suprapubic catheter: (3) Altered mental status: (4) Osteomyelitis: Plan This is a 77 year old male with history of dementia, BPH with urine retention s/p suprapubic catheter, left 4th toe osteomyelitis s/p amputation ( 2019 , Cx+ CONS), right hip replacement, who was brought in by EMS for increased confusion and left foot ulcer and redness. The patient is a poor historian secondary to dementia.He is not able to elaborate on duration of foot ulcer. He admits to new erythema but denies pain, swelling or ulcer drainage. He denies fever, chills, sweats, chest pain, nausea, vomiting, diarrhea, change in urine, cough. In the Ed, he is afebrile and hemodynamically stable. Labs noted for a wbc 9.0, cr 0.9, procalcitonin 0.06, crp 0.95, esr 21, lactate 1.6. Ct head showed no acute changes. Blood cultures are sterile. A Left foot xray showed no acute osseous changes. An Mri of the left foot shows possible mild osteomyelitis with surrounding cellulitis at the first digit proximal phalanx. He was evaluated but orthopedics for osteomyelitis, but no intervention was offered. He was started on broad antibiotic coverage with Iv vancomycin , ceftriaxone and Flagyl. He feels well and states his toe is less red. ID consulted for possible left toe osteomyelitis. Micro: BC 08/22 sterile Abx: ceftriaxone 08/22- ongoing vancomycin 08/22- 08/29, 09/06 Flagyl 08/23- ongoing Dapto 08/30- 09/06 1. Left great toe ulcer 2. Possible early great toe osteomyelitis on MRI 3. History of left 4th digit osteomyelitis with CONS, sp amputation in 2018 4.Tmp- sulfa allergy: lip swelling Discussion: Patient has dementia and is a poor historian . He is unable to tell me how long the left big toe ulcer has been present. He admits to gradual redness of the toe. He denies a history of DM2 and is not on DM2 medication. ESr is 21 and Crp is 0.95. He had no systemic symptoms on admission such as fever or rigors. He did have a change in MS , which has resolved. On my exam he has chronic charcot foot deformities and a chronic appearing left great toe ulcer with mild surrounding erythema,without TTP, warmth or edema but first evaluated the foot after 7 days of broad abx. The ulcer does not probe to bone. Wbc is wnl, BC sterile. He has no confirmed diagnosis of underlying osteomyelitis. There is suspicion of early proximal phalanx mild osteomyelitis based on the MRI findings. He was evaluated early in the admission by Orthopedics, but no debridement, bone biopsy or other surgical intervention was offered. To help rule out osteomyelitis, a bone biopsy sent for BOTH histopathology and culture would help with definitive diagnosis , provide culture results to direct therapy and help to determine need for termite control technician abx vs short course for SSTI . Given patient's dementia , I spoke to his daughter his HC proxy,Hailey Gary on 08/30 to discuss potential avenues for management which include approximately 2 weeks of PO antibiotics to treat for SSTI, or 6 weeks of IV antibiotic for possible underlying osteomyelitis. Risk of untreated osteomyelitis include sepsis, loss of toe. My concern however is that the 6 weeks of IV antibiotics would be broad as we do not have a bone culture to direct therapy, there are adverse effects with termite control technician IV antibiotics including C diff, antibiotic resistance, PICC-associated complications, and there is no guarantee that the abx chosen for 6 weeks of treatment would cover the contributing pathogen/s. We do not have a definite diagnosis of osteomyelitis by bone biopsy. His daughter feels that he iis too frail for surgical intervention and anaesthesia. She does not want to pursue reevaluation by surgery for biopsy for bone cx and histopathology. She wants to move forward with a trial of 6 weeks of IV abx. She verbalized understanding the risk and benefits as outlined above. If he were to fail antibiotic therapy, she will reconsider surgical intervention for definitive diagnosis and possible surgical cure with amputation if needed Update: Vancomcyin given:: 2000 mg load x1 and start 1250 mg q12H Pharmacy following Unfortunately, Daptomycin rejected by SNF facilities, we asked them to run cost again and still not accepting, thereofre changed to Vancomycin Recommendations His SSTI has improved on current regimen, so continued current abx complete Ceftriaxone 2 mg Iv daily Flagyl 500 mg PO q8 hr and Vancomycin 1.25 G IV BID for 6 weeks from initiation of antibiotics. BCs sterile. Tentative end date for abx is 10/03/22 On abx monitor,weekly cbc with diff, bmp, lfts , Vancomycin trough, esr, crp Side effects of concern for vancomycin is creatinine, will need to be monitored at SNF. Labs should be followed by PCP. ID COnnect will not follow outpatient. He can establish care with ID in local community. He will need close follow up with podiatry or orthopedics for monitoring of the toe. Discussed assessment/recommendations with team. ID will sign off. If any questions, please call [phone] with questions Ivelisse Guan MD Infectious Disease [facility], ID Division . Admission and Anticipated Discharge Date Admission Date: August 23, 2022 Subjective This patient recommendation is based on a telemedicine consult request which was completed asynchronously through chart review and information provided by the primary physician. The patient was not seen or examined today. The evaluation is consultative in nature and all patient care and treatment decisions can either be accepted or rejected by the patient's primary hospital-based treating physician using their own independent medical judgment for their patient. Time Spent Reviewing Chart: 21 - 30 minutes Results & Data ([facility]) Vital Signs (Past 12 Hours) Vital Signs Temp Pulse Pulse Pulse Resp BP Pulse Ox 09/08/22 08:04 36.4 C L 65 14 124/80 95 09/08/22 07:28 36.5 C 68 18 147/77 H 92 09/07/22 23:00 36.7 C 63 18 151/69 H 96 O2 Del Method 09/08/22 08:04 Room Air 09/08/22 07:28 Room Air 09/07/22 23:00 Room Air
--- NOTE | 2022-09-08 11:01 | Discharge Summary ---
Date of Service September 08, 2022 Admission HPI Per Admitting Provider The patient is a 77-year-old male with a past medical history including osteomyelitis of left foot in 2019, complicated UTI, diabetes mellitus type 2, pressure ulcer of left foot stage II, positive QuantiFERON-TB Gold test, hepatitis C virus infection resolved after antiviral drug therapy, closed right hip fracture, cognitive and neurobehavioral dysfunction, severe protein calorie malnutrition, catheter associated UTI, BPH, hypertension and hepatitis C. The patient presents the emergency department as noted above. Principal Diagnosis Mild osteomyelitis of the left great toe Small open ulceration of left great toe Discharge Exam GEN: 77 yo well developed, well nourished elderly WM. NAD. LUNGS: CTAB CARDIOVASCULAR: Regular rate and rhythm. 3/6 DAVID noted. : suprapubic catheter in place, draining appropriately. Site w/o redness or drainage. SKIN: Pea size wound with yellow ulceration on PIP joint of L hallux. No surrounding erythema, active bleeding or drainage. Discharge Data Allergies Allergy/AdvReac Type Severity Reaction Status Date / Time sulfamethoxazole AdvReac Intermediate lip Verified 08/23/22 00:43 [From Bactrim] swelling trimethoprim [From Bactrim] AdvReac Intermediate lip Verified 08/23/22 00:43 swelling Consultations 08/23/22 01:37 ED Decision to Admit Stat 08/23/22 11:33 Consult Orthopedic Surgery Routine 08/28/22 14:20 Consult Infectious Diseases Routine Ordered Studies Chest X-Ray 08/22/22 21:31 SINGLE VIEW CHEST CLINICAL HISTORY: Sepsis. FINDINGS: 2 AP, portable, upright chest radiographs are compared to study dated 07/22/2022. The heart is enlarged. The pulmonary vasculature is noncontrast. There are low lung volumes with bibasilar atelectasis. No airspace consolidation or large pleural effusion is identified. No pneumothorax is seen. The skeletal structures are osteopenic. Bony thorax is grossly intact. IMPRESSION: No acute cardiopulmonary abnormality. ACT 112: Negative or not required by law. Electronically signed by: Jake Vaughn M.D. 08/22/2022 11:[address] 08/22/22 21:31 CT SCAN OF THE BRAIN WITHOUT IV CONTRAST CLINICAL HISTORY: Change in mental status. COMPARISON STUDY: CT of the brain dated 07/22/2022. TECHNIQUE: Unenhanced axial CT scan of the brain is performed from the vertex to the skull base. A dose lowering technique was utilized adhering to the principles of ALARA. The examination is severely degraded by streak artifact from metallic plates. 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 Foci of bifrontal encephalomalacia are consistent with remote insults. There is no evidence of hemorrhage, mass effect, or acute territorial ischemia by CT criteria. Note that streak artifact largely obscures the upper brain. [place]-white matter differentiation is preserved. No extra-axial fluid collection is seen. Ventricles, sulci, cisterns: Prominent secondary to involutional change. Intracranial vasculature: There is atherosclerotic calcification of the cavernous carotid arteries. Calvarium: There is evidence of bilateral craniotomy with metallic plates in place. Sinuses and mastoids: The visualized paranasal sinuses are clear. The mastoid air cells are well pneumatized. Orbits: The bony orbits are grossly intact. IMPRESSION: There is no evidence of hemorrhage, mass effect, or acute territorial ischemia noting significant streak artifact on the examination. ACT 112: Negative or not required by law. Electronically signed by: Jake Vaughn M.D. 08/22/2022 11:01 PM Foot X-Ray 08/22/22 22:04 XR foot LT min 3V routine HISTORY: 77 years-old Male left great tor/foot infx acute pain of the left great toe with reported soft tissue infection COMPARISON: Foot radiographs 03/11/2021 TECHNIQUE: 3 views of the left foot FINDINGS: Demineralized appearance of the bones. Arterial calcifications. 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 Advanced joint space narrowing with sclerosis, bridging osteophytes and partial bony fusion throughout the foot and ankle. Healed chronic fracture involving the base of the fifth proximal phalanx. No acute fracture, dislocation or osseous erosion identified. Soft tissue swelling of the first digit. IMPRESSION: 1. No acute osseous abnormality identified. 2. Chronic findings as above. ACT 112: Negative or not required by law. The above report was generated using voice recognition software. It may contain grammatical, syntax or spelling errors. Electronically signed by: Tae Jama M.D. 08/23/2022 7:17 AM Foot MRI 08/23/22 04:07 MR foot LT w/o con CLINICAL HISTORY: assess for osteomyelitis . Erythema in left great toe. TECHNIQUE: Multisequence, multiplanar MR images of the left foot were obtained without contrast COMPARISON: Comparison is made to MRI left foot 12/19/2018 and left foot radiograph 08/12/2022 FINDINGS: Patient is status post amputation of the fourth digit at the level of the mid metatarsal diaphysis. There is mild edema in the distal aspect of the first digit proximal phalanx. There is mild surrounding soft tissue edema and questionable susceptibility artifact. Extensive degenerative changes and deformities in the bones of the foot including bony destruction of multiple midfoot joints, tibiotalar articulation, and deformities of the interphalangeal joints. IMPRESSION: Likely mild osteomyelitis with surrounding cellulitis at the first digit proximal phalanx. ACT 112: Negative or not required by law. Electronically signed by: Gaurav Stinson M.D. 08/23/2022 10:09 AM Chest X-Ray 08/31/22 11:02 XR chest 1V portable CLINICAL HISTORY: picc line placement to right arm TECHNIQUE: Single frontal radiograph of the chest was obtained. Comparison: Comparison is made to chest radiograph 08/22/2022 FINDINGS: A right PICC is seen with the tip in the lower SVC. The cardiomediastinal silhouette is normal. The lungs are clear. No evidence of pleural effusion or pneumothorax. IMPRESSION: Satisfactory position of the right PICC. ACT 112: Negative or not required by law. Electronically signed by: Gaurav Stinson M.D. 08/31/2022 11:33 AM Toe X-Ray 09/06/22 10:16 LEFT FIRST TOE 3 VIEWS CLINICAL HISTORY: Wound. FINDINGS: 3 views of the left first toe are correlated with radiographs of the left foot dated 08/22/2022. The skeletal structures are osteopenic. No acute fracture is seen. 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 Advanced arthritic change is seen at the first tarsometatarsal, metatarsophalangeal, and interphalangeal joints. There is subluxation at the first interphalangeal joint. No bony erosion or periostitis is identified. Soft tissue swelling is noted in the first toe. Advanced arthritic change is seen in the partially visualized mid foot. There is atherosclerotic calcification of the regional arteries. No soft tissue gas is suggested. There is no radiodense foreign body identified. IMPRESSION: 1. Soft tissue swelling with no acute bony abnormality identified. 2. Osteopenia and advanced degenerative change as above. Electronically signed by: Jake Vaughn M.D. 09/06/2022 2:55 PM Hospital Course (1) Cellulitis of foot, left: Patient with reported history of DM II but on no medications and with ulceration to his left great toe- admitted for abx and rule out osteo - MRI completed with interpretation of mild osteoarthritis - ABX coverage - Rocephin 2GM, Vancomycin, and Flagyl - blood cultures NGTD, no purulence drainage noted and superficial appearance- wound culture not obtained - Orthopedics consulted, no plan for biopsy or amputation, advised wound care and outpatient f/u - Wound consultation placed-seen by electric powerline examiner, recommending clean with saline, paint with betadine, allow to dry and cover with optifoam - is to f/u in wound care clinic - Consulted ID, spoke with Dr. Cardoso, she agreed with treating w/ abx for cellulitis, however is reluctant to treat for 6w with IV abx due to lack of confirmation of osteo via bone biopsy (only noted on imaging) * Dr. Cardoso spoke with pt's daughter on 08/30, daughter would like to proceed with treating for osteomyelitis * PICC line in place in right upper arm * Continue oral Flagyl 500mg po q8, IV Vancomycin, and IV Rocephin * Changed back to IV Vancomycin on 09/06 due to SNF being unwilling to accept pt on Daptomycin d/t cost. Vanco trough 09/08 was 14.3 * Tenative end date for abx is 10/03/22 - Seen by Dr. Sousa on 09/06 and has an appt set up to follow up as outpatient (2) Metabolic encephalopathy: Resolved-- remains baseline slow as he has dementia (3) Hypertension: Elevated blood pressure on admission without diagnosis of hypertension - is not on any medications or treatment as outpatient - resolved following IVF and antibiotics - UA is without protein or blood - Started on oral Lisinopril and BP now down to 120/76 - Rx provided for Lisinopril and sent to [facility] facility pharmacy (4) Suprapubic catheter: chronic indwelling catheter with history of MDRO organisms - draining clear yellow urine and negative UA on admission - no acute needs - Follow up with urology for catheter changes (5) Type II diabetes mellitus: Patient states that he does not have DM- however his A1C is 6.7 - BG aspart sliding scale - carb consistent diet Plan Accepted at [facility] and he is medically and hemodynamically stable for discharge today. Above has been d/w Dr. Bowden. Total Time Total Time Spent Total Time Spent (In Minutes): >30 minutes Discharge Plan Discharge Items Patient Disposition: Transfer Jail Fac Reason For Visit: LEFT FOOT CELLULITIS Discharge Diagnosis: osteomyelitis left great toe Condition on Discharge: Fair Activity: Resume your previous activity Non-emergency contact: Primary Care Provider and Surgeon Call non-emergency contact if: you have any medication questions, your symptoms worsen and your temperature is above 101 Follow-up/Referrals: Dimitri Sousa MD [Surgeon] - 10/06/22 11:30 am Davonte Jackson MD [Primary Care Provider] - Diet: Carb Consistent or DM2 Addtl Attending Provider Instructions: This patient was hospitalized with cellulitis of the left foot with plans to undergo an MRI to exclude osteomyelitis. He underwent MRI which revealed "mild osteomyelitis" of the left great toe. He was seen in consult by orthopedics who did not intend to do any surgical intervention or a bone biopsy. Patient was treated with empiric antibiotics including Rocephin, Vancomycin, and Flagyl. He was seen by infectious disease who recommended transitioning from Vancomycin to Daptomycin. He had a PICC line placed to his right arm due to requiring toxicologist IV antibiotics. He was transitioned back to Vancomycin on 09/06. He will require ongoing IV Rocephin 2g daily, Vancomycin 1g IV q12h, and oral Flagyl 500mg TID through 10/03/22. Nursing facility to check trough every 72 hours x 1 more and if continues to be stable (after being reviewed by managing provider) can change to weekly. Would also check weekly BMPs. Please continue to care for ulceration on left great toe by painting with betadine and dressing with optifoam daily. He has a follow up appointment scheduled with Dr. Sousa (orthopedic surgeon). This appointment should be kept. He should have PCP follow up upon discharge from the nursing facility. Pending Studies at Discharge: No Stand-Alone Forms: My [facility] Skilled Items Patient informed of condition?: Yes DNR: No Discharge Level of Care: Skilled Communicable Disease: No Discharge Prognosis: Stable Lines: PICC Urinary Catheter: Yes Medications and DC Order Prescriptions: New metronidazole 500 mg Tablet 500 mg PO Q8 Qty: 77 0RF lisinopril 10 mg Tablet 10 mg PO QAM Qty: 30 0RF ceftriaxone 2 gram recon soln 2 g IV DAILY 26 Days Qty: 10 0RF vancomycin in 0.9 % sodium chl 1 gram/200 mL piggyback 1 g IV Q12H 26 Days Qty: 63337 0RF Continued aspirin 81 mg tablet,delayed release (DR/EC) 81 mg PO HS quetiapine 50 mg tablet 50 mg PO HS melatonin 10 mg Tablet 10 mg PO HS cyanocobalamin (vitamin B-12) [Vitamin B-12] 5,000 mcg Tablet, Sublingual 5,000 mcg SUBLINGUAL WK Rx Instructions: TAKES ON SATURDAYS @ HS ONLY. acetaminophen [Tylenol Extra Strength] 500 mg Tablet 1,000 mg PO HS docusate sodium 250 mg Capsule 250 mg PO HS cholecalciferol (vitamin D3) [Vitamin D3] 50 mcg (2,000 unit) Capsule 50 mcg PO HS Probiotic 10 billion cell Capsule 10,000 mmu cells PO HS Discontinued fluconazole [Diflucan] 100 mg tablet 100 mg PO HS Discharge Orders: Discharge Order (Routine); Ordered 09/08/22 Ordered By: Gunjan Mckeon Admission Data Admit Date/Time: 08/23/22 02:05 Attending Provider: Edward Bowden Admit Provider: Cody Zepeda Primary Care Provider: Davonte Jackson Other Providers: Cody Zepeda ; Dimitri Sousa ; [facility] ; Norma Stephens ; Diego Deal ; Sarah Yoder ; Eleno Mckinley ; [place] ; Ivelisse Guan ; Lucy Green ; Matthew Cardoso ; Nova Garcia ; [facility] [place] ; [facility] Coding Level of Care Code HOSP INP/OBS DISCH >30 MIN Diagnoses Cellulitis of foot, left L03.116 Metabolic encephalopathy G93.41 Hypertension I10 Hypertension type: essential hypertension Suprapubic catheter Z93.59 Type II diabetes mellitus E11.9
== END 2022-09-08 11:35 | DRG 637 ==
LOC: ED 20:52 → 3E 08-23 02:05 → SUATTDRO 08-23 02:05 → 3E 08-23 04:00